=== PATIENT | female | born 1945 | race Caucasian/White ===

== ENCOUNTER → 2017-10-22 06:26 | Outpatient (CLI) | payer SELFPAY ==
--- NOTE | 2017-10-22 09:55 | STRESSREP ---
Stress Test Report Pharmacologic myocardial perfusion stress test. 72-year-old lady with a history of previous LAD stenting. Medications aspirin, carvedilol, lisinopril. Stress protocol: Resting EKG demonstrates normal sinus rhythm with a rate of 72 bpm left bundle branch block pattern is noted resting blood pressures 160/94 mmHg. 0.4 mg regadenoson was infused per usual protocol followed by rapid intravenous saline flush injection continuous EKG monitoring was performed. Patient maintained sinus rhythm throughout the recording. The maximum heart rate was 107 bpm which was 72% of maximum predicted heart rate the maximum workload was 1 metabolic equivalent. At rest left bundle branch block changes only were noted and at peak infusion left bundle branch block on it was noted. Myocardial perfusion protocol. 11.4 mCi of technetium 99m sestamibi was injected at rest. 0.4 mg of regadenoson was infused per usual protocol. Peak infusion 32.7 mCi of technetium 99m sestamibi was injected stress images were obtained stress and rest images were reconstructed and compared in the short axis vertical long horizontal long axis. Gated images were also obtained pre- Perfusion SPECT analysis: Review of the stress images demonstrate a medium-sized defect noted involving the mid anterior wall. The septum lateral wall and inferior wall appear to be well perfused. The resting images demonstrate mild to moderate improvement in this area suggesting residual ischemia present. Gated SPECT analysis. The gated ejection fraction is noted to be 57% with mild dyssynchrony noted of the anterior apical wall. Conclusion: Abnormal pharmacologic myocardial perfusion stress test with moderate mid anterior ischemia. Left bundle branch block pattern noted Mild left ventricular dyssynchrony. Preserved EF.
== END ==
PROVIDERS: Family Provider Nurse Practitioner Family; PCP Nurse Practitioner Family; Visit Provider Internal Medicine Cardiovascular Disease
DX: I25.10 Atherosclerotic heart disease of native coronary artery without angina pectoris (principal); I25.2 Old myocardial infarction; Z95.5 Presence of coronary angioplasty implant and graft; I25.5 Ischemic cardiomyopathy; I50.22 Chronic systolic (congestive) heart failure
CPT/HCPCS: 78452; 93017; 93306; A9500; A4216; J2785

== ENCOUNTER → 2017-10-30 08:44 | Outpatient (CLI) | payer OTHER, SELFPAY ==
[2017-10-30 09:24] LABS: Absolute Neutrophil Count 2.4 X10^3/uL (2.0-7.7); Basophil# 0.07 X10^3/uL; Basophil% 1.4 % (0-1); Eosinophil# 0.09 X10^3/uL; Eosinophils% 1.8 % (0-5); Hematocrit 39.1 % (37-47); Hemoglobin 12.9 g/dl (12.0-15.0); Lymphocyte % 41.1 % (19-41); Mean Corpuscular Hgb 30.4 pg (27.0-32.0); Mean Platelet Vol. 10.1 fl (6.2-12.0); Monocyte# 0.33 X10^3/uL; Monocyte% 6.8 % (0-10); Neutrophil # 2.38 X10^3/uL (2.7-7.7); Neutrophil % 48.9 % (47-70); Platelet Count 235 K/mm3 (150-450); RBC Distribution Width CV 12.7 % (11.6-14.6); RBC Distribution Width SD 42.5 fl (35.1-43.9); Red Blood Count 4.25 M/mm3 (4.2-5.4); White Blood Count 4.9 K/mm3 (4.4-11.0)
[2017-10-30 09:29] LABS: International Normalized Ratio 1.1; Prothrombin Time (Protime)PT. 13.9 SECONDS (11.7-14.9)
[2017-10-30 09:30] LABS: Partial Thromboplast Time 27.4 Seconds (24.1-36.2)
[2017-10-30 09:43] LABS: POSITIVE COUNT NO; POSITIVE DIFFERENTIAL NO; POSITIVE MORPHOLOGY NO
[2017-10-30 10:00] LABS: Anion Gap 10 (5-15); BUN 16 mg/dL (7-18); BUN/Creat Ratio 18.2 RATIO (10-20); Calcium,Total 9.1 mg/dL (8.5-10.1); Chloride 105 mmol/L (98-107); Creatinine, Serum 0.88 mg/dL (0.55-1.02); EST Glomerular Filtration Rate 67 mL/min (>60); Est Glom Filt Rate - Afr Amer 81 mL/min (>60); Glucose 103 mg/dL (74-106); Potassium 4.4 mmol/L (3.5-5.1); Sodium Level 141 mmol/L (136-145)
== END ==
PROVIDERS: Family Provider Nurse Practitioner Family; PCP Nurse Practitioner Family; Visit Provider Internal Medicine Cardiovascular Disease
DX: I11.0 Hypertensive heart disease with heart failure (principal); I50.22 Chronic systolic (congestive) heart failure; E78.5 Hyperlipidemia, unspecified; Z95.5 Presence of coronary angioplasty implant and graft; I25.5 Ischemic cardiomyopathy; I25.10 Atherosclerotic heart disease of native coronary artery without angina pectoris; I25.2 Old myocardial infarction; R94.39 Abnormal result of other cardiovascular function study
CPT/HCPCS: 36415; 71046; 80048; 85025; 85610; 85730

== ENCOUNTER 2017-11-05 08:28 | Day surgery (SDC) | payer OTHER, SELFPAY ==
[2017-11-02 08:46] VITALS: BMI 30.9
== END 2017-11-05 16:35 | disposition home or self-care (01) ==
LOC: CLSP 08:29
PROVIDERS: Family Provider Nurse Practitioner Family; PCP Nurse Practitioner Family; Visit Provider Internal Medicine Cardiovascular Disease
DX: I25.10 Atherosclerotic heart disease of native coronary artery without angina pectoris (principal); I25.2 Old myocardial infarction; Z95.5 Presence of coronary angioplasty implant and graft; Z79.899 Other long term (current) drug therapy; Z79.82 Long term (current) use of aspirin; E78.5 Hyperlipidemia, unspecified; I11.0 Hypertensive heart disease with heart failure; I50.22 Chronic systolic (congestive) heart failure
CPT/HCPCS: 93458; J7040; C1769; Q9967

== ENCOUNTER 2022-07-06 21:35 | Emergency (ER) | payer OTHER, SELFPAY ==
[2022-07-06 21:36] VITALS: BP 196/100; PULSE 77; RESP 18; TEMP 36.7; O2SAT 99; BMI 31.2
--- NOTE | 2022-07-06 22:20 | EX.ED.DYSGE1 ---
HPI History of Present Illness Chief Complaint: Cellulitis Informant: patient Onset/Context/Timing Onset: Today Context: Gradual Onset Current Severity: Mild Maximum Severity: Moderate Narrative Narrative: Patient presents secondary to pain and redness to the right lower extremity. She states she noted the symptoms today. She did not note a fever or chills at home. No wounds or injuries to her leg. She denies chest pain and shortness of breath. [facility] Medical History (Updated 07/06/22 @ 23:[address] Daxa Hinojosa MD) Atherosclerotic heart disease of [place] coronary artery without angina pectoris Chronic systolic CHF (congestive heart failure) Essential (primary) hypertension History of non-ST elevation myocardial infarction (NSTEMI) (07/01/14) Hyperlipidemia Ischemic cardiomyopathy Left bundle branch block (LBBB) Home Medications artic sea 1 tab PO DAILY 10/03/17 [History Last Taken Unknown] aspirin 81 mg tablet,delayed release (Adult Aspirin Regimen) 81 mg PO QDAY 10/03/17 [History Last Taken 11/05/17] cinnamon bark 500 mg capsule (Cinnamon) 500 mg PO BID 10/03/17 [History Last Taken Unknown] multivitamin 1 tab PO QDAY 10/03/17 [History Last Taken Unknown] nitroglycerin 0.4 mg sublingual tablet 0.4 mg sublingual Q5-15M PRN chest pain 10/03/17 [History Last Taken Unknown] calcium carbonate 1,000 mg tablet 2,000 mg PO DAILY 05/09/19 [History Last Taken Unknown] red yeast rice 600 mg capsule 1,200 mg PO QHS 05/09/19 [History Last Taken Unknown] carvedilol 6.25 mg tablet 6.25 mg PO BID #180 tabs 05/17/21 [Rx Last Taken Unknown] citalopram 10 mg tablet 10 mg PO DAILY 05/17/21 [History Last Taken Unknown] lisinopril 5 mg tablet 5 mg PO DAILY #90 tabs 07/28/21 [Rx Last Taken Unknown] cephalexin 500 mg capsule 500 mg PO Q6 #40 CAPSULES 07/06/22 [Rx Last Taken Unknown] sulfamethoxazole 800 mg-trimethoprim 160 mg tablet (Bactrim DS) 1 tab PO BID #20 tabs 07/06/22 [Rx Last Taken Unknown] Allergy/AdvReac Type Severity Reaction Status Date / Time No Known Allergies Allergy Verified 07/06/22 21:38 Family History Father CAD (coronary artery disease) Sudden cardiac Sister Hypertension Surgical History History of coronary artery stent placement (07/01/14) History of left heart catheterization (11/05/17) History of right and left heart catheterization (07/01/14) Social History Smoking Status: Never smoker ROS ROS ED Constitutional Constitutional ED: Denies chills or fever(s) Eyes Eyes: Denies change in vision or discharge from eye(s) ENT ENT ED: Denies discharge from eye(s), rhinorrhea or sore throat Cardiovascular Cardiovascular: Denies chest pain or palpitations Respiratory/Chest Respiratory/Chest: Denies cough or dyspnea Gastrointestinal Gastrointestinal: Denies abdominal pain, nausea or vomiting Genitourinary Genitourinary ED: Denies dysuria Musculoskeletal Musculoskeletal: Reports extremity pain; Denies back pain Integumentary Reports other Details: Right leg erythema ; Denies Abrasions or rash Neurologic Neurologic: Denies headache(s) or weakness Psychiatric Psychiatric: Denies anxiety or depression Allergic/Immunologic Allergic/Immunologic ED: Denies lip swelling or urticaria EXAM Physical Exam Const Vital Signs: 07/06/22 21:36 Temperature 98.0 F Temperature Source Temporal Pulse Rate 77 Respiratory Rate 18 Blood Pressure 196/100 H Blood Pressure Mean 132 Pulse Ox 99 Oxygen Delivery Method Room Air Positive well nourished and well developed General Appearance ED: well developed HEENT Reports moist mucous membranes Eyes PERRL and EOMs intact bilaterally Neck no lymphadenopathy Chest Wall inspection of chest normal and palpation of chest normal Resp normal respiratory effort and clear to auscultation bilaterally Cardio regular rate and regular rhythm GI normal to inspection, nondistended, normoactive bowel sounds Extremity Extremity Narrative: Erythema to the distal aspect of the right lower leg over the anterior leg. No open wounds or lesions. No tenderness or erythema over the foot. Neuro oriented x3 and no sensory deficits noted Motor Exam: strength 5/5 throughout Psych mental status grossly normal Skin Skin Narrative: Right leg erythema as noted above. MDM MDM MDM Narrative Medical decision making narrative: Although patient's blood pressure is elevated here she does bring along her blood pressure trends for the last couple of days. She is been running in the 120s to 130s systolic. Given the patient's cellulitis lab work is obtained including blood cultures to evaluate for infection. Right lower extremity ultrasound is of obtained to evaluate for DVT. Lab Data Attestation: I reviewed the patient's lab results. Labs: Laboratory Results - last 24 hr 07/06/22 07/06/22 22:29 22:29 WBC 6.1 RBC 4.11 L Hgb 12.7 Hct 39.1 MCV 95.1 MCH 30.9 MCHC 32.5 RDW Std Deviation 46.2 H RDW Coeff of Lizet 13.2 Plt Count 220 MPV 9.8 Immature Gran % (Auto) 0.200 Neut % (Auto) 48.3 Lymph % (Auto) 38.1 [place] % (Auto) 10.6 H Eos % (Auto) 1.8 Baso % (Auto) 1.0 Absolute Neuts (auto) 2.9 Absolute Lymphs (auto) 2.31 Nucleated RBC % 0 Sodium 140 Potassium 3.8 Chloride 104 Carbon Dioxide 28.0 Anion Gap 8 BUN 21 H Creatinine 0.87 Estim Creat Clear Calc 46.76 Est GFR (MDRD) Af Amer 81 Est GFR (MDRD) Non-Af 67 BUN/Creatinine Ratio 24.1 H Glucose 115 H Calcium 9.3 Treatment and Re-Evaluation :: CBC was normal white count and normal differential. Chemistry studies unremarkable. Venous ultrasound of the right lower extremity reveals no evidence of DVT. She does have a Bakers cyst noted behind the right knee measuring approximate 4 cm in diameter. Patient states that when she had meniscus surgery in the past they did drain this but apparently is reaccumulating. The erythema on her right lower leg is outlined with a surgical marker. She will be started on Bactrim and Keflex to treat her cellulitis. Return instructions provided. Discharge Plan Triage Chief Complaint: Cellulitis ED Provider: Daxa Hinojosa Dx/Rx/DC Orders Clinical Impression: Cellulitis Instructions: ED Cellulitis Prescriptions: New sulfamethoxazole-trimethoprim [Bactrim DS] 800-160 mg tablet 1 tab PO BID Qty: 20 0RF cephalexin 500 mg capsule 500 mg PO Q6 Qty: 40 0RF No Action aspirin [Adult Aspirin Regimen] 81 mg tablet,delayed release (DR/EC) 81 mg PO QDAY cinnamon bark [Cinnamon] 500 mg capsule 500 mg PO BID multivitamin tablet 1 tab PO QDAY nitroglycerin 0.4 mg tablet, sublingual 0.4 mg SUBLINGUAL Q5-15M PRN (Reason: chest pain) artic sea 1 tab PO DAILY calcium carbonate 1,000 mg tablet 1,000 mg tablet 2,000 mg PO DAILY red yeast rice 600 mg capsule 1,200 mg PO QHS Label Comments: 600 mg PO at bedtime Rx Instructions: 600 mg PO at bedtime citalopram 10 mg tablet 10 mg PO DAILY carvedilol 6.25 mg tablet 6.25 mg PO BID Qty: 180 3RF lisinopril 5 mg tablet 5 mg PO DAILY Qty: 90 3RF Primary Care Provider: Soraida Loera Referrals: Soraida Loera DO [Primary Care Provider] - 1-2 Weeks Disposition Disposition: Home, Self Care
--- NOTE | 2022-07-06 22:22 | US_ITS ---
EXAM: US right lower extremity venous Doppler. HISTORY: RT LOWER LEG REDNESS AND SWELLING TECHNIQUE: US Venous Duplex LE Unilat / Limited COMPARISON: None. LIMITATIONS: None. FLOW: Normal. THROMBUS: None. AUGMENTATION: Normal. 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 SUPERFICIAL VEINS: Normal. OTHER: None. CONCLUSION: No evidence of deep venous thrombosis of the right lower extremity. Electronically Signed: Oswald Gonzalez MD at 23:14 EDT , US/Venous Duplex Imag/Limited/Uni IMPRESSION: undefined
[2022-07-06 22:37] LABS: Absolute Lymphocyte Count 2.31 X10^3/uL (0.83-4.51); Absolute Neutrophil Count 2.9 X10^3/uL (2.0-7.7); Basophil# 0.06 X10^3/uL; Eosinophil# 0.11 X10^3/uL; Eosinophils% 1.8 % (0-5); Hematocrit 39.1 % (37-47); Hemoglobin 12.7 g/dL (12.0-15.0); Lymphocyte # 2.31 X10^3/ul (0.83-4.51); Lymphocyte % 38.1 % (19-41); Mean Corp Hgb Conc 32.5 g/dL (32-36); Mean Corpuscular Hgb 30.9 pg (27.0-32.0); Mean Corpuscular Volume 95.1 fL (81-99); Mean Platelet Vol. 9.8 fl (6.2-12.0); Monocyte# 0.64 X10^3/uL; Monocyte% 10.6 % (0-10); NRBC Flagged by Analyzer 0 % (0-5); Neutrophil # 2.93 X10^3/uL (2.7-7.7); Neutrophil % 48.3 % (47-70); Platelet Count 220 K/mm3 (150-450); RBC Distribution Width CV 13.2 % (11.6-14.6); RBC Distribution Width SD 46.2 fl (35.1-43.9); Red Blood Count 4.11 M/mm3 (4.2-5.4); White Blood Count 6.1 K/mm3 (4.4-11.0)
[2022-07-06 22:55] LABS: Anion Gap 8 (5-15); BUN 21 mg/dL (7-18); BUN/Creat Ratio 24.1 RATIO (10-20); Calcium,Total 9.3 mg/dL (8.5-10.1); Chloride 104 mmol/L (98-107); Creatinine, Serum 0.87 mg/dL (0.55-1.02); EST Glomerular Filtration Rate 67 mL/min (>60); Est Glom Filt Rate - Afr Amer 81 mL/min (>60); Estimated Creatinine Clearance 46.76 ml/min; Glucose 115 mg/dL (74-106); Potassium 3.8 mmol/L (3.5-5.1); Sodium Level 140 mmol/L (136-145)
[2022-07-06 23:03] VITALS: BP 146/77; PULSE 81; RESP 14; O2SAT 97
[2022-07-06] MEDS: Smz/Tmp Ds Tablet 1 TABLET PO (23:07)
[2022-07-06] MEDS: Cephalexin 250 MG Capsule 500 MG PO (23:07)
== END 2022-07-06 23:16 | disposition home or self-care (01) ==
PROVIDERS: Emergency Provider Emergency Medicine; PCP Internal Medicine; Visit Provider Emergency Medicine
DX: L03.90 Cellulitis, unspecified (principal); I11.0 Hypertensive heart disease with heart failure; I50.22 Chronic systolic (congestive) heart failure; I25.10 Atherosclerotic heart disease of native coronary artery without angina pectoris; E78.5 Hyperlipidemia, unspecified; Z79.82 Long term (current) use of aspirin; Z95.5 Presence of coronary angioplasty implant and graft
CPT/HCPCS: 80048; 85025; 87040; 93971; 99284; A4216

== ENCOUNTER 2022-07-10 22:34 | Emergency (ER) | payer OTHER, SELFPAY ==
[2022-07-10 22:35] VITALS: BP 207/92; PULSE 70; RESP 18; TEMP 36.8; O2SAT 97
--- NOTE | 2022-07-10 23:03 | EKG12_ITS ---
Test Reason : DYSRHYTHMIA Blood Pressure : / mmHG Vent. Rate : 063 BPM Atrial Rate : 063 BPM P-R Int : 174 ms QRS Dur : 142 ms QT Int : 476 ms P-R-T Axes : 046 -41 079 degrees QTc Int : 487 ms Normal sinus rhythm Left axis deviation Left bundle branch block Abnormal ECG Confirmed by GALILEO FERNANDO, JORY ([id number]), field map editor NATASHA GONCALVES ([id number]) on 07/11/2022 9:52:21 AM Referred By: JOSLYN Confirmed By:JORY GURROLA MD
[2022-07-10 23:14] VITALS: BP 180/72; PULSE 66; RESP 15; O2SAT 97
[2022-07-10] MEDS: proCHLORPERazine 10 MG/2 ML Vial 5 MG IV (23:22)
[2022-07-10 23:29] LABS: Absolute Lymphocyte Count 1.86 X10^3/uL (0.83-4.51); Absolute Neutrophil Count 5.1 X10^3/uL (2.0-7.7); Basophil# 0.04 X10^3/uL; Basophil% 0.5 % (0-1); Eosinophil# 0.06 X10^3/uL; Eosinophils% 0.8 % (0-5); Hematocrit 40.4 % (37-47); Hemoglobin 14.1 g/dL (12.0-15.0); Lymphocyte # 1.86 X10^3/ul (0.83-4.51); Lymphocyte % 24.8 % (19-41); Mean Corp Hgb Conc 34.9 g/dL (32-36); Mean Corpuscular Hgb 31.3 pg (27.0-32.0); Mean Corpuscular Volume 89.6 fL (81-99); Mean Platelet Vol. 9.7 fl (6.2-12.0); Monocyte# 0.35 X10^3/uL; Monocyte% 4.7 % (0-10); NRBC Flagged by Analyzer 0 % (0-5); Neutrophil # 5.12 X10^3/uL (2.7-7.7); Neutrophil % 68.3 % (47-70); Platelet Count 250 K/mm3 (150-450); RBC Distribution Width CV 12.3 % (11.6-14.6); RBC Distribution Width SD 40.4 fl (35.1-43.9); Red Blood Count 4.51 M/mm3 (4.2-5.4); White Blood Count 7.5 K/mm3 (4.4-11.0)
[2022-07-10 23:36] LABS: Anion Gap 12 (5-15); BUN 19 mg/dL (7-18); BUN/Creat Ratio 20.7 RATIO (10-20); Calcium,Total 9.2 mg/dL (8.5-10.1); Chloride 92 mmol/L (98-107); Creatinine, Serum 0.92 mg/dL (0.55-1.02); EST Glomerular Filtration Rate 63 mL/min (>60); Est Glom Filt Rate - Afr Amer 76 mL/min (>60); Glucose 135 mg/dL (74-106); Potassium 4.1 mmol/L (3.5-5.1); Sodium Level 126 mmol/L (136-145); Troponin-I HS 10 pg/mL (3.0-54.0)
[2022-07-10 23:45] VITALS: BP 165/69; PULSE 80; RESP 18; O2SAT 94
[2022-07-11] VITALS: PULSE 67; RESP 12; O2SAT 92
--- NOTE | 2022-07-11 00:22 | EDS_ITS ---
HPI History of Present Illness Chief Complaint: Hypertension Narrative Narrative: Patient is a 77-year-old female with past medical history of hypertension and CAD as well as hyperlipidemia. She was seen in the ER on July 06 secondary to right lower leg cellulitis and placed on Bactrim and Keflex. She states that over the last few days her stomach is felt upset. She states that she has not been eating well because of this. She reports that today she had 2 bouts of nausea with vomiting. She denies any blood or discoloration to the emesis. She states that she checked her blood pressure and it was elevated approximately 180-190 systolically at home. She states that typically on just lisinopril her blood pressure will run approximately 120 systolically. She denies any headache change in vision or abdominal pain but with the bouts of nausea and vomiting as well as the elevated blood pressure she presents for evaluation. [facility] Medical History (Updated 07/11/22 @ 01:[address] Loyd Gregg, DO) Atherosclerotic heart disease of [place] coronary artery without angina pectoris Chronic systolic CHF (congestive heart failure) Essential (primary) hypertension History of non-ST elevation myocardial infarction (NSTEMI) (07/01/14) Hyperlipidemia Ischemic cardiomyopathy Left bundle branch block (LBBB) Home Medications artic sea 1 tab PO DAILY 10/03/17 [History Last Taken Unknown] aspirin 81 mg tablet,delayed release (Adult Aspirin Regimen) 81 mg PO QDAY 10/03/17 [History Last Taken 11/05/17] cinnamon bark 500 mg capsule (Cinnamon) 500 mg PO BID 10/03/17 [History Last Taken Unknown] multivitamin 1 tab PO QDAY 10/03/17 [History Last Taken Unknown] nitroglycerin 0.4 mg sublingual tablet 0.4 mg sublingual Q5-15M PRN chest pain 10/03/17 [History Last Taken Unknown] calcium carbonate 1,000 mg tablet 2,000 mg PO DAILY 05/09/19 [History Last Taken Unknown] red yeast rice 600 mg capsule 1,200 mg PO QHS 05/09/19 [History Last Taken Unknown] carvedilol 6.25 mg tablet 6.25 mg PO BID #180 tabs 05/17/21 [Rx Last Taken Unknown] citalopram 10 mg tablet 10 mg PO DAILY 05/17/21 [History Last Taken Unknown] lisinopril 5 mg tablet 5 mg PO DAILY #90 tabs 07/28/21 [Rx Last Taken Unknown] cephalexin 500 mg capsule 500 mg PO Q6 #40 CAPSULES 07/06/22 [Rx Last Taken Unknown] sulfamethoxazole 800 mg-trimethoprim 160 mg tablet (Bactrim DS) 1 tab PO BID #20 tabs 07/06/22 [Rx Last Taken Unknown] ondansetron 4 mg disintegrating tablet 4 mg PO TID PRN nausea and vomiting 7 days #21 tabs 07/11/22 [Rx Last Taken Unknown] Allergy/AdvReac Type Severity Reaction Status Date / Time No Known Allergies Allergy Verified 07/10/22 22:37 Family History Father CAD (coronary artery disease) Sudden cardiac Sister Hypertension Surgical History History of coronary artery stent placement (07/01/14) History of left heart catheterization (11/05/17) History of right and left heart catheterization (07/01/14) Social History Smoking Status: Never smoker ROS ROS ED Constitutional Constitutional ED: Denies chills or fever(s) Eyes Eyes: Denies change in vision ENT ENT ED: Denies sore throat Cardiovascular Cardiovascular: Denies chest pain Respiratory/Chest Respiratory/Chest: Denies cough or dyspnea Gastrointestinal Gastrointestinal: Reports diarrhea, nausea and vomiting; Denies abdominal pain Genitourinary Genitourinary ED: Denies dysuria Musculoskeletal Musculoskeletal: Denies myalgias Integumentary Denies rash Neurologic Neurologic: Denies headache(s), paresthesias or weakness Hematologic/Lymphatic Hematologic/Lymphatic: Denies easy bleeding or easy bruising EXAM Physical Exam Const Vital Signs: 07/10/22 22:35 07/10/22 23:14 07/10/22 23:14 Temperature 98.3 F Temperature Source Temporal Pulse Rate 70 66 Respiratory Rate 18 15 Respiratory Effort Normal Respiratory Pattern Normal Blood Pressure 207/92 H 180/72 H Blood Pressure Mean 130 108 Pulse Ox 97 97 Oxygen Delivery Method Room Air Room Air 07/10/22 23:45 07/11/22 00:00 07/11/22 00:27 Temperature Temperature Source Pulse Rate 80 67 68 Respiratory Rate 18 12 17 Respiratory Effort Respiratory Pattern Blood Pressure 165/69 H 141/63 H Blood Pressure Mean 97 Pulse Ox 94 92 93 Oxygen Delivery Method Positive well nourished and well developed General Appearance ED: well developed HEENT Reports moist mucous membranes Eyes PERRL and EOMs intact bilaterally General Eye ED: Negative for scleral icterus Neck supple Neck Narrative: No nuchal rigidity or meningeal signs Resp normal respiratory effort and clear to auscultation bilaterally Cardio regular rate and regular rhythm Rate: other Other Details: Radial pulses are plus 2 out of 4 bilaterally are equal and symmetric GI non-tender and non-distended GI Narrative: Abdomen is soft nontender and nondistended with hyperactive bowel sounds. No voluntary guarding or rigidity. No pulsatile mass Auscultation: hyperactive bowel sounds Palpation: soft Extremity normal to inspection Extremity Narrative: No asymmetric edema no pitting edema negative Homans' sign bilaterally. The cellulitis previous treated on July 06 has resolved. Neuro oriented x3, CN's II-XII intact bilaterally and no sensory deficits noted Neuro Narrative: Cranial nerves II through XII are grossly intact there are no focal neurologic deficits. No pronator drift no dysmetria no truncal ataxia. NIH stroke scale score of 0 Sensorium / Orientation: alert Psych mental status grossly normal Skin no rashes or lesions noted MDM MDM MDM Narrative Medical decision making narrative: Patient presented to the ER hypertensive with a systolic value above 200. Despite this she had no headache or change in vision or abdominal pain. Therefore my concern for a spontaneous subarachnoid or hemorrhagic stroke is low. Also she did not complain of abdominal pain or chest pain I have low concern for acute coronary syndrome or a abdominal aortic aneurysm/dissection. Based on the fact patient has normal blood pressure at home and is not elevated I feel this is secondary to feeling unwell as well as whitecoat syndrome. In order to ensure that there are no signs of endorgan damage I did elect to perform a basic blood work. Labs showed no signs of acute kidney injury or elevation to her cardiac enzymes. EKG is normal sinus rhythm. And has neuro exam is normal and she has no headache I do not feel the need for a CT scan. The patient's sodium is low at 126 which correlate with her not eating or drinking well for the last few days and therefore she was given normal saline to help replenish this. As I felt that the blood pressure was related to feeling unwell and nerves I gave her IV Compazine and this reduced her blood pressure to 141/63. Therefore at this time with work-up showing no signs of endorgan damage and blood pressure improving there is no need for further observation in the ER he is otherwise safe for discharge. History & Record Review Discussion w/independent historian: Patient, Family and Significant other Lab Data Attestation: I reviewed the patient's lab results. Labs: Laboratory Results - last 24 hr 07/10/22 07/10/22 23:12 23:12 WBC 7.5 RBC 4.51 Hgb 14.1 Hct 40.4 MCV 89.6 D MCH 31.3 MCHC 34.9 D RDW Std Deviation 40.4 RDW Coeff of Lizet 12.3 Plt Count 250 MPV 9.7 Immature Gran % (Auto) 0.900 Neut % (Auto) 68.3 Lymph % (Auto) 24.8 [place] % (Auto) 4.7 Eos % (Auto) 0.8 Baso % (Auto) 0.5 Absolute Neuts (auto) 5.1 Absolute Lymphs (auto) 1.86 Nucleated RBC % 0 Sodium 126 L Potassium 4.1 Chloride 92 L Carbon Dioxide 22.0 Anion Gap 12 BUN 19 H Creatinine 0.92 Est GFR (MDRD) Af Amer 76 Est GFR (MDRD) Non-Af 63 BUN/Creatinine Ratio 20.7 H Glucose 135 H Calcium 9.2 Troponin I High Sens 10 Discharge Plan Triage Chief Complaint: Hypertension ED Provider: Loyd Gregg Dx/Rx/DC Orders Clinical Impression: Accelerated hypertension, Hyponatremia, Left bundle branch block (LBBB) Instructions: ED Hypertension, Established, ED Hyponatremia Prescriptions: New ondansetron 4 mg tablet,disintegrating 4 mg PO TID PRN (Reason: nausea and vomiting) 7 Days Qty: 21 0RF No Action aspirin [Adult Aspirin Regimen] 81 mg tablet,delayed release (DR/EC) 81 mg PO QDAY cinnamon bark [Cinnamon] 500 mg capsule 500 mg PO BID multivitamin tablet 1 tab PO QDAY nitroglycerin 0.4 mg tablet, sublingual 0.4 mg SUBLINGUAL Q5-15M PRN (Reason: chest pain) artic sea 1 tab PO DAILY calcium carbonate 1,000 mg tablet 1,000 mg tablet 2,000 mg PO DAILY red yeast rice 600 mg capsule 1,200 mg PO QHS Label Comments: 600 mg PO at bedtime Rx Instructions: 600 mg PO at bedtime citalopram 10 mg tablet 10 mg PO DAILY carvedilol 6.25 mg tablet 6.25 mg PO BID Qty: 180 3RF lisinopril 5 mg tablet 5 mg PO DAILY Qty: 90 3RF sulfamethoxazole-trimethoprim [Bactrim DS] 800-160 mg tablet 1 tab PO BID Qty: 20 0RF cephalexin 500 mg capsule 500 mg PO Q6 Qty: 40 0RF Primary Care Provider: Soraida Loera Referrals: Soraida Loera DO [Primary Care Provider] - Activity Restrictions/Additional Instructions: Please continue the antibiotics as directed from your last visit but begin taking Zofran 3 times a day to control any nausea sensation associated with the medication. If you have any further concerns or worsening of symptoms please return for repeat evaluation Disposition Disposition: Home, Self Care Discharge Date/Time: 07/11/22 00:35
[2022-07-11 00:27] VITALS: BP 141/63; PULSE 68; RESP 17; O2SAT 93
[2022-07-11 00:29] VITALS: BMI 31.6
[2022-07-11] MEDS: Ondansetron ODT 4 MG Tablet PO (00:32)
== END 2022-07-11 00:35 | disposition home or self-care (01) ==
PROVIDERS: Emergency Provider Emergency Medicine; PCP Internal Medicine; Visit Provider Emergency Medicine
DX: I11.0 Hypertensive heart disease with heart failure (principal); I50.22 Chronic systolic (congestive) heart failure; E87.1 Hypo-osmolality and hyponatremia; I25.10 Atherosclerotic heart disease of native coronary artery without angina pectoris; E78.5 Hyperlipidemia, unspecified; Z79.82 Long term (current) use of aspirin; Z79.899 Other long term (current) drug therapy; Z95.5 Presence of coronary angioplasty implant and graft; I44.7 Left bundle-branch block, unspecified
CPT/HCPCS: 80048; 84484; 85025; 93005; 96361; 96374; 99283; J7040; A4216

== ENCOUNTER 2024-10-24 21:15 | Emergency (ER) | payer OTHER, SELFPAY ==
[2024-10-24 21:16] VITALS: BP 218/101; PULSE 64; RESP 18; TEMP 36.2; O2SAT 97; BMI 29.1
[2024-10-24 22:02] LABS: Hematocrit 38.8 % (37-47); Hemoglobin 14.0 g/dL (12.0-15.0); Immature Granulocytes Count 0.010 X10^3/uL (0.0-0.0); Mean Corp Hgb Conc 36.1 g/dL (32-36); Mean Corpuscular Volume 90.9 fL (81-99); Mean Platelet Vol. 9.9 fl (6.2-12.0); NRBC Flagged by Analyzer 0 % (0-5); Platelet Count 248 K/mm3 (150-450); RBC Distribution Width CV 12.5 % (11.6-14.6); RBC Distribution Width SD 41.3 fl (35.1-43.9); Red Blood Count 4.27 M/mm3 (4.2-5.4); White Blood Count 6.3 K/mm3 (4.4-11.0)
[2024-10-24 22:03] VITALS: O2SAT 97
[2024-10-24 22:04] VITALS: BP 198/76; PULSE 61; RESP 18; O2SAT 98
--- NOTE | 2024-10-24 22:18 | RAD_ITS ---
PROCEDURE: CHEST 1 VIEW (PORTABLE) 10/24/2024 REASON FOR EXAM: CHEST PAIN TECHNIQUE: Frontal view of the chest. COMPARISON: 10/30/2017 FINDINGS: Lungs/Pleura: Clear. No pneumothorax or sizable pleural effusion. Heart/Mediastinum: Within normal limits. Bones/Soft tissues: Mild degenerative changes of the thoracic spine. RAD/Chest 1 View (Portable) IMPRESSION: No acute cardiopulmonary disease. Reading Location: [id number]
[2024-10-24 22:29] LABS: Anion Gap 13 (5-15); BUN 11 mg/dL (4-19); BUN/Creat Ratio 14.5 RATIO (10-20); Calcium,Total 10.0 mg/dL (7.6-11.0); Carbon Dioxide 24.4 mmol/L (21.0-32.0); Chloride 100 mmol/L (98-108); Estimated Creatinine Clearance 59.41 ml/min (50-250); Glucose 111 mg/dL (70-99); Potassium 4.1 mmol/L (3.3-5.1); Troponin T High Sensitivity 16 ng/L (<=14)
--- NOTE | 2024-10-24 22:37 | EX.ED.DYSGE1 ---
HPI History of Present Illness Chief Complaint: Hypertension Informant: patient and family Onset/Context/Timing Onset: Weeks Context: Gradual Onset Timing: Intermittent Current Severity: Mild Maximum Severity: Mild Narrative Narrative: 79-year-old female history of hypertension for which he takes carvedilol and lisinopril. Recently her primary care physician and internet researcher office have been adjusting medications to try to get her blood pressure better under control. The last 3 weeks been running higher. She also has a history of prior CT with cardiac stent and is on aspirin only no other anticoagulation. States she has had intermittent diarrhea last several days but none today. Denies any headache. No chest pain. Prior similar symptoms: Yes Recent Illness/Hospitalization: No PFSH [facility] Medical History Anxiety Degenerative disc disease Left bundle branch block (LBBB) Essential (primary) hypertension Hyperlipidemia Chronic systolic CHF (congestive heart failure) Ischemic cardiomyopathy Atherosclerotic heart disease of [place] coronary artery without angina pectoris History of non-ST elevation myocardial infarction (NSTEMI) (07/01/14) Home Medications ?Medication ?Instructions ?Recorded ?Last Taken ?Type artic sea 1 tab PO DAILY 10/03/17 Unknown History aspirin 81 mg tablet,delayed 81 mg PO QDAY 10/03/17 11/05/17 History release (Adult Aspirin Regimen) cinnamon bark 500 mg capsule 500 mg PO BID 10/03/17 Unknown History (Cinnamon) multivitamin 1 tab PO QDAY 10/03/17 Unknown History calcium carbonate 1,000 mg tablet 2,000 mg PO DAILY 05/09/19 Unknown History red yeast rice 600 mg capsule 1,200 mg PO QHS 05/09/19 Unknown History aloe PO 10/05/23 Unknown History garlic thyme PO 10/05/23 Unknown History magnesium maleate PO 10/05/23 Unknown History phytomega PO 10/05/23 Unknown History carvedilol 6.25 mg tablet 6.25 mg PO BID #60 tabs 10/02/24 Unknown Rx lisinopril 10 mg tablet 10 mg PO BID 10/02/24 Unknown History escitalopram oxalate 10 mg tablet 10 mg PO DAILY 10/24/24 Unknown History (Lexapro) Allergy/AdvReac Type Severity Reaction Status Date / Time No Known Allergies Allergy Verified 10/24/24 21:16 Family History Father CAD (coronary artery disease) Sudden cardiac Sister Hypertension Surgical History History of coronary artery stent placement (07/01/14) History of left heart catheterization (11/05/17) History of right and left heart catheterization (07/01/14) Social History Smoking Status: Never smoker ROS ROS ED ROS Narrative Diarrhea. Constitutional Constitutional ED: Denies chills or fever(s) Eyes Eyes: Denies blurry vision ENT ENT ED: Denies ear pain Cardiovascular Cardiovascular: Denies chest pain Respiratory/Chest Respiratory/Chest: Denies cough or dyspnea Gastrointestinal Gastrointestinal: Reports diarrhea; Denies abdominal pain, constipation, melena, nausea or vomiting Genitourinary Genitourinary ED: Denies dysuria or hematuria Musculoskeletal Musculoskeletal: Denies arthralgias or back pain Integumentary Denies abscess or Abrasions Neurologic Neurologic: Denies headache(s) Psychiatric Psychiatric: Denies anxiety or depression Endocrine Endocrinology: Denies cold intolerance Hematologic/Lymphatic Hematologic/Lymphatic: Reports none Allergic/Immunologic Allergic/Immunologic ED: Denies mouth swelling, tongue swelling or urticaria EXAM Physical Exam Narrative Exam Narrative: 79-year-old female sitting upright in bed vital signs stable she pressures elevated 218/101. Currently 1 minute Riomet's 191/81. She is in no distress. Family at bedside. H EENT exam pupils round react light extra motions are intact. No facial droop. Normal speech. No trauma. Neck nontender no JVD. Lungs clear to auscultation bilaterally. Heart regular rate and rhythm rate about 60 no murmur. Chest wall ribs nontender. Abdomen soft nontender. Moving all 4 extremities. Normal engineering programmer strength. Normal dorsi plantarflexion. Calves nontender no edema no cords. Neurologically she is awake alert. Answering questions following commands. NIH 0. Benign exam. Const Vital Signs: 10/24/24 21:16 10/24/24 22:03 10/24/24 22:04 Temperature 97.2 F L Temperature Source Temporal Pulse Rate 64 61 Respiratory Rate 18 18 Respiratory Effort Respiratory Pattern Blood Pressure 218/101 H 198/76 H Blood Pressure Mean 140 116 Pulse Ox 97 97 98 Oxygen Delivery Method Room Air Room Air Room Air 10/24/24 22:04 10/24/24 23:09 10/24/24 23:58 Temperature Temperature Source Pulse Rate 73 59 L Respiratory Rate 16 16 Respiratory Effort Normal Respiratory Pattern Normal Blood Pressure 176/74 H 199/71 H Blood Pressure Mean 108 113 Pulse Ox 98 97 Oxygen Delivery Method Room Air Room Air Positive well nourished and well developed; Negative for cachectic, contractures or unkempt General Appearance ED: well developed and NAD; Negative for unkempt, cachectic, contractures, cyanotic, diaphoretic or pallor Nutritional Appearance: Negative for cachectic HEENT Reports moist mucous membranes Negative for trauma or tenderness Eyes PERRL and EOMs intact bilaterally General Eye ED: Negative for pale conjunctiva or scleral icterus Neck no lymphadenopathy, supple and no JVD Chest Wall inspection of chest normal and palpation of chest normal Resp normal respiratory effort and clear to auscultation bilaterally Cardio regular rate, regular rhythm, S1 normal heart sound, S2 normal heart sound and no murmurs GI normal to inspection, nondistended, normoactive bowel sounds, non-tender, non-distended and no masses Auscultation: normoactive bowel sounds Palpation: soft; Negative for tender, guarding or rebound tenderness present Back/Spine no CVA tenderness General Back: Negative for CVA tenderness Cervical Spine: Negative for cervical spine tenderness Thoracic Spine / Upper Back: Negative for thoracic spinal tenderness or paraspinal muscle tenderness Lumbar Spine / Lower Back: Negative for lumbar spinal tenderness Extremity normal to inspection General Extremety ED: Negative for edema or tenderness General Extremity: Negative for edema Neuro oriented x3, CN's II-XII intact bilaterally and no sensory deficits noted Sensorium / Orientation: alert; Negative for orientation impaired or lethargic Motor Exam: strength 5/5 throughout Psych mental status grossly normal Appearance: Negative for unkempt Mood & Affect: Negative for depressed, anxious or tearful Skin no rashes or lesions noted, no wounds and skin turgor normal General Skin Exam: Negative for jaundice or pallor Rashes: No rashes noted Trauma: Negative for abrasion Wounds: Negative for wounds noted MDM MDM MDM Narrative Medical decision making narrative: 79-year-old female history of hypertension basically been poorly controlled last several weeks also has had some intermittent diarrhea. She has a very benign exam. She be given a dose of lisinopril 20 mg p.o. Screening labs were obtained by nurses by triage protocol. Repeat exam patient is doing well at 12:07 AM patient doing well. Blood pressure 186/76. She feels fine. We are can let her go home. She can adjust her blood pressure medication to lisinopril 20 mg twice a day. Leave the carvedilol at 6.25 twice daily. Follow-up with her primary care physician and her internet researcher office next week to have them reevaluate her blood pressure medications and readings. They are comfortable with the plan. History & Record Review Discussion w/independent historian: Patient and Family Additional record(s) reviewed:: Prior inpatient record, Prior outpatient record, Prior ED visit, Prior labs and No prior records Lab Data Attestation: I reviewed the patient's lab results. Lab results narrative: CBC shows a white count of 6. H&H 14 and 38. Platelets 248. Electrolytes shows sodium 137. Gap 13. Normal BUN and creatinine 11 and 0.7. Glucose 111. Troponin 16. Labs: Laboratory Results - last 24 hr 10/24/24 21:37 WBC 6.3 RBC 4.27 Hgb 14.0 Hct 38.8 MCV 90.9 MCH 32.8 H MCHC 36.1 H RDW Std Deviation 41.3 RDW Coeff of Lizet 12.5 Plt Count 248 MPV 9.9 Immature Gran % (Auto) 0.200 Neut % (Auto) 52.8 Lymph % (Auto) 35.9 [place] % (Auto) 8.4 Eos % (Auto) 1.6 Baso % (Auto) 1.1 H Absolute Neuts (auto) 3.4 Absolute Lymphs (auto) 2.27 Nucleated RBC % 0 Sodium 137 Potassium 4.1 Chloride 100 Carbon Dioxide 24.4 Anion Gap 13 BUN 11 Creatinine 0.74 Estim Creat Clear Calc 59.41 Est GFR (MDRD) Non-Af 83 BUN/Creatinine Ratio 14.5 Glucose 111 H Calcium 10.0 Troponin T High Sens 16 H Radiography Chest X-Ray - ED: 1 View, Read by ED Physician, Read by Radiologist, Normal, Heart, Lungs, Mediastinum, Bony Structures, No Acute Disease and Chronic Changes Diagnostic Testing: Clinical Impression(s) from Imaging Studies Chest X-Ray 10/24/24 22:18 IMPRESSION: No acute cardiopulmonary disease. Reading Location: [id number] Chest x-ray, portable, single view interpreted by myself and radiologist shows normal cardiac silhouette. Normal mediastinum. Normal lung gomez. Chronic changes no acute process. Discharge Plan Triage Chief Complaint: Hypertension ED Provider: Adan Adrian Dx/Rx/DC Orders Clinical Impression: Chronic hypertension, Essential (primary) hypertension, History of CAD (coronary artery disease) Instructions: ED High Blood Pressure Hypertension Prescriptions: No Action aspirin [Adult Aspirin Regimen] 81 mg tablet,delayed release (DR/EC) 81 mg PO QDAY cinnamon bark [Cinnamon] 500 mg capsule 500 mg PO BID multivitamin tablet 1 tab PO QDAY artic sea 1 tab PO DAILY calcium carbonate 1,000 mg tablet 2,000 mg PO DAILY red yeast rice 600 mg capsule 1,200 mg PO QHS Patient Comments: 600 mg PO at bedtime Rx Instructions: 600 mg PO at bedtime magnesium maleate PO phytomega PO aloe PO garlic thyme PO lisinopril 10 mg tablet 10 mg PO BID carvedilol 6.25 mg tablet 6.25 mg PO BID Qty: 60 11RF Rx Instructions: must administer with a meal/food escitalopram oxalate [Lexapro] 10 mg tablet 10 mg PO DAILY Primary Care Provider: Soraida Loera Referrals: Soraida Loera DO [Primary Care Provider] - As soon as possible Activity Restrictions/Additional Instructions: Follow-up with both your primary care physician and your cardiology team for further evaluation to adjust your blood pressure medications to see if they get better controlled. Increase your lisinopril to 20 mg twice a day. Take it in the morning after breakfast and in the evening after dinner. Check your blood pressure twice a day. Do not take it if you are anxious or stressed. Because that will read high. Leave your carvedilol dose at 6.25 mg twice a day. Any problems give us a call. Otherwise follow-up with your physicians. Print Language: [place] Disposition Disposition: Home, Self Care
--- OUTSIDE RECORDS SUMMARY | 2024-10-24 22:56 | XMS RPT_ITS | CCD ---
Author Organization [facility] Care Team Providers Care Service Desk Associate Name Role Phone DAV LEE Unavailable Unavailable JING ORTIZ Unavailable Unavailable LILIAN COULTER Unavailable Unavailable ANGEL JING Unavailable Unavailable Soraida Esteves Unavailable Divya Rodriguez Unavailable Unavailable Unavailable Unavailable Gravius, Maeve Unavailable Unavailable Ciesa, Nancy Unavailable Crissy King Unavailable Unavailable Slarb, Blanca Unavailable Unavailable Mumtaz, Ivonne Unavailable Unavailable Franky Mahmood Unavailable Unavailable Franky Ramos Unavailable Unavailable Gravius, Maeve Unavailable Unavailable Jewels Macdonald Unavailable Unavailable Soraida Esteves DO Unavailable [phone] Franky Ramos LPN Unavailable Unavailable Gravius COUPON CLERK, Maeve Unavailable Unavailable Ciesa JORGE, Nancy Unavailable Unavailable Unavailable Soraida Esteves DO Unavailable [phone] Sujata Reddy Unavailable DUYEN NEVILLE DC Attending Unavailable DUYEN NEVILLE DC Primary Care Unavailable DUYEN NEVILLE DC Admitting Unavailable SORAIDA ESTEVES DO Consulting Unavailable PROVIDER, UNKNOWN Consulting Unavailable Zulema MERCADO, Kayela Unavailable Unavailable Caryn Rashid MA Unavailable Unavailable Soraida Esteves DO Attending Unavailable Soraida Esteves DO Referring Unavailable Soraida Esteves DO Consulting Unavailable [place] SHOT GRINDER OPERATOR, Heath Unavailable Unavailable Joseph TAWANA CHARLY Unavailable Unavailable Slarb SHOT GRINDER OPERATOR, Blanca Unavailable Unavailable Dr. Soraida Esteves DO Primary Care Provider [phone] Dr. Soraida Esteves DO Referring Provider Adilene Saenz Attending Provider [phone] Adilene Saenz Attending Unavail able Soraida Esteves Referring Unavailable Soraida Esteves Primary Care Unavailable Medications Current Medications Medication Drug Class(es) Dates Sig (Normalized) Sig (Original) Aloe Extract (1 source) Start: 10-05-2023 aloe Active PO October 05, 2023 12:00am artic sea (3 sources) Start: 10-03-2017 artic sea Acti ve 1 {tbl} PO DAILY 0 October 03, 2017 12:00am Start: 10-03-2017 take 1 tablet by mouth once da leonie artic sea Active 1 TABLET PO DAILY October 03, 2017 12:00am aspirin 81 mg delayed release oral tablet (20 sources) Platelet Aggregation Inhibitor, Nonsteroidal Anti-inflammatory Drug Start: 10-03-2017 take 1 tablet by mouth once daily Aspirin (Adult Aspirin Regimen) 81 mg tablet,delayed release (DR/EC) Active 81 mg PO daily October 03, 2017 12:00am calcium carbonate 1000 mg oral tablet (6 sources) Start: 05-09-2019 take 2 tablets by mouth once daily Calcium Carbonate 1,000 mg tablet Active 2000 mg PO DAILY 0 May 09, 2019 3:56pm Start: 10-10-2017 End: 05-09-2019 take 1 tablet by mouth once daily Calcium Carbonate 1,000 mg tablet Discontinued 1000 mg PO DAILY 0 October 10, 2017 12:00am May 09, 2019 3:57pm carvedilol 6.25 mg oral tablet (20 sources) alpha-Adrenergic Miguelina, beta-Adrenergic Miguelina Start: 10-02-2024 take 1 tablet by mouth twice daily at mealtime Carvedilol 6.25 mg tablet Active 6.25 mg PO TWICE A DAY 60 11 October 02, 2024 4:13pm must administer with a meal/food Start: 10-02-2024 End: 10-02-2024 take 1 tablet by mouth twice daily at mealtime Carvedilol 3.125 mg tablet Discontinued 3.125 mg PO TWICE A DAY October 02, 2024 12:00am October 02, 2024 4:14pm must administer with a meal/food Start: 10-05-2023 End: 10-02-2024 take 3.125 mg by mouth twice daily Carvedilol 6.25 mg tablet Discontinued 3.125 mg PO TWICE A DAY October 05, 2023 2:59pm October 02, 2024 3:40pm Start: 11-27-2022 take 1 tablet by paul twice daily carvediloL 3.125 mg oral tablet 1 Tablet bid for 0 days Quantity: 180 {Tablet} Refills: 3 Ordered: 27-Nov-2022 Danielito DO, Soraida Ludwigon DO Soraida Start : 27-Nov-2022 Active Start: 04-19-2022 take 1 tablet by paul twice daily carvediloL 3.125 mg oral tablet 1 Tablet bid for 60 days Quantity: 120 {Tablet} Refills: 3 Ordered: 19-Apr-2022 Danielito DO, Soraida Danielito DO Soraida Start : 19-Apr-2022 Active Start: 02-06-2022 take 1 tablet by [facility] twice daily carvediloL 3.125 mg oral tablet 1 Tablet bid for 60 days Quantity: 120 {Tablet} Refills: 0 Ordered: 06-Feb-2022 Danielito DO, Soraida Danielito DO Soraida Start : 06-Feb-2022 Active Comments: Needs appt before more Start: 12-08-2020 take 1 tablet by [facility] twice daily Carvedilol 3.125 MG Oral Tablet 1 Tablet bid for 60 days Quantity: 120 {Tablet} Refills: 0 Ordered: 08-Dec-2021 Danielito DO, Soraida Ludwigon DO Soraida Start : 08-Dec-2021 Active Comments: Needs appt before more Start: 05-20-2020 take 1 tablet by [facility] twice daily Carvedilol 3.125 MG Oral Tablet 1 Tablet bid for 0 days Quantity: 60 {Tablet} Refills: 1 Ordered: 20-May-2020 Danielito DO Soraida Danielito DO, Soraida Start : 20-May-2020 Active Start: 05-14-2020 End: 10-05-2023 take 1 tablet by mouth twice daily Carvedilol 6.25 mg tablet Discontinued 6.25 mg PO TWICE A DAY 180 May 17, 2021 10:36am October 05, 2023 3:02pm Start: 05-14-2020 End: 05-14-2020 take 1 tablet by mouth twice daily Carvedilol (Coreg) 3.125 mg tablet Discontinued 3.125 mg PO TWICE A DAY 180 3 May 14, 2020 10:37am May 14, 2020 11:04am Start: 01-08-2020 take 1 tablet by paul th twice daily Carvedilol 3.125 MG Oral Tablet 1 Tablet bid for 0 days Quantity: 60 {Tablet} Refills: 4 Ordered: 08-Jan-2020 Soraida Esteves DO, DO, Kathleen Start : 08-Jan-2020 Active Start: 10-03-2017 End: 05-14-2020 take 1 tablet by mouth twice daily Carvedilol (Coreg) 3.125 mg tablet Discontinued 3.125 mg PO TWICE A DAY October 03, 2017 12:00am May 14, 2020 10:37am Comment on above: i am patients new do ctor can cancel other rx Needs appt before mo re cinnamon bark 500 mg oral capsule (3 sources) Start: 8 take 1 capsule by mouth twice daily Cinnamon Bark (Cinnamon) 500 mg capsule Active 500 mg PO TWICE A DAY 0 October 03, 2017 12:00am garlic thyme (1 source) Start: 4 garlic thyme Active PO October 05, 2023 12:00am lisinopril 10 mg oral tablet (20 sources) Angiotensin Converting Enzyme Inhibitor Start: 5 take 1 tablet by mouth twice daily Lisinopril 10 mg tablet Active 10 mg PO TWICE A DAY October 02, 2024 12:00am Start: 10-05-2023 End: 10-02-2024 take 2 tablets by mouth once daily Lisinopril 5 mg tablet Discontinued 10 mg PO DAILY October 05, 2023 2:59pm October 02, 2024 3:42pm Start: 11-27-2022 take 1 tablet by palu th twice daily in the morning, then take 0.5 tablet by mouth in the evening lisinopriL 10 mg oral tablet 1 Tablet in the am and 1/2 in the pm for 0 days Quantity: 135 {Tablet} Refills: 3 Ordered: 27-Nov-2022 Soraida Esteves DO, DO, Kathleen Start : 27-Nov-2022 Active Comments: 11-27-22 patient became too tired on bid Start: 08-22-2022 End: 10-05-2023 take 1 tablet by mouth twice daily Lisinopril 5 mg tablet Discontinued 5 mg PO TWICE A DAY August 22, 2022 2:28pm October 05, 2023 3:02pm Start: 05-18-2022 take 1 tablet by paul th twice daily lisinopriL 10 mg oral tablet 1 Tablet bid for 0 days Quantity: 60 {Tablet} Refills: 4 Ordered: 18-May-2022 Soraida Esteves DO, DO, Kathleen Start : 18-May-2022 Active Comments: new freq Start: 01-18-2021 End: 08-22-2022 take 1 tablet by mouth once daily Lisinopril 5 mg tablet Discontinued 5 mg PO DAILY 90 3 July 28, 2021 2:28pm August 22, 2022 2:28pm Start: 08-08-2019 take 1 tablet by paul th once daily Lisinopril 5 MG Oral Tablet 1 Tablet qd for 0 days Quantity: 30 {Tablet} Refills: 4 Ordered: 08-Aug-2019 Maeve Elmore CMA Start : 08-Aug-2019 Active Start: 05-09-2019 End: 05-09-2019 take 1 tablet by mouth once daily Lisinopril 5 mg tablet Discontinued 5 mg PO DAILY May 09, 2019 12:00am May 09, 2019 4:16pm Start: 11-11-2018 take 1 tablet by paul th once daily Lisinopril 5 MG Oral Tablet 1 Tablet qd for 0 days Quantity: 30 {Tablet} Refills: 4 Ordered: 11-Nov-2018 Soraida Esteves DO, DO, Kathleen Start : 11-Nov-2018 Active Start: 05-06-2018 take 1 tablet by paul th once daily in the morning Lisinopril 5 MG Oral Tablet 1 Tablet qd for 0 days Quantity: 30 {Tablet} Refills: 4 Ordered: 06-May-2018 Soraida Esteves DO, DO, Kathleen Start : 06-May-2018 Active Comments: i am pt new doctor can cancel old rx Start: 10-10-2017 End: 07-28-2021 take 1 tablet by mouth once daily Lisinopril 10 mg tablet Discontinued 10 mg PO DAILY 90 3 May 17, 2021 10:36am July 28, 2021 2:29pm Start: 10-03-2017 End: 10-10-2017 take 1 tablet by mouth once daily Lisinopril 5 mg tablet Discontinued 5 mg PO daily October 03, 2017 12:00am October 10, 2017 2:28pm Comment on above: i am pt new doctor lawanda an cancel old rx new freq 10-2-23 patient noel me too tired on bid magnesium maleate (1 source) Start: 10-05-19 24 magnesium maleate Active PO October 05, 2023 12:00am Multivitamin preparation (2 sources) Start: 10-04-19 18 take 1 tablet by mouth once daily Multivitamin Active 1 TABLET PO daily October 03, 2017 12:00am Multivitamin tablet (1 source) Start: 10-04-19 18 Multivitamin tablet Active 1 {tbl} PO daily October 03, 2017 12:00am nitroglycerin 0.4 mg sublingual tablet (3 sources) Nitrate Vasodilator Start: 10-04-19 18 Nitroglycerin 0.4 mg tablet, sublingual Active 0.4 mg SL every 5 to 15 minutes as needed for chest pain October 03, 2017 12:00am Start: 10-03-2017 Nitroglycerin Active 0.4 MG SL every 5 to 15 minutes October 03, 2017 12:00am phytomega (1 source) Start: 10-05-2023 phytomega Acti ve PO October 05, 2023 12:00am red yeast rice 600 mg oral capsule (6 sources) Start: 05-09-2019 take 600 mg by mouth at bedtime Red Yeast Rice Active 1200 MG PO AT BEDTIME May 09, 2019 3:57pm 600 mg PO at bedtime Start: 10-10-2017 End: 05-09-2019 take 1 capsule by mouth at bedtime Red Yeast Rice 600 mg capsule Active 1200 mg PO AT BEDTIME May 09, 2019 3:57pm 600 mg PO at bedtime Completed/Discontinued Medications Medication Drug Class(es) Dates Sig (Normalized) Sig (Original) acyclovir 800 mg oral tablet (20 sources) Herpesvirus Nucleoside Analog DNA Polymerase Inhibitor, Herpes Simplex Virus Nucleoside Analog DNA Polymerase Inhibitor, Herpes Zoster Virus Nucleoside Analog DNA Polymerase Inhibitor Start: 08-02-2018 End: 08-09-2018 take 1 tablet by mouth five times daily Acyclovir 800 MG Oral Tablet 1 (one) Tablet 5 times daily for 7 days Quantity: 35 {Tablet} Refills: 0 Ordered: 02-Aug-2018 Sujata Reddy Start : 02-Aug-2018 End : 09-Aug-2018 Inactive azithromycin 250 mg oral tablet (20 sources) Macrolide Antimicrobial Start: 10-03-2022 End: 11-27-2022 Zithromax Z-Ulysses 250 mg oral tablet 1 Packet as directed on dose pack;For 250 mg dose pack: take 500 mg today (day 1), then 250 mg for 4 days (days 2-5) for 0 days Quantity: 1 {Packet} Refills: 0 Ordered: 27-Nov-2022 CHARLY Ruiz LPN Start : 03-Oct-2022 End : 27-Nov-2022 Inactive Start: 02-04-2021 End: 05-18-2022 Zithromax Z-Ulysses 250 mg oral tablet 1 (one) Tablet TAD for 0 days Quantity: 1 {Packet} Refills: 0 Ordered: 18-May-2022 Faizan Poole CMA Start : 04-Feb-2021 End : 18-May-2022 Inactive Comments: 1 package Start: 03-05-2019 End: 08-08-2019 Zithromax Z-Ulysses 250 MG Oral Tablet 1 (one) Tablet TAD for 0 days Quantity: 1 {Package} Refills: 0 Ordered: 08-Aug-2019 Maeve Elmore CMA Start : 05-Mar-2019 End : 08-Aug-2019 Inactive Comment on above: 1 package benzonatate 100 mg oral capsule (15 sources) Non-narcotic Antitussive Start: 02-05-20 21 End: 05-19-19 23 take 1 capsule by mouth three times daily as needed for cough Tessalon Perles 100 mg oral capsule 1 (one) Capsule tid prn cough for 0 days Quantity: 30 {Capsule} Refills: 0 Ordered: 18-May-2022 Faizan Poole CMA Start : 04-Feb-2021 End : 18-May-2022 Discontinued calcium carbonate 1500 mg / cholecalciferol 800 unt chewable tablet (3 sources) Vitamin D Start: 10-04-19 18 End: 10-11-19 18 take 1 tablet by mouth twice daily Calcium Carbonate-Vitamin D3 (Caltrate 600 Plus D) 600 mg (1,500 mg)-800 unit tablet,chewable Discontinued 1 {tbl} PO TWICE A DAY October 03, 2017 12:00am October 10, 2017 2:29pm cephalexin 500 mg oral capsule (3 sources) Cephalosporin Antibacterial Start: 07-07-19 End: 08-23-19 take 1 capsule by mouth every six hours Cephalexin 500 mg capsule Discontinued 500 mg PO EVERY 6 HOURS 40 0 July 06, 2022 12:00am August 22, 2022 2:25pm citalopram 10 mg oral tablet (19 sources) Serotonin Reuptake Inhibitor Start: 01-19-20 End: 10-05-19 take 1 tablet by mouth once daily at bedtime CeleXA 10 mg oral tablet 1 (one) Tablet qhs for 0 days Quantity: 90 {Tablet} Refills: 3 Ordered: 27-Nov-2022 Soraida Esteves DO, DO, Kathleen Start : 27-Nov-2022 Active Start: 05-20-2020 take 1 tablet by paul once daily at bedtime CeleXA 10 MG Oral Tablet 1 (one) Tablet qhs for 0 days Quantity: 30 {Tablet} Refills: 7 Ordered: 20-May-2020 Soraida Esteves DO, DO, Kathleen Start : 20-May-2020 Active clopidogrel 75 mg oral tablet (3 sources) P2Y12 Platelet Inhibitor Start: 10-23-2017 End: 04-18-2018 take 1 tablet by mouth once daily Clopidogrel 75 mg tablet Discontinued 75 mg PO DAILY 30 0 October 23, 2017 12:00am April 18, 2018 2:21pm 12 hr guaiFENesin 600 mg extended release oral tablet (15 sources) Start: 02-04-2021 End: 05-18-2022 take 1 tablet by mouth twice daily Mucinex 600 mg oral Tablet,Extended Release 12 hr 1 (one) Tablet bid for 0 days Quantity: 30 {Tablet} Refills: 0 Ordered: 18-May-2022 Faizan Poole CMA Start : 04-Feb-2021 End : 18-May-2022 Inactive ketoconazole 20 mg/ml topical cream (20 sources) Azole Antifungal Start: 08-02-2018 End: 08-16-2018 Ketoconazole 2 % External Cream 1 (one) Application apply daily for 14 days Quantity: 1 {Tube} Refills: 0 Ordered: 02-Aug-2018 Sujata Reddy Start : 02-Aug-2018 End : 16-Aug-2018 Inactive ondansetron 4 mg disintegrating oral tablet (2 sources) Serotonin-3 Receptor Antagonist Start: 07-11-2022 End: 08-22-2022 take 1 tablet by mouth three times daily as needed for nausea and vomiting Ondansetron 4 mg tablet,disintegra ting Discontinued 4 mg PO THREE TIMES A DAY as needed for nausea and vomiting 21 7 0 July 11, 2022 12:23am August 22, 2022 2:27pm sulfamethoxazole 800 mg / trimethoprim 160 mg oral tablet (3 sources) Dihydrofolate Reductase Inhibitor Antibacterial, Sulfonamide Antimicrobial Start: 07-06-2022 End: 08-22-2022 Sulfamethoxazole- Trimethoprim (Bactrim Ds) 800-160 mg tablet Discontinued 1 {tbl} PO TWICE A DAY 20 0 July 06, 2022 12:00am August 22, 2022 2:27pm Problems Active Problems Problem Classification Problem Date Documented Date Episodic/Chronic Anxiety disorders (20 sources) Anxiety; Translations: [Anxiety] 05-06-2018 Chronic Comment on above: will treat anx to se e if helps bp like pt thinks it wllon adrenal tonic from different dr and will try calm day -- if not effective enough will call in for lexapro Conduction disorders (3 sources) Left bundle branch block; Translations: [Left bundle-branch block, unspecified] 04-22-2019 Chronic Congestive heart failure; nonhypertensive (3 sources) Chronic systolic heart failure; Translations: [Chronic systolic (congestive) heart failure] 10-03-2017 Chronic Coronary atherosclerosis and other heart disease (20 sources) Coronary arteriosclerosis in [place] artery; Translations: [Coronary arteriosclerosis] Onset: 5 05-06-2018 Chronic Comment on above: s/p LAD stent 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- Coronary atherosclerosis and other heart disease (1 source) Presence of coronary angioplasty implant and graft; Translations: [Presence of coronary angioplasty implant and graft] Onset: 5 Episodic Disorders of lipid metabolism (20 sources) Hypercholesterolemia; Translations: [Hypercholesteremia (Renamed from Hypercholesterolemia)] Onset: 5 05-06-2018 Chronic Comment on above: didnt want statin so did REd rice yeast didnt bring # down enough to add Roasted dandelion tea root and # are beautiful didnt want statin so did REd rice yeast didnt bring # down enough to add Roasted dandelion tea root and # are beautiful-- will increase her tea refused statin so di d REd rice yeast didnt bring # down enough to add Roasted dandelion tea root and # are ok but not at goal-- will increase her teashe will discuss it with dr lee - need for benefits from statins refused statin so di d REd rice yeast didnt bring # down enough to add Roasted dandelion tea root and # are ok but not at goal-- will increase her teashe will discuss it with dr lee - need for benefits from statinsshe wants more time to do more walking and watch diet Essential hypertension (9 sources) Essential (primary) hypertension; Translations: [Essential hypertension] Onset: 8 04-22-2019 Chronic Fluid and electrolyte disorders (2 sources) Hyponatremia; Translations: [Hypo-osmolality and hyponatremia] 07-11-2022 Episodic Hypertension with complications and secondary hypertension (20 sources) Hypertensive heart disease; Translations: [Hypertensive heart disease] 05-06-2018 Chronic Immunizations and screening for infectious disease (20 sources) Need for prophylactic vaccination and inoculation against influenza; Translations: [Needs influenza immunization] 02-04-2021 Episodic Joint disorders and dislocations; trauma-related (1 source) Complex tear of medial meniscus, current injury, right knee, initial encounter; Translations: [Complex tear of medial meniscus, current injury, right knee, initial encounter] Onset: 2 Episodic Nutritional deficiencies (20 sources) Vitamin D deficiency; Translations: [Vitamin D deficiency] 04-19-2022 Chronic Osteoarthritis (2 sources) Unilateral primary osteoarthritis, right knee; Translations: [Unilateral primary osteoarthritis, right knee] Onset: 2 Chronic Other circulatory disease (3 sources) Respiratory symptom; Translations: [Upper respiratory symptom] Resolved: 3 11-27-2022 Episodic Comment on above: OTC/supportive care. NO antibiotics are indicated for likely viral URI/cold, asked her to call on Sunday if worsening. ER if chest pain, or SOB that does not recover with rest.3 day history runny nose, congestion. No SOB or chest pain. NOT toxic. Other circulatory disease (18 sources) Upper respiratory tract finding; Translations: [Upper respiratory symptom] Resolved: 3 11-27-2022 Episodic Comment on above: OTC/supportive care. NO antibiotics are indicated for likely viral URI/cold, asked her to call on Sunday if worsening. ER if chest pain, or SOB that does not recover with rest.3 day history runny nose, congestion. No SOB or chest pain. NOT toxic. Other connective tissue disease (1 source) Synovial cyst of popliteal space [[place]], right knee; Translations: [Synovial cyst of popliteal space [[place]], right knee] Onset: 2 Episodic Other ear and sense organ disorders (20 sources) Excessive cerumen in ear canal ; Translations: [Ceruminosis, bilateral] 09-12-2019 Episodic Other gastrointestinal disorders (20 sources) Intestinal malabsorption; Translations: [Intestinal malabsorption] 09-12-2019 Chronic Other inflammatory condition of skin (20 sources) Itching ; Translations: [Itching] Resolved: 9 08-02-2018 Episodic Other lower respiratory disease (20 sources) Cough; Translations: [Cough] Resolved: 3 08-08-2019 Episodic Comment on above: will use home natura l tea and honey Other lower respiratory disease (20 sources) H/O: pneumonia; Translations: [History of pneumonia] 02-04-2021 Episodic Other nutritional; endocrine; and metabolic disorders (20 sources) Body mass index 30+ - obesity; Translations: [BMI 30.0-30.9,adult] 05-06-2018 Chronic Other nutritional; endocrine; and metabolic disorders (20 sources) Body mass index 25-29 - overweight; Translations: [BMI 28.0-28.9,adult] Resolved: 0 11-21-2018 Chronic Other nutritional; endocrine; and metabolic disorders (7 sources) Body mass index 25-29 - overweight; Translations: [BMI 27.0-27.9,adult] Resolved: 0 02-04-2021 Episodic Other nutritional; endocrine; and metabolic disorders (20 sources) Overweight in adulthood with body mass index of 25 or more but less than 30; Translations: [BMI 27.0-27.9,adult] Resolved: 3 02-04-2021 Episodic Other skin disorders (20 sources) Vesicular eruption; Translations: [Rash, vesicular] Resolved: 9 08-02-2018 Episodic Comment on above: ? Rash shingles vers us yeast Other upper respiratory infections (20 sources) Upper respiratory infection; Translations: [URI (upper respiratory infection)] 09-12-2019 Episodic Comment on above: think viral to bacte rial and recurrent Residual codes; unclassified (8 sources) Needs influenza immunization; Translations: [Need for prophylactic vaccination and inoculation against influenza (Renamed from Need for immunization against influenza)] 11-21-2018 Episodic Residual codes; unclassified (20 sources) Non-smoker; Translations: [Non-smoker] 02-04-2021 Episodic Skin and subcutaneous tissue infections (3 sources) Cellulitis; Translations: [Cellulitis, unspecified] 07-06-2022 Episodic Unclassified (2 sources) Pure hypercholesterolemia, unspecified; Translations: [Pure hypercholesterolemia, unspecified] Onset: 8 Unclassified (20 sources) BMI 30.0-30.9,adult Unclassified (20 sources) CAD in [place] artery Unclassified (20 sources) Non-smoker; Translations: [Non-smoker] 05-06-2018 Unclassified (20 sources) Unclassified (20 sources) Hypercholesteremia (Renamed from Hypercholesterolemia) Unclassified (20 sources) BMI 29.0-29.9,adult Unclassified (20 sources) BMI 28.0-28.9,adult Unclassified (3 sources) BMI 27.0-27.9,adult Past or Other Problems Problem Classification Problem Date Documented Da te Episodic/Chronic Residual codes; unclassified (7 sources) Increased body mass index; Translations: [BMI 29.0-29.9,adult] 07-12-2018 Episodic Unclassified (20 sources) Abortions/Miscarriages; Translations: [Abortions/Miscarriages ] 05-06-2018 Comment on above: 1. Unclassified (20 sources) Pregnancies (); Translations: [Pregnancies ()] 05-06-2018 Comment on above: 9. Unclassified (11 sources) Rash, vesicular Unclassified (6 sources) Intestinal malabsorption Unclassified (6 sources) Ceruminosis, bilateral Results Test Name Value Interpretation Reference Range Facility Cardiology Visit Reporton Cardiology Visit Report [facility] [address] [place], [place] [address] OFFICE VISIT Date of Service: 10/02/24 MR#: [id number] Acct: [id number] Name: ADELINE GRAHAM Rep #: [id number] : 1945 Provider: VANITA Griggs Age/Sex: 79/F Location: [facility] [place] Status: Signed HPI HPI History of Present Illness Details: Adeline Graham is a 79-year-old female who presents here today for a cardiovascular follow-up. She has a history of coronary artery disease with stenting to her proximal LAD in 2018 when she presented with a myocardial infarction. She also has a history of ischemic cardiomyopathy that has resolved, left bundle branch block, hypertension and hyperlipidemia. Pt notes that over the last few weeks her Bp has been up around the 170/100 range. a few months ago it was better. She does feel weak with the higher Bp readings. She does have some swelling in her legs. PCP increased lisinopril to 10 mg BID yesterday. Labs are still not done from PCP. Intake Vital Signs 10/05/23 14:53 10/02/24 15:34 10/02/24 15:51 Height 5 ft 5 in 5 ft 5 in Weight: 179 lb 8 oz 175 lb BMI 29.8 29.1 BP 180/96 H 182/98 H 188/97 H Blood Pressure Location Lt brachial Lt brachial Rt brachial Position Sitting Sitting Sitting Respiration 16 16 Pulse 80 73 72 Pulse Source Monitor NIBP NIBP Comment Pt has a record of at home BPs avg 120-130s/70-80s Intake Visit Reasons: 1 Y FU Cell Feed Department Supervisor Required: No Is patient in pain?: No Allergies No Known Allergies Allergy (Verified 10/02/24 15:39) Medications ???Medication ???Instructions ???Recorded ???Confirmed ???Type artic sea 1 tab PO DAILY 10/03/17 10/02/24 H istory aspirin 81 mg tablet,delayed 81 mg PO QDAY 10/03/17 10/02/24 Hi story release (Adult Aspirin Regimen) cinnamon bark 500 mg capsule 500 mg PO BID 10/03/17 10/02/24 Hi story (Cinnamon) multivitamin 1 tab PO QDAY 10/03/17 10/02/24 Hi story nitroglycerin 0.4 mg sublingual 0.4 mg sublingual Q5-15M PRN chest 10/03/17 10/02/24 History tablet pain calcium carbonate 1,000 mg tablet 2,000 mg PO DAILY 05/09/19 History red yeast rice 600 mg capsule 1,200 mg PO QHS 05/09/19 10/02/24 History aloe PO 10/05/23 10/02/24 History garlic thyme PO 10/05/23 10/02/24 History magnesium maleate PO 10/05/23 10/02/24 History phytomega PO 10/05/23 10/02/24 History carvedilol 6.25 mg tablet 6.25 mg PO BID #60 tabs 10/02/24 0 10/02/24 Rx lisinopril 10 mg tablet 10 mg PO BID 10/02/24 10/02/24 His tory Ejection fraction %: 55 Have you fallen in the past year?: No PFSH Medical History Left bundle branch block (LBBB) Essential (primary) hypertension Hyperlipidemia Chronic systolic CHF (congestive heart failure) Ischemic cardiomyopathy Atherosclerotic heart disease of [place] coronary artery without angina pectoris History of non-ST elevation myocardial infarction (NSTEMI) (07/01/14) Surgical History History of coronary artery stent placement (07/01/14) History of left heart catheterization (11/05/17) History of right and left heart catheterization (07/01/14) Family History Father CAD (coronary artery disease) Sudden cardiac Sister Hypertension Social History Smoking Status: Never smoker ROS Const Const: Positive for weakness (Rousseau better when BP went down); Negative for fatigue Eyes Eyes: Negative for change in vision ENT ENT: Positive for dizziness; Negative for balance problems Cardio Chest Pain: No Palpitations: No Edema: Bilateral (Occasionally with heat and humidity) Resp Respiratory: Negative for SOB with activity, SOB at rest or SOB orthopnea SOB lying down GI GI: Negative nausea or heartburn Musc Musc: Negative for balance problems Neuro Neuro: Positive for dizziness, lightheadedness and weakness (Rousseau better when BP went down); Negative for near syncope or syncope Endo Endo: Negative for fatigue Cardiology Exam Const Appearance: cooperative, healthy appearing, comfortable, no acute distress and well developed Orientation: alert, awake and oriented x3 Head Head: normal to inspection Ears: hearing grossly normal bilaterally Nose: external nose normal Face and Sinus: face symmetric Mouth: oral mucosae normal, lip normal and moist mucous membranes Eyes General: appearance normal, both eyes and all related structures Eyelids: eyelids normal Conjunctivae: conjunctivae normal Pupils: PERRL EOM: EOM intact bilaterally Neck Neck: normal visual inspection and trachea midline; Negative no JVD Carotids: Negative bruit Chest Chest i (more content not included)... Normal [facility] Absolute lymphocyte countOrd ered By: Loyd Gregg on 07-10-2022 Lymphocytes Auto (Unsp spec) [#/Vol] 1.86 10*3/uL 0.83-4.51 [facility] Basophil percentageOrdered B y: Loyd Gregg on 07-10-2022 Basophils/100 WBC (Bld) 0.5 % 0-1 [facility] Chloride [Moles/Vol] 92 mmol/L 98-107 [facility] Eosinophils/100 WBC (Bld) 0.8 % 0-5 [facility] Glucose [Mass/Vol] 135 mg/dL 74-106 [facility] Comment on above: Fasting Glucose resu lt greater than or equal to 126 mg/dL suggests DIABETES MELLITUS per A.D.A. criteria. Neutrophils (Bld) [#/Vol] 5.1 10*3/uL 2.0-7.7 [facility] Neutrophils/100 WBC (Bld) 68.3 % 47-70 [facility] Potassium [Moles/Vol] 4.1 mmol/L 3.5-5.1 [facility] Sodium [Moles/Vol] 126 mmol/L 136-145 [facility] WBC (Bld) [#/Vol] 7.5 10*3/uL 4.4-11.0 [facility] Blood erythrocytes count (nu mber/volume)Ordered By: Loyd Gregg on 07-10-2022 RBC (Bld) [#/Vol] 4.51 10*6/uL 4.2-5.4 [facility] Blood hemoglobin measurement (mass/volume)Ordered By: Loyd Gregg on 07-10-2022 Hemoglobin (Bld) [Mass/Vol] 14.1 g/dL 12.0-15.0 [facility] Blood lymphocytes/100 leukoc ytesOrdered By: Loyd Gregg on 07-10-2022 Lymphocytes/100 WBC (Bld) 24.8 % 19-41 [facility] Blood monocytes/100 leukocyt esOrdered By: Loyd Gregg on 07-10-2022 Monocytes/100 WBC (Bld) 4.7 % 0-10 [facility] Blood platelet mean volumeOr dered By: Loyd Gregg on 07-10-2022 Platelet mean volume (Bld) [Entitic vol] 9.7 fL 6.2-12.0 [facility] Determination of erythrocyte mean corpuscular volume (MCV)Ordered By: Loyd Gregg on 07-10-2022 MCV (RBC) [Entitic vol] 89.6 fL 81-99 [facility] Comment on above: Delta: 95.1 on 07/06 Hematocrit Auto (Bld) [Volum e fraction]Ordered By: Loyd Gregg on 07-10-2022 Hematocrit (Bld) [Volume fraction] 40.4 % 37-47 [facility] Laboratory - Chemistry and C hemistry - challengeOrdered By: Loyd Gregg on 07-10-2022 CO2 [Moles/Vol] 22.0 mmol/L 21.0-32.0 [facility] Urea nitrogen/Creatinine [Mass ratio] 20.7 mg/mg 10-20 [facility] Laboratory - Hematology and Cell countsOrdered By: Loyd Gregg on 07-10-2022 Erythrocyte distribution width (RBC) [Entitic vol] 40.4 fL 35.1-43.9 [facility] Erythrocyte distribution width (RBC) [Ratio] 12.3 % 11.6-14.6 [facility] Immature granulocytes/100 WBC (Bld) 0.900 % 0.0-0.9 [facility] Comment on above: IG% - Immature Granu locytes (promyelocytes, myelocytes and metamyelocytes) > 1% indicates that a LEFT SHIFT is Present. MCH (RBC) [Entitic mass] 31.3 pg 27.0-32.0 [facility] Nucleated RBC/100 WBC (Bld) [Ratio] 0 % 0-5 [facility] MCHC Auto (RBC) [Mass/Vol]Or dered By: Loyd Gregg on 07-10-2022 MCHC (RBC) [Mass/Vol] 34.9 g/dL 32-36 [facility] Comment on above: Delta: 32.5 on 07/06-2228 No Panel InformationOrdered By: Loyd Gregg on 07-10-2022 Estimated GFR (MDRD) Amer 76 mL/min >60 [facility] Comment on above: GFR Calc Estimated GFR (MDRD) Non-Af Amer 63 mL/min >60 [facility] Comment on above: Non- GFR Calc Troponin I High Sensitivity 10 pg/mL 3.0-54.0 [facility] Comment on above: Please Note: New Ela t Units and Gender Specific Reference Ranges. For more information see Policy Stat Procedure [place] High Sensitivity Troponin (TNIH) and attachments. Platelets bldOrdered By: Pa Gregg on 07-10-2022 Platelets (Bld) [#/Vol] 250 10*3/uL 150-450 [facility] Serum or plasma calcium eliud urement (mass/volume)Ordered By: Loyd Gregg on 07-10-2022 Calcium [Mass/Vol] 9.2 mg/dL 8.5-10.1 [facility] Serum or plasma creatinine m easurement (mass/volume)Ordered By: Loyd Gregg on 07-10-2022 Creatinine [Mass/Vol] 0.92 mg/dL 0.55-1.02 [facility] Comment on above: The validity of the calculated GFR & GFRAA in patients over 70 years has not been determined. Clinical correlation is essential. Serum or plasma urea nitroge n measurement (mass/volume)Ordered By: Loyd Gregg on 07-10-2022 Urea nitrogen [Mass/Vol] 19 mg/dL 7-18 [facility] Thin prep Papanicolaou smear with manual screeningOrdered By: Loyd Gregg on 07-10-2022 Thin prep Papanicolaou smear with manual screening 12 5-15 [facility] Absolute lymphocyte countOrd ered By: Dr. Hinojosa on 07-06-2022 Lymphocytes Auto (Unsp spec) [#/Vol] 2.31 10*3/uL 0.83-4.51 [facility] Basophil percentageOrdered B y: Dr. Hinojosa on 07-06-2022 Basophils/100 WBC (Bld) 1.0 % 0-1 [facility] Chloride [Moles/Vol] 104 mmol/L 98-107 [facility] Eosinophils/100 WBC (Bld) 1.8 % 0-5 [facility] Glucose [Mass/Vol] 115 mg/dL 74-106 [facility] Comment on above: Fasting Glucose resu lt from 100 to 125 mg/dL suggests IMPAIRED HOMEOSTASIS per A.D.A. criteria. Neutrophils (Bld) [#/Vol] 2.9 10*3/uL 2.0-7.7 [facility] Neutrophils/100 WBC (Bld) 48.3 % 47-70 [facility] Potassium [Moles/Vol] 3.8 mmol/L 3.5-5.1 [facility] Sodium [Moles/Vol] 140 mmol/L 136-145 [facility] WBC (Bld) [#/Vol] 6.1 10*3/uL 4.4-11.0 [facility] Blood erythrocytes count (nu mber/volume)Ordered By: Dr. Hinojosa on 07-06-2022 RBC (Bld) [#/Vol] 4.11 10*6/uL 4.2-5.4 [facility] Blood hemoglobin measurement (mass/volume)Ordered By: Dr. Hinojosa on 07-06-2022 Hemoglobin (Bld) [Mass/Vol] 12.7 g/dL 12.0-15.0 [facility] Blood lymphocytes/100 leukoc ytesOrdered By: Dr. Hinojosa on 07-06-2022 Lymphocytes/100 WBC (Bld) 38.1 % 19-41 [facility] Blood monocytes/100 leukocyt esOrdered By: Dr. Hinojosa on 07-06-2022 Monocytes/100 WBC (Bld) 10.6 % 0-10 [facility] Blood platelet mean volumeOr dered By: Dr. Hinojosa on 07-06-2022 Platelet mean volume (Bld) [Entitic vol] 9.8 fL 6.2-12.0 [facility] Determination of erythrocyte mean corpuscular volume (MCV)Ordered By: Dr. Hinojosa on 07-06-2022 MCV (RBC) [Entitic vol] 95.1 fL 81-99 [facility] Hematocrit Auto (Bld) [Volum e fraction]Ordered By: Dr. Hinojosa on 07-06-2022 Hematocrit (Bld) [Volume fraction] 39.1 % 37-47 [facility] Laboratory - Chemistry and C hemistry - challengeOrdered By: Dr. Hinojosa on 07-06-2022 CO2 [Moles/Vol] 28.0 mmol/L 21.0-32.0 [facility] Urea nitrogen/Creatinine [Mass ratio] 24.1 mg/mg 10-20 [facility] Laboratory - Hematology and Cell countsOrdered By: Dr. Hinojosa on 07-06-2022 Erythrocyte distribution width (RBC) [Entitic vol] 46.2 fL 35.1-43.9 [facility] Erythrocyte distribution width (RBC) [Ratio] 13.2 % 11.6-14.6 [facility] Immature granulocytes/100 WBC (Bld) 0.200 % 0.0-0.9 [facility] Comment on above: IG% - Immature Granu locytes (promyelocytes, myelocytes and metamyelocytes) > 1% indicates that a LEFT SHIFT is Present. MCH (RBC) [Entitic mass] 30.9 pg 27.0-32.0 [facility] Nucleated RBC/100 WBC (Bld) [Ratio] 0 % 0-5 [facility] MCHC Auto (RBC) [Mass/Vol]Or dered By: Dr. Hinojosa on 07-06-2022 MCHC (RBC) [Mass/Vol] 32.5 g/dL 32-36 [facility] No Panel InformationOrdered By: Dr. Hinojosa on 07-06-2022 Estimated Creatinine Clearance Calc 46.76 ml/min [facility] Estimated GFR (MDRD) Amer 81 mL/min >60 [facility] Comment on above: GFR Calc Estimated GFR (MDRD) Non-Af Amer 67 mL/min >60 [facility] Comment on above: Non- GFR Calc Platelets bldOrdered By: Dr. Hinojosa on 07-06-2022 Platelets (Bld) [#/Vol] 220 10*3/uL 150-450 [facility] Serum or plasma calcium eliud urement (mass/volume)Ordered By: Dr. Hinojosa on 07-06-2022 Calcium [Mass/Vol] 9.3 mg/dL 8.5-10.1 [facility] Serum or plasma creatinine m easurement (mass/volume)Ordered By: Dr. Hinojosa on 07-06-2022 Creatinine [Mass/Vol] 0.87 mg/dL 0.55-1.02 [facility] Comment on above: The validity of the calculated GFR & GFRAA in patients over 70 years has not been determined. Clinical correlation is essential. Serum or plasma urea nitroge n measurement (mass/volume)Ordered By: Dr. Hinojosa on 07-06-2022 Urea nitrogen [Mass/Vol] 21 mg/dL 7-18 [facility] Thin prep Papanicolaou smear with manual screeningOrdered By: Dr. Hinojosa on 07-06-2022 Thin prep Papanicolaou smear with manual screening 8 5-15 [facility] CALCIFIDIOL (38030) VIT D 25 Ordered By: Printing Equipment Mechanic on 05-11-2022 25-hydroxyvitamin D [Mass/Vol] 42.8 ng/mL Normal 30.0-100.0 [facility]; [facility] Work Phone: Comment on above: Vitamin D deficiency has been defined by the [place] [employer] and an Endocrine Society practice guideline as alevel of serum 25-OH vitamin D less than 20 ng/mL (1,2).The Endocrine Society went on to further define vitamin Dinsufficiency as a level between 21 and 29 ng/mL (2).1. IOM ([place] [employer]). 2010. Dietary reference intakes for calcium and D. [place]: The National Academies Press.2. Destini MF, Lisbeth NC, Boris DOMINGUEZ, et al. Evaluation, treatment, and prevention of vitamin D deficiency: an Endocrine Society clinical practice guideline. JCEM. 2010; 96(7):1911-30. PATIENT WAS FASTINGP ERFORMED BY: JOSSELINE [facility] Uwhadd[address]Dublin [place] [id number] CBC W/AUTO DIFF WBC (34919)O rdered By: Printing Equipment Mechanic on 05-11-2022 Basophils (Bld) [#/Vol] 0.1 10*3/uL Normal 0.0-0.2 [facility]; [facility] Work Phone: Comment on above: PATIENT WAS FASTINGP ERFORMED BY: JOSSELINE [facility] Zjbfcm6[address]Dublin [place] [id number] Basophils/100 WBC (Bld) 2 % Normal [facility]; [facility] Work Phone: Comment on above: PATIENT WAS FASTINGP ERFORMED BY: JOSSELINE [facility] Idvabx14[address]Dublin [place] [id number] Eosinophils (Bld) [#/Vol] 0.1 10*3/uL Normal 0.0-0.4 [facility]; [facility] Work Phone: Comment on above: PATIENT WAS FASTINGP ERFORMED BY: JOSSELINE [facility] Cwtuyp67[address]Dublin [place] [id number] Eosinophils/100 WBC (Bld) 2 % Normal [facility]; [facility] Work Phone: Comment on above: PATIENT WAS FASTINGP ERFORMED BY: JOSSELINE [facility] Izizmz7[address]Dublin [place] [id number] Erythrocyte distribution width (RBC) [Ratio] 12.0 % Normal 11.7-15.4 [facility]; [facility] Work Phone: Comment on above: PATIENT WAS FASTINGP ERFORMED BY: CB [facility] Iaskxm67[address]Dublin [place] [id number] Hematocrit (Bld) [Volume fraction] 39.7 % Normal 34.0-46.6 [facility]; [facility] Work Phone: Comment on above: PATIENT WAS FASTINGP ERFORMED BY: CB [facility] Jermow97[address]Dublin [place] [id number] Hemoglobin (Bld) [Mass/Vol] 13.1 g/dL Normal 11.1-15.9 [facility]; [facility] Work Phone: Comment on above: PATIENT WAS FASTINGP ERFORMED BY: JOSSELINE [facility] Ydbhnn0531 [facility] [id number] Immature granulocytes (Bld) [#/Vol] 0.0 10*3/uL Normal 0.0-0.1 [facility]; [facility] Work Phone: Comment on above: PATIENT WAS FASTINGP ERFORMED BY: [facility] [facility] [id number] Immature granulocytes/100 WBC (Bld) 0 % Normal [facility]; [facility] Work Phone: Comment on above: PATIENT WAS FASTINGP ERFORMED BY: [facility] Jxlapx7636 [facility] [id number] Lymphocytes (Bld) [#/Vol] 2.2 10*3/uL Normal 0.7-3.1 [facility]; [facility] Work Phone: Comment on above: PATIENT WAS FASTINGP ERFORMED BY: JOSSELINE [facility]6[address] [facility] [id number] Lymphocytes/100 WBC (Bld) 42 % Normal [facility]; [facility] Work Phone: Comment on above: PATIENT WAS FASTINGP ERFORMED BY: [place] 4862370 [facility] [id number] MCH (RBC) [Entitic mass] 30.3 pg Normal 26.6-33.0 [facility]; [facility] Work Phone: Comment on above: PATIENT WAS FASTINGP ERFORMED BY: [facility] [facility] [id number] MCHC (RBC) [Mass/Vol] 33.0 g/dL Normal 31.5-35.7 [facility]; [facility] Work Phone: Comment on above: PATIENT WAS FASTINGP ERFORMED BY: JOSSELINE [facility] Hoemzu[address]Dublin [place] [id number] MCV (RBC) [Entitic vol] 92 fL Normal 79-97 [facility]; [facility] Work Phone: Comment on above: PATIENT WAS FASTINGP ERFORMED BY: JOSSELINE [facility] Pgpcke80[address]blin [place] [id number] Monocytes (Bld) [#/Vol] 0.5 10*3/uL Normal 0.1-0.9 [facility]; [facility] Work Phone: Comment on above: PATIENT WAS FASTINGP ERFORMED BY: JOSSELINE [facility] Yxohgx9[address]blin [place] [id number] Monocytes/100 WBC (Bld) 10 % Normal [facility]; [facility] Work Phone: Comment on above: PATIENT WAS FASTINGP ERFORMED BY: JOSSELINE [facility] VieraUjgffn[address] [facility] [place] [id number] Neutrophils (Bld) [#/Vol] 2.3 10*3/uL Normal 1.4-7.0 [facility]; [facility] Work Phone: Comment on above: PATIENT WAS FASTINGP ERFORMED BY: JOSSELINE [facility] Dvygmw[address]blin [place] [id number] Neutrophils/100 WBC (Bld) 44 % Normal [facility]; [facility] Work Phone: Comment on above: PATIENT WAS FASTINGP ERFORMED BY: JOSSELINE [facility] Jwhplw[address] [facility] [place] [id number] Platelets (Bld) [#/Vol] 278 10*3/uL Normal 150-450 [facility]; [facility] Work Phone: Comment on above: PATIENT WAS FASTINGP ERFORMED BY: JOSSELINE [facility] Xltuov5[address]blin [place] [id number] RBC (Bld) [#/Vol] 4.33 10*6/uL Normal 3.77-5.28 [facility]; [facility] Work Phone: Comment on above: PATIENT WAS FASTINGP ERFORMED BY: JOSSELINE [facility] Fyvmef0335 [address]Dublin [place] [id number] WBC (Bld) [#/Vol] 5.2 10*3/uL Normal 3.4-10.8 [facility]; [facility] Work Phone: Comment on above: PATIENT WAS FASTINGP ERFORMED BY: JOSSELINE [facility] Esccla93[address]Dublin [place] [id number] LIPID PANEL ([id number])Ordered B y: Printing Equipment Mechanic on 05-11-2022 Cholesterol [Mass/Vol] 184 mg/dL Normal 100-199 [facility]; [facility] Work Phone: Comment on above: PATIENT WAS FASTINGP ERFORMED BY: JOSSELINE Lacey Vieralin6[address]Dublin [place] [id number] Cholesterol in HDL [Mass/Vol] 46 mg/dL Normal [facility]; [facility] Work Phone: Comment on above: PATIENT WAS FASTINGP ERFORMED BY: JOSSELINE [facility] VieraGrpyro32[address]Dublin [place] [id number] Triglyceride [Mass/Vol] 89 mg/dL Normal 0-149 [facility]; [facility] Work Phone: Comment on above: PATIENT WAS FASTINGP ERFORMED BY: JOSSELINE [facility] VieraKlazsf8[address]Dublin [place] [id number] LIPID PANEL ([id number]) 16 mg/dL Normal 5-40 [facility]; [facility] Work Phone: Comment on above: PATIENT WAS FASTINGP ERFORMED BY: JOSSELINE [facility] Geaooc75[address]Dublin [place] [id number] LIPID PANEL ([id number]) 122 mg/dL Abnormal 0-99 [facility]; [facility] Work Phone: Comment on above: PATIENT WAS FASTINGP ERFORMED BY: JOSSELINE [facility] Qtkdpv2017 [address]Dublin [place] [id number] LIPID PANEL ([id number]) 2.7 {ratio} Normal 0.0-3.2 Comp rehensive [facility]; [facility] Work Phone: Comment on above: LDL/HDL Ratio Men Wo men 1/2 Avg.Risk 1.0 1.5 Avg.Risk 3.6 3.2 2X Avg.Risk 6.2 5.0 3X Avg.Risk 8.0 6.1 PATIENT WAS FASTINGP ERFORMED BY: CB [facility] Lgercr1993 [address]Dublin [place] [id number] METABOLIC PANEL, COMPREHENSI VE ([id number])Ordered By: Printing Equipment Mechanic on 05-11-2022 Albumin [Mass/Vol] 4.3 g/dL Normal 3.7-4.7 [facility]; [facility] Work Phone: Comment on above: PATIENT WAS FASTINGP ERFORMED BY: CB [facility] Dcuqav7234 [address] RoadDublin [place] [id number] Albumin/Globulin [Mass ratio] 1.7 {ratio} Normal 1.2-2.2 [facility]; [facility] Work Phone: Comment on above: PATIENT WAS FASTINGP ERFORMED BY: CB [facility] Cwtase1053 [address]Dublin [place] [id number] ALP [Catalytic activity/Vol] 63 U/L Normal 44-121 [facility]; [facility] Work Phone: Comment on above: PATIENT WAS FASTINGP ERFORMED BY: CB [facility] Hwtmem5809 [address]Dublin [place] [id number] ALT [Catalytic activity/Vol] 26 U/L Normal 0-32 [facility]; [facility] Work Phone: Comment on above: PATIENT WAS FASTINGP ERFORMED BY: CB [facility] Wurotq3435 [address] RoadDublin [place] [id number] AST [Catalytic activity/Vol] 25 U/L Normal 0-40 [facility]; [facility] Work Phone: Comment on above: PATIENT WAS FASTINGP ERFORMED BY: CB [facility] Dcewob6023 [address] RoadDublin [place] [id number] Bilirubin [Mass/Vol] 0.6 mg/dL Normal 0.0-1.2 Comp rehensive [facility]; [facility] Work Phone: Comment on above: PATIENT WAS FASTINGP ERFORMED BY: JOSSELINE [facility] Frlipk3052 [address] RoadDublin [place] [id number] Calcium [Mass/Vol] 9.6 mg/dL Normal 8.7-10.3 [facility]; [facility] Work Phone: Comment on above: PATIENT WAS FASTINGP ERFORMED BY: JOSSELINE [facility] Nibojg4327 [address]Dublin [place] [id number] Chloride [Moles/Vol] 101 mmol/L Normal 96-106 Comp rehensive [facility]; [facility] Work Phone: Comment on above: PATIENT WAS FASTINGP ERFORMED BY: JOSSELINE [facility] Pqquin2669 [address] RoadDublin [place] [id number] CO2 [Moles/Vol] 26 mmol/L Normal 20-29 [facility]; [facility] Work Phone: Comment on above: PATIENT WAS FASTINGP ERFORMED BY: JOSSELINE [facility] Dvpyph7059 [address]Dublin [place] [id number] Creatinine [Mass/Vol] 0.87 mg/dL Normal 0.57-1.00 [facility]; [facility] Work Phone: Comment on above: PATIENT WAS FASTINGP ERFORMED BY: JOSSELINE [facility] Seuohl2805 B[address] RoadCatawba Valley Medical Centerin [place] [id number] GFR/1.73 sq M.predicted among non-blacks MDRD (S/P/Bld) [Vol rate/Area] 69 mL/min/{1.73_m2} Normal Comprehensiv e [facility]; [facility] Work Phone: Comment on above: PATIENT WAS FASTINGP ERFORMED BY: JOSSELINE [facility] Vemmhs8265 [address]Dublin [place] [id number] Globulin (S) [Mass/Vol] 2.6 g/dL Normal 1.5-4.5 [facility]; [facility] Work Phone: Comment on above: PATIENT WAS FASTINGP ERFORMED BY: JOSSELINE [facility] Ddugwp[address] [facility]in [place] [id number] Glucose [Mass/Vol] 99 mg/dL Normal 70-99 [facility]; [facility] Work Phone: Comment on above: PATIENT WAS FASTINGP ERFORMED BY: JOSSELINE Labarjun VieraDccang9262 [address] RoadDuin [place] [id number] Potassium [Moles/Vol] 5.0 mmol/L Normal 3.5-5.2 [facility]; [facility] Work Phone: Comment on above: PATIENT WAS FASTINGP ERFORMED BY: JOSSELINE [facility] VieraEcqivt[address] [facility]in [place] [id number] Protein [Mass/Vol] 6.9 g/dL Normal 6.0-8.5 [facility]; [facility] Work Phone: Comment on above: PATIENT WAS FASTINGP ERFORMED BY: JOSSELINE Labar[facility] VieraXkqkdu[address] [facility]in [place] [id number] Sodium [Moles/Vol] 139 mmol/L Normal 134-144 [facility]; [facility] Work Phone: Comment on above: PATIENT WAS FASTINGP ERFORMED BY: JOSSELINE Labar[facility] VieraUcdyxp[address] [facility] [place] [id number] Urea nitrogen [Mass/Vol] 12 mg/dL Normal 8-27 [facility]; [facility] Work Phone: Comment on above: PATIENT WAS FASTINGP ERFORMED BY: JOSSELINE [facility] Nllrqi[address] [facility]in [place] [id number] Urea nitrogen/Creatinine [Mass ratio] 14 mg/mg Normal 12-28 [facility]; [facility] Work Phone: Comment on above: PATIENT WAS FASTINGP ERFORMED BY: JOSSELINE [facility] Gelckm[address] [facility]in [place] [id number] MICROALBUMINOrdered By: Syst em Pharmaceutical Service Representative on 05-11-2022 Albumin DL <= 20 mg/L (U) [Mass/Vol] mg/dL Normal Comprehensiv e [facility]; [facility] Work Phone: Comment on above: PATIENT WAS FASTINGP ERFORMED BY: JOSSELINE [facility] Gbwdnv9362 Bhardwaj RoadDublin [place] [id number] Albumin/Creatinine (U) [Mass ratio] <5 Normal 0-29 [facility]; [facility] Work Phone: Comment on above: Normal: 0 - 29 Moder ately increased: 30 - 300 Severely increased: >300 PATIENT WAS FASTINGP ERFORMED BY: JOSSELINE [facility] Gdrxwu4518 Bhardwaj RoadDublin [place] [id number] Creatinine (U) [Mass/Vol] 55.0 mg/dL Normal [facility]; [facility] Work Phone: Comment on above: PATIENT WAS FASTINGP ERFORMED BY: JOSSELINE [facility] Ryldor9628 [address]waj RoadDublin [place] [id number] TSH ([id number])Ordered By: Huayi m Pharmaceutical Service Representative on 05-11-2022 TSH Qn 2.150 {uIU/mL} Normal 0.450-4.50 0 [facility]; [facility] Work Phone: Comment on above: PATIENT WAS FASTINGP ERFORMED BY: JOSSELINE [facility] Gcysri26[address] Bhard[address] RoadDublin [place] [id number] URINALYSIS, W/ MICRO ([id number]) Ordered By: Printing Equipment Mechanic on 05-11-2022 Appearance (U) Clear Normal Comprehens brea [facility]; [facility] Work Phone: Comment on above: PATIENT WAS FASTINGP ERFORMED BY: JOSSELINE [facility] Mjlaii6252 [address] RoadDublin [place] [id number] Bilirubin Ql (U) Negative Normal Comprehe nsive [facility] Medicine; [facility] Work Phone: Comment on above: PATIENT WAS FASTINGP ERFORMED BY: JOSSELINE [facility] Vtudzh4840 [address] RoadDublin [place] [id number] Color (U) Yellow Normal [facility]; [facility] Work Phone: Comment on above: PATIENT WAS FASTINGP ERFORMED BY: JOSSELINE [facility] Jwdekl7248 [address] RoadDublin [place] [id number] Glucose Ql (U) Negative Normal Comprehens brea [facility]; [facility] Work Phone: Comment on above: PATIENT WAS FASTINGP ERFORMED BY: JOSSELINE Wadsworth[address] [facility] [place] [id number] Hemoglobin Ql (U) Negative Normal Compreh ensive [facility]; [facility] Work Phone: Comment on above: PATIENT WAS FASTINGP ERFORMED BY: JOSSELINE Damon [address] Roadblin [place] [id number] Ketones Ql (U) Negative Normal Comprehens brea [facility]; [facility] Work Phone: Comment on above: PATIENT WAS FASTINGP ERFORMED BY: JOSSELINE [address]sworth[address] [facility] [id number] Leukocyte esterase Test strip Ql (U) 1+ Abnormal [facility]; [facility] Work Phone: Comment on above: PATIENT WAS FASTINGP ERFORMED BY: JOSSELINE [address]sworth[address] [facility] [id number] Microscopic observation LM Nom (Urine sed) See below: Normal [facility]; [facility] Work Phone: Comment on above: Microscopic was helio cated and was performed. PATIENT WAS FASTINGP ERFORMED BY: JOSSELINE Vieralin[address] [facility] CenterD[facility] [place] [id number] Nitrite Ql (U) Negative Normal Comprehens brea [facility] Medicine; [facility] Work Phone: Comment on above: PATIENT WAS FASTINGP ERFORMED BY: JOSSELINE Vieralin[address] [facility] [place] [id number] pH (U) 7.0 [pH] Normal 5.0-7.5 [facility]; [facility] Work Phone: Comment on above: PATIENT WAS FASTINGP ERFORMED BY: JOSSELINE Vieralin[address] [facility] CenterD[facility] [place] [id number] Protein Ql (U) Negative Normal Comprehens brea [facility]; [facility] Work Phone: Comment on above: PATIENT WAS FASTINGP ERFORMED BY: JOSSELINE Vieralin6370 [facility] [id number] Specific gravity (U) [Rel density] 1.010 1 Normal 1.005-1.03 0 [facility]; [facility] Work Phone: Comment on above: PATIENT WAS FASTINGP ERFORMED BY: Next 2 Greatness6370 [facility] [id number] Urobilinogen (U) [Mass/Vol] 0.2 mg/dL Normal 0.2-1.0 [facility]; [facility] Work Phone: Comment on above: PATIENT WAS FASTINGP ERFORMED BY: [employer] Xwfstz2013 [facility] [id number] MR KNEE WO RTon 11-28-2021 MR KNEE WO RT [place] [address] Patient: ADELINE GRAHAM Phone#: : 1945 Age: 76 Gender: F Pt. Type: Out Account: [id number] Location: Ordering: [facility] [place] Exam Date: 11/28/2021/14:06 Family Phys: SORAIDA ESTEVES Charge Code: 260093 Physician: Preston Order #: [id number] Dose#: PROCEDURE: MRI KNEE RT WITHOUT CONTRAST COMPARISON: None. INDICATIONS: Degenerative joint disease. TECHNIQUE: A complete multi-planar MRI was performed. FINDINGS: MEDIAL COMPARTMENT MEDIAL MENISCUS: There is extrusion the medial meniscus. There is fraying of the superior margin of the meniscus posteriorly. Complex posterior horn tear is present. HYALINE CARTILAGE: There is irregular thinning of the articular cartilage. BONES: There is mild marrow edema at the medial tibial plateau. MCL AND MEDIAL CAPSULE: There is abnormal signal and thickening of the posterior medial capsule consistent with chronic injury. Popliteal cyst is present. LATERAL COMPARTMENT LATERAL MENISCUS: Normal. No visible tear or significant degeneration. HYALINE CARTILAGE: There is irregular thinning of the articular cartilage. BONES: Normal. No marrow pathology, fracture, or significant arthropathy. LCL/POSTEROLAT. COMPLEX: Normal lateral collateral ligament, fascicles, lateral capsule and ligaments. ACL: Normal appearing ligament. PCL: Normal appearing ligament. MENISCOFEMORAL: The medial superior meniscofemoral ligament is wavy consistent with tear. PATELLOFEMORAL: There is narrowing of the lateral patellofemoral joint space. There is mild lateral subluxation of the patella. EFFUSION: None. No synovitis or loose bodies. OTHER: Negative. CONCLUSION: Continued Report - Page 2 of 2 Patient: ADELINE GRAHAM Phone#: : 1945 Age: 76 Gender: F Pt. Type: Out Account: [id number] Location: Ordering: [facility] [place] Exam Date: 11/28/2021/14:06 Family Phys: SORAIDA Dav DANIELITO Charge Code: 384892 Physician: Preston Order #: [id number] Dose#: 1. Fraying and complex tear of the posterior horn of the medial meniscus. There is extrusion of the medial meniscus. 2. A popliteal cyst is present. Dictated by: Jaylene Penaloza MD on 11/29/2021 at 13:21 Approved by: Jaylene Penaloza MD on 11/29/2021 at 13:32 Normal [facility] CBC W/AUTO DIFF WBC ([id number])O rdered By: Printing Equipment Mechanic on 05-11-2020 Basophils (Bld) [#/Vol] 0.1 {x10E3/uL} Normal 0.0-0.2 [facility]; [facility] Work Phone: Comment on above: Test(s) 569401-QCK-B ; 460120-AAW-Z; 368064-Kuwdhkaddmphl; 213521-Wjiqqtbjatr, Total; 692248-ZTV-E (Total); 940172-Rqfzf LDL-P; 675059-GHR Size; 050131-EE-ZD Scorewas developed and its performance characteristics determinedby [employer]. It has not been cleared or approved by the Foodand Drug Administration.PATIENT WAS FASTINGPERFORMED BY: BN [employer] [address] [id number] BY: CB SumerianHoboken University Medical CenterZyxdyp0774 [facility] [id number] Basophils (Bld) [#/Vol] 0.1 10*3/uL Normal 0.0-0.2 [facility]; [facility] Work Phone: Comment on above: Test(s) 142428-TZH-C ; 917360-QPP-C; 214940-Zgiaxfhhmqowf; 408140-Slwbfszdsja, Total; 197123-DYN-P (Total); 189847-Bfyqy LDL-P; 404957-MLM Size; 634893-TP-MA Scorewas developed and its performance characteristics determinedby [employer]. It has not been cleared or approved by the Foodand Drug Administration.PATIENT WAS FASTINGPERFORMED BY: [employer] [address] [id number] BY: [employer]70 [facility] [id number] Basophils/100 WBC (Bld) 1 % Normal [facility]; [facility] Work Phone: Comment on above: Test(s) 323219-LIP-P ; 080528-RRK-A; 294706-Iikxxgxucyemh; 740847-Meoahcetveh, Total; 635522-RGH-Z (Total); 296388-Jwznx LDL-P; 630402-BMC Size; 069320-CG-JK Scorewas developed and its performance characteristics determinedby [employer]. It has not been cleared or approved by the Foodand Drug Administration.PATIENT WAS FASTINGPERFORMED BY: [employer] [address] [id number] BY: [employer] Qjhnaj9145 [facility] [id number] Eosinophils (Bld) [#/Vol] 0.1 {x10E3/uL} Normal 0.0-0.4 [facility]; [facility] Work Phone: Comment on above: Test(s) 063806-RXX-X ; 533634-ODP-S; 042656-Fnhqrwyzfyped; 001640-Ksdlehawcyn, Total; 163940-RII-T (Total); 268443-Hrofx LDL-P; 867498-WFX Size; 290739-PE-BX Scorewas developed and its performance characteristics determinedby [employer]. It has not been cleared or approved by the Foodand Drug Administration.PATIENT WAS FASTINGPERFORMED BY: [employer] [address] [id number] BY: [employer]70 [facility] [id number] Eosinophils (Bld) [#/Vol] 0.1 10*3/uL Normal 0.0-0.4 [facility]; [facility] Work Phone: Comment on above: Test(s) 007578-VVT-M ; 996829-ROX-V; 338086-Pqlexsoxplluy; 310075-Zepvhvgnxeo, Total; 943421-CWV-A (Total); 545193-Yiaep LDL-P; 549093-IAC Size; 345582-GJ-GX Scorewas developed and its performance characteristics determinedby [employer]. It has not been cleared or approved by the Foodand Drug Administration.PATIENT WAS FASTINGPERFORMED BY: [employer] [address] [id number] BY: [employer]70 [facility]Nov[facility] [id number] Eosinophils/100 WBC (Bld) 2 % Normal [facility]; [facility] Work Phone: Comment on above: Test(s) 301767-GJI-Y ; 839705-UHC-P; 792128-Ypezjfehumcga; 050548-Ejdvmifncld, Total; 138255-VBO-M (Total); 639763-Jguir LDL-P; 506868-OTX Size; 779565-LG-KY Scorewas developed and its performance characteristics determinedby [employer]. It has not been cleared or approved by the Foodand Drug Administration.PATIENT WAS FASTINGPERFORMED BY: [employer] [address] [id number] BY: [employer]6370 [facility] [id number] Erythrocyte distribution width (RBC) [Ratio] 12.0 % Normal 11.7-15.4 [facility]; [facility] Work Phone: Comment on above: Test(s) 814409-VHQ-A ; 132559-VXQ-Q; 738724-Jvwbiguqfjfex; 799262-Hyoovojgpzi, Total; 680373-HSD-I (Total); 395324-Hnqih LDL-P; 060508-LBI Size; 191155-FP-GE Scorewas developed and its performance characteristics determinedby [employer]. It has not been cleared or approved by the Foodand Drug Administration.PATIENT WAS FASTINGPERFORMED BY: [employer] [address] [id number] BY: [employer] Cphgpv1489 [facility] [id number] Hematocrit (Bld) [Volume fraction] 40.1 % Normal 34.0-46.6 [facility]; [facility] Work Phone: Comment on above: Test(s) 620874-BXW-K ; 851864-VAQ-E; 779703-Jzdkcyryrzxnp; 479005-Fssdogybrqa, Total; 701491-AVF-J (Total); 317607-Xxbbi LDL-P; 391299-QIC Size; 146959-WC-BV Scorewas developed and its performance characteristics determinedby [employer]. It has not been cleared or approved by the FoodYingying Licai Drug Administration.PATIENT WAS FASTINGPERFORMED BY: [employer] [address] [id number] BY: [employer]6370 [facility] [id number] Hemoglobin (Bld) [Mass/Vol] 13.4 g/dL Normal 11.1-15.9 [facility]; [facility] Work Phone: Comment on above: Test(s) 827943-CVI-M ; 233007-TNQ-I; 325532-Yppdvgstjsxms; 426645-Bmzmeasehns, Total; 589196-BTN-P (Total); 644560-Zaxzh LDL-P; 307048-QCW Size; 120181-DL-TS Scorewas developed and its performance characteristics determinedby [employer]. It has not been cleared or approved by the Foodand Drug Administration.PATIENT WAS FASTINGPERFORMED BY: [employer] [address] [id number] BY: Sumerian Djrbyc[address] Jelas MarketingMaria Parham Health [id number] Immature granulocytes (Bld) [#/Vol] 0.0 {x10E3/uL} Normal 0.0-0.1 [facility]; [facility] Work Phone: Comment on above: Test(s) 100487-NBR-P ; 798688-HWP-E; 192743-Yocctcgvfqdxq; 871839-Iasisotsakt, Total; 311555-NUN-J (Total); 656936-Vbnbt LDL-P; 555976-BRG Size; 637668-KR-UQ Scorewas developed and its performance characteristics determinedby [employer]. It has not been cleared or approved by the Foodand Drug Administration.PATIENT WAS FASTINGPERFORMED BY: [employer] [id number] BY: [employer]70 [facility] [id number] Immature granulocytes (Bld) [#/Vol] 0.0 10*3/uL Normal 0.0-0.1 [facility]; [facility] Work Phone: Comment on above: Test(s) 155574-MIB-U ; 421239-VFX-O; 624109-Vafcxgjumtrfh; 918158-Kaopqkcwcid, Total; 690141-AEF-Z (Total); 114563-Vxrdw LDL-P; 406746-LFJ Size; 615805-SI-XF Scorewas developed and its performance characteristics determinedby [employer]. It has not been cleared or approved by the Foodand Drug Administration.PATIENT WAS FASTINGPERFORMED BY: [employer] [address] [id number] BY: HCDClin6370 [facility] [id number] Immature granulocytes/100 WBC (Bld) 0 % Normal [facility]; [facility] Work Phone: Comment on above: Test(s) 899860-SWV-N ; 306676-CCW-G; 014367-Segizxoemrzxf; 710793-Xzlxdmufqqy, Total; 873268-BTF-W (Total); 493461-Txfyu LDL-P; 229823-EXY Size; 615472-FA-HS Scorewas developed and its performance characteristics determinedby [employer]. It has not been cleared or approved by the Foodand Drug Administration.PATIENT WAS FASTINGPERFORMED BY: Sumerian[address] [id number] BY: SumerianHoboken University Medical CenterZeuuyf2649 [facility] [id number] Lymphocytes (Bld) [#/Vol] 1.8 {x10E3/uL} Normal 0.7-3.1 [facility]; [facility] Work Phone: Comment on above: Test(s) 503170-NPP-L ; 306078-TOI-R; 651964-Qxpkkgzohzggr; 729499-Voiympklzpk, Total; 525923-XVQ-W (Total); 568779-Wxzrh LDL-P; 354290-EJG Size; 703728-GO-XS Scorewas developed and its performance characteristics determinedby [employer]. It has not been cleared or approved by the Foodand Drug Administration.PATIENT WAS FASTINGPERFORMED BY: Sumerian[address] [id number] BY: SumerianHoboken University Medical CenterSrdmrn0053 [facility] [id number] Lymphocytes (Bld) [#/Vol] 1.8 10*3/uL Normal 0.7-3.1 [facility]; [facility] Work Phone: Comment on above: Test(s) 136909-CBX-S ; 560803-MSI-N; 667873-Uladzmhanxwce; 631955-Puqocjbpmuu, Total; 439078-RVQ-H (Total); 672538-Mnlvy LDL-P; 009814-LCB Size; 649901-ZD-BT Scorewas developed and its performance characteristics determinedby [employer]. It has not been cleared or approved by the Foodand Drug Administration.PATIENT WAS FASTINGPERFORMED BY: [employer] [address] [id number] BY: HCDClin6370 [facility] [id number] Lymphocytes/100 WBC (Bld) 33 % Normal [facility]; [facility] Work Phone: Comment on above: Test(s) 848908-XGP-S ; 789747-OFE-J; 689571-Hnbmpmzbepcfd; 786274-Mxyboxstpfz, Total; 596278-TTM-K (Total); 593164-Mzcns LDL-P; 813982-XXS Size; 593112-LP-EU Scorewas developed and its performance characteristics determinedby [employer]. It has not been cleared or approved by the Foodand Drug Administration.PATIENT WAS FASTINGPERFORMED BY: [employer] [address] [id number] BY: [employer]6370 [facility] [id number] MCH (RBC) [Entitic mass] 31.6 pg Normal 26.6-33.0 [facility]; [facility] Work Phone: Comment on above: Test(s) 190818-CKI-S ; 850525-PIM-Y; 329876-Reoapwwaaepls; 708859-Hxhhqigbxpu, Total; 235957-YMD-A (Total); 713603-Aujjr LDL-P; 464595-GBQ Size; 266140-FN-XM Scorewas developed and its performance characteristics determinedby [employer]. It has not been cleared or approved by the Foodand Drug Administration.PATIENT WAS FASTINGPERFORMED BY: [employer] [address] [id number] BY: [employer] Uaoihr3076 [facility] [id number] MCHC (RBC) [Mass/Vol] 33.4 g/dL Normal 31.5-35.7 [facility]; [facility] Work Phone: Comment on above: Test(s) 924340-SFO-L ; 654774-RSH-T; 648920-Cwbozuluejmcn; 994318-Tihhopixkao, Total; 521991-KDM-M (Total); 030678-Vqkhu LDL-P; 150964-NOR Size; 554057-OS-LV Scorewas developed and its performance characteristics determinedby [employer]. It has not been cleared or approved by the Foodand Drug Administration.PATIENT WAS FASTINGPERFORMED BY: [employer] [id number] BY: [employer]70 [facility] [id number] MCV (RBC) [Entitic vol] 95 fL Normal 79-97 [facility]; [facility] Work Phone: Comment on above: Test(s) 875936-CKC-V ; 464905-ZPR-E; 820037-Pimumdwyduijk; 711206-Umadqhhfewc, Total; 683351-JPA-T (Total); 970894-Dolxi LDL-P; 673089-ZYM Size; 301471-RA-YC Scorewas developed and its performance characteristics determinedby [employer]. It has not been cleared or approved by the Foodand Drug Administration.PATIENT WAS FASTINGPERFORMED BY: [employer] [id number] BY: [employer]6370 BhardwajSt. Luke's HospitalCOLOURloversNovant Health [facility] [id number] Monocytes (Bld) [#/Vol] 0.4 {x10E3/uL} Normal 0.1-0.9 [facility]; [facility] Work Phone: Comment on above: Test(s) 715576-KRO-B ; 522451-QQS-C; 158542-Eunnllwhrdjxa; 400877-Xpvdolscpcq, Total; 405294-ALR-O (Total); 701817-Qjhuf LDL-P; 920909-LVV Size; 704483-JG-LW Scorewas developed and its performance characteristics determinedby [employer]. It has not been cleared or approved by the Foodand Drug Administration.PATIENT WAS FASTINGPERFORMED BY: [employer]o [employer] [address] [id number] BY: [employer]ble Byxjbs5027 [facility] [id number] Monocytes (Bld) [#/Vol] 0.4 10*3/uL Normal 0.1-0.9 [facility]; [facility] Work Phone: Comment on above: Test(s) 987750-IUX-X ; 778371-QWI-O; 717853-Xaydiegpldlep; 602235-Niltkcxdmtb, Total; 060922-NRV-Q (Total); 401979-Qtlmx LDL-P; 610100-WSL Size; 372473-MW-VO Scorewas developed and its performance characteristics determinedby [employer]. It has not been cleared or approved by the Foodand Drug Administration.PATIENT WAS FASTINGPERFORMED BY: [employer] [address] [id number] BY: [employer]6370 BhardwajSt. Luke's HospitalCOLOURloversNovant Health [facility] [id number] Monocytes/100 WBC (Bld) 8 % Normal [facility]; [facility] Work Phone: Comment on above: Test(s) 161267-ZNE-M ; 439138-HXS-S; 299551-Karxfqhirnijv; 660926-Zehwevhxztt, Total; 627625-AOW-Z (Total); 399023-Vwuls LDL-P; 295446-MGP Size; 753755-QL-HT Scorewas developed and its performance characteristics determinedby [employer]. It has not been cleared or approved by the Foodand Drug Administration.PATIENT WAS FASTINGPERFORMED BY: [employer] [address] [id number] BY: Guided [employer]ventions Wvbnrz0136 [facility] [id number] Neutrophils (Bld) [#/Vol] 3.1 {x10E3/uL} Normal 1.4-7.0 [facility]; [facility] Work Phone: Comment on above: Test(s) 435755-SHJ-A ; 807817-WNN-K; 142427-Xzbvgyjsygqdk; 431141-Whbilzrvses, Total; 564511-VWR-H (Total); 932323-Joold LDL-P; 594165-GQY Size; 726755-EN-TG Scorewas developed and its performance characteristics determinedby [employer]. It has not been cleared or approved by the Foodand Drug Administration.PATIENT WAS FASTINGPERFORMED BY: [employer] [address] [id number] BY: [employer]6370 [facility] [id number] Neutrophils (Bld) [#/Vol] 3.1 10*3/uL Normal 1.4-7.0 [facility]; [facility] Work Phone: Comment on above: Test(s) 883235-CXG-J ; 503382-NPK-M; 410492-Rsnqnhihrygpp; 837940-Lawywctxctp, Total; 079509-RVH-Q (Total); 038817-Fqzdq LDL-P; 279988-LDJ Size; 856176-XF-RQ Scorewas developed and its performance characteristics determinedby [employer]. It has not been cleared or approved by the Foodand Drug Administration.PATIENT WAS FASTINGPERFORMED BY: [employer]o [employer] [address] [id number] BY: [employer]6370 Symphony CommerceMaria Parham Health [id number] Neutrophils/100 WBC (Bld) 56 % Normal [facility]; [facility] Work Phone: Comment on above: Test(s) 652977-LCZ-B ; 473480-HDU-B; 515478-Evdapeeaougdi; 143140-Rzpxusvnonc, Total; 883448-ISD-M (Total); 466028-Tvlcw LDL-P; 837328-RPH Size; 428022-ZN-QC Scorewas developed and its performance characteristics determinedby [employer]. It has not been cleared or approved by the Foodand Drug Administration.PATIENT WAS FASTINGPERFORMED BY: [employer] [address] [id number] BY: [employer]6[address] Jelas MarketingMaria Parham Health [id number] Platelets (Bld) [#/Vol] 248 {x10E3/uL} Normal 150-450 [facility]; [facility] Work Phone: Comment on above: Test(s) 125623-KCA-R ; 799188-WVZ-X; 673025-Rjqytkoaofmiu; 876532-Cxkxnirmriq, Total; 396098-SYR-J (Total); 530214-Ngath LDL-P; 786899-LQK Size; 761358-RV-CX Scorewas developed and its performance characteristics determinedby [employer]. It has not been cleared or approved by the Foodand Drug Administration.PATIENT WAS FASTINGPERFORMED BY: [employer] [id number] BY: [employer]70 [facility] [id number] Platelets (Bld) [#/Vol] 248 10*3/uL Normal 150-450 [facility]; [facility] Work Phone: Comment on above: Test(s) 782648-VYI-R ; 488926-XPG-P; 777347-Tbxudmfahbuqg; 426567-Rveyretosfx, Total; 881957-BQX-T (Total); 920396-Lcjcw LDL-P; 966880-RTB Size; 407275-SY-OI Scorewas developed and its performance characteristics determinedby [employer]. It has not been cleared or approved by the Foodand Drug Administration.PATIENT WAS FASTINGPERFORMED BY: [employer] [id number] BY: [employer]6370 [facility] [id number] RBC (Bld) [#/Vol] 4.24 {x10E6/uL} Normal 3.77-5.28 [facility] Internal Medicine; [facility] Work Phone: Comment on above: Test(s) 323923-MYJ-N ; 099661-MIV-Y; 106000-Yomzdlvpxvhhn; 428998-Elsxiwtpuqo, Total; 177816-MLG-M (Total); 960220-Lpftu LDL-P; 595244-AFG Size; 445796-IZ-EZ Scorewas developed and its performance characteristics determinedby [employer]. It has not been cleared or approved by the Foodand Drug Administration.PATIENT WAS FASTINGPERFORMED BY: Dynamo [employer] [address] [id number] BY: [employer]6[address] [facility] [id number] RBC (Bld) [#/Vol] 4.24 10*6/uL Normal 3.77-5.28 [facility] ehensive Internal Medicine; [facility] Work Phone: Comment on above: Test(s) 488663-TGK-P ; 668010-PDF-U; 591207-Ybskpjvkbqprd; 911904-Zjgbvxmkjty, Total; 038074-AFT-O (Total); 814287-Ibonh LDL-P; 853892-ZZT Size; 058704-KC-JH Scorewas developed and its performance characteristics determinedby [employer]. It has not been cleared or approved by the Foodand Drug Administration.PATIENT WAS FASTINGPERFORMED BY: [employer]o [employer] [address] [id number] BY: [employer]6[address] [facility] [id number] WBC (Bld) [#/Vol] 5.5 {x10E3/uL} Normal 3.4-10.8 [facility]; [facility] Work Phone: Comment on above: Test(s) 101908-FGD-T ; 511684-KAW-V; 350405-Zmrxdtsvoccwx; 179344-Tlnbzbkdlwl, Total; 711699-WKR-Z (Total); 924265-Xdwkg LDL-P; 836474-SRB Size; 017866-DA-OO Scorewas developed and its performance characteristics determinedby [employer]. It has not been cleared or approved by the Foodand Drug Administration.PATIENT WAS FASTINGPERFORMED BY: [employer] [address] [id number] BY: [employer]6[address] [facility] [id number] WBC (Bld) [#/Vol] 5.5 10*3/uL Normal 3.4-10.8 [facility] Internal Medicine; [facility] Work Phone: Comment on above: Test(s) 753181-IJV-P ; 447622-ONC-T; 220116-Josdwktqiohnd; 091599-Gwsuboffawv, Total; 104022-ZDS-Y (Total); 711937-Ildam LDL-P; 905460-YTH Size; 384202-LX-KW Scorewas developed and its performance characteristics determinedby [employer]. It has not been cleared or approved by the Foodand Drug Administration.PATIENT WAS FASTINGPERFORMED BY: [employer] [id number] BY: [employer]70 [facility]Cl[facility]Nov[facility] [id number] METABOLIC PANEL, COMPREHENSI VE (89548)Ordered By: Printing Equipment Mechanic on 05-11-2020 Albumin [Mass/Vol] 4.6 g/dL Normal 3.7-4.7 [facility] Internal Medicine; [facility] Work Phone: Comment on above: Test(s) 941580-ZHM-B ; 501694-QSL-G; 788461-Jxiczcqgukcui; 346767-Gpnfajudnht, Total; 695286-GXD-P (Total); 426839-Xovfm LDL-P; 091596-ALL Size; 567089-EQ-LB Scorewas developed and its performance characteristics determinedby [employer]. It has not been cleared or approved by the Foodand Drug Administration.PATIENT WAS FASTINGPERFORMED BY: [employer] [address] [id number] BY: [employer]70 Symphony CommerceMaria Parham Health [id number] Albumin/Globulin [Mass ratio] 1.8 {ratio} Normal 1.2-2.2 [facility]; [facility] Work Phone: Comment on above: Test(s) 391037-CHB-R ; 528927-SPH-S; 673489-Cirtpfpegumbl; 537600-Ejmorhfwmtb, Total; 862299-QWA-M (Total); 758091-Lyssz LDL-P; 761026-KOA Size; 686269-HJ-EL Scorewas developed and its performance characteristics determinedby [employer]. It has not been cleared or approved by the Foodand Drug Administration.PATIENT WAS FASTINGPERFORMED BY: Sumerian[address] [id number] BY: Sumerian Lavbol0415 Bhardwaj Jelas MarketingMaria Parham Health [id number] ALP [Catalytic activity/Vol] 61 [iU]/L Normal 39-117 [facility]; [facility] Work Phone: Comment on above: Test(s) 673811-CUS-F ; 939968-VWO-B; 498525-Bqrmrlcdrnnih; 255585-Guvffrpqtav, Total; 128863-HKS-Y (Total); 217170-Vhatf LDL-P; 325989-TYU Size; 875438-YR-SF Scorewas developed and its performance characteristics determinedby [employer]. It has not been cleared or approved by the Foodand Drug Administration.PATIENT WAS FASTINGPERFORMED BY: [employer] [address] [id number] BY: [employer]70 Bhardwaj Jelas MarketingMaria Parham Health [id number] ALP [Catalytic activity/Vol] 61 U/L Normal 39-117 [facility]; [facility] Work Phone: Comment on above: Test(s) 750282-FZC-Q ; 245712-WEG-A; 705804-Sucsvrwbktahf; 030871-Mmhszvuaruu, Total; 374637-JTA-M (Total); 017056-Kqpli LDL-P; 903273-PMC Size; 017619-ZR-TJ Scorewas developed and its performance characteristics determinedby [employer]. It has not been cleared or approved by the Foodand Drug Administration.PATIENT WAS FASTINGPERFORMED BY: Sumerian[address] [id number] BY: Sumerian Lqwuck4105 Bhardwaj Jelas MarketingMaria Parham Health [id number] ALT [Catalytic activity/Vol] 17 [iU]/L Normal 0-32 [facility]; [facility] Work Phone: Comment on above: Test(s) 083142-VMC-S ; 908606-FWP-B; 003931-Juatodrwsqaoq; 029573-Fvxkajssikl, Total; 562912-SJZ-I (Total); 911692-Wyufw LDL-P; 644209-ULX Size; 289199-KT-ZC Scorewas developed and its performance characteristics determinedby [employer]. It has not been cleared or approved by the Foodand Drug Administration.PATIENT WAS FASTINGPERFORMED BY: [employer] [address] [id number] BY: DabbleArtesia General HospitalGghxyh[address] [place] [address] [id number] ALT [Catalytic activity/Vol] 17 U/L Normal 0-32 [facility]; [facility] Work Phone: Comment on above: Test(s) 404738-XJW-Q ; 718076-ICJ-A; 699883-Axiwmypeotjla; 251434-Jxndyouxmzo, Total; 461621-AUH-B (Total); 243760-Xxtfx LDL-P; 766103-JFA Size; 387460-SH-YG Scorewas developed and its performance characteristics determinedby [employer]. It has not been cleared or approved by the Foodand Drug Administration.PATIENT WAS FASTINGPERFORMED BY: [employer] [address] [id number] BY: DabbleHoboken University Medical CenterBmnkrd3311 [facility] [id number] AST [Catalytic activity/Vol] 22 [iU]/L Normal 0-40 [facility]; [facility] Work Phone: Comment on above: Test(s) 021219-UTF-E ; 114460-VIW-O; 045820-Abbasmqiowtzb; 269882-Hkrpmqfqoss, Total; 184205-ZEX-I (Total); 863411-Knlvf LDL-P; 919910-RUK Size; 841461-CK-IE Scorewas developed and its performance characteristics determinedby [employer]. It has not been cleared or approved by the Foodand Drug Administration.PATIENT WAS FASTINGPERFORMED BY: Sumerian[address] [id number] BY: SumerianHoboken University Medical CenterIrvrhd8768 [facility] [id number] AST [Catalytic activity/Vol] 22 U/L Normal 0-40 [facility]; [facility] Work Phone: Comment on above: Test(s) 760311-CHY-Y ; 881593-IEQ-E; 027469-Zvftbnnufklmt; 954325-Vdyospwvfll, Total; 948407-XSB-V (Total); 826547-Wtghd LDL-P; 973703-UUH Size; 992727-JX-EN Scorewas developed and its performance characteristics determinedby [employer]. It has not been cleared or approved by the Foodand Drug Administration.PATIENT WAS FASTINGPERFORMED BY: [employer] [address] [id number] BY: SumerianHoboken University Medical CenterNugtps9997 [facility] [id number] Bilirubin [Mass/Vol] 0.6 mg/dL Normal 0.0-1.2 [facility] Internal Medicine; [facility] Work Phone: Comment on above: Test(s) 400713-DEC-J ; 783797-ARJ-N; 654863-Iyvnjavcrqaoy; 397413-Rbmyjwdlall, Total; 111413-VJD-R (Total); 865865-Ezynj LDL-P; 100092-JIV Size; 882888-JM-GF Scorewas developed and its performance characteristics determinedby [employer]. It has not been cleared or approved by the Foodand Drug Administration.PATIENT WAS FASTINGPERFORMED BY: Sumerian[address] [id number] BY: SumerianHoboken University Medical CenterZjlncy4584 [facility] [id number] Calcium [Mass/Vol] 9.6 mg/dL Normal 8.7-10.3 [facility] Internal Medicine; [facility] Internal Medicine Work Phone: Comment on above: Test(s) 488287-MEF-F ; 191215-KCV-K; 298301-Vzggtsxepmfbi; 076597-Ojuxojzdmge, Total; 217088-BZD-S (Total); 745990-Uiqab LDL-P; 591396-CVW Size; 055862-KZ-WT Scorewas developed and its performance characteristics determinedby [employer]. It has not been cleared or approved by the Foodand Drug Administration.PATIENT WAS FASTINGPERFORMED BY: [employer] [id number] BY: [employer]70 [facility] [id number] Chloride [Moles/Vol] 105 mmol/L Normal 96-106 [facility] Internal Medicine; [facility] Work Phone: Comment on above: Test(s) 045730-NCQ-Y ; 187672-HJN-Z; 344748-Vcyvagnrwtzny; 087427-Rgbqqjnzwjr, Total; 406357-XLQ-C (Total); 861544-Fhyay LDL-P; 248055-VPF Size; 118828-KH-PY Scorewas developed and its performance characteristics determinedby [employer]. It has not been cleared or approved by the Foodand Drug Administration.PATIENT WAS FASTINGPERFORMED BY: [employer] [id number] BY: [employer]6[address] [facility] [id number] CO2 [Moles/Vol] 22 mmol/L Normal 20-29 [facility] Internal Medicine; [facility] Medicine Work Phone: Comment on above: Test(s) 325665-YVO-K ; 957164-QYV-V; 264358-Kvgpresokfgjw; 813622-Vohiruxsfbd, Total; 624130-CQG-E (Total); 145045-Bpgcz LDL-P; 198266-FEB Size; 884003-PR-RO Scorewas developed and its performance characteristics determinedby [employer]. It has not been cleared or approved by the Foodand Drug Administration.PATIENT WAS FASTINGPERFORMED BY: [employer] [id number] BY: [employer]6[address] [facility] [id number] Creatinine [Mass/Vol] 0.86 mg/dL Normal 0.57-1.00 [facility]; [facility] Work Phone: Comment on above: Test(s) 571156-OFQ-M ; 785577-KVQ-G; 254801-Klvrxrgqbqpdx; 346696-Gokbkqvfmja, Total; 945048-DLF-G (Total); 164776-Nycsp LDL-P; 718013-TYY Size; 710055-ZZ-RO Scorewas developed and its performance characteristics determinedby [employer]. It has not been cleared or approved by the Foodand Drug Administration.PATIENT WAS FASTINGPERFORMED BY: [employer] [address] [id number] BY: [employer]70 [facility] [id number] GFR/1.73 sq M predicted among blacks CKD-EPI (S/P/Bld) [Vol rate/Area] 76 mL/min/1.73 Normal [facility]; [facility] Work Phone: Comment on above: Test(s) 316796-SSG-S ; 329827-WKU-U; 775425-Zsggblntmrgbf; 299251-Yaiiphvrwhx, Total; 111493-PXF-C (Total); 987846-Jknyg LDL-P; 981744-JZZ Size; 351114-DO-JC Scorewas developed and its performance characteristics determinedby [employer]. It has not been cleared or approved by the Foodand Drug Administration.PATIENT WAS FASTINGPERFORMED BY: [employer] [address] [id number] BY: HCDClin6[address] [facility] [id number] GFR/1.73 sq M predicted among non-blacks CKD-EPI (S/P/Bld) [Vol rate/Area] 66 mL/min/1.73 Normal [facility]; [facility] Work Phone: Comment on above: Test(s) 608944-GZX-T ; 777329-ADV-O; 567526-Yijyjscthumes; 117239-Turtiutdxja, Total; 053622-LDN-I (Total); 074685-Ibcut LDL-P; 874286-BQR Size; 644128-NO-QN Scorewas developed and its performance characteristics determinedby [employer]. It has not been cleared or approved by the Foodand Drug Administration.PATIENT WAS FASTINGPERFORMED BY: [employer] [address] [id number] BY: DabbleMonica Ville 10310[address] [facility] [id number] Globulin (S) [Mass/Vol] 2.5 g/dL Normal 1.5-4.5 [facility] Internal Medicine; [facility] Internal Medicine Work Phone: Comment on above: Test(s) 757534-YMF-X ; 254662-LWO-P; 265136-Dazlcigurexiq; 429016-Ahdrzdpqune, Total; 918533-OAS-K (Total); 014905-Zvmev LDL-P; 371021-WXG Size; 421434-BO-KV Scorewas developed and its performance characteristics determinedby [employer]. It has not been cleared or approved by the Foodand Drug Administration.PATIENT WAS FASTINGPERFORMED BY: [employer] [address] [id number] BY: HCDClin6370 [facility] [id number] Glucose [Mass/Vol] 95 mg/dL Normal 65-99 [facility] Internal Medicine; [facility] Internal Medicine Work Phone: Comment on above: Test(s) 390747-QVA-K ; 549314-BJD-J; 970303-Affxxqpolsmda; 033126-Tczzvlvnbku, Total; 774396-TRC-O (Total); 106790-Qxxsm LDL-P; 567749-YTF Size; 604224-GL-TI Scorewas developed and its performance characteristics determinedby [employer]. It has not been cleared or approved by the Foodand Drug Administration.PATIENT WAS FASTINGPERFORMED BY: [employer] [address] [id number] BY: SumerianHoboken University Medical CenterFvumdw4100 [facility] [id number] Potassium [Moles/Vol] 4.4 mmol/L Normal 3.5-5.2 [facility]; [facility] Work Phone: Comment on above: Test(s) 446556-XPL-A ; 301732-RNZ-V; 020523-Idytpcrzrizkj; 848453-Tctamkmibhh, Total; 905660-MCO-P (Total); 660809-Zarmc LDL-P; 703686-YFR Size; 154680-QJ-GU Scorewas developed and its performance characteristics determinedby [employer]. It has not been cleared or approved by the Foodand Drug Administration.PATIENT WAS FASTINGPERFORMED BY: [employer] [address] [id number] BY: [employer]6[address] [facility] [id number] Protein [Mass/Vol] 7.1 g/dL Normal 6.0-8.5 [facility] Internal Medicine; [facility] Work Phone: Comment on above: Test(s) 816059-AKY-H ; 402650-VFN-G; 817401-Eulhulxtzoofk; 403566-Lcbwfugnmyr, Total; 222607-LCD-X (Total); 331790-Ydwih LDL-P; 661857-RLN Size; 150278-CM-OB Scorewas developed and its performance characteristics determinedby [employer]. It has not been cleared or approved by the Foodand Drug Administration.PATIENT WAS FASTINGPERFORMED BY: [employer] [address] [id number] BY: DabbleHoboken University Medical CenterMwvyot7711 [facility] [id number] Sodium [Moles/Vol] 142 mmol/L Normal 134-144 [facility] Internal Medicine; [facility] Work Phone: Comment on above: Test(s) 285518-SOJ-Q ; 332849-JHM-N; 217995-Qfrlpkyrvfpgk; 040628-Novgcaklduv, Total; 972143-BNN-O (Total); 894679-Rzytj LDL-P; 376125-GUO Size; 436762-TZ-UN Scorewas developed and its performance characteristics determinedby [employer]. It has not been cleared or approved by the Foodand Drug Administration.PATIENT WAS FASTINGPERFORMED BY: [employer] [address] [id number] BY: [facility] SystemsNov[facility] [id number] Urea nitrogen [Mass/Vol] 17 mg/dL Normal 8-27 [facility]; [facility] Work Phone: Comment on above: Test(s) 961699-QDV-D ; 837572-ZUW-E; 770878-Ljessvzrtdfqb; 171088-Axkztlepmyu, Total; 802698-LLR-B (Total); 001588-Qrgnd LDL-P; 829031-SOD Size; 060412-CJ-EM Scorewas developed and its performance characteristics determinedby [employer]. It has not been cleared or approved by the Foodand Drug Administration.PATIENT WAS FASTINGPERFORMED BY: [employer] [address] [id number] BY: [employer]70 AlphaCloneNovant Health [facility] [id number] Urea nitrogen/Creatinine [Mass ratio] 20 mg/mg Normal 12-28 [facility]; [facility] Work Phone: Comment on above: Test(s) 047107-DER-U ; 538127-YZO-B; 999301-Tggdzorqvxbup; 265324-Ktqhzvcfigh, Total; 569234-MJL-H (Total); 995672-Ayvhp LDL-P; 056859-QNQ Size; 290258-WW-PZ Scorewas developed and its performance characteristics determinedby [employer]. It has not been cleared or approved by the Foodand Drug Administration.PATIENT WAS FASTINGPERFORMED BY: [employer] [address] [id number] BY: [employer]70 Symphony CommerceMaria [facility] Health [id number] NMR Profile (04005)Ordered B y: Printing Equipment Mechanic on 05-11-2020 Cholesterol [Mass/Vol] 188 mg/dL Normal 100-199 [facility]; [facility] Work Phone: Comment on above: Test(s) 067667-PKB-N ; 904065-QDR-E; 036367-Qotuicdtgttqy; 413150-Fwfuhrzykia, Total; 473987-CHZ-K (Total); 613828-Rbcmx LDL-P; 344471-MGR Size; 705382-SR-JY Scorewas developed and its performance characteristics determinedby [employer]. It has not been cleared or approved by the Foodand Drug Administration.PATIENT WAS FASTINGPERFORMED BY: [employer] [facility] [id number] BY: [employer]70 Symphony CommerceMaria [facility] Health [id number] Lipoprotein.alpha [Moles/Vol] 30.2 umol/L Abnormal [facility]; [facility] Work Phone: Comment on above: Test(s) 714742-MXC-B ; 679494-ZDO-T; 700304-Kiblvnvgorsui; 119889-Cvjezplgqta, Total; 090920-CGT-K (Total); 187987-Ujnnu LDL-P; 321673-UKK Size; 989852-YF-YY Scorewas developed and its performance characteristics determinedby [employer]. It has not been cleared or approved by the Foodand Drug Administration.PATIENT WAS FASTINGPERFORMED BY: [employer]1447 [facility] [id number] BY: [employer]70 [employer] [facility] [id number] Lipoprotein.beta.sub particle [Entitic length] 20.9 nm Normal [facility]; [facility] Work Phone: Comment on above: INTERPRETATIVE INFORMATION PARTICLE CONCENTRATION AND SIZE <--Lower CVD Risk Higher CVD Risk--> LDL AND HDL PARTICLES Percentile in Reference Population HDL-P (total) High 75th 50th 25th Low >34.9 34.9 30.5 26.7 <26.7 . Small LDL-P Low 25th 50th 75th High <117 117 527 839 >839 . LDL Size <-Large (Pattern A)-> <-Small (Pattern B)-> 23.0 20.6 20.5 19.0 Small LDL-P and LDL Size are associated with CVD risk, but not afterLDL-P is taken into account. Test(s) 080471-BJR-V ; 187857-LSI-Y; 000821-Aqeldkwjbezmb; 026512-Kqwwjpdpfvl, Total; 921447-EQN-J (Total); 903376-Qnkyk LDL-P; 287914-MNV Size; 041526-QF-PN Scorewas developed and its performance characteristics determinedby [employer]. It has not been cleared or approved by the Foodand Drug Administration.PATIENT WAS FASTINGPERFORMED BY: [employer] [address] [id number] BY: CB [employer] [address] [id number] Lipoprotein.beta.sub particle [Moles/Vol] 1872 nmol/L Abnormal Comprehensi ve Internal Medicine; [facility] Work Phone: Comment on above: Low < 1000 Moderate 1000 - 1299 Borderline-High 1300 - 1599 High 1600 - 2000 Very High > 2000 Test(s) 668505-UEG-L ; 964546-RCD-T; 804815-Knkpvzzhbxcdi; 656488-Xjsanevrgxq, Total; 231347-ZKK-C (Total); 159609-Wbjnv LDL-P; 065935-NQS Size; 782697-AO-RQ Scorewas developed and its performance characteristics determinedby [employer]. It has not been cleared or approved by the Foodand Drug Administration.PATIENT WAS FASTINGPERFORMED BY: [employer] [address] [id number] BY: DabbleArtesia General HospitalAwasoe8135 [facility] [id number] Lipoprotein.beta.sub particle.small [Moles/Vol] 880 nmol/L Abnormal [facility]; [facility] Work Phone: Comment on above: Test(s) 100084-CKT-L ; 605580-UKY-Y; 474107-Xmksnbjjtkdbz; 320873-Bvffxtqcsjb, Total; 094722-BVB-C (Total); 822084-Rdccr LDL-P; 985458-RLP Size; 506240-HK-SE Scorewas developed and its performance characteristics determinedby [employer]. It has not been cleared or approved by the Foodand Drug Administration.PATIENT WAS FASTINGPERFORMED BY: [employer] [id number] BY: [employer]6370 [facility] [id number] Triglyceride [Mass/Vol] 96 mg/dL Normal 0-149 [facility]; [facility] Work Phone: Comment on above: Test(s) 182196-HTG-I ; 801210-NCU-Y; 308498-Phdipvgysqvqv; 130781-Rxuvdrljofa, Total; 962553-JMQ-S (Total); 635835-Tkqzv LDL-P; 839805-RSN Size; 454248-SD-IS Scorewas developed and its performance characteristics determinedby [employer]. It has not been cleared or approved by the Foodand Drug Administration.PATIENT WAS FASTINGPERFORMED BY: [employer] [address] [id number] BY: DabbleHoboken University Medical CenterOmmfab3575 [facility] [id number] NMR Profile (20883) 49 mg/dL Normal Compr ehensive Internal Medicine; [facility] Work Phone: Comment on above: Test(s) 390211-SLL-O ; 134000-QCM-K; 880339-Ryglmnhwsrogv; 700830-Nibpmrftsbk, Total; 174157-BRG-O (Total); 083660-Kdjjo LDL-P; 499935-FHK Size; 109328-ZX-KN Scorewas developed and its performance characteristics determinedby [employer]. It has not been cleared or approved by the Foodand Drug Administration.PATIENT WAS FASTINGPERFORMED BY: Sumerian[address] [id number] BY: SumerianHoboken University Medical CenterUainii0019 [facility] [id number] NMR Profile (19796) 122 mg/dL Abnormal 0-99 [facility] Internal Medicine; [facility] Work Phone: Comment on above: . Optimal < 100 Abov e optimal 100 - 129 Borderline 130 - 159 High 160 - 189 Very high > 189 . Test(s) 496507-WRF-K ; 525704-BIV-M; 730610-Llkgtvwqgcuyx; 661945-Gnwwxbeaght, Total; 600963-BNZ-L (Total); 278508-Qhqml LDL-P; 929103-XBQ Size; 041227-BJ-IS Scorewas developed and its performance characteristics determinedby [employer]. It has not been cleared or approved by the Foodand Drug Administration.PATIENT WAS FASTINGPERFORMED BY: Sumerian[address] [id number] BY: SumerianHoboken University Medical CenterPrbetw8110 [facility] [id number] TSH (71997)Ordered By: Doron Gaines on 05-11-2020 TSH Qn 1.990 {uIU/mL} Normal 0.450-4.50 0 [facility]; [facility] Work Phone: Comment on above: Test(s) 495271-KZR-T ; 624610-EXP-U; 680752-Jprryhunykkik; 407494-Pjltwzdsxny, Total; 594086-QVH-R (Total); 571429-Tgqmh LDL-P; 333960-LKW Size; 073187-ZX-TH Scorewas developed and its performance characteristics determinedby [employer]. It has not been cleared or approved by the Foodand Drug Administration.PATIENT WAS FASTINGPERFORMED BY: [employer] Ufqtqxrbkc4514 [facility] [id number] BY: Sumerian Fisyek6836 [place] [facility] [id number] NMR Profile (74190)Ordered B y: Printing Equipment Mechanic on 01-08-2020 Cholesterol [Mass/Vol] 184 mg/dL Normal 100-199 [facility] Work Phone: Comment on above: Test(s) 476067-DCQ-E ; 369756-TUJ-V; 315511-Uitdyiqmxlrkx; 226819-Mwgpsffuohn, Total; 217808-OED-Q (Total); 223896-Fbtos LDL-P; 375368-XMZ Size; 147658-TZ-VS Scorewas developed and its performance characteristics determinedby [employer]. It has not been cleared or approved by the Foodand Drug Administration.PATIENT WAS FASTINGPERFORMED BY: [employer] [address] [id number]; 01-14 KF Lipoprotein.alpha [Moles/Vol] 32.3 umol/L Normal [facility] Work Phone: Comment on above: Test(s) 378207-YJH-A ; 207867-ELU-W; 130570-Bumbgegtlsbir; 253743-Gmxahjdcjat, Total; 078131-IWW-H (Total); 669552-Nqpdu LDL-P; 506632-ACV Size; 054619-FX-HE Scorewas developed and its performance characteristics determinedby [employer]. It has not been cleared or approved by the Foodand Drug Administration.PATIENT WAS FASTINGPERFORMED BY: [employer] Walpmblnzx4045 [facility] [id number]; 01-14 KF Lipoprotein.beta.sub particle [Entitic length] 20.6 nm Normal [facility] Work Phone: Comment on above: INTERPRETATIVE INFORMATION PARTICLE CONCENTRATION AND SIZE <--Lower CVD Risk Higher CVD Risk--> LDL AND HDL PARTICLES Percentile in Reference Population HDL-P (total) High 75th 50th 25th Low >34.9 34.9 30.5 26.7 <26.7 . Small LDL-P Low 25th 50th 75th High <117 117 527 839 >839 . LDL Size <-Large (Pattern A)-> <-Small (Pattern B)-> 23.0 20.6 20.5 19.0 Small LDL-P and LDL Size are associated with CVD risk, but not afterLDL-P is taken into account. Test(s) 145484-YDJ-U ; 149039-YNB-E; 925263-Jiaehwlmdaiol; 511227-Cmkscawdefb, Total; 974304-OLT-F (Total); 611942-Zllnd LDL-P; 990749-QAN Size; 939830-WC-WI Scorewas developed and its performance characteristics determinedby [employer]. It has not been cleared or approved by the Foodand Drug Administration.PATIENT WAS FASTINGPERFORMED BY: [employer] [address] [id number]; fu 11-19 KF Lipoprotein.beta.sub particle [Moles/Vol] 1564 nmol/L Abnormal [facility] Work Phone: Comment on above: Low < 1000 Moderate 1000 - 1299 Borderline-High 1300 - 1599 High 1600 - 2000 Very High > 2000 Test(s) 386584-AVJ-B ; 584783-YTX-E; 563135-Gjutbdvvgnwyb; 696770-Ujkyiwkpuzk, Total; 562029-ZLB-K (Total); 766369-Skpxx LDL-P; 750805-AGJ Size; 409952-KL-QM Scorewas developed and its performance characteristics determinedby [employer]. It has not been cleared or approved by the Foodand Drug Administration.PATIENT WAS FASTINGPERFORMED BY: BN [employer] [id number]; 01-14 Lipoprotein.beta.sub particle.small [Moles/Vol] 683 nmol/L Abnormal [facility] Work Phone: Comment on above: Test(s) 433840-VTR-F ; 465017-NQL-Y; 797906-Wvewtogcvlkqr; 726331-Vuwwtfjdsxq, Total; 895354-KYJ-N (Total); 383437-Lcbtp LDL-P; 401229-XQW Size; 592173-JX-LR Scorewas developed and its performance characteristics determinedby [employer]. It has not been cleared or approved by the Foodand Drug Administration.PATIENT WAS FASTINGPERFORMED BY: Sumerian[address] [id number]; 01-14 Triglyceride [Mass/Vol] 90 mg/dL Normal 0-149 [facility] Internal Medicine Work Phone: Comment on above: Test(s) 403324-UFJ-A ; 246179-DIB-E; 374842-Mfwaywehacdeh; 731972-Cvlqcaseuar, Total; 210084-JKQ-N (Total); 765603-Mahah LDL-P; 267431-NPI Size; 250808-UI-FT Scorewas developed and its performance characteristics determinedby [employer]. It has not been cleared or approved by the Foodand Drug Administration.PATIENT WAS FASTINGPERFORMED BY: Sumerian[address] [id number]; 01-14 NMR Profile (94531) 51 mg/dL Normal [facility] Internal Medicine Work Phone: Comment on above: Test(s) 371605-UHP-G ; 191248-GTI-M; 002997-Ckkckqcwbkfiu; 290405-Xoxsjzwfuni, Total; 908799-VEM-K (Total); 525576-Ynmrf LDL-P; 057432-IKU Size; 196422-IG-SY Scorewas developed and its performance characteristics determinedby [employer]. It has not been cleared or approved by the Foodand Drug Administration.PATIENT WAS FASTINGPERFORMED BY: Tempolib[address] [id number]; fu 01-14 KF NMR Profile (47125) 117 mg/dL Abnormal 0-99 [facility] Internal Medicine Work Phone: Comment on above: . Optimal < 100 Abov e optimal 100 - 129 Borderline 130 - 159 High 160 - 189 Very high > 189 . Test(s) 688521-XAU-T ; 821158-MGJ-Z; 807768-Zsxwvbzslwojj; 345095-Xkmokqlszcl, Total; 265614-UJA-C (Total); 301970-Ckksf LDL-P; 475982-XIQ Size; 851766-HP-QM Scorewas developed and its performance characteristics determinedby [employer]. It has not been cleared or approved by the Foodand Drug Administration.PATIENT WAS FASTINGPERFORMED BY: [employer] [address] [id number]; 01-14 KF CBC W/AUTO DIFF WBC (92244)O rdered By: Printing Equipment Mechanic on 08-08-2019 Basophils (Bld) [#/Vol] 0.1 {x10E3/uL} Normal 0.0-0.2 [facility] Work Phone: Comment on above: Test(s) 154850-SSC-F ; 362566-VFL-R; 561241-ZUV-V; 871660-Qqksadwjszlyc; 316696-Xyttksuctzo, Total; 701595-GHN-M (Total);346352-Fmjnl LDL-P; 040413-HJR Size; 885635-SP-YB Scorewas developed and its performance characteristics determinedby [employer]. It has not been cleared or approved by the Foodand Drug Administration.PATIENT WAS FASTINGPERFORMED BY: [employer] [address] [id number] BY: SumerianHoboken University Medical CenterQsszti2535 [facility] [id number] Basophils (Bld) [#/Vol] 0.1 10*3/uL Normal 0.0-0.2 [facility]; [facility] Work Phone: Comment on above: Test(s) 576013-GXB-J ; 678504-QFK-S; 265039-JGZ-P; 168462-Tccstzawmcavt; 153647-Wtdbwwwgozs, Total; 037962-EXB-G (Total);067535-Cecuu LDL-P; 186575-ABD Size; 354929-HQ-OX Scorewas developed and its performance characteristics determinedby [employer]. It has not been cleared or approved by the Foodand Drug Administration.PATIENT WAS FASTINGPERFORMED BY: [employer] [address] [id number] BY: [employer]70 [facility] [id number] Basophils/100 WBC (Bld) 2 % Normal [facility] Work Phone: Comment on above: Test(s) 402347-HMN-G ; 923065-MFX-P; 038780-YGA-P; 700956-Aronbhrecsqyj; 755273-Mqaubbnpfak, Total; 051517-YQP-J (Total);266321-Xfdjs LDL-P; 617922-DBV Size; 515393-MX-HQ Scorewas developed and its performance characteristics determinedby [employer]. It has not been cleared or approved by the Foodand Drug Administration.PATIENT WAS FASTINGPERFORMED BY: [employer] [address] [id number] BY: [employer] Xqrfrn2659 [facility] [id number] Eosinophils (Bld) [#/Vol] 0.8 {x10E3/uL} Abnormal 0.0-0.4 [facility] Work Phone: Comment on above: Test(s) 496988-STR-Z ; 518062-XIQ-F; 964353-JBK-G; 822575-Gftarkfemjeub; 775439-Inlloonslsi, Total; 926376-CCZ-M (Total);400236-Lrgbn LDL-P; 128681-ILV Size; 043472-BA-JQ Scorewas developed and its performance characteristics determinedby [employer]. It has not been cleared or approved by the Foodand Drug Administration.PATIENT WAS FASTINGPERFORMED BY: [employer] [address] [id number] BY: [employer] Gyaakj7040 [facility] [id number] Eosinophils (Bld) [#/Vol] 0.8 10*3/uL Abnormal 0.0-0.4 [facility]; [facility] Work Phone: Comment on above: Test(s) 816084-WLJ-J ; 458958-IMQ-Z; 887542-NDY-Y; 906289-Xgvpshghkqqml; 096562-Pqtsxfglrhx, Total; 951160-WMV-D (Total);650617-Dwrhy LDL-P; 175363-JWE Size; 904307-HB-NR Scorewas developed and its performance characteristics determinedby [employer]. It has not been cleared or approved by the Foodand Drug Administration.PATIENT WAS FASTINGPERFORMED BY: [employer] [address] [id number] BY: [employer]6370 Bhardwaj [employer] [facility]Nov[facility] [id number] Eosinophils/100 WBC (Bld) 13 % Normal [facility] Work Phone: Comment on above: Test(s) 294097-GIV-P ; 915364-QIJ-X; 778500-GSX-V; 588483-Ftcgjrcsuhvyd; 408531-Airqsrmjnnf, Total; 945010-CLR-W (Total);794549-Foxwg LDL-P; 739416-FXI Size; 375357-XF-WM Scorewas developed and its performance characteristics determinedby [employer]. It has not been cleared or approved by the Foodand Drug Administration.PATIENT WAS FASTINGPERFORMED BY: [employer] [address] [id number] BY: HCDClin6370 [facility] [id number] Erythrocyte distribution width (RBC) [Ratio] 12.4 % Normal 11.7-15.4 [facility] Work Phone: Comment on above: Test(s) 790447-PPQ-W ; 155682-HVA-E; 352905-DVV-L; 841740-Rsvicvjgjwxfd; 431747-Xxmthpwhygq, Total; 844361-KND-K (Total);299644-Lomlu LDL-P; 968922-ORG Size; 947142-DF-UI Scorewas developed and its performance characteristics determinedby [employer]. It has not been cleared or approved by the Foodand Drug Administration.PATIENT WAS FASTINGPERFORMED BY: [employer] [address] [id number] BY: [employer] W[address] [place] [address] [id number] Hematocrit (Bld) [Volume fraction] 39.9 % Normal 34.0-46.6 [facility] Work Phone: Comment on above: Test(s) 094498-XMV-G ; 348599-CLM-L; 081060-WUZ-F; 380844-Gvxgaarmebzlm; 340018-Syxmlbnshvf, Total; 555147-JAY-L (Total);449181-Iywzf LDL-P; 276006-DJY Size; 992243-EW-BU Scorewas developed and its performance characteristics determinedby [employer]. It has not been cleared or approved by the Foodand Drug Administration.PATIENT WAS FASTINGPERFORMED BY: [employer] [address] [id number] BY: [employer] Hcsyox8869 [facility] [id number] Hemoglobin (Bld) [Mass/Vol] 13.3 g/dL Normal 11.1-15.9 [facility] Work Phone: Comment on above: Test(s) 262716-XSZ-I ; 050594-QNX-X; 497625-XED-C; 745270-Uddubuokkdeyo; 818641-Pykzbrzhmip, Total; 175491-HHN-N (Total);226398-Grycr LDL-P; 997874-JZE Size; 380249-JT-AV Scorewas developed and its performance characteristics determinedby [employer]. It has not been cleared or approved by the Foodand Drug Administration.PATIENT WAS FASTINGPERFORMED BY: [employer] [address] [id number] BY: [employer]6370 [facility]CloneNovant Health [facility] [id number] Immature granulocytes (Bld) [#/Vol] 0.0 {x10E3/uL} Normal 0.0-0.1 [facility] Work Phone: Comment on above: Test(s) 592157-DMA-U ; 401922-XQY-M; 291501-MKN-R; 907849-Dqlkknxfdthqi; 676774-Cxksyiccbqx, Total; 966884-KPS-E (Total);790760-Wxtwr LDL-P; 632530-HSR Size; 906542-RC-CK Scorewas developed and its performance characteristics determinedby [employer]. It has not been cleared or approved by the Foodand Drug Administration.PATIENT WAS FASTINGPERFORMED BY: [employer] [address] [id number] BY: [employer]70 AlphaCloneNovant [facility] [id number] Immature granulocytes (Bld) [#/Vol] 0.0 10*3/uL Normal 0.0-0.1 [facility]; [facility] Work Phone: Comment on above: Test(s) 229704-LSF-G ; 240346-DZA-R; 620705-VLB-W; 631558-Hbpxzefefxxvq; 229477-Hxzjgnnqrun, Total; 337170-OGM-R (Total);711104-Mzteh LDL-P; 849092-PNX Size; 304945-BQ-KF Scorewas developed and its performance characteristics determinedby [employer]. It has not been cleared or approved by the Foodand Drug Administration.PATIENT WAS FASTINGPERFORMED BY: [employer] [address] [id number] BY: [employer]70 [facility] CommerceMaria [facility] [id number] Immature granulocytes/100 WBC (Bld) 0 % Normal [facility] Work Phone: Comment on above: Test(s) 029021-VCE-A ; 871675-JJH-X; 172260-JAS-I; 256373-Bzgmjskywtewe; 565215-Uvscgisrhsj, Total; 976640-BWK-O (Total);601251-Bblmt LDL-P; 373081-SIK Size; 199591-IC-EN Scorewas developed and its performance characteristics determinedby [employer]. It has not been cleared or approved by the Foodand Drug Administration.PATIENT WAS FASTINGPERFORMED BY: Sumerian[address] [id number] BY: SumerianMonica V[place] 1031070 [facility] [id number] Lymphocytes (Bld) [#/Vol] 1.9 {x10E3/uL} Normal 0.7-3.1 [facility] Work Phone: Comment on above: Test(s) 149642-PWH-S ; 916057-BII-M; 140313-ZCM-O; 985008-Ptqrmiuabsgbt; 677300-Gajbwiqdppu, Total; 284900-RVX-S (Total);359079-Wcrdj LDL-P; 646631-XOB Size; 151141-XK-TQ Scorewas developed and its performance characteristics determinedby [employer]. It has not been cleared or approved by the Foodand Drug Administration.PATIENT WAS FASTINGPERFORMED BY: [employer] [address] [id number] BY: SumerianHoboken University Medical CenterTandix8102 [facility] [id number] Lymphocytes (Bld) [#/Vol] 1.9 10*3/uL Normal 0.7-3.1 [facility]; [facility] Work Phone: Comment on above: Test(s) 256367-AWU-P ; 745619-NWJ-W; 198007-UCH-G; 391165-Yqgpmgxzpymkm; 861849-Mpxchehayok, Total; 950521-QTC-M (Total);042957-Scvhl LDL-P; 963589-EOM Size; 816831-OY-QA Scorewas developed and its performance characteristics determinedby [employer]. It has not been cleared or approved by the Foodand Drug Administration.PATIENT WAS FASTINGPERFORMED BY: [employer] [address] [id number] BY: [employer] Jfqbcl4872 BhardwajCarondelet Health [id number] Lymphocytes/100 WBC (Bld) 33 % Normal [facility] Work Phone: Comment on above: Test(s) 282178-YED-E ; 410512-MAP-K; 686609-DND-S; 676228-Jdutlviepqlmx; 875098-Kkbzpocmkan, Total; 830727-STU-S (Total);229693-Gixsk LDL-P; 665180-BQI Size; 710292-NA-TS Scorewas developed and its performance characteristics determinedby [employer]. It has not been cleared or approved by the Foodand Drug Administration.PATIENT WAS FASTINGPERFORMED BY: [employer] [address] [id number] BY: [employer]70 Symphony CommerceMaria [facility] [id number] MCH (RBC) [Entitic mass] 30.9 pg Normal 26.6-33.0 [facility] Work Phone: Comment on above: Test(s) 117830-NVR-A ; 469806-XGH-G; 912458-ZFN-Z; 885446-Yfbjgfahpsxbz; 867438-Hhjgxjgwzav, Total; 592929-EJM-U (Total);281257-Waite LDL-P; 573223-RKY Size; 012309-GJ-JV Scorewas developed and its performance characteristics determinedby [employer]. It has not been cleared or approved by the Foodand Drug Administration.PATIENT WAS FASTINGPERFORMED BY: [employer] [address] [id number] BY: HCDClin6370 [facility] [id number] MCHC (RBC) [Mass/Vol] 33.3 g/dL Normal 31.5-35.7 [facility] Work Phone: Comment on above: Test(s) 960320-MZJ-Q ; 631126-NJN-G; 171128-XZB-C; 616151-Cwytynvpjsuda; 519051-Mksidtiwjhg, Total; 105194-JPH-D (Total);368683-Azjwr LDL-P; 793074-GUB Size; 488080-HD-OW Scorewas developed and its performance characteristics determinedby [employer]. It has not been cleared or approved by the Foodand Drug Administration.PATIENT WAS FASTINGPERFORMED BY: [employer] [id number] BY: [employer]70 [facility] [id number] MCV (RBC) [Entitic vol] 93 fL Normal 79-97 [facility] Work Phone: Comment on above: Test(s) 777953-WYU-E ; 922860-DTT-K; 460260-DJL-I; 661059-Bpmebtbmagggv; 376290-Idgvlzcmdon, Total; 580546-KUS-C (Total);282677-Oqqnl LDL-P; 223363-TPF Size; 371262-XR-TX Scorewas developed and its performance characteristics determinedby [employer]. It has not been cleared or approved by the Foodand Drug Administration.PATIENT WAS FASTINGPERFORMED BY: [employer] [id number] BY: [employer]6370 [facility] [id number] Monocytes (Bld) [#/Vol] 0.5 {x10E3/uL} Normal 0.1-0.9 [facility] Work Phone: Comment on above: Test(s) 524215-TBI-H ; 411303-EKO-E; 973254-EXL-H; 178065-Eeyucbgxygnae; 831071-Jgsykgqheem, Total; 111832-KCH-X (Total);372400-Gsnbv LDL-P; 048602-LRP Size; 857244-QB-UU Scorewas developed and its performance characteristics determinedby [employer]. It has not been cleared or approved by the Foodand Drug Administration.PATIENT WAS FASTINGPERFORMED BY: [employer] [id number] BY: [employer]6370 [facility] [id number] Monocytes (Bld) [#/Vol] 0.5 10*3/uL Normal 0.1-0.9 [facility]; [facility] Work Phone: Comment on above: Test(s) 805520-NYY-G ; 067426-LLS-G; 115869-RYJ-U; 444713-Rjaocmhwgqjze; 365611-Kzexxsdngrn, Total; 501911-NIX-O (Total);136304-Sxbak LDL-P; 223279-HRQ Size; 196484-WY-YL Scorewas developed and its performance characteristics determinedby [employer]. It has not been cleared or approved by the Foodand Drug Administration.PATIENT WAS FASTINGPERFORMED BY: [employer] [address] [id number] BY: [employer]6370 BhardwajCarondelet Health [id number] Monocytes/100 WBC (Bld) 9 % Normal [facility] Work Phone: Comment on above: Test(s) 296551-VMA-R ; 448645-MVG-L; 443012-EEB-S; 004176-Makhgmtgqmyhy; 511395-Uicczmlzapq, Total; 550013-LYV-G (Total);399149-Aebfk LDL-P; 898796-YPJ Size; 729803-AZ-NP Scorewas developed and its performance characteristics determinedby [employer]. It has not been cleared or approved by the Foodand Drug Administration.PATIENT WAS FASTINGPERFORMED BY: [employer] [address] [id number] BY: HCDClin6370 [facility] [id number] Neutrophils (Bld) [#/Vol] 2.5 {x10E3/uL} Normal 1.4-7.0 [facility] Work Phone: Comment on above: Test(s) 489882-JSV-M ; 234254-PBJ-X; 057940-NKQ-H; 663391-Tdnhhtvzlonqx; 655446-Amfpbtcjubc, Total; 841290-RPD-Q (Total);786851-Icsfm LDL-P; 721032-OZW Size; 286321-YA-OE Scorewas developed and its performance characteristics determinedby [employer]. It has not been cleared or approved by the Foodand Drug Administration.PATIENT WAS FASTINGPERFORMED BY: [employer] [address] [id number] BY: [employer] Rfedpu5440 [facility] [id number] Neutrophils (Bld) [#/Vol] 2.5 10*3/uL Normal 1.4-7.0 [facility]; [facility] Work Phone: Comment on above: Test(s) 208829-MQL-U ; 423470-VGD-U; 767722-MEX-O; 974716-Taycxkeoiubuq; 148663-Zhfxkqynnpz, Total; 504014-HIQ-F (Total);911825-Vgaph LDL-P; 786628-SWK Size; 701485-UD-ZR Scorewas developed and its performance characteristics determinedby [employer]. It has not been cleared or approved by the Foodand Drug Administration.PATIENT WAS FASTINGPERFORMED BY: [employer] [address] [id number] BY: [employer] Fvjcta9123 [facility] [id number] Neutrophils/100 WBC (Bld) 43 % Normal [facility] Work Phone: Comment on above: Test(s) 239577-BGM-J ; 333886-YSG-V; 584752-ADB-X; 324817-Egweqflhjwygy; 161707-Awxqtwxejlc, Total; 623112-BWB-N (Total);161475-Yjnpu LDL-P; 058754-KZP Size; 283071-DQ-PL Scorewas developed and its performance characteristics determinedby [employer]. It has not been cleared or approved by the Foodand Drug Administration.PATIENT WAS FASTINGPERFORMED BY: [employer] [address] [id number] BY: [employer]6370 [facility] CommerceMaria [facility] [id number] Platelets (Bld) [#/Vol] 238 {x10E3/uL} Normal 150-450 [facility] Work Phone: Comment on above: Test(s) 689962-AEG-A ; 935637-VCM-U; 468143-SPU-S; 883724-Wvpltmpuqkped; 317310-Astkqtimjrn, Total; 253089-JNS-U (Total);415218-Bzkxb LDL-P; 723095-KLZ Size; 917368-AU-ZI Scorewas developed and its performance characteristics determinedby [employer]. It has not been cleared or approved by the Foodand Drug Administration.PATIENT WAS FASTINGPERFORMED BY: [employer] [id number] BY: [employer]6370 [facility] CommerceMaria [facility] [id number] Platelets (Bld) [#/Vol] 238 10*3/uL Normal 150-450 [facility]; [facility] Work Phone: Comment on above: Test(s) 330757-YDC-E ; 839306-CPF-T; 271552-ZYU-Z; 236762-Xuaiuajczeiky; 245354-Yucjceyqpqt, Total; 663247-LJL-K (Total);083042-Ofrxp LDL-P; 107584-BKR Size; 191683-QQ-AV Scorewas developed and its performance characteristics determinedby [employer]. It has not been cleared or approved by the Foodand Drug Administration.PATIENT WAS FASTINGPERFORMED BY: [employer] [address] [id number] BY: [employer] Sbgldg5469 [facility] [id number] RBC (Bld) [#/Vol] 4.31 {x10E6/uL} Normal 3.77-5.28 [facility] Work Phone: Comment on above: Test(s) 614388-QNI-P ; 201474-NPV-G; 838177-YBY-Y; 446151-Ejkoabsjelvas; 821814-Eotayzuvksz, Total; 676306-GNL-N (Total);684400-Auacd LDL-P; 781465-ENE Size; 005876-SB-KZ Scorewas developed and its performance characteristics determinedby [employer]. It has not been cleared or approved by the Foodand Drug Administration.PATIENT WAS FASTINGPERFORMED BY: [employer] [id number] BY: [employer] Rrbqje5381 [facility] [id number] RBC (Bld) [#/Vol] 4.31 10*6/uL Normal 3.77-5.28 [facility] ehensive Internal Medicine; [facility] Work Phone: Comment on above: Test(s) 735437-IUB-A ; 982470-QKJ-O; 093153-VLR-V; 840580-Pqutunzpfzpru; 586365-Uvsrgccccqq, Total; 743904-TYG-P (Total);871714-Kwgok LDL-P; 843136-NYZ Size; 288872-BS-JT Scorewas developed and its performance characteristics determinedby [employer]. It has not been cleared or approved by the Foodand Drug Administration.PATIENT WAS FASTINGPERFORMED BY: [employer] [address] [id number] BY: [employer] Rqvevw4597 [facility] [id number] WBC (Bld) [#/Vol] 5.7 {x10E3/uL} Normal 3.4-10.8 [facility] Work Phone: Comment on above: Test(s) 742172-GKH-Y ; 460382-GHL-O; 557508-NAV-C; 300962-Lbilvmihgafyy; 692719-Pwhqrmiatzc, Total; 004403-GLB-G (Total);755280-Sjkxe LDL-P; 577487-QYR Size; 213878-SL-QT Scorewas developed and its performance characteristics determinedby [employer]. It has not been cleared or approved by the Foodand Drug Administration.PATIENT WAS FASTINGPERFORMED BY: BN [facility] [address] [id number] BY: Dabble Mtoaxa9116 [facility] [id number] WBC (Bld) [#/Vol] 5.7 10*3/uL Normal 3.4-10.8 [facility]; [facility] Work Phone: Comment on above: Test(s) 507659-XYX-Q ; 708837-GFO-Y; 695800-EVE-W; 349623-Idvpxqmaodvgt; 139349-Uwohscbzino, Total; 424820-QHH-E (Total);999945-Vsklw LDL-P; 127081-KZI Size; 542146-OG-PH Scorewas developed and its performance characteristics determinedby [employer]. It has not been cleared or approved by the Foodand Drug Administration.PATIENT WAS FASTINGPERFORMED BY: [employer] [address] [id number] BY: [employer]6370 [facility] [id number] METABOLIC PANEL, COMPREHENSI VE (63315)Ordered By: Printing Equipment Mechanic on 08-08-2019 Albumin [Mass/Vol] 4.6 g/dL Normal 3.7-4.7 [facility] Internal [facility] Work Phone: Comment on above: Test(s) 776550-KYI-O ; 902085-PQS-H; 041545-QSL-K; 639865-Fhkmepuqdllbr; 639399-Agxucurvaan, Total; 524665-DUE-M (Total);371283-Lsbja LDL-P; 263240-AWB Size; 794839-EJ-VO Scorewas developed and its performance characteristics determinedby [employer]. It has not been cleared or approved by the Foodand Drug Administration.PATIENT WAS FASTINGPERFORMED BY: Dynamo [employer] [address] [id number] BY: [employer] - [employer]6370 [facility] [id number] Albumin/Globulin [Mass ratio] 2.1 {ratio} Normal 1.2-2.2 [facility] Work Phone: Comment on above: Test(s) 231027-OPS-Z ; 449499-DIX-B; 888890-WZT-T; 642513-Ynrpeamjxprjk; 273603-Zvjyhjyzcaw, Total; 361139-AQA-U (Total);628078-Vyeqf LDL-P; 905629-MSI Size; 063388-NA-DS Scorewas developed and its performance characteristics determinedby [employer]. It has not been cleared or approved by the Foodand Drug Administration.PATIENT WAS FASTINGPERFORMED BY: Dynam[employer] [address] [id number] BY: [employer]70 [facility] [id number] ALP [Catalytic activity/Vol] 60 [iU]/L Normal 39117 [facility] Internal Medicine Work Phone: Comment on above: Test(s) 300740-XFC-A ; 920003-JIH-I; 439478-SAD-P; 479216-Dmpbbuyzweejj; 319451-Hwydqxuhfwu, Total; 360446-NMV-D (Total);686157-Xwddr LDL-P; 639449-AHF Size; 083407-ZO-VU Scorewas developed and its performance characteristics determinedby [employer]. It has not been cleared or approved by the Foodand Drug Administration.PATIENT WAS FASTINGPERFORMED BY: [employer] [address] [id number] BY: Guided [employer] Chjgmq8105 [facility] [id number] ALP [Catalytic activity/Vol] 60 U/L Normal 39-117 [facility]; [facility] Work Phone: Comment on above: Test(s) 033193-DUE-U ; 663879-SYH-S; 383617-OIJ-N; 531998-Zyrddlncmcema; 578006-Iunwdbsbmfx, Total; 723783-VCR-E (Total);494866-Nzxfx LDL-P; 095473-SCC Size; 222436-CN-XH Scorewas developed and its performance characteristics determinedby [employer]. It has not been cleared or approved by the Foodand Drug Administration.PATIENT WAS FASTINGPERFORMED BY: Sumerian[address] [id number] BY: SumerianHoboken University Medical CenterYddxrn2401 [facility] [id number] ALT [Catalytic activity/Vol] 22 [iU]/L Normal 0-32 [facility] Work Phone: Comment on above: Test(s) 362566-WHV-B ; 817371-TCZ-E; 126558-HJS-T; 696855-Haxvxuicyqbjj; 598094-Mnncitkbzfb, Total; 602528-MFA-S (Total);214973-Hywsv LDL-P; 178281-KPM Size; 715402-OV-XB Scorewas developed and its performance characteristics determinedby [employer]. It has not been cleared or approved by the Foodand Drug Administration.PATIENT WAS FASTINGPERFORMED BY: [employer] [address] [id number] BY: SumerianHoboken University Medical CenterBbnoql8278 [facility] [id number] ALT [Catalytic activity/Vol] 22 U/L Normal 0-32 [facility]; [facility] Work Phone: Comment on above: Test(s) 507762-CTU-I ; 092807-VCY-Y; 840571-MFS-J; 473780-Diuxdgwduuath; 850210-Nqgxwvaigjb, Total; 018890-XVB-P (Total);356648-Smfbq LDL-P; 281380-IJI Size; 470565-KE-EK Scorewas developed and its performance characteristics determinedby [employer]. It has not been cleared or approved by the Foodand Drug Administration.PATIENT WAS FASTINGPERFORMED BY: Sumerian[address] [id number] BY: SumerianHoboken University Medical CenterVfwqml1120 [facility] [id number] AST [Catalytic activity/Vol] 25 [iU]/L Normal 0-40 [facility] Work Phone: Comment on above: Test(s) 402386-VMD-W ; 120783-PGJ-C; 035504-DZB-A; 810624-Sbwgfqbesrdzc; 135384-Rdyrbzzbtni, Total; 136443-JMG-G (Total);639038-Nmlhr LDL-P; 722758-HKN Size; 498033-GG-ZA Scorewas developed and its performance characteristics determinedby [employer]. It has not been cleared or approved by the Foodand Drug Administration.PATIENT WAS FASTINGPERFORMED BY: [employer] [address] [id number] BY: [employer]70 [facility] [id number] AST [Catalytic activity/Vol] 25 U/L Normal 0-40 [facility]; [facility] Work Phone: Comment on above: Test(s) 506389-ZIQ-G ; 204869-GPR-G; 133646-FAQ-X; 042170-Sjwttebqfmkmp; 068930-Rtmkjpqnpbr, Total; 257725-YIS-K (Total);185943-Xrwlu LDL-P; 927648-AEO Size; 263014-DG-EB Scorewas developed and its performance characteristics determinedby [employer]. It has not been cleared or approved by the Foodand Drug Administration.PATIENT WAS FASTINGPERFORMED BY: [employer] [address] [id number] BY: Gu[employer] Rwnuwa1592 [facility] [id number] Bilirubin [Mass/Vol] 0.5 mg/dL Normal 0.0-1.2 [facility] Internal Medicine Work Phone: Comment on above: Test(s) 881632-AHE-C ; 741016-UHQ-V; 121190-YAX-C; 726663-Nmzrmhmnlbvxn; 559214-Diwkgrjsrem, Total; 077090-PYD-W (Total);959997-Sythg LDL-P; 701914-SKG Size; 185947-NN-LY Scorewas developed and its performance characteristics determinedby [employer]. It has not been cleared or approved by the Foodand Drug Administration.PATIENT WAS FASTINGPERFORMED BY: MultiLing Corporationton1447 [facility] [id number] BY: Sumerian Cgqoxm9966 [facility] [id number] Calcium [Mass/Vol] 9.6 mg/dL Normal 8.7-10.3 [facility] Internal Medicine Work Phone: Comment on above: Test(s) 278056-VXJ-P ; 832192-WHJ-T; 302006-ECZ-E; 982785-Ndoxepcomwpxm; 713835-Ddimngcynvl, Total; 129077-QYF-T (Total);320380-Zykng LDL-P; 110690-OSD Size; 509126-SL-DZ Scorewas developed and its performance characteristics determinedby [employer]. It has not been cleared or approved by the Foodand Drug Administration.PATIENT WAS FASTINGPERFORMED BY: MultiLing Corporationton1447 [facility] [id number] BY: [employer]6370 Bhardwaj Jelas MarketingMaria Parham Health [id number] Chloride [Moles/Vol] 103 mmol/L Normal 96-106 Comp [facility] Internal Medicine Work Phone: Comment on above: Test(s) 024541-ZYB-I ; 481233-TJL-X; 595923-PXQ-A; 829295-Ccbgiixgxkksu; 997098-Ahpqniihnud, Total; 984169-RWG-E (Total);627140-Cwirb LDL-P; 761446-HMD Size; 386819-GM-ZW Scorewas developed and its performance characteristics determinedby [employer]. It has not been cleared or approved by the Foodand Drug Administration.PATIENT WAS FASTINGPERFORMED BY: [employer] Atrsrztxnj2396 [facility] [id number] BY: Dabble Mjhnga9168 [facility] [id number] CO2 [Moles/Vol] 26 mmol/L Normal 20-29 [facility] Internal Medicine Work Phone: Comment on above: Test(s) 508925-DCP-P ; 904434-WKW-N; 116040-UQD-F; 721054-Aisuciznnomcv; 553291-Ymvwlsxqwor, Total; 742905-NPD-Y (Total);325369-Jyipu LDL-P; 052533-CMA Size; 630470-ED-HC Scorewas developed and its performance characteristics determinedby [employer]. It has not been cleared or approved by the Foodand Drug Administration.PATIENT WAS FASTINGPERFORMED BY: [employer] Corporation[address] [id number] BY: [employer]70 [facility] [id number] Creatinine [Mass/Vol] 0.80 mg/dL Normal 0.57-1.00 [facility] Work Phone: Comment on above: Test(s) 317652-BLN-F ; 361373-YPK-D; 433280-LVH-H; 791109-Imvudwqlytaxi; 103396-Aqowycattyr, Total; 167295-TYM-U (Total);122609-Hcrhk LDL-P; 401625-AXF Size; 860762-US-SK Scorewas developed and its performance characteristics determinedby [employer]. It has not been cleared or approved by the Foodand Drug Administration.PATIENT WAS FASTINGPERFORMED BY: Dynamo [employer] [address] [id number] BY: Guided Interventions Jkraui4075 [facility] [id number] GFR/1.73 sq M predicted among blacks CKD-EPI (S/P/Bld) [Vol rate/Area] 84 mL/min/1.73 Normal [facility] Work Phone: Comment on above: Test(s) 433100-FXA-W ; 064171-IOG-X; 083009-QQM-T; 443977-Ranxjdkmusxhl; 041576-Iwlxccpuhpt, Total; 114055-CXG-L (Total);592566-Wezkn LDL-P; 211398-YVD Size; 757320-EW-HM Scorewas developed and its performance characteristics determinedby [employer]. It has not been cleared or approved by the Foodand Drug Administration.PATIENT WAS FASTINGPERFORMED BY: Dynam[employer] [address] [id number] BY: [employer]6370 [facility] [id number] GFR/1.73 sq M predicted among non-blacks CKD-EPI (S/P/Bld) [Vol rate/Area] 73 mL/min/1.73 Normal [facility] Internal Medicine Work Phone: Comment on above: Test(s) 826917-CUP-A ; 975974-WSF-D; 552246-CGH-B; 453587-Zhqtwgqtblaev; 200099-Hhkyxsyawjq, Total; 142771-PXU-I (Total);985932-Mjzts LDL-P; 749558-IWZ Size; 186635-PZ-KD Scorewas developed and its performance characteristics determinedby [employer]. It has not been cleared or approved by the Foodand Drug Administration.PATIENT WAS FASTINGPERFORMED BY: [employer]Ling Corporation[address] [id number] BY: [employer]6370 [facility] [id number] Globulin (S) [Mass/Vol] 2.2 g/dL Normal 1.5-4.5 [facility] Internal Medicine Work Phone: Comment on above: Test(s) 042238-SXE-G ; 645891-CED-U; 457462-IUX-N; 711913-Sqloevjnmhceh; 203786-Jxymqxttxhn, Total; 021362-YAE-E (Total);084685-Rhbwj LDL-P; 176528-NAD Size; 886406-ZQ-RO Scorewas developed and its performance characteristics determinedby [employer]. It has not been cleared or approved by the Foodand Drug Administration.PATIENT WAS FASTINGPERFORMED BY: Dynam[employer] [address] [id number] BY: [employer]6370 [facility] [id number] Glucose [Mass/Vol] 95 mg/dL Normal 65-99 [facility] Internal Medicine Work Phone: Comment on above: Test(s) 567783-HTW-M ; 459228-JFF-H; 856309-LXM-S; 170693-Dymxeiylscqkb; 067902-Tmxyalhzygb, Total; 956103-SHC-O (Total);232414-Hhjoj LDL-P; 672702-ZDG Size; 547300-AF-IO Scorewas developed and its performance characteristics determinedby [employer]. It has not been cleared or approved by the Foodand Drug Administration.PATIENT WAS FASTINGPERFORMED BY: [employer] [address] [id number] BY: Guided Interventions Ldpvhb4291 [facility] [id number] Potassium [Moles/Vol] 4.6 mmol/L Normal 3.5-5.2 [facility] Internal Medicine Work Phone: Comment on above: Test(s) 314241-QQO-C ; 662069-AYP-S; 042861-GXP-G; 421773-Nruyblxxupsxd; 975989-Rvuzrfoivmh, Total; 433677-SRG-K (Total);222070-Qckrl LDL-P; 116694-GRG Size; 691789-EZ-OY Scorewas developed and its performance characteristics determinedby [employer]. It has not been cleared or approved by the Foodand Drug Administration.PATIENT WAS FASTINGPERFORMED BY: [employer] [address] [id number] BY: SumerianArtesia General HospitalJbesnn9756 [facility] [id number] Protein [Mass/Vol] 6.8 g/dL Normal 6.0-8.5 [facility] Internal Medicine Work Phone: Comment on above: Test(s) 025479-RBP-F ; 890100-WHO-V; 521458-YTX-U; 299408-Kjegmaclwhqup; 128684-Lnlmmigekxt, Total; 988307-RKQ-Y (Total);011128-Yrrht LDL-P; 613831-SEF Size; 996096-WS-MB Scorewas developed and its performance characteristics determinedby [employer]. It has not been cleared or approved by the Foodand Drug Administration.PATIENT WAS FASTINGPERFORMED BY: Dynam[employer] Uaxmnciofw2642 [facility] [id number] BY: Dabble Udfmoz4096 Symphony CommerceMaria Parham Health [id number] Sodium [Moles/Vol] 141 mmol/L Normal 134-144 [facility] Internal Medicine Work Phone: Comment on above: Test(s) 027018-UOD-C ; 124157-JQU-X; 575491-HCW-N; 607260-Zkjeiminnnsou; 949665-Xypsryujrgy, Total; 384624-MRQ-F (Total);734129-Zyaxz LDL-P; 328364-STS Size; 564289-JL-KF Scorewas developed and its performance characteristics determinedby [employer]. It has not been cleared or approved by the Foodand Drug Administration.PATIENT WAS FASTINGPERFORMED BY: [employer] [address] [id number] BY: [employer]6370 Bhardwaj Jelas MarketingMaria Parham Health [id number] Urea nitrogen [Mass/Vol] 19 mg/dL Normal 8- [facility] Work Phone: Comment on above: Test(s) 415698-XWS-G ; 159945-JGS-A; 876175-ALR-I; 532672-Hvgrmebslqlhw; 571676-Orxpcolcrwr, Total; 018659-XJJ-F (Total);771618-Wskak LDL-P; 932991-UZV Size; 083519-TT-XX Scorewas developed and its performance characteristics determinedby [employer]. It has not been cleared or approved by the Foodand Drug Administration.PATIENT WAS FASTINGPERFORMED BY: [employer] [address] [id number] BY: HCDClin6370 [facility] [id number] Urea nitrogen/Creatinine [Mass ratio] 24 mg/mg Normal 12- [facility] Work Phone: Comment on above: Test(s) 751526-CKK-F ; 645866-XKK-F; 369678-AVB-M; 672726-Ffmwazvjlfeaq; 408953-Vtspoqgwtjd, Total; 979275-CBX-J (Total);336904-Pchah LDL-P; 927829-SWG Size; 758738-WG-CA Scorewas developed and its performance characteristics determinedby [employer]. It has not been cleared or approved by the Foodand Drug Administration.PATIENT WAS FASTINGPERFORMED BY: [employer] [address] [id number] BY: [employer]70 [facility] [id number] NMR Profile (55155)Ordered B y: Printing Equipment Mechanic on 08-08-2019 Cholesterol [Mass/Vol] 199 mg/dL Normal 100-199 [facility] Work Phone: Comment on above: Test(s) 213926-NWM-L ; 787454-DTO-C; 269703-WGY-T; 146062-Zqsbgthnipmmq; 392003-Ftgkblwfjce, Total; 497207-NCX-N (Total);590911-Ssfoc LDL-P; 435256-QEA Size; 536564-ZT-HL Scorewas developed and its performance characteristics determinedby [employer]. It has not been cleared or approved by the Foodand Drug Administration.PATIENT WAS FASTINGPERFORMED BY: Dynam[employer] [address] [id number] BY: [employer]6370 [facility] [id number] Lipoprotein.alpha [Moles/Vol] 33.2 umol/L Normal [facility] Work Phone: Comment on above: Test(s) 109128-RQI-B ; 776639-WMQ-C; 454722-SIS-S; 411349-Mydbznyqlhzzz; 749375-Gzrfrdicpui, Total; 467261-ZNQ-P (Total);117132-Oepqx LDL-P; 192799-IRR Size; 753043-OZ-RT Scorewas developed and its performance characteristics determinedby [employer]. It has not been cleared or approved by the Foodand Drug Administration.PATIENT WAS FASTINGPERFORMED BY: [employer] [address] [id number] BY: MacuCLEARTim Ville 0451370 [facility] [id number] Lipoprotein.beta.sub particle [Entitic length] 21.0 nm Normal [facility] Work Phone: Comment on above: INTERPRETATIVE INFORMATION PARTICLE CONCENTRATION AND SIZE <--Lower CVD Risk Higher CVD Risk--> LDL AND HDL PARTICLES Percentile in Reference Population HDL-P (total) High 75th 50th 25th Low >34.9 34.9 30.5 26.7 <26.7 . Small LDL-P Low 25th 50th 75th High <117 117 527 839 >839 . LDL Size <-Large (Pattern A)-> <-Small (Pattern B)-> 23.0 20.6 20.5 19.0 Small LDL-P and LDL Size are associated with CVD risk, but not afterLDL-P is taken into account. Test(s) 369232-LNO-U ; 636618-WZM-W; 086902-KIK-I; 815486-Qrhalivrnukcv; 924541-Toqytmogrxb, Total; 174366-OUC-M (Total);201094-Gweuz LDL-P; 064600-RQS Size; 838017-FD-HN Scorewas developed and its performance characteristics determinedby MacuCLEARSsm [facility]. It has not been cleared or approved by the Foodand Drug Administration.PATIENT WAS FASTINGPERFORMED BY: [address] [id number] BY: [facility]6370 [facility] [id number] Lipoprotein.beta.sub particle [Moles/Vol] 1738 nmol/L Abnormal [facility] Work Phone: Comment on above: Low < 1000 Moderate 1000 - 1299 Borderline-High 1300 - 1599 High 1600 - 2000 Very High > 2000 Test(s) 671535-XUA-A ; 274103-STZ-N; 159053-SVQ-H; 898439-Zzqyeowfgzxlo; 991140-Ohadmhtnudq, Total; 678061-XKJ-Y (Total);692376-Zewwq LDL-P; 376092-AMI Size; 350232-YF-UT Scorewas developed and its performance characteristics determinedby [employer]. It has not been cleared or approved by the Foodand Drug Administration.PATIENT WAS FASTINGPERFORMED BY: [employer] [facility] [id number] BY: [employer]70 [facility]CloneNov[facility] [id number] Lipoprotein.beta.sub particle.small [Moles/Vol] 681 nmol/L Abnormal [facility] Internal Medicine Work Phone: Comment on above: Test(s) 539144-PDF-H ; 698591-FPN-B; 824101-ERR-R; 376741-Dewdbmbjciqvt; 662585-Jonqlgdjlgl, Total; 023696-ABN-T (Total);678257-Fopdq LDL-P; 191198-WUN Size; 887077-TH-IR Scorewas developed and its performance characteristics determinedby [employer]. It has not been cleared or approved by the Foodand Drug Administration.PATIENT WAS FASTINGPERFORMED BY: [employer]1447 [facility] [id number] BY: [employer]6370 [facility]CloneNov[facility] [id number] Triglyceride [Mass/Vol] 98 mg/dL Normal 0-149 [facility] Internal Medicine Work Phone: Comment on above: Test(s) 635703-DZE-K ; 254083-MNW-H; 354331-JUU-N; 704717-Aikvgkfagjlgc; 927981-Pnnufqxtyef, Total; 401270-VAL-D (Total);115700-Qcywl LDL-P; 644739-OSM Size; 523616-PF-OR Scorewas developed and its performance characteristics determinedby [employer]. It has not been cleared or approved by the Foodand Drug Administration.PATIENT WAS FASTINGPERFORMED BY: [employer] [address] [id number] BY: Dabble Dkgvez2576 [facility] [id number] NMR Profile (52104) 123 mg/dL Abnormal 0-99 [facility] Internal [facility] Work Phone: Comment on above: . Optimal < 100 Abov e optimal 100 - 129 Borderline 130 - 159 High 160 - 189 Very high > 189 .LDL-C is inaccurate if patient is non-fasting. Test(s) 229861-AIF-S ; 866126-TXC-H; 123236-JID-H; 875220-Hhbuedqllaywd; 683464-Puzwunrajup, Total; 888129-DUG-B (Total);649427-Iuorf LDL-P; 028841-RUE Size; 169786-YP-DF Scorewas developed and its performance characteristics determinedby [employer]. It has not been cleared or approved by the Foodand Drug Administration.PATIENT WAS FASTINGPERFORMED BY: [employer] [address] [id number] BY: [employer]6370 [facility] [id number] NMR Profile (99612) 56 mg/dL Normal [facility] Internal [facility] Work Phone: Comment on above: Test(s) 578762-LUJ-I ; 993753-SIF-F; 639501-KTU-D; 207732-Zeboypywzyank; 179129-Jxfldrvohun, Total; 836727-TTG-V (Total);416437-Acfjy LDL-P; 828784-UOX Size; 837208-DA-YA Scorewas developed and its performance characteristics determinedby [employer]. It has not been cleared or approved by the Foodand Drug Administration.PATIENT WAS FASTINGPERFORMED BY: [employer] [address] [id number] BY: [employer]70 [facility] [id number] TSH (03159)Ordered By: Doron m Pharmaceutical Service Representative on 08-08-2019 TSH Qn 2.030 {uIU/mL} Normal 0.450-4.50 0 [facility] Work Phone: Comment on above: Test(s) 145101-QAB-B ; 294898-WGH-M; 235469-ZKE-S; 296831-Swacdwimohetr; 941294-Izuzmkseknf, Total; 383704-PJB-G (Total);540474-Ofxrs LDL-P; 751910-ZQW Size; 334160-HB-YW Scorewas developed and its performance characteristics determinedby [employer]. It has not been cleared or approved by the Foodand Drug Administration.PATIENT WAS FASTINGPERFORMED BY: MultiLing Corporationton1447 [facility] [id number] BY: Sumerian Xyslpj9861 [facility] [id number] NMR Profile (66376)Ordered B y: Printing Equipment Mechanic on 02-06-2019 Cholesterol [Mass/Vol] 186 mg/dL Normal 100-199 [facility] Work Phone: Comment on above: Test(s) 129305-HBK-X ; 674262-AZF-H; 034472-MBL-H; 403939-Xtpzvemashdjw; 059954-Ovdzjyfbfxc, Total; 459318-MLQ-W (Total);259393-Gljfd LDL-P; 514883-QWZ Size; 671493-JP-BT Scorewas developed and its performance characteristics determinedby [employer]. It has not been cleared or approved by the Foodand Drug Administration.PATIENT WAS FASTINGPERFORMED BY: MultiLing Corporationton1447 [facility] [id number] Lipoprotein.alpha [Moles/Vol] 30.7 umol/L Normal [facility] Work Phone: Comment on above: Test(s) 303000-ORP-F ; 724743-NYJ-Q; 977404-LJP-N; 808040-Ehdqiszwqhraa; 698821-Lybyyznugis, Total; 709939-ZZR-S (Total);707556-Tdmgv LDL-P; 554433-JTN Size; 595914-NR-FR Scorewas developed and its performance characteristics determinedby [employer]. It has not been cleared or approved by the Foodand Drug Administration.PATIENT WAS FASTINGPERFORMED BY: [employer] [address] [id number] Lipoprotein.beta.sub particle [Entitic length] 20.8 nm Normal [facility] Work Phone: Comment on above: INTERPRETATIVE INFORMATION PARTICLE CONCENTRATION AND SIZE <--Lower CVD Risk Higher CVD Risk--> LDL AND HDL PARTICLES Percentile in Reference Population HDL-P (total) High 75th 50th 25th Low >34.9 34.9 30.5 26.7 <26.7 . Small LDL-P Low 25th 50th 75th High <117 117 527 839 >839 . LDL Size <-Large (Pattern A)-> <-Small (Pattern B)-> 23.0 20.6 20.5 19.0 Small LDL-P and LDL Size are associated with CVD risk, but not afterLDL-P is taken into account. Test(s) 699038-SII-A ; 126652-KIR-X; 520403-OIR-U; 625430-Cysvglmoepmnu; 674943-Twmjpjjsgvf, Total; 453791-STX-P (Total);012601-Quyeb LDL-P; 706546-HHN Size; 473931-WJ-EX Scorewas developed and its performance characteristics determinedby [employer]. It has not been cleared or approved by the Foodand Drug Administration.PATIENT WAS FASTINGPERFORMED BY: [employer] [address] [id number] Lipoprotein.beta.sub particle [Moles/Vol] 1734 nmol/L Abnormal [facility] Work Phone: Comment on above: Low < 1000 Moderate 1000 - 1299 Borderline-High 1300 - 1599 High 1600 - 2000 Very High > 2000 Test(s) 809209-WKT-U ; 219939-ANL-Y; 946388-LTR-S; 247511-Vvkzvcozozhpb; 226004-Epfnmiffims, Total; 644747-WLN-O (Total);582405-Mbgey LDL-P; 344515-HEU Size; 573845-WM-RD Scorewas developed and its performance characteristics determinedby [employer]. It has not been cleared or approved by the Foodand Drug Administration.PATIENT WAS FASTINGPERFORMED BY: [employer] [address] [id number] Lipoprotein.beta.sub particle.small [Moles/Vol] 927 nmol/L Abnormal [facility] Internal [facility] Work Phone: Comment on above: Test(s) 400705-LRL-D ; 863679-ELP-F; 905654-AAR-G; 941342-Bhqxpsebbdfcr; 574888-Smvaupkkurb, Total; 176770-GLE-R (Total);349617-Prxgb LDL-P; 346471-EFB Size; 411008-UA-YF Scorewas developed and its performance characteristics determinedby [employer]. It has not been cleared or approved by the Foodand Drug Administration.PATIENT WAS FASTINGPERFORMED BY: [employer] [address] [id number] Triglyceride [Mass/Vol] 93 mg/dL Normal 0-149 [facility] Internal [facility] Work Phone: Comment on above: Test(s) 900005-SGE-S ; 683540-KPL-K; 868604-LVR-Y; 489343-Rjafjjwrflcyd; 774677-Esnleowfqgi, Total; 105375-VHX-S (Total);258927-Ikzed LDL-P; 251969-QXR Size; 427395-NS-QI Scorewas developed and its performance characteristics determinedby [employer]. It has not been cleared or approved by the Foodand Drug Administration.PATIENT WAS FASTINGPERFORMED BY: [employer] [facility] [id number] NMR Profile (24103) 116 mg/dL Abnormal 0-99 [facility] Internal [facility] Work Phone: Comment on above: . Optimal < 100 Abov e optimal 100 - 129 Borderline 130 - 159 High 160 - 189 Very high > 189 .LDL-C is inaccurate if patient is non-fasting. Test(s) 068572-XON-P ; 326752-OWE-P; 638534-RYH-L; 152491-Ibivjezaujmlv; 658725-Heximllaxjj, Total; 316556-VPM-V (Total);874077-Wxxsa LDL-P; 662776-BXL Size; 291313-TA-VB Scorewas developed and its performance characteristics determinedby [employer]. It has not been cleared or approved by the Foodand Drug Administration.PATIENT WAS FASTINGPERFORMED BY: [employer] [facility] [id number] NMR Profile (75263) 51 mg/dL Normal [facility] Internal [facility] Work Phone: Comment on above: Test(s) 199460-BLY-K ; 301961-FOD-I; 056111-FZH-H; 421960-Wjkbspcydtqam; 748399-Egbmdpudxqq, Total; 860496-KSZ-I (Total);767404-Amxxe LDL-P; 907112-SQZ Size; 358110-ZA-VT Scorewas developed and its performance characteristics determinedby [employer]. It has not been cleared or approved by the Foodand Drug Administration.PATIENT WAS FASTINGPERFORMED BY: [employer] [facility] [id number] NMR Profile (10927)Ordered B y: Printing Equipment Mechanic on 11-05-2018 Cholesterol [Mass/Vol] 187 mg/dL Normal 100-199 [facility] Internal Medicine Work Phone: Comment on above: PATIENT WAS FASTINGP ERFORMED BY: [employer] Corporationton1447 [facility] [id number]; appt 11/13 Lipoprotein.alpha [Moles/Vol] 32.7 umol/L Normal [facility] Work Phone: Comment on above: PATIENT WAS FASTINGP ERFORMED BY: [employer]1447 [facility] [id number]; appt 11/13 Lipoprotein.beta.sub particle [Entitic length] 20.9 nm Normal [facility] Internal Medicine Work Phone: Comment on above: INTERPRETATIVE INFORMATION PARTICLE CONCENTRATION AND SIZE <--Lower CVD Risk Higher CVD Risk--> LDL AND HDL PARTICLES Percentile in Reference Population HDL-P (total) High 75th 50th 25th Low >34.9 34.9 30.5 26.7 <26.7 . Small LDL-P Low 25th 50th 75th High <117 117 527 839 >839 . LDL Size <-Large (Pattern A)-> <-Small (Pattern B)-> 23.0 20.6 20.5 19.0 Small LDL-P and LDL Size are associated with CVD risk, but not afterLDL-P is taken into account. .These assays were developed and their performance characteristicsdetermined by WHObyYOU. These assays have not been cleared by Maria C Food and Drug Administration. The clinical utility of theselaboratory values have not been fully established. PATIENT WAS FASTINGP ERFORMED BY: [employer]1447 [facility] [id number]; appt 11/13 Lipoprotein.beta.sub particle [Moles/Vol] 1828 nmol/L Abnormal [facility]pre[facility] Internal Medicine Work Phone: Comment on above: Low < 1000 Moderate 1000 - 1299 Borderline-High 1300 - 1599 High 1600 - 2000 Very High > 2000 PATIENT WAS FASTINGP ERFORMED BY: BN [facility] [id number]; appt 11/13 Lipoprotein.beta.sub particle.small [Moles/Vol] 1023 nmol/L Abnormal [facility] Work Phone: Comment on above: PATIENT WAS FASTINGP ERFORMED BY: MacuCLEAR[address] [id number]; appt 11/13 Triglyceride [Mass/Vol] 109 mg/dL Normal 0-149 [facility] Work Phone: Comment on above: PATIENT WAS FASTINGP ERFORMED BY: MacuCLEAR[address] [id number]; appt 11/13 NMR Profile (33076) 113 mg/dL Abnormal 0-99 [facility] Internal Medicine Work Phone: Comment on above: . Optimal < 100 Abov e optimal 100 - 129 Borderline 130 - 159 High 160 - 189 Very high > 189 .LDL-C is inaccurate if patient is non-fasting. PATIENT WAS FASTINGP ERFORMED BY: MacuCLEAR[address] [id number]; appt 11/13 NMR Profile (89550) 52 mg/dL Normal [facility] Internal Medicine Work Phone: Comment on above: PATIENT WAS FASTINGP ERFORMED BY: MacuCLEAR[address] [id number]; appt 11/13 CBC, PLATELETS & MANUAL DIFF (14718)Ordered By: Printing Equipment Mechanic on 07-12-2018 Basophils #/vol (Bld) 0.1 {x10E3/uL} Normal 0.0-0.2 [facility] Work Phone: Comment on above: PATIENT WAS FASTINGP ERFORMED BY: MacuCLEAR[address] [id number] BY: [facility] [id number] Basophils (Bld) [#/Vol] 0.1 10*3/uL Normal 0.0-0.2 [facility]; [facility] Work Phone: Comment on above: PATIENT WAS FASTINGP ERFORMED BY: Lab[address] [id number] BY: [facility] Kqgniv7552 [address] [facility] [place] [id number] Basophils/100 WBC (Bld) 1 % Normal [facility] Work Phone: Comment on above: PATIENT WAS FASTINGP ERFORMED BY: LabCo[address] [id number] BY: [facility]Co Vjlixa4366 Bhardwaj RoadCatawba Valley Medical Centerin [place] [id number] Eosinophils #/vol (Bld) 0.1 {x10E3/uL} Normal 0.0-0.4 [facility] Work Phone: Comment on above: PATIENT WAS FASTINGP ERFORMED BY: Sumerian[address] [id number] BY: [facility] Lrbkvl5461 [facility] [id number] Eosinophils (Bld) [#/Vol] 0.1 10*3/uL Normal 0.0-0.4 [facility]; [facility] Work Phone: Comment on above: PATIENT WAS FASTINGP ERFORMED BY: Sumerian[address] [id number] BY: [facility] Gqcnzb8620 [address] [facility] [id number] Eosinophils/100 WBC (Bld) 2 % Normal [facility] Work Phone: Comment on above: PATIENT WAS FASTINGP ERFORMED BY: [address] [id number] BY: [facility] Ncxzxc7840 [facility] [id number] Erythrocyte distribution width Ratio (RBC) 13.2 % Normal 12.3-15.4 [facility] Work Phone: Comment on above: PATIENT WAS FASTINGP ERFORMED BY: Lab[address] [id number] BY: [facility] [id number] Hematocrit Volume Fraction (Bld) 40.0 % Normal 34.0-46.6 [facility] Work Phone: Comment on above: PATIENT WAS FASTINGP ERFORMED BY: [address] [id number] BY: [place] 5666070 [facility] [id number] Hemoglobin mass conc (Bld) 13.2 g/dL Normal 11.1-15.9 [facility] Work Phone: Comment on above: PATIENT WAS FASTINGP ERFORMED BY: [address] [id number] BY: [place] 5666070 [facility] [id number] Immature granulocytes #/vol (Bld) 0.0 {x10E3/uL} Normal 0.0-0.1 [facility] Work Phone: Comment on above: PATIENT WAS FASTINGP ERFORMED BY: [address] [id number] BY: [facility] [id number] Immature granulocytes (Bld) [#/Vol] 0.0 10*3/uL Normal 0.0-0.1 [facility]; [facility] Work Phone: Comment on above: PATIENT WAS FASTINGP ERFORMED BY: [address] [id number] BY: [place] 5666070 [facility] [id number] Immature granulocytes/100 WBC (Bld) 0 % Normal [facility] Work Phone: Comment on above: PATIENT WAS FASTINGP ERFORMED BY: [address] [id number] BY: JOSSELINE [facility] Publjs9006 Bhardwaj RoadDublin [place] [id number] Lymphocytes #/vol (Bld) 2.1 {x10E3/uL} Normal 0.7-3.1 [facility] Work Phone: Comment on above: PATIENT WAS FASTINGP ERFORMED BY: [address] [id number] BY: LabTim Ville 0451370 Bhardwaj RoadCatawba Valley Medical Centerin [place] [id number] Lymphocytes (Bld) [#/Vol] 2.1 10*3/uL Normal 0.7-3.1 [facility]; [facility] Work Phone: Comment on above: PATIENT WAS FASTINGP ERFORMED BY: [address] [id number] BY: JOSSELINE [facility]6370 [address] [facility] [id number] Lymphocytes/100 WBC (Bld) 39 % Normal [facility] Work Phone: Comment on above: PATIENT WAS FASTINGP ERFORMED BY: [address] [id number] BY: LabCar[facility] Center6370 [address] [facility] [id number] MCH Entitic mass (RBC) 30.6 pg Normal 26.6-33.0 [facility] Work Phone: Comment on above: PATIENT WAS FASTINGP ERFORMED BY: [address] [id number] BY: [facility]6370 [address] [facility] [id number] MCHC mass conc (RBC) 33.0 g/dL Normal 31.5-35.7 [facility] Internal Medicine Work Phone: Comment on above: PATIENT WAS FASTINGP ERFORMED BY: [address] [id number] BY: LabTim [place] 0451370 [address] [facility] [id number] MCV Entitic volume (RBC) 93 fL Normal 79-97 [facility] Work Phone: Comment on above: PATIENT WAS FASTINGP ERFORMED BY: [address] [id number] BY: JOSSELINE [facility] Ikkxnr8486 Bhardwaj Roadblin [place] [id number] Monocytes #/vol (Bld) 0.6 {x10E3/uL} Normal 0.1-0.9 [facility] Work Phone: Comment on above: PATIENT WAS FASTINGP ERFORMED BY: [address] [id number] BY: JOSSELINE [facility]6370 [facility] [id number] Monocytes (Bld) [#/Vol] 0.6 10*3/uL Normal 0.1-0.9 [facility]; [facility] Work Phone: Comment on above: PATIENT WAS FASTINGP ERFORMED BY: [address] [id number] BY: JOSSELINE [facility]6370 [facility] [id number] Monocytes/100 WBC (Bld) 11 % Normal [facility] Work Phone: Comment on above: PATIENT WAS FASTINGP ERFORMED BY: [address] [id number] BY: [place] 5666070 [facility] [id number] Neutrophils #/vol (Bld) 2.6 {x10E3/uL} Normal 1.4-7.0 [facility] Work Phone: Comment on above: PATIENT WAS FASTINGP ERFORMED BY: [address] [id number] BY: [facility] Cwrxhj2891 B[address] [facility]in [place] [id number] Neutrophils (Bld) [#/Vol] 2.6 10*3/uL Normal 1.4-7.0 [facility]; [facility] Work Phone: Comment on above: PATIENT WAS FASTINGP ERFORMED BY: Sumerian Hajzwpcrwj[address] [id number] BY: JOSSELINE [facility] Tbwukt4381 Bhardwaj RoadDublin [place] [id number] Neutrophils/100 WBC (Bld) 47 % Normal [facility] Work Phone: Comment on above: PATIENT WAS FASTINGP ERFORMED BY: [employer] [id number] BY: JOSSELINE LabMiramar Labsrp Reusui9814 Bhardwaj RoadDublin [place] [id number] Platelets #/vol (Bld) 261 {x10E3/uL} Normal 150-379 [facility] Work Phone: Comment on above: Effective July 15, 2018 the reference interval for Platelets will be changing to: 0 - 7 d 140 - 396 x10E3/uL 8 - 30 d 139 - 531 x10E3/uL 31 d - 999 yrs 150 - 450 x10E3/uL PATIENT WAS FASTINGP ERFORMED BY: [employer] [address] [id number] BY: Sumerianrp Sxxvly6509 [address] RoadDublin [place] [id number] Platelets (Bld) [#/Vol] 261 10*3/uL Normal 150-379 [facility]; [facility] Work Phone: Comment on above: Effective July 15, 2018 the reference interval for Platelets will be changing to: 0 - 7 d 140 - 396 x10E3/uL 8 - 30 d 139 - 531 x10E3/uL 31 d - 999 yrs 150 - 450 x10E3/uL PATIENT WAS FASTINGP ERFORMED BY: Sumerian[address] [id number] BY: [facility] Wljvek4972 Bhardwaj RoadDublin [place] [id number] RBC #/vol (Bld) 4.31 {x10E6/uL} Normal 3.77-5.28 Comp [facility] Internal Medicine Work Phone: Comment on above: PATIENT WAS FASTINGP ERFORMED BY: Lab[address] [id number] BY: JOSSELINE [facility] Lshdaq3826 Bhardw[address] RoadDublin [place] [id number] RBC (Bld) [#/Vol] 4.31 10*6/uL Normal 3.77-5.28 Compr ensive Internal Medicine; [facility] Work Phone: Comment on above: PATIENT WAS FASTINGP ERFORMED BY: Lab[address] [id number] BY: JOSSELINE [facility] Yoheoq2676 Bhardwaj RoadDublin [place] [id number] WBC #/vol (Bld) 5.4 {x10E3/uL} Normal 3.4-10.8 Compr ensive Internal Medicine Work Phone: Comment on above: PATIENT WAS FASTINGP ERFORMED BY: Lab[address] [id number] BY: JOSSELINE LabCoHoboken University Medical CenterFgbpay0101 Bhardw[address] [facility]in [place] [id number] WBC (Bld) [#/Vol] 5.4 10*3/uL Normal 3.4-10.8 [facility]prssm [facility] Internal [facility]; [facility] Work Phone: Comment on above: PATIENT WAS FASTINGP ERFORMED BY: Lab[address] [id number] BY: [facility] Ehramb1168 [address] [facility]in [place] [id number] METABOLIC PANEL, COMPREHENSI VE ([id number])Ordered By: Printing Equipment Mechanic on 07-12-2018 Albumin mass conc 4.6 g/dL Normal 3.5-4.8 Compreh [facility] Internal Medicine Work Phone: Comment on above: PATIENT WAS FASTINGP ERFORMED BY: Lab[address] [id number] BY: [facility] Czyagd3319 Bhardw[address] RoadDublin [place] [id number] Albumin/Globulin mass ratio 1.8 {ratio} Normal 1.2-2.2 [facility] Work Phone: Comment on above: PATIENT WAS FASTINGP ERFORMED BY: [address] [id number] BY: [facility] Pkaicy4210 [address] RoadDublin [place] [id number] ALP [Catalytic activity/Vol] 59 U/L Normal 39-117 [facility]; [facility] Work Phone: Comment on above: PATIENT WAS FASTINGP ERFORMED BY: [address] [id number] BY: JOSSELINE [facility] Tafzyd0455 Bhardw[address] RoadDublin [place] [id number] ALP enzyme act/vol 59 [iU]/L Normal 39-117 [facility] Internal Medicine Work Phone: Comment on above: PATIENT WAS FASTINGP ERFORMED BY: [address] [id number] BY: [facility] Qqgcox5677 [address]hard[address] RoadDublin [place] [id number] ALT [Catalytic activity/Vol] 20 U/L Normal 0-32 [facility]; [facility] Internal Medicine Work Phone: Comment on above: PATIENT WAS FASTINGP ERFORMED BY: [address] [id number] BY: [facility] Jexeti8636 Bhardw[address] RoadDublin [place] [id number] ALT enzyme act/vol 20 [iU]/L Normal 0-32 [facility] Internal Medicine Work Phone: Comment on above: PATIENT WAS FASTINGP ERFORMED BY: [address] [id number] BY: [facility] Jkcuds3711 [address] RoadDublin [place] [id number] AST [Catalytic activity/Vol] 23 U/L Normal 0-40 [facility]; [facility] Work Phone: Comment on above: PATIENT WAS FASTINGP ERFORMED BY: Lab[address] [id number] BY: JOSSELINE [facility] Zdcivb7541 Bhard[address] RoadDublin [place] [id number] AST enzyme act/vol 23 [iU]/L Normal 0-40 Compre hensive Internal Medicine Work Phone: Comment on above: PATIENT WAS FASTINGP ERFORMED BY: Lab[address] [id number] BY: JOSSELINE [facility] Qlijxu3975 Bhard[address] RoadDublin [place] [id number] Bilirubin mass conc 0.6 mg/dL Normal 0.0-1.2 Compr ehensive Internal Medicine Work Phone: Comment on above: PATIENT WAS FASTINGP ERFORMED BY: Lab[address] [id number] BY: JOSSELINE [facility] Wcyubd8144 Bhard[address] RoadDublin [place] [id number] Calcium mass conc 9.9 mg/dL Normal 8.7-10.3 Compreh ensive Internal Medicine Work Phone: Comment on above: PATIENT WAS FASTINGP ERFORMED BY: [address] [id number] BY: JOSSELINE LabCoHoboken University Medical CenterLkdcuo1712 Bhardw[address] RoadDublin [place] [id number] Chloride molar conc 105 mmol/L Normal 96-106 Compr ehensive Internal Medicine Work Phone: Comment on above: PATIENT WAS FASTINGP ERFORMED BY: Lab[address] [id number] BY: JOSSELINE [facility] Zppfux4250 [address] RoadDublin [place] [id number] CO2 molar conc 22 mmol/L Normal 20-29 Comprehens brea Internal Medicine Work Phone: Comment on above: PATIENT WAS FASTINGP ERFORMED BY: LabCo[address] [id number] BY: [facility] Tujxpj3799 [address] [facility] [id number] Creatinine mass conc 0.79 mg/dL Normal 0.57-1.00 Comp rehensive Internal Medicine Work Phone: Comment on above: PATIENT WAS FASTINGP ERFORMED BY: LabCo[address] [id number] BY: LabCoMonica V[place] 1031070 [facility] [id number] GFR/1.73 sq M predicted among blacks CKD-EPI vol rate/area (S/P/Bld) 86 mL/min/1.73 Normal Comprehensiv e Internal Medicine Work Phone: Comment on above: PATIENT WAS FASTINGP ERFORMED BY: Sumerian[address] [id number] BY: MacuCLEARCaro Center6370 [facility] [id number] GFR/1.73 sq M predicted among non-blacks CKD-EPI vol rate/area (S/P/Bld) 74 mL/min/1.73 Normal [facility] Work Phone: Comment on above: PATIENT WAS FASTINGP ERFORMED BY: Sumerian[address] [id number] BY: LabCoHoboken University Medical CenterGopsyj4647 [facility] [id number] Globulin mass conc (S) 2.5 g/dL Normal 1.5-4.5 [facility] Work Phone: Comment on above: PATIENT WAS FASTINGP ERFORMED BY: Sumerian[address] [id number] BY: LabCoHoboken University Medical CenterFnaspp7079 [facility] [id number] Glucose mass conc 99 mg/dL Normal 65-99 Compreh ensive Internal Medicine Work Phone: Comment on above: PATIENT WAS FASTINGP ERFORMED BY: LabCo[address] [id number] BY: JOSSELINE [facility] Iirxin4185 B[address] RoadDublin [place] [id number] Potassium molar conc 4.8 mmol/L Normal 3.5-5.2 Comp rehensive Internal Medicine Work Phone: Comment on above: PATIENT WAS FASTINGP ERFORMED BY: LabCo[address] [id number] BY: [facility] Uzspow4151 B[address] RoadDublin [place] [id number] Protein mass conc 7.1 g/dL Normal 6.0-8.5 Compreh ensive Internal Medicine Work Phone: Comment on above: PATIENT WAS FASTINGP ERFORMED BY: Lab[address] [id number] BY: JOSSELINE [facility] Unlqgj9238 Bhardw[address] RoadDublin [place] [id number] Sodium molar conc 144 mmol/L Normal 134-144 Compreh ensive Internal Medicine Work Phone: Comment on above: PATIENT WAS FASTINGP ERFORMED BY: Lab[address] [id number] BY: [facility] Tnnpgj2678 B[address] RoadDublin [place] [id number] Urea nitrogen mass conc 15 mg/dL Normal 8-27 [facility] Work Phone: Comment on above: PATIENT WAS FASTINGP ERFORMED BY: Lab[address] [id number] BY: [facility] Tqbtjv8903 [address]hard[address] RoadDublin [place] [id number] Urea nitrogen/Creatinine mass ratio 19 mg/mg Normal 12-28 [facility] Work Phone: Comment on above: PATIENT WAS FASTINGP ERFORMED BY: Lab[address] [id number] BY: JOSSELINE [facility] Hyscpr7669 Bhard[address] RoadDublin [place] [id number] MICROALBUMINOrdered By: Syst em Pharmaceutical Service Representative on 07-12-2018 Albumin DL <= 20 mg/L mass conc (U) 5.6 ug/mL Normal [facility] Work Phone: Comment on above: PATIENT WAS FASTINGP ERFORMED BY: Sumerian[address] [id number] BY: JOSSELINE [facility] Htvbsx3367 Bhardwaj RoadCatawba Valley Medical Centerin [place] [id number] Albumin/Creatinine mass ratio (U) 6.7 {mg/g_creat} Normal 0.0-30.0 [facility] Work Phone: Comment on above: Normal: 0.0 - 30.0 A lbuminuria: 31.0 - 300.0 Clinical albuminuria: >300.0 PATIENT WAS FASTINGP ERFORMED BY: Sumerian[address] [id number] BY: JOSSELINE [facility] Kmazfb6210 [address] [facility] [id number] Creatinine mass conc (U) 83.8 mg/dL Normal [facility] Work Phone: Comment on above: PATIENT WAS FASTINGP ERFORMED BY: Sumerian[address] [id number] BY: JOSSELINE [facility] Armweu1411 [facility] [id number] NMR Profile ([id number])Ordered B y: Printing Equipment Mechanic on 07-12-2018 Cholesterol mass conc 188 mg/dL Normal 100-199 [facility] Work Phone: Comment on above: PATIENT WAS FASTINGP ERFORMED BY: Sumerian[address] [id number] BY: JOSSELINE [facility] Trmpdi6773 [address] [facility] [id number] Lipoprotein.alpha molar conc 33.4 umol/L Normal [facility] Work Phone: Comment on above: PATIENT WAS FASTINGP ERFORMED BY: Sumerian[address] [id number] BY: JOSSELINE [employer]6370 [facility] [id number] Lipoprotein.beta.sub particle Entitic length 20.9 nm Normal [facility] Work Phone: Comment on above: INTERPRETATIVE INFORMATION PARTICLE CONCENTRATION AND SIZE <--Lower CVD Risk Higher CVD Risk--> LDL AND HDL PARTICLES Percentile in Reference Population HDL-P (total) High 75th 50th 25th Low >34.9 34.9 30.5 26.7 <26.7 . Small LDL-P Low 25th 50th 75th High <117 117 527 839 >839 . LDL Size <-Large (Pattern A)-> <-Small (Pattern B)-> 23.0 20.6 20.5 19.0 Small LDL-P and LDL Size are associated with CVD risk, but not afterLDL-P is taken into account. .These assays were developed and their performance characteristicsdetermined by WHObyYOU. These assays have not been cleared by Maria C Food and Drug Administration. The clinical utility of theselaboratory values have not been fully established. PATIENT WAS FASTINGP ERFORMED BY: [employer] [facility] [id number] BY: [employer]6370 [facility] [id number] Lipoprotein.beta.sub particle molar conc 1520 nmol/L Abnormal Comprehensiv e Internal Medicine Work Phone: Comment on above: Low < 1000 Moderate 1000 - 1299 Borderline-High 1300 - 1599 High 1600 - 2000 Very High > 2000 PATIENT WAS FASTINGP ERFORMED BY: [employer] [facility] [id number] BY: [facility] [id number] Lipoprotein.beta.sub particle.small molar conc 571 nmol/L Abnormal [facility] Work Phone: Comment on above: PATIENT WAS FASTINGP ERFORMED BY: Sumerian[address] [id number] BY: [place] 5666070 [facility] [id number] Triglyceride mass conc 95 mg/dL Normal 0-149 [facility] Work Phone: Comment on above: PATIENT WAS FASTINGP ERFORMED BY: MacuCLEAR[address] [id number] BY: [place] 5666070 [facility] [id number] NMR Profile (09122) 115 mg/dL Abnormal 0-99 [facility] Work Phone: Comment on above: . Optimal < 100 Abov e optimal 100 - 129 Borderline 130 - 159 High 160 - 189 Very high > 189 .LDL-C is inaccurate if patient is non-fasting. PATIENT WAS FASTINGP ERFORMED BY: Sumerian[address] [id number] BY: [facility]6[address] [facility] [id number] NMR Profile (61108) 54 mg/dL Normal [facility] Work Phone: Comment on above: PATIENT WAS FASTINGP ERFORMED BY: MacuCLEAR[address] [id number] BY: [facility]6[address] [facility] [id number] TSH (THYROID STIMULATING HOR NICKOLAS) (49102)Ordered By: Printing Equipment Mechanic on 07-12-2018 Thyrotropin Qn 2.190 {uIU/mL} Normal 0.450-4.50 0 [facility] Work Phone: Comment on above: PATIENT WAS FASTINGP ERFORMED BY: MacuCLEAR[address] [id number] BY: [facility] Lshgce8093 Bhardwaj RoadDublin [place] [id number] URINALYSIS, W/ MICRO ([id number]) Ordered By: Printing Equipment Mechanic on 07-12-2018 Appearance Nom (U) Clear Normal Compre hensive Internal Medicine Work Phone: Comment on above: PATIENT WAS FASTINGP ERFORMED BY: [address] [id number] BY: [facility] Svpuca1347 Bhardwaj RoadDublin [place] [id number] Bilirubin Ql (U) Negative Normal Comprehe nsive Internal Medicine Work Phone: Comment on above: PATIENT WAS FASTINGP ERFORMED BY: [address] [id number] BY: [facility] Kidqcg3915 Bhardwaj RoadDublin [place] [id number] Bilirubin Ql (U) Negative Normal Comprehe nsive Internal Medicine; [facility] Work Phone: Comment on above: PATIENT WAS FASTINGP ERFORMED BY: [address] [id number] BY: [facility] Yssgfl7735 Bhardwaj RoadDublin [place] [id number] Color Nom (U) Yellow Normal Comprehensi ve Internal Medicine Work Phone: Comment on above: PATIENT WAS FASTINGP ERFORMED BY: [address] [id number] BY: [facility] Xngwsi7928 Bhardwaj RoadDublin [place] [id number] Glucose Ql (U) Negative Normal Comprehens rbea Internal Medicine Work Phone: Comment on above: PATIENT WAS FASTINGP ERFORMED BY: [address] [id number] BY: [facility] Xepiks9447 B[address] RoadDublin [place] [id number] Glucose Ql (U) Negative Normal Comprehens brea Internal Medicine; [facility] Work Phone: Comment on above: PATIENT WAS FASTINGP ERFORMED BY: [facility] [address] [id number] BY: JOSSELINE [facility] Kxppoq9686 Bhardwaj RoadDublin [place] [id number] Hemoglobin Ql (U) Negative Normal Compreh ensive Internal Medicine Work Phone: Comment on above: PATIENT WAS FASTINGP ERFORMED BY: [facility] [address] [id number] BY: JOSSELINE [facility] Otwvnr3306 Bhardwaj RoadDublin [place] [id number] Hemoglobin Ql (U) Negative Normal Compreh ensive Internal Medicine; [facility] Work Phone: Comment on above: PATIENT WAS FASTINGP ERFORMED BY: [facility] [address] [id number] BY: JOSSELINE [facility] Qanpbq7789 Bhardwaj RoadDublin [place] [id number] Ketones Ql (U) Negative Normal Comprehens brea Internal Medicine Work Phone: Comment on above: PATIENT WAS FASTINGP ERFORMED BY: [facility] [id number] BY: JOSSELINE [facility] Bwkhge8036 Bhardwaj RoadDublin [place] [id number] Ketones Ql (U) Negative Normal Comprehens brea Internal Medicine; [facility] Work Phone: Comment on above: PATIENT WAS FASTINGP ERFORMED BY: [facility] [address] [id number] BY: JOSSELINE [facility] Rcunad2539 Bhardwaj RoadDublin [place] [id number] Leukocyte esterase Test strip Ql (U) Negative Normal [facility] Work Phone: Comment on above: PATIENT WAS FASTINGP ERFORMED BY: [facility] [id number] BY: JOSSELINE [facility] Fucyey6781 Bhardwaj RoadDublin [place] [id number] Leukocyte esterase Test strip Ql (U) Negative Normal [facility]; [facility] Work Phone: Comment on above: PATIENT WAS FASTINGP ERFORMED BY: [address] [id number] BY: [facility] [facility] [id number] Microscopic observation LM Nom (Urine sed) MICRON Normal [facility] Work Phone: Comment on above: Microscopic follows if indicated. PATIENT WAS FASTINGP ERFORMED BY: [address] [id number] BY: [place] [id number] [facility] [id number] Microscopic observation LM Nom (Urine sed) See below: Normal [facility] Work Phone: Comment on above: Microscopic was helio cated and was performed. PATIENT WAS FASTINGP ERFORMED BY: [address] [id number] BY: [facility]6[address] RoadCatawba Valley Medical Centerin [place] [id number] Nitrite Ql (U) Negative Normal Comprehens brea Internal Medicine Work Phone: Comment on above: PATIENT WAS FASTINGP ERFORMED BY: [address] [id number] BY: [facility]6[address] RoadCatawba Valley Medical Centerin [place] [id number] Nitrite Ql (U) Negative Normal Comprehens brea Internal Medicine; [facility] Work Phone: Comment on above: PATIENT WAS FASTINGP ERFORMED BY: [address] [id number] BY: [facility] [facility]bl[facility] [place] [id number] pH (U) 6.0 [pH] Normal 5.0-7.5 [facility] Work Phone: Comment on above: PATIENT WAS FASTINGP ERFORMED BY: [facility] [address] [id number] BY: JOSSELINE [facility] Pnmjiz3261 B[address] RoadDublin [place] [id number] Protein Ql (U) Negative Normal Comprehens brea Internal Medicine Work Phone: Comment on above: PATIENT WAS FASTINGP ERFORMED BY: [facility] [address] [id number] BY: JOSSELINE [facility] Kiumyj0377 Bhardw[address] RoadDublin [place] [id number] Protein Ql (U) Negative Normal Comprehens brea Internal Medicine; [facility] Work Phone: Comment on above: PATIENT WAS FASTINGP ERFORMED BY: [facility] [id number] BY: JOSSELINE [facility] Cqrnmu7062 Bhardwaj RoadDuin [place] [id number] Specific gravity Relative Density (U) 1.018 1 Normal 1.005-1.03 0 [facility] Work Phone: Comment on above: PATIENT WAS FASTINGP ERFORMED BY: [address] [id number] BY: JOSSELINE [facility] Spzbdf9401 Bhardwaj RoadDuin [place] [id number] Urobilinogen (U) [Mass/Vol] 0.2 mg/dL Normal 0.2-1.0 [facility]; [facility] Work Phone: Comment on above: PATIENT WAS FASTINGP ERFORMED BY: [address] [id number] BY: JOSSELINE [facility] Tkbxmd7424 Bhardwaj RoadCatawba Valley Medical Centerin [place] [id number] Urobilinogen Test strip mass conc (U) 0.2 mg/dL Normal 0.2-1.0 Comprehensiv e Internal Medicine Work Phone: Comment on above: PATIENT WAS FASTINGP ERFORMED BY: [address] [id number] BY: JOSSELINE [facility] Qqtiip3208 [facility] [id number] .Auto Diffon 10-15-2017 Ammonia mass conc (P) 0.40 10 3/mcL Normal 0.15-1.00 [facility] ([place]) Comment on above: Performed By: #### C BC, ADIFF, ANEU ####[place] [address]#### CMP, GFR ####[address] [address] Basophils Auto #/vol (Bld) 0.10 10 3/mcL Normal 0.00-0.19 [facility] ([place]) Comment on above: Performed By: #### C BC, ADIFF, ANEU ####[place] [address]#### CMP, GFR ####[address] [address] Basophils/100 WBC Auto (Bld) 1.1 % Normal 0.0-2.5 [facility] ([place]) Comment on above: Performed By: #### C BC, ADIFF, ANEU ####[place] [address]#### CMP, GFR ####[address] [address] Eosinophils Auto #/vol (Bld) 0.10 10 3/mcL Normal 0.00-0.40 [facility] ([place] Comment on above: Performed By: #### C BC, ADIFF, ANEU ####[place] [address]#### CMP, GFR ####[address] [address] Eosinophils/100 WBC Auto (Bld) 2.1 % Normal 0.0-7.0 [facility] ([place]) Comment on above: Performed By: #### C BC, ADIFF, ANEU ####[place] [address]#### CMP, GFR ####[facility] [place] [address] Lymphocytes Auto #/vol (Bld) 2.10 10 3/mcL Normal 0.77-3.85 [facility] ([place]) Comment on above: Performed By: #### C BC, ADIFF, ANEU ####[place] Dptrq[address] [address]#### CMP, GFR ####[address] [address] Lymphocytes/100 WBC Auto (Bld) 39.8 % Normal 10.0-50.0 [facility] ([place]) Comment on above: Performed By: #### C BC, ADIFF, ANEU ####[address] [address]#### CMP, GFR ####[address] [address] Monocytes/100 WBC Auto (Bld) 7.8 % Normal 1.7-13.0 [facility] ([place]) Comment on above: Performed By: #### C BC, ADIFF, ANEU ####[place] [address]#### CMP, GFR ####[address] [address] Neutrophils/100 WBC Auto (Bld) 49.2 % Normal 37.0-80.0 [facility] ([place]) Comment on above: Performed By: #### C BC, ADIFF, ANEU ####[place] Vmogquvu880[place] [address]#### CMP, GFR ####[address] [address] .GFRon 10-15-2017 GFR Non- 62 ml/min/1.73sqm Normal [facility] ([place]) Comment on above: Result Comment: GFR Population mean for , Non- Americans Ages 20-29 = 116 mL/min/1.73 sq.m. Ages 30-39 = 107 mL/min/1.73 sq.m. Ages 40-49 = 99 mL/min/1.73 sq.m. Ages 50-59 = 93 mL/min/1.73 sq.m. Ages 60-69 = 85 mL/min/1.73 sq.m. Ages 70+ = 75 mL/min/1.73 sq.m.Chronic Kidney Disease: Less than 60 mL/min/1.73 square metersEnd Stage Renal Disease: Less than 15 mL/min/1.73 square meters Performed By: #### C TAVO PAPPAS, ANEU ####[place] [place] [id number]#### CMP, GFR ####[address] [address] GFR 75 ml/min/1.73sqm Normal [facility] ([place] Comment on above: Result Comment: GFR Population mean for , Non- Americans Ages 20-29 = 116 mL/min/1.73 sq.m. Ages 30-39 = 107 mL/min/1.73 sq.m. Ages 40-49 = 99 mL/min/1.73 sq.m. Ages 50-59 = 93 mL/min/1.73 sq.m. Ages 60-69 = 85 mL/min/1.73 sq.m. Ages 70+ = 75 mL/min/1.73 sq.m.Chronic Kidney Disease: Less than 60 mL/min/1.73 square metersEnd Stage Renal Disease: Less than 15 mL/min/1.73 square meters Performed By: #### TAVO LANGSTON, ANEU ####[place] Edsntsdb841 [place] [address]#### CMP, GFR ####[place] [address] .NEUABSon 10-15-2017 Neutrophil, Absolute 2.60 10 3/mcL Low 2.85-6.16 [facility] ([place]) Comment on above: Performed By: #### TAVO LANGSTON, ANEU ####[place] [place] [id number]#### CMP, GFR ####[address] [address] CBCon 10-15-2017 Erythrocyte distribution width Auto Ratio (RBC) 13.0 % Normal 11.5-14.5 [facility] ([place] Comment on above: Performed By: #### C BC ADIFF, ANEU ####[place] [address]#### CMP, GFR ####[place] [address] Hematocrit Auto Volume Fraction (Bld) 40.3 % Normal 37.0-47.0 [facility] ([place] Comment on above: Performed By: #### C BC, ADIFF, ANEU ####[place] Hyjyngyr357[place] [address]#### CMP, GFR ####[place] [address] Hemoglobin mass conc (Bld) 13.6 G/dL Normal 12.0-16.0 [facility] ([place] Comment on above: Performed By: #### C BCTAVO, ANEU ####[place] [address]#### CMP, GFR ####[place] [address] MCH Auto Entitic mass (RBC) 31.0 pg Normal 27.0-31.2 [facility] ([place] Comment on above: Performed By: #### C BC ADIFF, ANEU ####[place] [address]#### CMP, GFR ####[place] [address] MCHC Auto mass conc (RBC) 33.8 G/dL Normal 33.0-37.0 [facility] ([place] Comment on above: Performed By: #### C BC, ADIFF, ANEU ####[place] [address]#### CMP, GFR ####[place] [address] MCV Auto Entitic volume (RBC) 91.7 fL Normal 80.0-94.0 [facility] ([place] Comment on above: Performed By: #### C BC, ADIFF, ANEU ####[place]nez Qvsktgfd162 [place] [id number]#### CMP, GFR ####[address] [address] Platelet mean volume Auto Entitic volume (Bld) 10.1 fL Normal 7.4-10.4 [facility] ([place] Comment on above: Performed By: #### C BC, ADIFF, ANEU ####[place] [address]#### CMP, GFR ####[address] [address] Platelets Auto #/vol (Bld) 259 10 3/mcL Normal 130-400 [facility] ([place] Comment on above: Performed By: #### C BC, ADIFF, ANEU ####[place] [address]#### CMP, GFR ####[place] [address] RBC Auto #/vol (Bld) 4.39 10 6/mcL Normal 4.20-5.40 [facility] ([place] Comment on above: Performed By: #### C FARHANA PAPPASIFF, ANEU ####[place] Vnttejqy036[place] [address]#### CMP, GFR ####[address] [address] WBC Auto #/vol (Bld) 5.40 10 3/mcL Normal 4.60-10.80 [facility] ([place]) Comment on above: Performed By: #### C BC, ADIFF, ANEU ####[place] [address]#### CMP, GFR ####[place] [address] CMPon 10-15-2017 Albumin mass conc 4.2 G/dL Normal 3.4-4.8 [facility] ([place] Comment on above: Performed By: #### C BC, ADIFF, ANEU ####Inezhalie OleaUkvbojli877[place] [id number]#### CMP, GFR ####[address] [address] Albumin/Globulin mass ratio 1.3 {ratio} Normal 1.1-2.5 [facility] ([place] Comment on above: Performed By: #### C BC, ADIFF, ANEU ####[place] [address]#### CMP, GFR ####[address] [address] ALP enzyme act/vol 55 U/L Normal 40-135 [facility] ([place]) Comment on above: Performed By: #### C BC, ADIFF, ANEU ####[place] [address]#### CMP, GFR ####[address] [address] ALT enzyme act/vol 26 U/L Normal 10-35 [facility] ([place]) Comment on above: Performed By: #### C BC, ADIFF, ANEU ####[place] [address]#### CMP, GFR ####[address] [address] AST enzyme act/vol 19 U/L Normal 10-40 [facility] ([place] Comment on above: Performed By: #### C BC, ADIFF, ANEU ####[place] [address]#### CMP, GFR ####[address] [address] Bili Total 0.6 mg/dL Normal 0.2-1.0 [facility] ([place] Comment on above: Performed By: #### C BC, ADIFF, ANEU ####[place] [address]#### CMP, GFR ####[address] [address] Calcium mass conc 9.9 mg/dL Normal 8.4-10.2 [facility] ([place]) Comment on above: Performed By: #### C BC, ADIFF, ANEU ####Inez Gcgpxukm607 [place] [id number]#### CMP, GFR ####[place] [address] Chloride molar conc 105 mmol/L Normal 98-107 [facility] ([place]) Comment on above: Performed By: #### C BC, ADIFF, ANEU ####Inez [address] [place] [address]#### CMP, GFR ####[place] [address] CO2 molar conc 30 mmol/L Normal 23-31 On license of [facility] ([place]) Comment on above: Performed By: #### C BC, ADIFF, ANEU ####[place]nez Z[address] [place] [address]#### CMP, GFR ####[place] [address] Creatinine mass conc 0.90 mg/dL Normal 0.55-1.02 [facility] ([place]) Comment on above: Performed By: #### C BC, ADIFF, ANEU ####[place] [address]#### CMP, GFR ####[place] [address] Electrolyte Balance 7.0 mEq/L Normal [facility] ([place]) Comment on above: Performed By: #### C BC, ADIFF, ANEU ####[place] [address] [place] [address]#### CMP, GFR ####[place] [address] Globulin Calculated mass conc (S) 3.3 G/dL Normal [facility] ([place] Comment on above: Performed By: #### C BC, ADIFF, ANEU ####[place] Uyjokngn744 [place] [address]#### CMP, GFR ####[place] [address] Glucose mass conc 97 mg/dL Normal 83-110 [facility] ([place] Comment on above: Performed By: #### C BC, ADIFF, ANEU ####[place] [address] [place], [place] [address]#### CMP, GFR ####[address] [address] Potassium molar conc 4.9 mmol/L Normal 3.5-5.1 [facility] ([place]) Comment on above: Performed By: #### C BC, ADIFF, ANEU ####[place] Qghoiqae[address] [place], [place] [address]#### CMP, GFR ####[address] [address] Protein mass conc 7.5 G/dL Normal 6.4-8.2 [facility] ([place] Comment on above: Performed By: #### C BC, ADIFF, ANEU ####[facility] [place] [address]#### CMP, GFR ####[address] [address] Sodium molar conc 142 mmol/L Normal 136-145 [facility] ([place] Comment on above: Performed By: #### C BC, ADIFF, ANEU ####[facility] [place] [address]#### CMP, GFR ####[address] [address] Urea nitrogen mass conc 12 mg/dL Normal 7-18 [facility] ([place] Comment on above: Performed By: #### C BC, ADIFF, ANEU ####[place] Tapgwdim[address] [place], [place] [address]#### CMP, GFR ####[place] [id number] [address] [place] [address] Urea nitrogen/Creatinine mass ratio 13 ratio Normal 7-27 [facility] ([place] Comment on above: Performed By: #### C BC, ADIFF, ANEU ####[place] Nwliccoe[address] [place], [place] [address]#### CMP, GFR ####[address] [address] HFPon 10-15-2017 Albumin mass conc 4.2 G/dL Normal 3.4-4.8 [facility] ([place] Comment on above: Performed By: #### H FP, LIPID ####[place] [address] Albumin/Globulin mass ratio 1.3 {ratio} Normal 1.1-2.5 [facility] ([place] Comment on above: Performed By: #### H FP, LIPID ####[place] [address] ALP enzyme act/vol 51 U/L Normal 40-135 [facility] ([place] Comment on above: Performed By: #### H FP, LIPID ####[place] [address] ALT enzyme act/vol 26 U/L Normal 10-35 [facility] ([place] Comment on above: Performed By: #### H FP, LIPID ####[place] [address] AST enzyme act/vol 19 U/L Normal 10-40 [facility] ([place] Comment on above: Performed By: #### H FP, LIPID ####[place] [address] Bili Direct 0.1 mg/dL Normal 0.0-0.2 [facility] ([place]) Comment on above: Performed By: #### H FP, LIPID ####[place] [address] Bili Indirect 0.5 mg/dL Normal [facility] ([place]) Comment on above: Performed By: #### H FP, LIPID ####[place] [address] Bili Total 0.6 mg/dL Normal 0.2-1.0 [facility] ([place] Comment on above: Performed By: #### H FP, LIPID ####[place] [address] Globulin Calculated mass conc (S) 3.3 G/dL Normal [facility] ([place]) Comment on above: Performed By: #### H FP, LIPID ####[address] [address] Protein mass conc 7.5 G/dL Normal 6.4-8.2 [facility] ([place] Comment on above: Performed By: #### H FP, LIPID ####[address] [address] LIPIDon 10-15-2017 Cholesterol in HDL mass conc 48 mg/dL Normal 40-60 [facility] ([place] Comment on above: Performed By: #### H FP, LIPID ####[place] [id number] [address] [place] [address] Cholesterol in LDL mass conc 126 mg/dL Normal 0-130 [facility] ([place] Comment on above: Performed By: #### H FP, LIPID ####[address] [address] Cholesterol mass conc 195 mg/dL Normal 0-200 [facility] ([place] Comment on above: Result Comment: Chol esterol Reference Interval:Less than 200 [id number] Borderline high [id number] and above High risk Performed By: #### H FP, LIPID ####[address] [address] Triglyceride mass conc 107 mg/dL Normal 0-150 [facility] ([place] Comment on above: Result Comment: Trig lyceride Reference Interval:Less than 150 [id number] Borderline high [id number] High [id number] or higher Very high risk Performed By: #### H FP, LIPID ####[address] [address] Vital Signs Date Time Vital Sign Value Performing Clinician Facility 10-02-2024 15:51-0400 Diastolic blood pressure 97 mm[Hg] Dr. Soraida Esteves DO Work Phone: [facility] 10-02-2024 15:51-0400 Heart rate 72 /min Dr. Soraida Esteves DO Work Phone: [facility] 10-02-2024 15:51-0400 Systolic blood pressure 188 mm[Hg] Dr. Soraida Esteves DO Work Phone: [facility] 10-02-2024 15:34-0400 Body height 165.[address] Soraida Esteves DO Work Phone: [facility] 10-02-2024 15:34-0400 Body mass index (BMI) [Ratio] 29.1 kg/m2 Dr. Soraida Esteves DO Work Phone: [facility] 10-02-2024 15:34-0400 Body weight 79.[address] Soraida Esteves DO Work Phone: [facility] 10-02-2024 15:34-0400 Respiratory rate 16 /min Dr. Soraida Esteves DO Work Phone: [facility] 11-27-2022 11:21-0400 Body height 160.02 cm Soraida Esteves DO Work Phone: [facility]; [facility] Work Phone: Comment on above: home bp readings 120's 11-27-2022 11:21-0400 Body mass index (BMI) [Ratio] 32.24 kg/m2 Soraida Esteves DO Work Phone: [facility]; [facility] Work Phone: Comment on above: home bp readings 120's 11-27-2022 11:21-0400 Body surface area Derived from formula 1.86 m2 Sroaida Esteves DO Work Phone: [facility]; [facility] Work Phone: Comment on above: home bp readings 120's 11-27-2022 11:21-0400 Body temperature 97.6 [degF] Soraida Esteves DO Work Phone: [facility]; [facility] Work Phone: Comment on above: Method: Temporal home bp readings 120 's 11-27-2022 11:21-0400 Body weight 82.56 kg Soraida Esteves DO Work Phone: [facility]; [facility] Work Phone: Comment on above: home bp readings 120's 11-27-2022 11:21-0400 Diastolic blood pressure 82 mm[Hg] Soraida Esteves DO Work Phone: [facility]; [facility] Work Phone: Comment on above: Patient Position: Sitting; Cuff Location : Left Arm; Cuff Size: Large home bp readings 120 's 11-27-2022 11:21-0400 Heart rate 80 /min Soraida Esteves DO Work Phone: [facility]; [facility] Work Phone: Comment on above: Pattern: Regular home bp readings 120 's 11-27-2022 11:21-0400 Respiratory rate 18 /min Soraida Esteves DO Work Phone: [facility]; [facility] Work Phone: Comment on above: Pattern: Unlabored home bp readings 120 's 11-27-2022 11:21-0400 SaO2% (BldA) [Mass fraction] 96 % Soraida Esteves DO Work Phone: [facility]; [facility] Work Phone: Comment on above: Room air home bp readings 120 's 11-27-2022 11:21-0400 Systolic blood pressure 164 mm[Hg] Soraida Esteves DO Work Phone: [facility]; [facility] Work Phone: Comment on above: Patient Position: Sitting; Cuff Location : Left Arm; Cuff Size: Large home bp readings 120 's 09-29-2022 09:21-0400 Body height 160.02 cm Gisele Sparks CNP Work Phone: [facility]; [facility] Work Phone: 09-29-2022 09:21-0400 Body mass index (BMI) [Ratio] 31.93 kg/m2 Gisele Sparks CNP Work Phone: [facility]; [facility] Work Phone: 09-29-2022 09:21-0400 Body surface area Derived from formula 1.85 m2 Gisele Sparks CNP Work Phone: [facility]; [facility] Work Phone: 09-29-2022 09:21-0400 Body temperature 98 [degF] Gisele Sparks CNP Work Phone: [facility]; [facility] Work Phone: Comment on above: Method: Temporal 09-29-2022 09:21-0400 Body weight 81.76 kg Gisele Sparks CNP Work Phone: [facility]; [facility] Work Phone: 09-29-2022 09:21-0400 Diastolic blood pressure 78 mm[Hg] Gisele Sparks CNP Work Phone: [facility]; [facility] Work Phone: Comment on above: Patient Position: Sitting; Cuff Location : Left Arm; Cuff Size: Standard 09-29-2022 09:21-0400 Heart rate 82 /min Gisele Sparks CNP Work Phone: [facility]; [facility] Work Phone: Comment on above: Pattern: Regular 09-29-2022 09:21-0400 Respiratory rate 20 /min Gisele Sparks CNP Work Phone: [facility]; [facility] Work Phone: Comment on above: Pattern: Unlabored 09-29-2022 09:21-0400 Systolic blood pressure 141 mm[Hg] Gisele Sparks CNP Work Phone: [facility]; [facility] Work Phone: Comment on above: Patient Position: Sitting; Cuff Location : Left Arm; Cuff Size: Standard 07-11-2022 00:29-0400 Body mass index (BMI) [Ratio] 31.6 kg/m2 [facility] 07-11-2022 00:29-0400 Body weight 86.1 kg [place] [facility] 07-11-2022 00:27-0400 Diastolic blood pressure 63 mm[Hg] [facility] 07-11-2022 00:27-0400 Heart rate 68 /min [facility] 07-11-2022 00:27-0400 Respiratory rate 17 /min [facility] 07-11-2022 00:27-0400 SaO2% (BldA) [Mass fraction] 93 % [facility] 07-11-2022 00:27-0400 Systolic blood pressure 141 mm[Hg] [facility] 07-10-2022 22:35-0400 Body height 165.1 cm [facility] 07-10-2022 22:35-0400 Body temperature 98.3 [degF] [facility] 07-06-2022 23:03-0400 Diastolic blood pressure 77 mm[Hg] [facility] 07-06-2022 23:03-0400 Heart rate 81 /min [facility] 07-06-2022 23:03-0400 Respiratory rate 14 /min [facility] 07-06-2022 23:03-0400 SaO2% (BldA) [Mass fraction] 97 % [facility] 07-06-2022 23:03-0400 Systolic blood pressure 146 mm[Hg] [facility] 07-06-2022 21:36-0400 Body height 162.56 cm [facility] 07-06-2022 21:36-0400 Body mass index (BMI) [Ratio] 31.2 kg/m2 [facility] 07-06-2022 21:36-0400 Body temperature 98 [degF] [facility] 07-06-2022 21:36-0400 Body weight 82.5 kg [facility] 05-18-2022 13:31-0400 Body height 160.02 cm Soraida Ludwigon DO Work Phone: [facility]; [facility] Work Phone: Comment on above: gained lots of wt with knee prob and cou ldnt exericse 05-18-2022 13:31-0400 Body mass index (BMI) [Ratio] 31.93 kg/m2 Soraida Danielito DO Work Phone: [facility]; [facility] Work Phone: Comment on above: gained lots of wt with knee prob and cou ldnt exericse 05-18-2022 13:31-0400 Body surface area Derived from formula 1.85 m2 Soraida Ludwigon DO Work Phone: [facility]; [facility] Work Phone: Comment on above: gained lots of wt with knee prob and cou ldnt exericse 05-18-2022 13:31-0400 Body temperature 97 [degF] Soraida Danielito DO Work Phone: [facility]; [facility] Work Phone: Comment on above: Method: Oral gained lots of wt wi th knee prob and couldnt exericse 05-18-2022 13:31-0400 Body weight 81.76 kg Soraida Danielito DO Work Phone: [facility]; [facility] Work Phone: Comment on above: gained lots of wt with knee prob and cou ldnt exericse 05-18-2022 13:31-0400 Diastolic blood pressure 82 mm[Hg] Soraida Ludwigon DO Work Phone: [facility]; [facility] Work Phone: Comment on above: Patient Position: Sitting; Cuff Location : Left Arm; Cuff Size: Standard gained lots of wt wi th knee prob and couldnt exericse 05-18-2022 13:31-0400 Heart rate 78 /min Soraida Danielito DO Work Phone: [facility]; [facility] Work Phone: Comment on above: Pattern: Regular gained lots of wt wi th knee prob and couldnt exericse 05-18-2022 13:31-0400 Respiratory rate 16 /min Soraida Danielito DO Work Phone: [facility]; [facility] Work Phone: Comment on above: Pattern: Unlabored gained lots of wt wi th knee prob and couldnt exericse 05-18-2022 13:31-0400 SaO2% (BldA) [Mass fraction] 95 % Soraida Danielito DO Work Phone: [facility]; [facility] Work Phone: Comment on above: Room air gained lots of wt wi th knee prob and couldnt exericse 05-18-2022 13:31-0400 Systolic blood pressure 140 mm[Hg] Soraida Danielito DO Work Phone: [facility]; [facility] Work Phone: Comment on above: Patient Position: Sitting; Cuff Location : Left Arm; Cuff Size: Standard gained lots of wt wi th knee prob and couldnt exericse 04-19-2022 13:45-0500 Body height 160.02 cm Soraida Danielito DO Work Phone: [facility]; [facility] Work Phone: 04-19-2022 13:45-0500 Body mass index (BMI) [Ratio] 27.81 kg/m2 Soraida Danielito DO Work Phone: [facility]; [facility] Work Phone: 04-19-2022 13:45-0500 Body surface area Derived from formula 1.74 m2 Soraida Danielito DO Work Phone: [facility]; [facility] Work Phone: 04-19-2022 13:45-0500 Body weight 71.22 kg Soraida Danielito DO Work Phone: [facility]; [facility] Work Phone: 04-19-2022 13:45-0500 Diastolic blood pressure 88 mm[Hg] Soraida Danielito DO Work Phone: [facility]; [facility] Work Phone: Comment on above: Patient Position: Sitting; Cuff Location : Left Arm; Cuff Size: Standard 04-19-2022 13:45-0500 Heart rate 80 /min Soraida Danielito DO Work Phone: [facility]; [facility] Work Phone: Comment on above: Pattern: Regular 04-19-2022 13:45-0500 Systolic blood pressure 153 mm[Hg] Soraida Esteves DO Work Phone: [facility]; [facility] Work Phone: Comment on above: Patient Position: Sitting; Cuff Location : Left Arm; Cuff Size: Standard 02-04-2021 07:55-0500 Body height 160.02 cm Franky Ramos [facility] Work Phone: 02-04-2021 07:55-0500 Body mass index (BMI) [Ratio] 27.81 kg/m2 Franky Ramos LPN [facility]; [facility] Work Phone: 02-04-2021 07:55-0500 Body surface area Derived from formula 1.74 m2 Franky Ramos LPN [facility]; [facility] Work Phone: 02-04-2021 07:55-0500 Body weight 71.22 kg Franky Ramos [facility]; [facility] Work Phone: 05-20-2020 07:00-0400 BMI (Body Mass Index) 27.81 kg/m2 Blanca Galeana [facility]; [facility] Work Phone: Comment on above: patient reported. 05-20-2020 07:00-0400 Body weight 71.22 kg Blanca Kervin [employer] GRINDER OPERATOR [facility]; [facility] Work Phone: Comment on above: patient reported. 05-20-2020 07:00-0400 BSA (Body Surface Area) 1.74 m2 Blanca Slarb [employer] GRINDER OPERATOR [facility]; [facility] Work Phone: Comment on above: patient reported. 05-20-2020 07:00-0400 Height 160.02 cm Blanca Galeana [facility]; [facility] Work Phone: Comment on above: patient reported. 01-15-2020 07:04-0500 BMI (Body Mass Index) 29.05 kg/m2 Maeve Gravius [facility] Work Phone: Comment on above: no vs taken as this is phone encounter d ue to covid 01-15-2020 07:04-0500 Body weight 74.39 kg Maeve Gravius [facility] Work Phone: Comment on above: no vs taken as this is phone encounter d ue to covid 01-15-2020 07:04-0500 BSA (Body Surface Area) 1.78 m2 Maeve Gravius [facility] Work Phone: Comment on above: no vs taken as this is phone encounter d ue to covid 01-15-2020 07:04-0500 Height 160.02 cm Maeve Gravius [facility] Work Phone: Comment on above: no vs taken as this is phone encounter d ue to covid 09-12-2019 07:23-0400 BMI (Body Mass Index) 29.05 kg/m2 Ivonne Mumtaz [facility] Work Phone: 09-12-2019 07:23-0400 Body Temperature 96.5 [degF] Ivonne Mumtaz [facility] Work Phone: Comment on above: Method: Temporal 09-12-2019 07:23-0400 Body weight 74.39 kg Ivonne Mumtaz [facility] Work Phone: 09-12-2019 07:23-0400 BSA (Body Surface Area) 1.78 m2 Ivonne Mumtaz SHOT GRINDER OPERATOR [facility] Medicine Work Phone: 09-12-2019 07:23-0400 Height 160.02 cm Ivonne Mumtaz SHOT GRINDER OPERATOR [facility] Work Phone: 08-08-2019 07:27-0400 BMI (Body Mass Index) 29.23 kg/m2 Maeve Gravius [facility] Work Phone: 08-08-2019 07:27-0400 Body Temperature 97.3 [degF] Maeve Gravius [facility] Com[facility] e [facility] Work Phone: Comment on above: Method: Temporal 08-08-2019 07:27-0400 Body weight 74.86 kg Maeve Gravius [facility] Work Phone: 08-08-2019 07:27-0400 BP Diastolic 82 mm[Hg] Maeve Elmore [facility] Work Phone: Comment on above: Patient Position: Sitting; Cuff Location : Left Arm; Cuff Size: Standard 08-08-2019 07:27-0400 BP Systolic 160 mm[Hg] Maeve Elmore [facility] Work Phone: Comment on above: Patient Position: Sitting; Cuff Location : Left Arm; Cuff Size: Standard 08-08-2019 07:27-0400 BSA (Body Surface Area) 1.78 m2 Maeve Elmore [facility] Work Phone: 08-08-2019 07:27-0400 Height 160.02 cm Maeve Elmore [facility] Work Phone: 08-08-2019 07:27-0400 Pulse (Heart Rate) 78 /min Maeve Elmore [facility] Comprehens [facility]a Internal Medicine Work Phone: Comment on above: Pattern: Regular 08-08-2019 07:27-0400 Pulse Oximetry 97 % Soraida Esteves [facility] Internal Medicine Work Phone: Comment on above: Room air 08-08-2019 07:27-0400 Respiratory Rate 16 /min Maeve Elmore [employer]ERK [facility] Work Phone: Comment on above: Pattern: Unlabored 08-08-2019 07:27-0400 SaO2% (BldA) [Mass fraction] 97 % Maeve Elmore [facility]; [facility] Work Phone: Comment on above: Room air 03-05-2019 08:22-0500 BMI (Body Mass Index) 28.7 kg/m2 Franky Ramos [facility] Internal Medicine Work Phone: 03-05-2019 08:22-0500 Body Temperature 97 [degF] Franky Ramos [facility] Work Phone: Comment on above: Method: Temporal 03-05-2019 08:22-0500 Body weight 73.5 kg Franky Richard SHOT GRINDER OPERATOR [facility] Work Phone: 03-05-2019 08:22-0500 BP Diastolic 82 mm[Hg] Franky Ramos LPN [facility] Work Phone: Comment on above: Patient Position: Sitting; Cuff Location : Left Arm; Cuff Size: Standard 03-05-2019 08:22-0500 BP Systolic 172 mm[Hg] Franky Ramos LPN [facility] Work Phone: Comment on above: Patient Position: Sitting; Cuff Location : Left Arm; Cuff Size: Standard 03-05-2019 08:22-0500 BSA (Body Surface Area) 1.77 m2 Franky Ramos LPN [facility] Work Phone: 03-05-2019 08:22-0500 Height 160.02 cm Franky Ramos LPN [facility] Work Phone: 03-05-2019 08:22-0500 Pulse (Heart Rate) 80 /min Franky Ramos LPN [facility] Work Phone: Comment on above: Pattern: Regular 03-05-2019 08:22-0500 Pulse Oximetry 95 % Soraida Esteves [facility] Work Phone: Comment on above: Room air 03-05-2019 08:22-0500 Respiratory Rate 16 /min Franky Ramos LPN [facility] Work Phone: Comment on above: Pattern: Unlabored 03-05-2019 08:22-0500 SaO2% (BldA) [Mass fraction] 95 % Franky Ramos LPN [facility]; [facility] Work Phone: Comment on above: Room air 02-21-2019 07:07-0500 BMI (Body Mass Index) 28.96 kg/m2 Ivonne Pandya LPN [facility] Work Phone: 02-21-2019 07:07-0500 Body Temperature 97.1 [degF] Ivonne Pandya LPN [facility] Work Phone: Comment on above: Method: Temporal 02-21-2019 07:07-0500 Body weight 74.16 kg Ivonne Pandya SHOT GRINDER OPERATOR [facility] Medicine Work Phone: 02-21-2019 07:07-0500 BP Diastolic 90 mm[Hg] Ivonne Pandya LPN [facility] Work Phone: Comment on above: Patient Position: Sitting; Cuff Location : Left Arm; Cuff Size: Standard 02-21-2019 07:07-0500 BP Systolic 136 mm[Hg] Ivonne Pandya LPN [facility] Work Phone: Comment on above: Patient Position: Sitting; Cuff Location : Left Arm; Cuff Size: Standard 02-21-2019 07:07-0500 BSA (Body Surface Area) 1.78 m2 Ivonne Pandya SHOT GRINDER OPERATOR [facility] Work Phone: 02-21-2019 07:07-0500 Height 160.02 cm Ivonne Pandya SHOT GRINDER OPERATOR [facility] Medicine Work Phone: 02-21-2019 07:07-0500 Pulse (Heart Rate) 76 /min Ivonne Pandya LPN [facility] Internal Medicine Work Phone: Comment on above: Pattern: Regular 02-21-2019 07:07-0500 Pulse Oximetry 97 % Soraida Esteves [facility] Work Phone: Comment on above: Room air 02-21-2019 07:07-0500 Respiratory Rate 16 /min Ivonne Pandya LPN [facility] Work Phone: Comment on above: Pattern: Unlabored 02-21-2019 07:07-0500 SaO2% (BldA) [Mass fraction] 97 % Ivonne Pandya SHOT GRINDER OPERATOR [facility]; [facility] Work Phone: Comment on above: Room air 11-21-2018 08:47-0400 BMI (Body Mass Index) 29.78 kg/m2 Crissy Loysburg [facility] Work Phone: 11-21-2018 08:47-0400 Body Temperature 98.5 [degF] Crissy Loysburg [facility] Work Phone: Comment on above: Method: Temporal 11-21-2018 08:47-0400 Body weight 76.26 kg Crissy King [facility] Work Phone: 11-21-2018 08:47-0400 BP Diastolic 86 mm[Hg] CrissyHelleroy [facility] Work Phone: Comment on above: Patient Position: Sitting; Cuff Location : Left Arm; Cuff Size: Standard 11-21-2018 08:47-0400 BP Systolic 136 mm[Hg] Crissy [employer] [facility] Work Phone: Comment on above: Patient Position: Sitting; Cuff Location : Left Arm; Cuff Size: Standard 11-21-2018 08:47-0400 BSA (Body Surface Area) 1.8 m2 CrissyHelleroy [facility] Work Phone: 11-21-2018 08:47-0400 Height 160.02 cm CrissyHelleroy [facility] Work Phone: 11-21-2018 08:47-0400 Pulse (Heart Rate) 71 /min CrissyHelleroy [facility] Work Phone: Comment on above: Pattern: Regular 11-21-2018 08:47-0400 Pulse Oximetry 98 % Soraida Esteves [facility] Work Phone: Comment on above: Room air 11-21-2018 08:47-0400 Respiratory Rate 16 /min Crissy [employer] [facility] Work Phone: Comment on above: Pattern: Unlabored 11-21-2018 08:47-0400 SaO2% (BldA) [Mass fraction] 98 % Crissy [employer] [facility] Work Phone: Comment on above: Room air 08-02-2018 13:21-0400 BMI (Body Mass Index) 30.03 kg/m2 Crissy [employer] [facility] Work Phone: 08-02-2018 13:21-0400 Body Temperature 98.4 [degF] Crissy [employer] [facility] Work Phone: Comment on above: Method: Temporal 08-02-2018 13:21-0400 Body weight 76.89 kg CrissyHelleroy [facility] Work Phone: 08-02-2018 13:21-0400 BP Diastolic 78 mm[Hg] Crissy [employer] [facility] Work Phone: Comment on above: Patient Position: Sitting; Cuff Location : Left Arm; Cuff Size: Standard 08-02-2018 13:0400 BP Systolic 144 mm[Hg] Crissy King [facility] Work Phone: Comment on above: Patient Position: Sitting; Cuff Location : Left Arm; Cuff Size: Standard 08-02-2018 13:0400 BSA (Body Surface Area) 1.8 m2 Crissy [employer] [facility] Work Phone: 08-02-2018 13:040 Height 160.02 cm Crissy [employer] [facility] Work Phone: 08-02-2018 13:-0400 Pulse (Heart Rate) 74 /min Crissy [employer] [facility] Work Phone: Comment on above: Pattern: Regular 08-02-2018 13:21-0400 Pulse Oximetry 96 % Soraida Esteves [facility] Work Phone: Comment on above: Room air 08-02-2018 13:21-0400 Respiratory Rate 18 /min Crissy [employer] [facility] Work Phone: Comment on above: Pattern: Unlabored 08-02-2018 13:21-0400 SaO2% (BldA) [Mass fraction] 96 % Crissy [employer] [facility]; [facility] Work Phone: Comment on above: Room air 08-02-2018 13:21-0400 Weight 76.89 kg Soraida Ludwigon [facility] Work Phone: 07-12-2018 07:11-0400 BMI (Body Mass Index) 29.94 kg/m2 Divya Rodriguez RN [facility] Work Phone: 07-12-2018 07:11-0400 Body Temperature 97.2 [degF] Divya Rodriguez RN [facility] Work Phone: Comment on above: Method: Temporal 07-12-2018 07:11-0400 Body weight 76.66 kg Divya Rodriguez RN [facility] Work Phone: 07-12-2018 07:11-0400 BP Diastolic 90 mm[Hg] Divya Rodriguez RN [facility] Work Phone: 07-12-2018 07:11-0400 BP Systolic 168 mm[Hg] Divya Rodriguez RN [facility] Work Phone: 07-12-2018 07:11-0400 BSA (Body Surface Area) 1.8 m2 Divya Rodriguez RN [facility] Work Phone: 07-12-2018 07:11-0400 Height 160.02 cm Divya Rodriguez RN [facility] Work Phone: 07-12-2018 07:11-0400 Pulse (Heart Rate) 82 /min Divya Rodriguez RN [facility] Work Phone: Comment on above: Pattern: Regular 07-12-2018 07:11-0400 Pulse Oximetry 96 % Soraida Esteves [facility] Work Phone: Comment on above: Room air 07-12-2018 07:11-0400 Respiratory Rate 18 /min Divya Rodriguez RN [facility] Work Phone: Comment on above: Pattern: Unlabored 07-12-2018 07:11-0400 SaO2% (BldA) [Mass fraction] 96 % Divya Rodriguez RN [facility]; [facility] Work Phone: Comment on above: Room air 07-12-2018 07:11-0400 Weight 76.66 kg Soraida Esteves [facility] Work Phone: 05-06-2018 14:08-0400 BMI (Body Mass Index) 30.11 kg/m2 Divya Rodriguez RN [facility] Work Phone: 05-06-2018 14:08-0400 Body Temperature 96.7 [degF] Divya Rodriguez RN [facility] Work Phone: Comment on above: Method: Temporal 05-06-2018 14:08-0400 Body weight 77.11 kg Divya Rodriguez RN [facility] Work Phone: 05-06-2018 14:08-0400 BP Diastolic 90 mm[Hg] Divya Rodriguez RN [facility] Work Phone: Comment on above: Patient Position: Sitting; Cuff Location : Left Arm; Cuff Size: Large 05-06-2018 14:08-0400 BP Systolic 150 mm[Hg] Divya Rodriguez RN [facility] Work Phone: Comment on above: Patient Position: Sitting; Cuff Location : Left Arm; Cuff Size: Large 05-06-2018 14:08-0400 BSA (Body Surface Area) 1.8 m2 Divya Rodriguez RN [facility] Work Phone: 05-06-2018 14:08-0400 Height 160.02 cm Divya Rodriguez RN [facility] Work Phone: 05-06-2018 14:08-0400 Pulse (Heart Rate) 74 /min Divya Rodriguez RN [facility] Work Phone: Comment on above: Pattern: Regular 05-06-2018 14:08-0400 Pulse Oximetry 95 % Soraida Esteves [facility] Work Phone: Comment on above: Room air 05-06-2018 14:08-0400 Respiratory Rate 18 /min Divya Rodriguez RN [facility] Work Phone: Comment on above: Pattern: Unlabored 05-06-2018 14:08-0400 SaO2% (BldA) [Mass fraction] 95 % Divya Rodriguez RN [facility]; [facility] Work Phone: Comment on above: Room air 05-06-2018 14:08-0400 Weight 77.11 kg Soraida Esteves [facility] Work Phone: 01-03-2018 10:54-0500 BMI (Body Mass Index) 30.49 kg/m2 Divya Rodriguez RN [facility] Work Phone: Comment on above: recheck 190/108 01-03-2018 10:54-0500 Body weight 78.08 kg Divya Rodriguez RN [facility] Work Phone: Comment on above: recheck 190/108 01-03-2018 10:54-0500 BP Diastolic 80 mm[Hg] Divya Rodriguez RN [facility] Work Phone: Comment on above: Patient Position: Sitting; Cuff Location : Left Arm; Cuff Size: Large recheck 190/108 01-03-2018 10:54-0500 BP Systolic 160 mm[Hg] Divya Rodriguez RN [facility] Work Phone: Comment on above: Patient Position: Sitting; Cuff Location : Left Arm; Cuff Size: Large recheck 190/108 01-03-2018 10:54-0500 BSA (Body Surface Area) 1.81 m2 Divya Rodriguez RN [facility] Work Phone: Comment on above: recheck 190/108 01-03-2018 10:54-0500 Height 160.02 cm Divya Rodriguez RN [facility] Work Phone: Comment on above: recheck 190/108 01-03-2018 10:54-0500 Pulse (Heart Rate) 75 /min Divya Rodriguez RN [facility] Work Phone: Comment on above: Pattern: Regular recheck 190/108 01-03-2018 10:54-0500 Pulse Oximetry 95 % Soraida Esteves [facility] Work Phone: Comment on above: Room air recheck 190/108 01-03-2018 10:54-0500 Respiratory Rate 18 /min Divya Rodriguez RN [facility] Work Phone: Comment on above: Pattern: Unlabored recheck 190/108 01-03-2018 10:54-0500 SaO2% (BldA) [Mass fraction] 95 % Divya Rodriguez RN [facility]; [facility] Work Phone: Comment on above: Room air recheck 190/108 01-03-2018 10:54-0500 Weight 78.08 kg Soraida Esteves [facility] Work Phone: Comment on above: recheck 190/108 Encounters Encounter Date Encounter Type Care Provider Facility Start: 10-02-2024 End: 10-02-2024 Patient encounter procedure Adilene WALDRON [facility] Work Phone: Start: 10-02-2024 End: 10-02-[address] Soraida Esteves DO Work Phone: -[facility] Start: 11-27-2022 End: 11-27-2022 Office outpatient visit 25 minutes Soraida Danielito DO Work Phone: [facility] Start: 10-03-2022 End: 10-03-2022 Patient encounter procedure Soraida Esteves DO Work Phone: [facility] Start: 09-29-2022 End: 10-03-2022 Office outpatient visit 15 minutes Soraida Danielito DO Work Phone: [facility] Start: 07-10-2022 End: 07-11-2022 Emergency department patient visit [facility] Start: 07-06-2022 End: 07-06-2022 Emergency department patient visit [facility] Start: 05-18-2022 ambulatory Soraida Esteves DO [facility] Start: 05-18-2022 Review Soraida De La Vega n DO Work Phone: [facility] Start: 05-18-2022 End: 05-18-2022 Office outpatient visit 15 minutes Soraida Danielito DO Work Phone: [facility] Start: 04-19-2022 End: 04-19-2022 Office outpatient visit 15 minutes Soraida Danielito DO Work Phone: [facility] Start: 11-28-2021 End: 11-28-2021 ambulatory DUYEN Shaffer [facility] Start: 02-04-2021 End: 02-04-2021 Office outpatient visit 10 minutes Soraida Danielito DO Work Phone: [facility] Start: 05-20-2020 End: 05-20-2020 Office outpatient visit 25 minutes Soraida Danielito [facility] Start: 01-15-2020 End: 01-15-2020 Office outpatient visit 15 minutes Soraida Danielito [facility] Start: 12-25-2019 Review Soraida Esteves [facility] Start: 09-12-2019 End: 09-12-2019 Office outpatient visit 15 minutes Soraida Danielito [facility] Start: 08-08-2019 End: 08-08-2019 Office outpatient visit 25 minutes Soraida Ludwigon [facility] Start: 03-05-2019 End: 03-05-2019 Office outpatient visit 15 minutes Soraida Danielito [facility] Start: 02-28-2019 End: 02-28-2019 Phone Encounter Soraida Esteves [facility] Start: 02-21-2019 End: 02-21-2019 Office outpatient visit 25 minutes Soraida Danielito [facility] Start: 11-21-2018 End: 11-21-2018 Office outpatient visit 25 minutes Soraida Danielito [facility] Start: 08-02-2018 End: 08-02-2018 Office outpatient visit 15 minutes Soraida Danielito [facility] Start: 07-15-2018 End: 07-15-2018 Phone Encounter Soraida Ludwigon [facility] Start: 07-12-2018 End: 07-12-2018 Office outpatient visit 25 minutes Soraida Ludwigon [facility] Start: 06-03-2018 End: 06-03-2018 Phone Encounter Soraida Esteves [facility] Start: 05-06-2018 End: 05-06-2018 Office outpatient visit 25 minutes Soraida Ludwigon [facility] Start: 01-03-2018 End: 01-03-2018 Office outpatient new 45 minutes Soraidatory Ludwigon [facility] Start: 10-15-2017 End: 10-20-2017 Patient encounter LILIAN COULTER Facility:[facility] Procedures Date Procedure Procedure Detail Performing Clinician Start: 08-22-2022 End: 08-22-2022 Cardiology Visit Report Procedure Note: See Note; NOTES: [facility] [address] [place] [address] OFFICE VISIT Date of Service: 08/22/22 MR#: [id number] Acct: [id number] Name: ADELINE GRAHAM Rep #: [id number] : 1945 Provider: Dr. Dav Lee MD Age/Sex: 77/F Location: [facility] [place] Status: Signed [facility] HPI History of Present Illness Details: Adeline Graham is a 77-year-old female who presents here today for a cardiovascular follow-up. She has a history of coronary artery disease with stenting to her proximal LAD in 2019 when she presented with a myocardial infarction. She also has a history of ischemic cardiomyopathy that has resolved, left bundle branch block, hypertension and hyperlipidemia.Her Bp was noted to be elevated at last OV, she is here for a f/u on this. She felt that she had whitecoat HTN. Her Bp cuff does correlated. Of actually been quite well controlled. From the cardiac stand point she has been doing quite well denying any chest pain or shortness of breath or paroxysmal nocturnal dyspnea. She has not had any neck arm or jaw discomfort suggest angina no dizziness no lightheadedness no near syncope or syncope. She has not had any peripheral edema or claudication. Intake Vital Signs 07/28/21 13:31 07/10/22 22:35 08/22/22 11:54 Height 5 ft 3 in 5 ft 5 in 5 ft 5 in Weight: 178 lb BMI 29.6 BP 180/87 H Blood Pressure Location Lt brachial Position Sitting Respiration 16 Pulse 76 Pulse Source Monitor Intake Visit Reasons: 1 Y FU Cell Feed Department Supervisor Required: No Accompanied by: Daughter Is patient in pain?: No Allergies No Known Allergies Allergy (Verified 08/22/22 14:25) Medications artic sea 1 tab PO DAILY 10/03/17 [History Confirmed 08/22/22] aspirin 81 mg tablet,delayed release (Adult Aspirin Regimen) 81 mg PO QDAY 10/03/17 [History Confirmed 08/22/22] cinnamon bark 500 mg capsule (Cinnamon) 500 mg PO BID 10/03/17 [History Confirmed 08/22/22] multivitamin 1 tab PO QDAY 10/03/17 [History Confirmed 08/22/22] nitroglycerin 0.4 mg sublingual tablet 0.4 mg sublingual Q5-15M PRN chest pain 10/03/17 [History Confirmed 08/22/22] calcium carbonate 1,000 mg tablet 2,000 mg PO DAILY 05/09/19 [History Confirmed 08/22/22] red yeast rice 600 mg capsule 1,200 mg PO QHS 05/09/19 [History Confirmed 08/22/22] carvedilol 6.25 mg tablet 6.25 mg PO BID #180 tabs 05/17/21 [Rx Confirmed 08/22/22] citalopram 10 mg tablet 10 mg PO DAILY 05/17/21 [History Confirmed 08/22/22] lisinopril 5 mg tablet 5 mg PO BID 08/22/22 [History] [facility] Medical History Atherosclerotic heart disease of [place] coronary artery without angina pectoris Chronic systolic CHF (congestive heart failure) Essential (primary) hypertension History of non-ST elevation myocardial infarction (NSTEMI) (07/01/14) Hyperlipidemia Ischemic cardiomyopathy Left bundle branch block (LBBB) Surgical History History of coronary artery stent placement (07/01/14) History of left heart catheterization (11/05/17) History of right and left heart catheterization (07/01/14) Family History Father CAD (coronary artery disease) Sudden cardiac Sister Hypertension Social History Smoking Status: Never smoker ROS Const Const: Negative for fatigue, weakness, headache(s), frequent falls, difficulty sleeping or excessive sweating Eyes Eyes: Negative for loss of peripheral vision, transient loss of vision, blurry vision, double vision or tunnel vision ENT ENT: Negative for headache(s), dizziness, Nosebleed/epistaxis or balance problems Cardio Chest Pain: No Palpitations: No Edema: Bilateral Muscle aches with walking: None Resp Respiratory: Negative for SOB with activity, SOB at rest, SOB orthopnea SOB lying down, Cough or paroxysmal nocturnal dyspnea GI GI: Negative nausea, vomiting or heartburn : Negative for hematuria Musc Musc: Negative for muscle aches/ myalgia, muscle weakness, joint pain or balance problems Skin Skin: Negative non-healing lesions, rash or unusual bruising Neuro Neuro: Negative for dizziness, lightheadedness, near syncope, syncope, orthostatic symptoms, frequent falls, headache(s), weakness, confusion, memory loss, blurry vision, double vision, vertigo or lack of coordination Thang Hematologic/Lymphatic: Negative for easy bleeding or easy bruising Endo Endo: Negative for fatigue, excessive sweating, flushing or increased thirst/drinking Psych Psych: Negative for anxiety or depression Allergy Allergy/Immunology: Negative for hives and Negative for rash Cardiology Exam Const Appearance: cooperative, healthy appearing, comfortable, no acute distress and well developed Orientation: alert, awake and oriented x3 Head Head: normal to inspection Ears: hearing grossly normal bilaterally Nose: external nose normal Face and Sinus: face symmetric Mouth: oral mucosae normal, lip normal and moist mucous membranes Eyes General: appearance normal, both eyes and all related structures Eyelids: eyelids normal Conjunctivae: conjunctivae normal Pupils: PERRL EOM: EOM intact bilaterally Neck Neck: normal visual inspection and trachea midline; Negative no JVD Carotids: Negative bruit Chest Chest inspection: normal inspection of the chest Auscultation: Bilateral: Clear to Auscultation Cardio Palpation: normal PMI Rate: regular rate Rhythm: regular rhythm Heart sounds: S1 normal and S2 normal; Negative rub, gallop or murmur GI GI: soft, no hepatosplenomegaly and bowel sounds present Neuro General: patient alert, patient awake, patient oriented x3 and CN's II-XI intact bilaterally Extremities Pulses: Normal: Right Posterior Tibial Pulse, Left Posterior Tibial Pulse, Right Radial Pulse and Left Radial Pulse Lower Extremity Edema: None: Bilateral Psych Psychological: normal affect Supplemental Info Supplemental Information Cardiac catheterization 11/05/2017: Mild coronary artery disease with previously placed stent in the left anterior descending artery noted to be patent and moderate diagonal proximal disease. RECOMMENDATIONS Medical therapy CORONARY ANGIOGRAPHY DOMINANCE: Right Dominant LEFT HEART ASSESSMENT Left Ventricular Ejection Fraction: by LV Gram 45 % Anterior Hypokinesis - Mild Depressed Left Ventricular systolic function LEFT MAIN: Angiographically normal LEFT ANTERIOR DECENDING ARTERY: PROX LAD: Angiographically normal MID LAD: Previously placed stent is patent DIAGONAL 1: Proximal - 60 % Stenosis CIRCUMFLEX ARTERY: Angiographically normal RIGHT CORONARY ARTERY: Angiographically normal Echocardiogram 10/22/2017: Normal LV size. Left ventricular systolic function is normal. The estimated ejection fraction is 55 %. Septal motion consistent with IVCD. Stress test 10/22/2017 Conclusion: Abnormal pharmacologic myocardial perfusion stress test with moderate mid anterior ischemia. Left bundle branch block pattern noted Mild left ventricular dyssynchrony.??? Preserved EF. Labs: No Data to Display Diagnostics: Electrocardiogram Echocardiogram Stress Test Stress Test Nuclear Medicine Cardiac Catheterization Chest X-Ray Pulmonary: No Data to Display Past Visits: No Data to Display Assessment and Plan Assessment and Plan (1) History of coronary artery stent placement: Status: Resolved Comment: PCI-RIAZ-LAD w/ 3.5 X 15 mm Xience 07/01/2014 Plan: She is status post previous angioplasty and stenting. She remains free of any symptomatology my recommendation is for her to continue the current medical therapy without making any changes. (2) Ischemic cardiomyopathy: Status: Chronic Plan: She does have evidence of the ischemic cardiomyopathy. Overall she is doing well her ejection fraction has normalized and I would not make any changes. (3) Essential (primary) hypertension: Status: Chronic Plan: Her blood pressures at home have been in the normotensive range. I would not make any changes at this time. She should continue to keep records at home. (4) Hyperlipidemia: Status: Chronic Qualifiers: Hyperlipidemia type: pure hypercholesterolemia Qualified Code(s): E78.00 - Pure hypercholesterolemia, unspecified; E78.0 - Pure hypercholesterolemia Plan: She continues to follow up with you in your office. Regarding blood work Plan Details Follow Up: 1 Year (mmm) Coding Level of Care Code Off vis,est,level 2 Diagnoses History of coronary artery stent placement Z95.5 Ischemic cardiomyopathy I25.5 Essential (primary) hypertension I10 Hyperlipidemia E78.00; E78.0 Hyperlipidemia type: pure hypercholesterolemia Coding Level of Care Code Off vis,est,level 2 Diagnoses History of coronary artery stent placement Z95.5 Ischemic cardiomyopathy I25.5 Essential (primary) hypertension I10 Hyperlipidemia E78.00; E78.0 Hyperlipidemia type: pure hypercholesterolemia 08/22/22 1454 <Electronically signed by Dav Lee MD> Date Dav Lee MD Cosigner Signature: Date (if applicable) CC: Dr. Soraida Esteves, DO Soraida Esteves DO Work Phone: Start: 07-11-2022 End: 07-11-2022 Emergency Department Summary Procedure Note: See Note; NOTES: [facility] Medical Records Department [address] [place] [address] Emergency Department Summary 07/11/22 MR#: [id number] Acct: [id number] Name: ADELINE GRAHAM Rep #: [id number] : 1945 77 From: Loyd Gregg DO PCP: Dr. Soraida Esteves DO Status:DEP ER Location: ED HPI History of Present Illness Chief Complaint: Hypertension Narrative Narrative: Patient is a 77-year-old female with past medical history of hypertension and CAD as well as hyperlipidemia. She was seen in the ER on July 06 secondary to right lower leg cellulitis and placed on Bactrim and Keflex. She states that over the last few days her stomach is felt upset. She states that she has not been eating well because of this. She reports that today she had 2 bouts of nausea with vomiting. She denies any blood or discoloration to the emesis. She states that she checked her blood pressure and it was elevated approximately 180-190 systolically at home. She states that typically on just lisinopril her blood pressure will run approximately 120 systolically. She denies any headache change in vision or abdominal pain but with the bouts of nausea and vomiting as well as the elevated blood pressure she presents for evaluation. [facility] Medical History (Updated 07/11/22 @ 01:[address] Loyd Gregg DO) Atherosclerotic heart disease of [place] coronary artery without angina pectoris Chronic systolic CHF (congestive heart failure) Essential (primary) hypertension History of non-ST elevation myocardial infarction (NSTEMI) (07/01/14) Hyperlipidemia Ischemic cardiomyopathy Left bundle branch block (LBBB) Home Medications artic sea 1 tab PO DAILY 10/03/17 [History Last Taken Unknown] aspirin 81 mg tablet,delayed release (Adult Aspirin Regimen) 81 mg PO QDAY 10/03/17 [History Last Taken 11/05/17] cinnamon bark 500 mg capsule (Cinnamon) 500 mg PO BID 10/03/17 [History Last Taken Unknown] multivitamin 1 tab PO QDAY 10/03/17 [History Last Taken Unknown] nitroglycerin 0.4 mg sublingual tablet 0.4 mg sublingual Q5-15M PRN chest pain 10/03/17 [History Last Taken Unknown] calcium carbonate 1,000 mg tablet 2,000 mg PO DAILY 03/13/20 [History Last Taken Unknown] red yeast rice 600 mg capsule 1,200 mg PO QHS 05/09/19 [History Last Taken Unknown] carvedilol 6.25 mg tablet 6.25 mg PO BID #180 tabs 05/17/21 [Rx Last Taken Unknown] citalopram 10 mg tablet 10 mg PO DAILY 05/17/21 [History Last Taken Unknown] lisinopril 5 mg tablet 5 mg PO DAILY #90 tabs 07/28/21 [Rx Last Taken Unknown] cephalexin 500 mg capsule 500 mg PO Q6 #40 CAPSULES 07/06/22 [Rx Last Taken Unknown] sulfamethoxazole 800 mg-trimethoprim 160 mg tablet (Bactrim DS) 1 tab PO BID #20 tabs 07/06/22 [Rx Last Taken Unknown] ondansetron 4 mg disintegrating tablet 4 mg PO TID PRN nausea and vomiting 7 days #21 tabs 07/11/22 [Rx Last Taken Unknown] Allergy/AdvReac Type Severity Reaction Status Date / Time No Known Allergies Allergy Verified 07/10/22 22:37 Family History Father CAD (coronary artery disease) Sudden cardiac Sister Hypertension Surgical History History of coronary artery stent placement (07/01/14) History of left heart catheterization (11/05/17) History of right and left heart catheterization (07/01/14) Social History Smoking Status: Never smoker ROS ROS ED Constitutional Constitutional ED: Denies chills or fever(s) Eyes Eyes: Denies change in vision ENT ENT ED: Denies sore throat Cardiovascular Cardiovascular: Denies chest pain Respiratory/Chest Respiratory/Chest: Denies cough or dyspnea Gastrointestinal Gastrointestinal: Reports diarrhea, nausea and vomiting; Denies abdominal pain Genitourinary Genitourinary ED: Denies dysuria Musculoskeletal Musculoskeletal: Denies myalgias Integumentary Denies rash Neurologic Neurologic: Denies headache(s), paresthesias or weakness Hematologic/Lymphatic Hematologic/Lymphatic: Denies easy bleeding or easy bruising EXAM Physical Exam Const Vital Signs: 07/10/22 22:35 07/10/22 23:14 07/10/22 23:14 Temperature 98.3 F Temperature Source Temporal Pulse Rate 70 66 Respiratory Rate 18 15 Respiratory Effort Normal Respiratory Pattern Normal Blood Pressure 207/92 H 180/72 H Blood Pressure Mean 130 108 Pulse Ox 97 97 Oxygen Delivery Method Room Air Room Air 07/10/22 23:45 07/11/22 00:00 07/11/22 00:27 Temperature Temperature Source Pulse Rate 80 67 68 Respiratory Rate 18 12 17 Respiratory Effort Respiratory Pattern Blood Pressure 165/69 H 141/63 H Blood Pressure Mean 97 Pulse Ox 94 92 93 Oxygen Delivery Method Positive well nourished and well developed General Appearance ED: well developed HEENT Reports moist mucous membranes Eyes PERRL and EOMs intact bilaterally General Eye ED: Negative for scleral icterus Neck supple Neck Narrative: No nuchal rigidity or meningeal signs Resp normal respiratory effort and clear to auscultation bilaterally Cardio regular rate and regular rhythm Rate: other Other Details: Radial pulses are plus 2 out of 4 bilaterally are equal and symmetric GI non-tender and non-distended GI Narrative: Abdomen is soft nontender and nondistended with hyperactive bowel sounds. No voluntary guarding or rigidity. No pulsatile mass Auscultation: hyperactive bowel sounds Palpation: soft Extremity normal to inspection Extremity Narrative: No asymmetric edema no pitting edema negative Homans' sign bilaterally. The cellulitis previous treated on July 06 has resolved. Neuro oriented x3, CN's II-XII intact bilaterally and no sensory deficits noted Neuro Narrative: Cranial nerves II through XII are grossly intact there are no focal neurologic deficits. No pronator drift no dysmetria no truncal ataxia. NIH stroke scale score of 0 Sensorium / Orientation: alert Psych mental status grossly normal Skin no rashes or lesions noted MDM MDM MDM Narrative Medical decision making narrative: Patient presented to the ER hypertensive with a systolic value above 200. Despite this she had no headache or change in vision or abdominal pain. Therefore my concern for a spontaneous subarachnoid or hemorrhagic stroke is low. Also she did not complain of abdominal pain or chest pain I have low concern for acute coronary syndrome or a abdominal aortic aneurysm/dissection. Based on the fact patient has normal blood pressure at home and is not elevated I feel this is secondary to feeling unwell as well as whitecoat syndrome. In order to ensure that there are no signs of endorgan damage I did elect to perform a basic blood work. Labs showed no signs of acute kidney injury or elevation to her cardiac enzymes. EKG is normal sinus rhythm. And has neuro exam is normal and she has no headache I do not feel the need for a CT scan. The patient's sodium is low at 126 which correlate with her not eating or drinking well for the last few days and therefore she was given normal saline to help replenish this. As I felt that the blood pressure was related to feeling unwell and nerves I gave her IV Compazine and this reduced her blood pressure to 141/63. Therefore at this time with work-up showing no signs of endorgan damage and blood pressure improving there is no need for further observation in the ER he is otherwise safe for discharge. History Record Review Discussion w/independent historian: Patient, Family and Significant other Lab Data Attestation: I reviewed the patient's lab results. Labs: Laboratory Results - last 24 hr 07/10/22 07/10/22 23:12 23:12 WBC 7.5 RBC 4.51 Hgb 14.1 Hct 40.4 MCV 89.6 D MCH 31.3 MCHC 34.9 D RDW Std Deviation 40.4 RDW Coeff of Lizet 12.3 Plt Count 250 MPV 9.7 Immature Gran % (Auto) 0.900 Neut % (Auto) 68.3 Lymph % (Auto) 24.8 [place] % (Auto) 4.7 Eos % (Auto) 0.8 Baso % (Auto) 0.5 Absolute Neuts (auto) 5.1 Absolute Lymphs (auto) 1.86 Nucleated RBC % 0 Sodium 126 L Potassium 4.1 Chloride 92 L Carbon Dioxide 22.0 Anion Gap 12 BUN 19 H Creatinine 0.92 Est GFR (MDRD) Af Amer 76 Est GFR (MDRD) Non-Af 63 BUN/Creatinine Ratio 20.7 H Glucose 135 H Calcium 9.2 Troponin I High Sens 10 Discharge Plan Triage Chief Complaint: Hypertension ED Provider: Loyd Gregg Dx/Rx/DC Orders Clinical Impression: Accelerated hypertension, Hyponatremia, Left bundle branch block (LBBB) Instructions: ED Hypertension, Established, ED Hyponatremia Prescriptions: New ondansetron 4 mg tablet,disintegrating 4 mg PO TID PRN (Reason: nausea and vomiting) 7 Days Qty: 21 0RF No Action aspirin [Adult Aspirin Regimen] 81 mg tablet,delayed release (DR/EC) 81 mg PO QDAY cinnamon bark [Cinnamon] 500 mg capsule 500 mg PO BID multivitamin tablet 1 tab PO QDAY nitroglycerin 0.4 mg tablet, sublingual 0.4 mg SUBLINGUAL Q5-15M PRN (Reason: chest pain) artic sea 1 tab PO DAILY calcium carbonate 1,000 mg tablet 1,000 mg tablet 2,000 mg PO DAILY red yeast rice 600 mg capsule 1,200 mg PO QHS Label Comments: 600 mg PO at bedtime Rx Instructions: 600 mg PO at bedtime citalopram 10 mg tablet 10 mg PO DAILY carvedilol 6.25 mg tablet 6.25 mg PO BID Qty: 180 3RF lisinopril 5 mg tablet 5 mg PO DAILY Qty: 90 3RF sulfamethoxazole-trimethoprim [Bactrim DS] 800-160 mg tablet 1 tab PO BID Qty: 20 0RF cephalexin 500 mg capsule 500 mg PO Q6 Qty: 40 0RF Primary Care Provider: Soraida Esteves Referrals: Soraida Esteves DO [Primary Care Provider] - Activity Restrictions/Additional Instructions: Please continue the antibiotics as directed from your last visit but begin taking Zofran 3 times a day to control any nausea sensation associated with the medication. If you have any further concerns or worsening of symptoms please return for repeat evaluation Disposition Disposition: Home, Self Care Discharge Date/Time: 07/11/22 00:35 What to do if you have Problems For any increased pain, shortness of breath, bleeding, nausea or vomiting, chest pain, or any unexpected problems, contact your Primary Care Provider. Call [facility] ([phone]) or report to the closest Emergency Room. Call 911 if necessary. 07/11/22 0119 <Electronically signed by Loyd Gregg DO> Cosigner Signature (if applicable): CC: Dr. Soraida Esteves DO Signed Soraida Esteves DO Work Phone: Start: 07-10-2022 End: 07-11-2022 12 Lead EKG Procedure Note: See Note; NOTES: [facility] Cardiovascular Services [address] [place] [address] 12 Lead EKG 07/10/22 2313 MR#: [id number] Acct: [id number] Name: ADELINE GRAHAM Rep #: [id number] : 1945 77 From: Dav Lee MD Attending Dr: Status: DEP ER Ordering Dr: Loyd Gregg DO Date: 07/10/22 Location: ED Sex: F C Admitted: Test Reason : DYSRHYTHMIA Blood Pressure : / mmHG Vent. Rate : 063 BPM Atrial Rate : 063 BPM P-R Int : 174 ms QRS Dur : 142 ms QT Int : 476 ms P-R-T Axes : 046 -41 079 degrees QTc Int : 487 ms Normal sinus rhythm Left axis deviation Left bundle branch block Abnormal ECG Confirmed by GALILEO FERNANDO, DAV ([id number]), assignment editor NATASHA GONCALVES ([id number]) on 07/11/2022 9:52:21 AM Referred By: JOSLYN Confirmed By:DAV LEE MD 07/11/22 0952 Date Dav Lee MD CC: Dr. Soraida Esteves DO; Loyd Gregg DO Signed Soraida Esteves DO Work Phone: Start: 07-06-2022 End: 07-06-2022 Venous Duplex Imag/Limited/Uni Procedure Note: See Note; NOTES: [facility] Imaging Services [address] [place] [id number] Venous Duplex Imag/Limited/Uni MR#: [id number] Acct: [id number] Name: ADELINE GRAHAM Rep #: [id number] : 1945 F 77 From: Oswald brannon MD PCP: Dr. Soraida Esteves DO Status: REG ER Study: Venous Duplex Imag/Limited/Uni Date of Exam: 0 07/06/22 Exam# [id number] Ordering Dr: Daxa Hinojosa MD EXAM: US right lower extremity venous Doppler. HISTORY: RT LOWER LEG REDNESS AND SWELLING TECHNIQUE: US Venous Duplex LE Unilat / Limited COMPARISON: None. LIMITATIONS: None. FLOW: Normal. THROMBUS: None. AUGMENTATION: Normal. 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 SUPERFICIAL VEINS: Normal. OTHER: None. CONCLUSION: No evidence of deep venous thrombosis of the right lower extremity. Electronically Signed: Oswald Gonzalez MD at 23:14 EDT , US/Venous Duplex Imag/Limited/Uni IMPRESSION: undefined CC: Dr. Daxa Hinojosa MD; Dr. Soraida Esteves DO Seismic Engineer: Signed Soraida Esteves DO Work Phone: Start: 07-06-2022 End: 07-07-2022 Emergency Department Summary Procedure Note: See Note; NOTES: [facility] Medical Records Department [address] [place] [id number] Emergency Department Summary 07/06/22 MR#: [id number] Acct: [id number] Name: ADELINE GRAHAM Rep #: [id number] : 1945 77 From: Daxa Hinojosa MD PCP: Dr. Soraida Esteves DO Status:DEP ER Location: ED HPI History of Present Illness Chief Complaint: Cellulitis Informant: patient Onset/Context/Timing Onset: Today Context: Gradual Onset Current Severity: Mild Maximum Severity: Moderate Narrative Narrative: Patient presents secondary to pain and redness to the right lower extremity. She states she noted the symptoms today. She did not note a fever or chills at home. No wounds or injuries to her leg. She denies chest pain and shortness of breath. [facility] Medical History (Updated 07/06/22 @ 23:[address] Daxa Hinojosa MD) Atherosclerotic heart disease of [place] coronary artery without angina pectoris Chronic systolic CHF (congestive heart failure) Essential (primary) hypertension History of non-ST elevation myocardial infarction (NSTEMI) (07/01/14) Hyperlipidemia Ischemic cardiomyopathy Left bundle branch block (LBBB) Home Medications artic sea 1 tab PO DAILY 10/03/17 [History Last Taken Unknown] aspirin 81 mg tablet,delayed release (Adult Aspirin Regimen) 81 mg PO QDAY 10/03/17 [History Last Taken 11/05/17] cinnamon bark 500 mg capsule (Cinnamon) 500 mg PO BID 10/03/17 [History Last Taken Unknown] multivitamin 1 tab PO QDAY 10/03/17 [History Last Taken Unknown] nitroglycerin 0.4 mg sublingual tablet 0.4 mg sublingual Q5-15M PRN chest pain 10/03/17 [History Last Taken Unknown] calcium carbonate 1,000 mg tablet 2,000 mg PO DAILY 05/09/19 [History Last Taken Unknown] red yeast rice 600 mg capsule 1,200 mg PO QHS 05/09/19 [History Last Taken Unknown] carvedilol 6.25 mg tablet 6.25 mg PO BID #180 tabs 05/17/21 [Rx Last Taken Unknown] citalopram 10 mg tablet 10 mg PO DAILY 05/17/21 [History Last Taken Unknown] lisinopril 5 mg tablet 5 mg PO DAILY #90 tabs 07/28/21 [Rx Last Taken Unknown] cephalexin 500 mg capsule 500 mg PO Q6 #40 CAPSULES 07/06/22 [Rx Last Taken Unknown] sulfamethoxazole 800 mg-trimethoprim 160 mg tablet (Bactrim DS) 1 tab PO BID #20 tabs 07/06/22 [Rx Last Taken Unknown] Allergy/AdvReac Type Severity Reaction Status Date / Time No Known Allergies Allergy Verified 07/06/22 21:38 Family History Father CAD (coronary artery disease) Sudden cardiac Sister Hypertension Surgical History History of coronary artery stent placement (07/01/14) History of left heart catheterization (11/05/17) History of right and left heart catheterization (07/01/14) Social History Smoking Status: Never smoker ROS ROS ED Constitutional Constitutional ED: Denies chills or fever(s) Eyes Eyes: Denies change in vision or discharge from eye(s) ENT ENT ED: Denies discharge from eye(s), rhinorrhea or sore throat Cardiovascular Cardiovascular: Denies chest pain or palpitations Respiratory/Chest Respiratory/Chest: Denies cough or dyspnea Gastrointestinal Gastrointestinal: Denies abdominal pain, nausea or vomiting Genitourinary Genitourinary ED: Denies dysuria Musculoskeletal Musculoskeletal: Reports extremity pain; Denies back pain Integumentary Reports other Details: Right leg erythema ; Denies Abrasions or rash Neurologic Neurologic: Denies headache(s) or weakness Psychiatric Psychiatric: Denies anxiety or depression Allergic/Immunologic Allergic/Immunologic ED: Denies lip swelling or urticaria EXAM Physical Exam Const Vital Signs: 07/06/22 21:36 Temperature 98.0 F Temperature Source Temporal Pulse Rate 77 Respiratory Rate 18 Blood Pressure 196/100 H Blood Pressure Mean 132 Pulse Ox 99 Oxygen Delivery Method Room Air Positive well nourished and well developed General Appearance ED: well developed HEENT Reports moist mucous membranes Eyes PERRL and EOMs intact bilaterally Neck no lymphadenopathy Chest Wall inspection of chest normal and palpation of chest normal Resp normal respiratory effort and clear to auscultation bilaterally Cardio regular rate and regular rhythm GI normal to inspection, nondistended, normoactive bowel sounds Extremity Extremity Narrative: Erythema to the distal aspect of the right lower leg over the anterior leg. No open wounds or lesions. No tenderness or erythema over the foot. Neuro oriented x3 and no sensory deficits noted Motor Exam: strength 5/5 throughout Psych mental status grossly normal Skin Skin Narrative: Right leg erythema as noted above. MDM MDM MDM Narrative Medical decision making narrative: Although patient's blood pressure is elevated here she does bring along her blood pressure trends for the last couple of days. She is been running in the 120s to 130s systolic. Given the patient's cellulitis lab work is obtained including blood cultures to evaluate for infection. Right lower extremity ultrasound is of obtained to evaluate for DVT. Lab Data Attestation: I reviewed the patient's lab results. Labs: Laboratory Results - last 24 hr 07/06/22 07/06/22 22:29 22:29 WBC 6.1 RBC 4.11 L Hgb 12.7 Hct 39.1 MCV 95.1 MCH 30.9 MCHC 32.5 RDW Std Deviation 46.2 H RDW Coeff of Lizet 13.2 Plt Count 220 MPV 9.8 Immature Gran % (Auto) 0.200 Neut % (Auto) 48.3 Lymph % (Auto) 38.1 [place] % (Auto) 10.6 H Eos % (Auto) 1.8 Baso % (Auto) 1.0 Absolute Neuts (auto) 2.9 Absolute Lymphs (auto) 2.31 Nucleated RBC % 0 Sodium 140 Potassium 3.8 Chloride 104 Carbon Dioxide 28.0 Anion Gap 8 BUN 21 H Creatinine 0.87 Estim Creat Clear Calc 46.76 Est GFR (MDRD) Af Amer 81 Est GFR (MDRD) Non-Af 67 BUN/Creatinine Ratio 24.1 H Glucose 115 H Calcium 9.3 Treatment and Re-Evaluation :: CBC was normal white count and normal differential. Chemistry studies unremarkable. Venous ultrasound of the right lower extremity reveals no evidence of DVT. She does have a Bakers cyst noted behind the right knee measuring approximate 4 cm in diameter. Patient states that when she had meniscus surgery in the past they did drain this but apparently is reaccumulating. The erythema on her right lower leg is outlined with a surgical marker. She will be started on Bactrim and Keflex to treat her cellulitis. Return instructions provided. Discharge Plan Triage Chief Complaint: Cellulitis ED Provider: Daxa Hinojosa Dx/Rx/DC Orders Clinical Impression: Cellulitis Instructions: ED Cellulitis Prescriptions: New sulfamethoxazole-trimethoprim [Bactrim DS] 800-160 mg tablet 1 tab PO BID Qty: 20 0RF cephalexin 500 mg capsule 500 mg PO Q6 Qty: 40 0RF No Action aspirin [Adult Aspirin Regimen] 81 mg tablet,delayed release (DR/EC) 81 mg PO QDAY cinnamon bark [Cinnamon] 500 mg capsule 500 mg PO BID multivitamin tablet 1 tab PO QDAY nitroglycerin 0.4 mg tablet, sublingual 0.4 mg SUBLINGUAL Q5-15M PRN (Reason: chest pain) artic sea 1 tab PO DAILY calcium carbonate 1,000 mg tablet 1,000 mg tablet 2,000 mg PO DAILY red yeast rice 600 mg capsule 1,200 mg PO QHS Label Comments: 600 mg PO at bedtime Rx Instructions: 600 mg PO at bedtime citalopram 10 mg tablet 10 mg PO DAILY carvedilol 6.25 mg tablet 6.25 mg PO BID Qty: 180 3RF lisinopril 5 mg tablet 5 mg PO DAILY Qty: 90 3RF Primary Care Provider: Soraida Esteves Referrals: Soraida Esteves DO [Primary Care Provider] - 1-2 Weeks Disposition Disposition: Home, Self Care What to do if you have Problems For any increased pain, shortness of breath, bleeding, nausea or vomiting, chest pain, or any unexpected problems, contact your Primary Care Provider. Call [facility] ([phone]) or report to the closest Emergency Room. Call 911 if necessary. 07/07/22 0140 <Electronically signed by Daxa Hinojosa MD> Cosigner Signature (if applicable): CC: Dr. Soraida Esteves, DO Signed Soraida Esteves DO Work Phone: Start: 07-28-2021 End: 07-28-2021 Cardiology Visit Report Procedure Note: See Note; NOTES: [facility] [address] [place] [address]. [address] [place] [address] OFFICE VISIT Date of Service: 07/28/21 MR#: [id number] Acct: [id number] Name: ADELINE GRAHAM Rep #: [id number] : 1945 Provider: VANITA Franco Age/Sex: 76/F Location: [facility] Status: Signed HPI HPI History of Present Illness Details: Adeline Graham is a 76-year-old female that presents here today for a cardiovascular follow- up. She has a history of coronary artery disease with stenting to her proximal LAD in 2019 when she presented with a myocardial infarction. She also has a history of ischemic cardiomyopathy that has resolved, left bundle branch block, hypertension and hyperlipidemia. Her Bp was noted to be elevated at last OV, she is here for a f/u on this. She felt that she had whitecoat HTN. Her Bp cuff does correlated. In reviewing her meds, she tells me that she is on 5 mg of lisinopril. She tells me that this has been like this for years. From a cardiac standpoint, patient is doing well. She does not have any chest discomfort/heaviness/tightnes s. Her exercise tolerance is stable for her age. She does not have any worsening symptoms of shortness of breath. She does not have any orthopnea. She denies PND. She does not have any symptoms of congestive heart failure. She does not have any palpitations that she is aware of. She does not have any lightheadedness or dizziness. She does not have any near-syncope or syncope. She does not have any lower extremity edema. She does not have any symptoms of claudication. Intake Vital Signs 07/28/21 13:31 Height 5 ft 3 in Weight: 177 lb BMI 31.3 BP 171/90 H Blood Pressure Location Lt brachial Position Sitting Respiration 18 Pulse 75 Pulse Source Monitor Pulse Oximetry (%) 97 Intake Visit Reasons: 3 M Cell Feed Department Supervisor Required: No Is patient in pain?: No Allergies No Known Allergies Allergy (Verified 07/28/21 13:31) Medications artic sea 1 tab PO DAILY 10/03/17 [History Confirmed 07/28/21] aspirin 81 mg tablet,delayed release 81 mg PO QDAY 10/03/17 [History Confirmed 07/28/21] cinnamon bark 500 mg capsule 500 mg PO BID cap 10/03/17 [History Confirmed 07/28/21] multivitamin 1 tab PO QDAY 10/03/17 [History Confirmed 07/28/21] nitroglycerin 0.4 mg sublingual tablet 0.4 mg SUBLINGUAL Q5-15M PRN 10/03/17 [History Confirmed 07/28/21] calcium carbonate 1,000 mg tablet 2,000 mg PO DAILY tab 05/09/19 [History Confirmed 07/28/21] red yeast rice 600 mg capsule 1,200 mg PO QHS cap 05/09/19 [History Confirmed 07/28/21] carvedilol 6.25 mg tablet 6.25 mg PO BID #180 tab 05/17/21 [Rx Confirmed 07/28/21] citalopram 10 mg tablet 10 mg PO DAILY 05/17/21 [History Confirmed 07/28/21] lisinopril 5 mg tablet 5 mg PO DAILY #90 tab 07/28/21 [Rx Confirmed 07/28/21] [facility] Medical History Atherosclerotic heart disease of [place] coronary artery without angina pectoris Chronic systolic CHF (congestive heart failure) Essential (primary) hypertension History of non-ST elevation myocardial infarction (NSTEMI) (07/01/14) Hyperlipidemia Ischemic cardiomyopathy Left bundle branch block (LBBB) Surgical History History of coronary artery stent placement (07/01/14) History of left heart catheterization (11/05/17) History of right and left heart catheterization (07/01/14) Family History Father CAD (coronary artery disease) Sudden cardiac Sister Hypertension Social History Smoking Status: Never smoker ROS Const Const: Negative for fatigue, weakness, headache(s), frequent falls, excessive sweating, weight gain or weight loss Eyes Eyes: Negative for blind spots, loss of peripheral vision, transient loss of vision, blurry vision, change in vision or double vision ENT ENT: Negative for headache(s), dizziness, tinnitus, Nosebleed/epistaxis or balance problems Cardio Chest Pain: No Palpitations: No Edema: None Muscle aches with walking: None Resp Respiratory: Negative for SOB with activity, SOB at rest, SOB orthopnea SOB lying down or Cough GI GI: Negative nausea, vomiting, heartburn, bloating, vomiting blood/hematemesis, bright, red blood in stools or black,tarry stools : Negative for hematuria Musc Musc: Negative for muscle aches/ myalgia, muscle weakness, joint pain or balance problems Skin Skin: Negative rash or wounds Neuro Neuro: Negative for dizziness, lightheadedness, near syncope, syncope, orthostatic symptoms, frequent falls, headache(s), weakness, confusion, memory loss, restless legs, blurry vision or double vision Thang Hematologic/Lymphatic: Negative for easy bleeding or easy bruising Endo Endo: Negative for fatigue, cold intolerance, heat intolerance or excessive sweating Psych Psych: Negative for anxiety or depression Allergy Allergy/Immunology: Negative for rash Cardiology Exam Const Appearance: cooperative, healthy appearing, comfortable, no acute distress and well developed Orientation: alert, awake and oriented x3 Head Head: normal to inspection Ears: hearing grossly normal bilaterally Nose: external nose normal Face and Sinus: face symmetric Mouth: oral mucosae normal, lip normal and moist mucous membranes Eyes General: appearance normal, both eyes and all related structures Eyelids: eyelids normal Conjunctivae: conjunctivae normal Pupils: PERRL EOM: EOM intact bilaterally Neck Neck: normal visual inspection and trachea midline; Negative no JVD Carotids: Negative bruit Chest Chest inspection: normal inspection of the chest Auscultation: Bilateral: Clear to Auscultation Cardio Palpation: normal PMI Rate: regular rate Rhythm: regular rhythm Heart sounds: S1 normal and S2 normal; Negative rub, gallop or murmur GI GI: soft, no hepatosplenomegaly and bowel sounds present Neuro General: patient alert, patient awake, patient oriented x3 and CN's II-XI intact bilaterally Extremities Pulses: Normal: Right Posterior Tibial Pulse, Left Posterior Tibial Pulse, Right Radial Pulse and Left Radial Pulse Lower Extremity Edema: None: Bilateral Psych Psychological: normal affect Supplemental Info Supplemental Information Cardiac catheterization 2018: Mild coronary artery disease with previously placed stent in the left anterior descending artery noted to be patent and moderate diagonal proximal disease. RECOMMENDATIONS Medical therapy DESCRIPTION OF PROCEDURE The patient arrived to the procedure lab. The risks and benefits of the procedure as well as a full description of our services here and current unavailability of surgical backup were fully explained to the patient and/or their significant other prior to the catheterization. The Timeout was completed, verifying the correct patient and procedure. The patient's procedural site was prepped and draped in the usual fashion. Local anesthetic was given subcutaneously to right groin region with Lidocaine 2%. Using a modified Seldinger technique, arterial access was obtained via the right femoral artery, a 5Fr sheath was inserted. Left Coronary Artery selective angiography was performed in multiple views using a 5 Fr. JL4 catheter. Right Coronary Artery selective angiography was then performed in multiple views using a 5 Fr. 3DRC (Attila) catheter. Left Ventriculography was performed in OVALLES projection using a 5 Fr. Pigtail catheter. LV to AO pullback pressures were then recorded.The arterial sheath was pulled and manual compression applied until hemostasis is achieved. CORONARY ANGIOGRAPHY DOMINANCE: Right Dominant LEFT HEART ASSESSMENT Left Ventricular Ejection Fraction: by LV Gram 45 % Anterior Hypokinesis - Mild Depressed Left Ventricular systolic function LEFT MAIN: Angiographically normal LEFT ANTERIOR DECENDING ARTERY: PROX LAD: Angiographically normal MID LAD: Previously placed stent is patent DIAGONAL 1: Proximal - 60 % Stenosis CIRCUMFLEX ARTERY: Angiographically normal RIGHT CORONARY ARTERY: Angiographically normal Echocardiogram 2018: Normal LV size. Left ventricular systolic function is normal. The estimated ejection fraction is 55 %. Septal motion consistent with IVCD. Labs: No Data to Display Diagnostics: Electrocardiogram Echocardiogram Stress Test NM Stress Test Cardiac Catheterization Chest X-Ray Pulmonary: No Data to Display Assessment and Plan Assessment and Plan (1) Atherosclerotic heart disease of [place] coronary artery without angina pectoris: Status: Chronic Qualifiers: [place] vs. transplanted heart: [place] heart Qualified Code(s): I25.10 - Atherosclerotic heart disease of [place] coronary artery without angina pectoris Plan - Adilene WALDRON PA: Stable, from a cardiac standpoint patient does not have any symptoms of angina. We recommend that they continue with current aggressive medical management and risk factor modification. (2) Ischemic cardiomyopathy: Status: Chronic Plan - Adilene WALDRON PA: This has resolved, pt does not have any symptoms of CHF. Will continue with current medical management. (3) Essential (primary) hypertension: Status: Chronic Plan - VANITA Hodgson: Patient does have whitecoat hypertension. Her blood pressure cuff did correlate. She can continue with current blood pressure management. She was advised to let us know if blood pressure changes. (4) Hyperlipidemia: Status: Chronic Qualifiers: Hyperlipidemia type: pure hypercholesterolemia Qualified Code(s): E78.00 - Pure hypercholesterolemia, unspecified; E78.0 - Pure hypercholesterolemia Plan - Adilene WALDRON PA: This is managed by PCP, she is not on any medications. Plan Details Other Medications: Changed: From: lisinopril 10 mg PO DAILY 90 tabs 3RF To: lisinopril 5 mg PO DAILY 90 tabs 3RF Follow Up: 1 Year (SOCIAL STUDIES DEPARTMENT CHAIR) Coding Level of Care Code Off vis,est,level 3 Diagnoses Atherosclerotic heart disease of [place] coronary artery without angina pectoris I25.10 [place] vs. transplanted heart: [place] heart Ischemic cardiomyopathy I25.5 Essential (primary) hypertension I10 Hyperlipidemia E78.00; E78.0 Hyperlipidemia type: pure hypercholesterolemia Coding Level of Care Code Off vis,est,level 3 Diagnoses Atherosclerotic heart disease of [place] coronary artery without angina pectoris I25.10 [place] vs. transplanted heart: [place] heart Ischemic cardiomyopathy I25.5 Essential (primary) hypertension I10 Hyperlipidemia E78.00; E78.0 Hyperlipidemia type: pure hypercholesterolemia 07/28/21 1532 <Electronically signed by Adilene Joel> Date Adilene Darden Signature: Date (if applicable) CC: Dr. Soraida Esteves, DO Soraida Esteves DO Work Phone: Start: 05-17-2021 End: 05-17-2021 Cardiology Visit Report Procedure Note: See Note; NOTES: [facility] [address] [place] [address] OFFICE VISIT Date of Service: 05/17/21 MR#: [id number] Acct: [id number] Name: ADELINE GRAHAM Rep #: [id number] : 1945 Provider: VANITA Franco Age/Sex: 76/F Location: [facility] Status: Signed HPI HPI History of Present Illness Details: This is a 76-year-old female that presents here today for a cardiovascular follow-up. She has a history of coronary artery disease with stenting to her proximal LAD in 2019 when she presented with a myocardial infarction. She also has a history of ischemic cardiomyopathy that has resolved, left bundle branch block, hypertension and hyperlipidemia. From a cardiac standpoint, patient is doing well. She does not have any chest discomfort/heaviness/tightnes s. Her exercise tolerance is stable for her age. She does not have any worsening symptoms of shortness of breath. She does not have any orthopnea. She denies PND. She does not have any symptoms of congestive heart failure. She does not have any palpitations that she is aware of. She does not have any lightheadedness or dizziness. She does not have any near- syncope or syncope. She does not have any lower extremity edema. She does not have any symptoms of claudication. Pt notes that her BP readings are okay at home. However she has not taken it recently. Intake Vital Signs 05/17/21 10:06 Height 5 ft 3 in Weight: 174 lb BMI 30.8 BP 192/95 H Blood Pressure Location Lt brachial Position Sitting Respiration 18 Pulse 74 Pulse Source Monitor Pulse Oximetry (%) 97 Intake Visit Reasons: 1 Y FU Cell Feed Department Supervisor Required: No Is patient in pain?: No Allergies No Known Allergies Allergy (Verified 05/17/21 10:07) Medications artic sea 1 tab PO DAILY 10/03/17 [History Confirmed 05/17/21] aspirin 81 mg tablet,delayed release 81 mg PO QDAY 10/03/17 [History Confirmed 05/17/21] cinnamon bark 500 mg capsule 500 mg PO BID cap 10/03/17 [History Confirmed 05/17/21] multivitamin 1 tab PO QDAY 10/03/17 [History Confirmed 05/17/21] nitroglycerin 0.4 mg sublingual tablet 0.4 mg SUBLINGUAL Q5-15M PRN 10/03/17 [History Confirmed 05/17/21] calcium carbonate 1,000 mg tablet 2,000 mg PO DAILY tab 05/09/19 [History Confirmed 05/17/21] red yeast rice 600 mg capsule 1,200 mg PO QHS cap 05/09/19 [History Confirmed 05/17/21] carvedilol 6.25 mg tablet 6.25 mg PO BID #180 tab 05/17/21 [Rx Confirmed 05/17/21] citalopram 10 mg tablet 10 mg PO DAILY 05/17/21 [History Confirmed 05/17/21] lisinopril 10 mg tablet 10 mg PO DAILY #90 tab 05/17/21 [Rx Confirmed 05/17/21] [facility] Medical History Atherosclerotic heart disease of [place] coronary artery without angina pectoris Chronic systolic CHF (congestive heart failure) Essential (primary) hypertension History of non-ST elevation myocardial infarction (NSTEMI) (07/01/14) Hyperlipidemia Ischemic cardiomyopathy Left bundle branch block (LBBB) Surgical History History of coronary artery stent placement (07/01/14) History of left heart catheterization (11/05/17) History of right and left heart catheterization (07/01/14) Family History Father CAD (coronary artery disease) Sudden cardiac Sister Hypertension Social History Smoking Status: Never smoker ROS Const Const: Negative for fatigue, weakness, headache(s), frequent falls, excessive sweating, weight gain or weight loss Eyes Eyes: Negative for blind spots, loss of peripheral vision, transient loss of vision, blurry vision, change in vision or double vision ENT ENT: Negative for headache(s), dizziness, tinnitus, Nosebleed/epistaxis or balance problems Cardio Chest Pain: No Palpitations: No Edema: None Muscle aches with walking: None Resp Respiratory: Negative for SOB with activity, SOB at rest, SOB orthopnea SOB lying down or Cough GI GI: Negative nausea, vomiting, heartburn, bloating, vomiting blood/hematemesis, bright, red blood in stools or black,tarry stools : Negative for hematuria Musc Musc: Negative for muscle aches/ myalgia, muscle weakness, joint pain or balance problems Skin Skin: Negative rash or wounds Neuro Neuro: Negative for dizziness, lightheadedness, near syncope, syncope, orthostatic symptoms, frequent falls, headache(s), weakness, confusion, memory loss, restless legs, blurry vision or double vision Thang Hematologic/Lymphatic: Negative for easy bleeding or easy bruising Endo Endo: Negative for fatigue, cold intolerance, heat intolerance or excessive sweating Psych Psych: Negative for anxiety or depression Allergy Allergy/Immunology: Negative for rash Cardiology Exam Const Appearance: cooperative, healthy appearing, comfortable, no acute distress and well developed Orientation: alert, awake and oriented x3 Head Head: normal to inspection Ears: hearing grossly normal bilaterally Nose: external nose normal Face and Sinus: face symmetric Mouth: oral mucosae normal, lip normal and moist mucous membranes Eyes General: appearance normal, both eyes and all related structures Eyelids: eyelids normal Conjunctivae: conjunctivae normal Pupils: PERRL EOM: EOM intact bilaterally Neck Neck: normal visual inspection and trachea midline; Negative no JVD Carotids: Negative bruit Chest Chest inspection: normal inspection of the chest Auscultation: Bilateral: Clear to Auscultation Cardio Palpation: normal PMI Rate: regular rate Rhythm: regular rhythm Heart sounds: S1 normal and S2 normal; Negative rub, gallop or murmur GI GI: soft, no hepatosplenomegaly and bowel sounds present Neuro General: patient alert, patient awake, patient oriented x3 and CN's II-XI intact bilaterally Extremities Pulses: Normal: Right Posterior Tibial Pulse, Left Posterior Tibial Pulse, Right Radial Pulse and Left Radial Pulse Lower Extremity Edema: None: Bilateral Psych Psychological: normal affect Supplemental Info Supplemental Information Cardiac catheterization 2018: Mild coronary artery disease with previously placed stent in the left anterior descending artery noted to be patent and moderate diagonal proximal disease. RECOMMENDATIONS Medical therapy DESCRIPTION OF PROCEDURE The patient arrived to the procedure lab. The risks and benefits of the procedure as well as a full description of our services here and current unavailability of surgical backup were fully explained to the patient and/or their significant other prior to the catheterization. The Timeout was completed, verifying the correct patient and procedure. The patient's procedural site was prepped and draped in the usual fashion. Local anesthetic was given subcutaneously to right groin region with Lidocaine 2%. Using a modified Seldinger technique, arterial access was obtained via the right femoral artery, a 5Fr sheath was inserted. Left Coronary Artery selective angiography was performed in multiple views using a 5 Fr. JL4 catheter. Right Coronary Artery selective angiography was then performed in multiple views using a 5 Fr. 3DRC (Attila) catheter. Left Ventriculography was performed in OVALLES projection using a 5 Fr. Pigtail catheter. LV to AO pullback pressures were then recorded.The arterial sheath was pulled and manual compression applied until hemostasis is achieved. CORONARY ANGIOGRAPHY DOMINANCE: Right Dominant LEFT HEART ASSESSMENT Left Ventricular Ejection Fraction: by LV Gram 45 % Anterior Hypokinesis - Mild Depressed Left Ventricular systolic function LEFT MAIN: Angiographically normal LEFT ANTERIOR DECENDING ARTERY: PROX LAD: Angiographically normal MID LAD: Previously placed stent is patent DIAGONAL 1: Proximal - 60 % Stenosis CIRCUMFLEX ARTERY: Angiographically normal RIGHT CORONARY ARTERY: Angiographically normal Echocardiogram 2018: Normal LV size. Left ventricular systolic function is normal. The estimated ejection fraction is 55 %. Septal motion consistent with IVCD. Labs: No Data to Display Diagnostics: Electrocardiogram Echocardiogram Stress Test NM Stress Test Cardiac Catheterization Chest X-Ray Pulmonary: No Data to Display Assessment and Plan Assessment and Plan (1) Atherosclerotic heart disease of [place] coronary artery without angina pectoris: Status: Chronic Qualifiers: [place] vs. transplanted heart: [place] heart Qualified Code(s): I25.10 - Atherosclerotic heart disease of [place] coronary artery without angina pectoris Plan - Adilene WALDRON, PA: Stable, from a cardiac standpoint patient does not have any symptoms of angina. We recommend that they continue with current aggressive medical management and risk factor modification. (2) Ischemic cardiomyopathy: Status: Chronic Plan - VANITA Hodgson: This has resolved, pt does not have any symptoms of CHF. Will continue with current medical management. (3) Essential (primary) hypertension: Status: Chronic Plan - Adilene WALDRON PA: Elevated. Will have her monitor for 2 weeks and call the office with an update. She feels that she has white coat HTN. Will also have her bring her cuffs in in 2-3 months to correlate readings. will adjust accordingly. (4) Hyperlipidemia: Status: Chronic Qualifiers: Hyperlipidemia type: pure hypercholesterolemia Qualified Code(s): E78.00 - Pure hypercholesterolemia, unspecified; E78.0 - Pure hypercholesterolemia Plan - Adilene WALDRON PA: This is managed by PCP, she is not on any medications. Plan Details Other Medications: Refilled: carvedilol 6.25 mg PO BID 180 tabs 3RF lisinopril 10 mg PO DAILY 90 tabs 3RF Follow Up: 2 Months (2-3 months) Coding Level of Care Code Off vis,est,level 3 Diagnoses Atherosclerotic heart disease of [place] coronary artery without angina pectoris I25.10 [place] vs. transplanted heart: [place] heart Ischemic cardiomyopathy I25.5 Essential (primary) hypertension I10 Hyperlipidemia E78.00; E78.0 Hyperlipidemia type: pure hypercholesterolemia Coding Level of Care Code Off vis,est,level 3 Diagnoses Atherosclerotic heart disease of [place] coronary artery without angina pectoris I25.10 [place] vs. transplanted heart: [place] heart Ischemic cardiomyopathy I25.5 Essential (primary) hypertension I10 Hyperlipidemia E78.00; E78.0 Hyperlipidemia type: pure hypercholesterolemia 05/17/21 1040 <Electronically signed by Adilene Joel> Date Adilene WALDRON Cosigner Signature: Date (if applicable) CC: Dr. Soraida Esteves, DO Soraida Esteves DO Work Phone: Start: 05-14-2020 End: 05-14-2020 Cardiology Visit Report Comments: See Note; NOTES: [facility] [address] [place] [address] OFFICE VISIT Date of Service: 05/14/20 MR#: [id number] Acct: [id number] Name: ADELINE GRAHAM Rep #: [id number] : 1945 Provider: Dr. Dav Lee MD Age/Sex: 75/F Location: [facility] [place] Status: Signed HPI HPI History of Present Illness Details: ADELINE GRAHAM, is a 75 F who presents to the office today for a follow up visit. She is a pleasant lady with a history of coronary artery disease status post previous myocardial infarction in 2014. She presented with chest pain and underwent a cardiac catheterization which demonstrated a 99% proximal left anterior descending artery stenotic lesion. She underwent angioplasty and stenting of the above vessel. The rest of the vessels had luminal irregularities only. She underwent a repeat cardiac catheterization in October 2017 and it demonstrated patency of her left anterior descending artery stent and mild disease noted in the diagonal vessel only. She denies any chest pain or shortness breath or paroxysmal nocturnal dyspnea or pedal edema she takes her blood pressure at home and she says that it has been under good control. During her last catheterization her ejection fraction had normalized. Her physical exam here today demonstrates clear lung gomez regular rate and rhythm and no pedal edema. Intake Vital Signs 05/14/20 Height 5 ft 3 in 05/14/20 Weight: 157 lb 05/14/20 BMI 27.8 05/14/20 BP 174/86 H 05/14/20 Respiration 16 05/14/20 Pulse 70 05/14/20 Pulse Oximetry (%) 96 Intake Visit Reasons: 1 Y FU (we r/s from 05/11) Allergies No Known Allergies Allergy (Verified 05/14/20 09:49) Medications artic sea 1 tab PO DAILY 10/03/17 [History Confirmed 05/14/20] aspirin 81 mg tablet,delayed release 81 mg PO QDAY 10/03/17 [History Confirmed 05/14/20] cinnamon bark 500 mg capsule 500 mg PO BID cap 10/03/17 [History Confirmed 05/14/20] multivitamin 1 tab PO QDAY 10/03/17 [History Confirmed 05/14/20] nitroglycerin 0.4 mg sublingual tablet 0.4 mg SUBLINGUAL Q5-15M PRN 10/03/17 [History Confirmed 05/14/20] calcium carbonate 1,000 mg tablet 2,000 mg PO DAILY tab 05/09/19 [History Confirmed 05/14/20] red yeast rice 600 mg capsule 1,200 mg PO QHS cap 05/09/19 [History Confirmed 05/14/20] carvedilol 6.25 mg tablet 6.25 mg PO BID #60 tablet 05/14/20 [Rx Confirmed 05/14/20] lisinopril 10 mg tablet 10 mg PO DAILY #90 tab 05/14/20 [Rx Confirmed 05/14/20] Ejection fraction %: 55 to 59 PFSH Medical History Atherosclerotic heart disease of [place] coronary artery without angina pectoris (Chronic) History of non-ST elevation myocardial infarction (NSTEMI) (Chronic 07/01/14) Left bundle branch block (LBBB) (Chronic) Ischemic cardiomyopathy (Chronic) Chronic systolic CHF (congestive heart failure) (Chronic) Essential (primary) hypertension (Chronic) Hyperlipidemia (Chronic) Surgical History History of coronary artery stent placement (Resolved 07/01/14) History of right and left heart catheterization (Chronic 07/01/14) History of left heart catheterization (Resolved 11/05/17) Family History Father CAD (coronary artery disease) Sudden cardiac Sister Hypertension Social History (Updated 05/14/20 @ 11:[address] Dav Lee MD) Smoking Status: Never smoker ROS Const Const: Positive for other (Admits that her BP spikes in certain situations); negative for fatigue, weakness, headache(s), frequent falls, difficulty sleeping or excessive sweating Eyes Eyes: Negative for loss of peripheral vision, transient loss of vision, blurry vision, double vision or tunnel vision ENT ENT: Negative for headache(s), dizziness, Nosebleed/epistaxis or balance problems Cardio Chest Pain: No Palpitations: No Edema: None Muscle aches with walking: None Resp Respiratory: Negative for SOB with activity, SOB at rest, SOB orthopnea SOB lying down, Cough or paroxysmal nocturnal dyspnea GI GI: Negative nausea, vomiting, heartburn or black,tarry stools : Negative for hematuria Musc Musc: Negative for muscle aches/ myalgia, muscle weakness, joint pain or balance problems Skin Skin: Negative non-healing lesions, rash or unusual bruising Neuro Neuro: Negative for dizziness, lightheadedness, near syncope, syncope, orthostatic symptoms, frequent falls, headache(s), weakness, blurry vision, double vision or lack of coordination Thang Hematologic/Lymphatic: Negative for easy bleeding or easy bruising Endo Endo: Negative for fatigue, excessive sweating or increased thirst/drinking Psych Psych: Negative for anxiety or depression Allergy Allergy/Immunology: Negative for hives, Negative for rash Cardiology Exam Const Appearance: cooperative, healthy appearing, no acute distress, well developed and well groomed Nutritional Appearance: average body habitus and well nourished Orientation: alert, awake and oriented x3 Head Head: normal to inspection, normocephalic and atraumatic Ears: hearing grossly normal bilaterally and external ears normal Nose: external nose normal, nares normal, nasal mucous membranes and turbinates normal, septum normal, no nasal discharge Face and Sinus: face symmetric Mouth: oral mucosae normal, tongue normal, oropharynx normal and moist mucous membranes Teeth and gingiva: dentition normal Throat: posterior oropharynx normal, tonsils normal and uvula midline Eyes General: appearance normal, both eyes and all related structures Eyelids: eyelids normal Conjunctivae: conjunctivae normal Pupils: PERRL, normal by confrontation and accommodation normal EOM: EOM intact bilaterally Neck Neck: normal visual inspection, trachea midline and no JVD JVD: +5 Carotids: normal carotid upstroke and bounding pulses Chest Chest inspection: normal inspection of the chest, symmetric chest movement and normal respiratory effort Auscultation: Bilateral: Clear to Auscultation Cardio Palpation: normal PMI Rate: regular rate Rhythm: regular rhythm Heart sounds: S1 normal, S2 normal and normal, physiologic split S2; negative rub, gallop or murmur GI GI: normal to inspection, soft, no hepatosplenomegaly and bowel sounds present Neuro General: alert, awake, oriented x3, gait normal, moves all extremities and no focal sensory deficit Skin Skin: no rashes or lesions noted Extremities Pulses: Normal: Right Femoral Pulse, Left Femoral Pulse, Right Dorsalis Pedis Pulse, Left Dorsalis Pedis Pulse, Right Posterior Tibial Pulse, Left Posterior Tibial Pulse, Right Radial Pulse, Left Radial Pulse Lower Extremity Edema: None: Bilateral Musculoskel Musculoskeletal: No joint tenderness Psych Psychological: normal affect Assessment Plan 1. History of coronary artery stent placement Z95.5 PCI-RIAZ-LAD w/ 3.5 X 15 mm Xience 07/01/2014 Plan She does have a history of coronary disease status post previous angioplasty and stenting of the left anterior descending artery. Cardiac catheterization in 2018 demonstrated patency of this vessel she has not had any chest discomfort recommendation is for her to continue the current medical therapy. 2. Ischemic cardiomyopathy I25.5 Plan She does have a previous history of ischemic cardiomyopathy which has normalized her last echocardiogram in 2018 estimated her EF of 55% with no wall motion abnormalities present. My recommendation is for her to continue the same with no changes. 3. Essential (primary) hypertension I10 Plan She does have elevated blood pressure here today. I have asked her to get her blood pressure monitoring cuff and then also increase her carvedilol to 6.25 mg twice a day. She will continue the lisinopril at the same dose. I would like to see her again in a year. Plan Detail Other Medications New: carvedilol (Coreg) 3.125 mg PO BID 180 tabs 3RF Changed: From: carvedilol (Coreg) 3.125 mg PO BID 180 tabs 3RF To: carvedilol 6.25 mg PO BID 60 tabs 3RF Refilled: lisinopril 10 mg PO DAILY 90 tabs 6RF Follow Up 1 Year (mmm) Coding Level of Care Code Off vis,est,level 2 Diagnoses History of coronary artery stent placement Z95.5 Ischemic cardiomyopathy I25.5 Essential (primary) hypertension I10 Coding Level of Care Code Off vis,est,level 2 Diagnoses History of coronary artery stent placement Z95.5 Ischemic cardiomyopathy I25.5 Essential (primary) hypertension I10 Supplemental Info Supplemental Information Diagnostics Electrocardiogram 10/10/17 Echocardiogram 10/22/17 Stress Test Nuclear Medicine 10/22/17 Stress Test 10/22/17 Cardiac Catheterization 11/05/17 Chest X-Ray 10/30/17 05/14/20 1107 <Electronically signed by Dav Lee MD> Date Dav Lee MD Cosigner Signature: Date (if applicable) CC: DO Soraida Huang Start: 05-09-2019 End: 05-09-2019 Cardiology Visit Report Comments: See Note; NOTES: [facility] [facility] [place] [address] OFFICE VISIT Date of Service: 05/09/19 MR#: [id number] Acct: [id number] Name: ADELINE GRAHAM Rep #: [id number] : 1945 Provider: Dav Lee MD Age/Sex: 74/F Location: [facility] [place] Status: Signed HPI HPI History of Present Illness Details: ADELINE GRAHAM, is a 74 F who presents to the office today for a follow up visit. She is a pleasant lady with a history of coronary artery disease status post previous myocardial infarction in 2014. She presented with chest pain and underwent a cardiac catheterization which demonstrated a 99% proximal left anterior descending artery stenotic lesion. She underwent angioplasty and stenting of the above vessel. The rest of the vessels had luminal irregularities only. She underwent a repeat cardiac catheterization in October 2017 and it demonstrated patency of her left anterior descending artery stent and mild disease noted in the diagonal vessel only. She denies any chest pain or shortness breath or paroxysmal nocturnal dyspnea or pedal edema she takes her blood pressure at home and she says that it has been under good control. During her last catheterization her ejection fraction had normalized. Her physical exam here today demonstrates clear lung gomez regular rate and rhythm and no pedal edema. Intake Vital Signs05/09/19 Height 5 ft 3 in 05/09/19 Weight: 163 lb 05/09/19 BMI 28.8 05/09/19 BP 180/70 H 05/09/19 Blood Pressure Location Lt brachial 05/09/19 Position Sitting 05/09/19 Respiration 20 H 05/09/19 Pulse 78 05/09/19 Pulse Source Auscultation Intake Visit Reasons: 1 Y FU (we r/s from 04-22) Cell Feed Department Supervisor Required: No Accompanied by: Daughter Is patient in pain?: No Allergies No Known Allergies Allergy (Verified 05/09/19 15:55) Medications artic sea 1 tab PO DAILY 10/03/17 [History Confirmed 04/18/18] aspirin 81 mg tablet,delayed release 81 mg PO QDAY 10/03/17 [History Confirmed 05/09/19] carvedilol 3.125 mg tablet 3.125 mg PO BID 10/03/17 [History Confirmed 05/09/19] cinnamon bark 500 mg capsule 500 mg PO BID cap 10/03/17 [History Confirmed 05/09/19] multivitamin 1 tab PO QDAY 10/03/17 [History Confirmed 05/09/19] nitroglycerin 0.4 mg sublingual tablet 0.4 mg SUBLINGUAL Q5-15M PRN 10/03/17 [History Confirmed 05/09/19] calcium carbonate 1,000 mg tablet 2,000 mg PO DAILY tab 05/09/19 [History] lisinopril 10 mg tablet 10 mg PO DAILY #90 tab 05/09/19 [Rx Confirmed 05/09/19] red yeast rice 600 mg capsule 1,200 mg PO QHS cap 05/09/19 [History Confirmed 05/09/19] [facility] Medical History Atherosclerotic heart disease of [place] coronary artery without angina pectoris (Chronic) History of non-ST elevation myocardial infarction (NSTEMI) (Chronic 07/01/14) Left bundle branch block (LBBB) (Chronic) Ischemic cardiomyopathy (Chronic) Chronic systolic CHF (congestive heart failure) (Chronic) Essential (primary) hypertension (Chronic) Hyperlipidemia (Chronic) Surgical History History of coronary artery stent placement (Resolved 07/01/14) History of right and left heart catheterization (Chronic 07/01/14) History of left heart catheterization (Resolved 11/05/17) Family History Father CAD (coronary artery disease) Sudden cardiac Sister Hypertension Social History (Updated 05/09/19 @ 16:[address] Dav Lee MD) Smoking Status: Never smoker ROS Const Const: Positive for other (Feels well); negative for fatigue, weakness, body ache, fever(s), headache(s), chills, frequent falls, night sweats, daytime sleepiness, difficulty sleeping, excessive sweating, weight gain, weight loss, increased appetite, poor appetite or anorexia Eyes Eyes: Negative for blind spots, loss of peripheral vision, transient loss of vision, blurry vision, change in vision, double vision, floaters, tunnel vision or other ENT ENT: Negative for headache(s), dizziness, hearing loss, tinnitus, Nosebleed/epistaxis, balance problems, post nasal drip, lip swelling, tongue swelling, bleeding gums, hoarseness, neck pain, dry mouth or other Cardio Chest Pain: No Palpitations: No Edema: None Muscle aches with walking: None Resp Respiratory: Negative for SOB with activity, SOB at rest, SOB orthopnea\SOB lying down, Cough, Coughing up blood/hemoptysis, chest congestion, pain on inspiration, snoring, stridor, wheezing, crackles, paroxysmal nocturnal dyspnea or other GI GI: Negative nausea, vomiting, heartburn, constipation, belching, bloating, cramping, vomiting blood/hematemesis, bright, red blood in stools, black,tarry stools, loose stools, Difficulty Swallowing or other : Negative for hematuria, frequent nighttime urination/ nocturia, erectile dysfunction or abnormal vaginal bleeding Musc Musc: Negative for muscle aches/ myalgia, muscle weakness, joint pain or balance problems Skin Skin: Negative redness, non-healing lesions, rash, unusual bruising, skin ulcer, wounds, jaundice or other Neuro Neuro: Negative for dizziness, lightheadedness, near syncope, syncope, orthostatic symptoms, frequent falls, headache(s), weakness, confusion, memory loss, restless legs, blurry vision, double vision, vertigo, seizures, lack of coordination or other Thang Hematologic/Lymphatic: Negative for easy bleeding, easy bruising, enlarged lymph nodes or other Endo Endo: Negative for fatigue, cold intolerance, heat intolerance, excessive sweating, flushing, increased thirst/drinking, increased hunger, hair loss, hair growth or other Psych Psych: Negative for anxiety, depression, thoughts of harming anyone, thoughts of harming yourself, visual hallucinations, panic attacks or audible hallucinations Allergy Allergy/Immunology: Negative for throat swelling, Negative for tongue swelling, Negative for hives, Negative for rash, Negative for lip swelling Cardiology Exam Const Appearance: cooperative, healthy appearing, no acute distress, well developed and well groomed Nutritional Appearance: average body habitus and well nourished Orientation: alert, awake and oriented x3 Head Head: normal to inspection, normocephalic and atraumatic Ears: hearing grossly normal bilaterally and external ears normal Nose: external nose normal, nares normal, nasal mucous membranes and turbinates normal, septum normal, no nasal discharge Face and Sinus: face symmetric Mouth: oral mucosae normal, tongue normal, oropharynx normal and moist mucous membranes Teeth and gingiva: dentition normal Throat: posterior oropharynx normal, tonsils normal and uvula midline Eyes General: appearance normal, both eyes and all related structures Eyelids: eyelids normal Conjunctivae: conjunctivae normal Pupils: PERRL, normal by confrontation and accommodation normal EOM: EOM intact bilaterally Neck Neck: normal visual inspection, trachea midline and no JVD JVD: +5 Carotids: normal carotid upstroke and bounding pulses Chest Chest inspection: normal inspection of the chest, symmetric chest movement and normal respiratory effort Auscultation: Bilateral: Clear to Auscultation Cardio Palpation: normal PMI Rate: regular rate Rhythm: regular rhythm Heart sounds: S1 normal, S2 normal and normal, physiologic split S2; negative rub, gallop or murmur GI GI: normal to inspection, soft, no hepatosplenomegaly and bowel sounds present Neuro General: alert, awake, oriented x3, gait normal, moves all extremities and no focal sensory deficit Skin Skin: no rashes or lesions noted Extremities Pulses: Normal: Right Femoral Pulse, Left Femoral Pulse, Right Dorsalis Pedis Pulse, Left Dorsalis Pedis Pulse, Right Posterior Tibial Pulse, Left Posterior Tibial Pulse, Right Radial Pulse, Left Radial Pulse Lower Extremity Edema: None: Bilateral Musculoskel Musculoskeletal: No joint tenderness Psych Psychological: normal affect Assessment AND Plan 1. Atherosclerosis of [place] coronary artery of [place] heart without angina pectoris I25.10 Plan She does have a history of atherosclerotic cardiovascular disease. Her last catheterization in October 2017 demonstrating patency of the vessels she has not had any angina she is able to partake in most activities of daily living. Indeed she did wash her guerrero at home a few weeks ago. My recommendation is for her to continue the same medications with no changes. 2. Ischemic cardiomyopathy I25.5 Plan She does have a history of ischemic cardiomyopathy which has normalized her ejection fraction is preserved at that time and I would not recommend that we make any other changes. 3. Essential (primary) hypertension I10 Plan Her blood pressure appears to be under suboptimal control. I have suggested that we increase the lisinopril to 10 mg a day. She will continue on the aspirin and the carvedilol. No other changes will be made. Overall she appears to be doing well thank you for allowing me to participate in her care. Plan Detail Other Medications New: Discontinued: Follow Up 1 Year (media planner) Coding Level of Care Code Off vis,est,level 2 Diagnoses Atherosclerosis of [place] coronary artery of [place] heart without angina pectoris I25.10 [place] vs. transplanted heart: [place] heart Ischemic cardiomyopathy I25.5 Essential (primary) hypertension I10 Coding Level of Care Code Off vis,est,level 2 Diagnoses Atherosclerosis of [place] coronary artery of [place] heart without angina pectoris I25.10 [place] vs. transplanted heart: [place] heart Ischemic cardiomyopathy I25.5 Essential (primary) hypertension I10 Supplemental Info Supplemental Information Labs LDL Cholesterol 101 mg/dL (0-130) 10/04/12 HDL Cholesterol 53 mg/dL 10/04/12 Triglycerides 91 mg/dL 10/04/12 VLDL Cholesterol 18 mg/dL (5-40) 10/04/12 Diagnostics Electrocardiogram 10/10/17 Echocardiogram 10/22/17 Stress Test Nuclear Medicine 10/22/17 Stress Test 10/22/17 Cardiac Catheterization 11/05/17 Chest X-Ray 10/30/17 05/09/19 7893 <Electronically signed by Dav Lee MD> Date Dav Darden Signature: Date (if applicable) CC: Soraida Danielito DO Soraida Esteves Start: 07-01-2014 History of placement of stent for coronary artery disease History of coronary artery stent placement Adilene WALDRON Comment on above: PCI-RIAZ-LAD w/ 3.5 X 15 mm Xience 07/01/2014 D&C Divya Messenger D&C Divya Messenger D&C Nancy Ciesa Work Phone: D&C Crissy Christine D&C Ivonne Gordilloman D&C Maeve Gravius D&C Jewels Macdonald D&C Franky Ramos LP N D&C Faizan Poole COUPON CLERK D&C Heath [place] LP N Ligation of fallopian tube Divya Messenger Ligation of fallopian tube Divya Messenger Ligation of fallopian tube Nancy Ciesa Work Phone: Ligation of fallopian tube Crissy [place] Ligation of fallopian tube Ivonne Mumtaz Ligation of fallopian tube Maeve Gravius Ligation of fallopian tube Jewels Macdonald Ligation of fallopian tube Franky Ramos SHOT GRINDER OPERATOR Ligation of fallopian tube Faizan Poole COUPON CLERK Ligation of fallopian tube Heath Sotero SHOT GRINDER OPERATOR Plan of Treatment Date Care Activity Detail Author Start: 11-27-2022 Procedure Education Eprescribe d prescriptions (G8553) [facility]; [facility] Work Phone: Start: 11-27-2022 Provider Instruction s for Treatment [facility]; [facility] Work Phone: Start: 11-27-2022 25 hydroxy includes fractions if performed CALCIFIDIOL (04361) VIT D 25 [facility]; [facility] Work Phone: Start: 11-27-2022 Assay of thyroid stimulating hormone tsh TSH (71245) [facility]; [facility] Work Phone: Start: 11-27-2022 Urnls dip stick/tabl et reagent auto microscopy URINALYSIS, W/ MICRO (10803) [facility]; [facility] Work Phone: Start: 11-27-2022 Urine albumin quantitative MICROALBUMIN: CREATININE RATIO (85127) AND (93636) [facility]; [facility] Work Phone: Start: 11-27-2022 Comprehensive metabo lic panel METABOLIC PANEL, COMPREHENSIVE (36381) [facility]; [facility] Work Phone: Start: 11-27-2022 Lipid panel LIPID PANEL (13966) Com prehens[facility]; [facility] Work Phone: Start: 11-27-2022 Blood count complete auto&auto difrntl wbc CBC W/AUTO DIFF WBC ([id number]) [facility]; [facility] Work Phone: Start: 09-29-2022 Procedure Education Eprescribe d prescriptions (G8553) [facility]; [facility] Work Phone: Start: 07-06-2022 End: 07-06-2022 Blood culture [facility] Start: 05-18-2022 Procedure Education Eprescribe d prescriptions (G8553) [facility]; [facility] Work Phone: Start: 05-18-2022 Provider Instruction s for Treatment [facility]; [facility] Work Phone: Start: 04-19-2022 Provider Instruction s for Treatment [facility]; [facility] Work Phone: Start: 02-04-2021 Procedure Education Eprescribe d prescriptions (G8553) [facility]; [facility] Work Phone: Start: 02-04-2021 Provider Instruction s for Treatment Follow up if no improvement or if symptoms worsen [facility]; [facility] Work Phone: Start: 05-20-2020 Procedure Education Eprescribe d prescriptions (G8553) [facility]; [facility] Work Phone: Start: 05-20-2020 Provider Instruction s for Treatment [facility]; [facility] Work Phone: Start: 01-15-2020 Procedure Education Eprescribe d prescriptions (G8553) [facility] Work Phone: Start: 01-15-2020 Provider Instruction s for Treatment [facility] Work Phone: Start: 01-15-2020 TSH Qn TSH (94314) [facility] Work Phone: Start: 01-15-2020 Blood count complete auto&auto difrntl wbc CBC W/AUTO DIFF WBC (17500) [facility] Work Phone: Start: 01-15-2020 Comprehensive metabo lic panel METABOLIC PANEL, COMPREHENSIVE (49914) [facility] Work Phone: Start: 01-15-2020 Lipoprotein blood qu an numbers & subclasses NMR Profile (28686) [facility] Work Phone: Start: 09-12-2019 Procedure Education Eprescribe d prescriptions (G8553) [facility] Work Phone: Start: 09-12-2019 Provider Instruction s for Treatment [facility] Work Phone: Start: 09-12-2019 Lipoprotein blood qu an numbers & subclasses NMR Profile (33477) [facility] Work Phone: Start: 08-08-2019 Procedure Education Eprescribe d prescriptions (G8553) [facility] Work Phone: Start: 08-08-2019 Provider Instruction s for Treatment [facility] Work Phone: Start: 03-05-2019 Procedure Education Eprescribe d prescriptions (G8553) [facility] Work Phone: Start: 02-28-2019 Cobalamin (Vitamin B 12) [Mass/Vol] VITAMIN B12 AND FOLATES (25652) [facility] Work Phone: Comment on above: need to fwd to dr.ki mccarthy Start: 02-28-2019 Cyanocobalamin vitam in b-12 VITAMIN B12 AND FOLATES (43947) [facility]; [facility] Work Phone: Comment on above: need to fwd to dr.ki mccarthy Start: 02-21-2019 Procedure Education Eprescribe d prescriptions (G8553) [facility] Work Phone: Start: 02-21-2019 Provider Instruction s for Treatment [facility] Work Phone: Start: 02-21-2019 Lipoprotein blood qu an numbers & subclasses NMR Profile (81542) [facility] Work Phone: Start: 02-21-2019 Assay of thyroid stimulating hormone tsh TSH (71886) [facility]; [facility] Work Phone: Start: 02-21-2019 TSH Qn TSH (24911) [facility] Work Phone: Start: 02-21-2019 Urnls dip stick/tabl et reagent auto microscopy URINALYSIS, W/ MICRO (50863) [facility] Work Phone: Start: 02-21-2019 Urine albumin quantitative MICROALBUMIN: CREATININE RATIO (13547) AND (54674) [facility] Work Phone: Start: 02-21-2019 Comprehensive metabo lic panel METABOLIC PANEL, COMPREHENSIVE (06967) [facility] Work Phone: Start: 02-21-2019 Blood count complete auto&auto difrntl wbc CBC W/AUTO DIFF WBC (97755) [facility] Work Phone: Start: 11-21-2018 Procedure Education Eprescribe d prescriptions (G8553) [facility] Work Phone: Start: 11-21-2018 Provider Instruction s for Treatment [facility] Work Phone: Start: 11-21-2018 Lipoprotein blood qu an numbers & subclasses NMR Profile (21274) [facility] Work Phone: Start: 08-02-2018 Patient Education Shingles (He rpes Zoster) *: rash [facility] Work Phone: Start: 08-02-2018 Procedure Education Eprescribe d prescriptions (G8553) [facility] Work Phone: Start: 08-02-2018 Provider Instruction s for Treatment Follow up if no improvement or if symptoms worsen [facility] Work Phone: Start: 07-15-2018 Protein mass conc NMR Profile (73331 ) [facility] Work Phone: Start: 07-12-2018 Procedure Education Eprescribe d prescriptions (G8553) [facility] Work Phone: Start: 07-12-2018 Provider Instruction s for Treatment [facility] Work Phone: Start: 06-03-2018 Protein mass conc NMR Profile (29295 ) [facility] Work Phone: Start: 06-03-2018 Urine albumin quantitative MICROALBUMIN: CREATININE RATIO (24472) AND (66313) [facility] Work Phone: Start: 06-03-2018 Urnls dip stick/tabl et reagent auto microscopy URINALYSIS, W/ MICRO (01149) [facility] Work Phone: Start: 06-03-2018 Thyrotropin Qn TSH (THYROID STIMULATING HORMONE) (44607) [facility] Work Phone: Start: 06-03-2018 CBC, PLATELETS & MAN UAL DIFF (15285) CBC, PLATELETS & MANUAL DIFF (31127) [facility] Work Phone: Start: 06-03-2018 Comprehensive metabo lic panel METABOLIC PANEL, COMPREHENSIVE (75412) [facility] Work Phone: Start: 05-06-2018 Provider Instruction s for Treatment [facility] Work Phone: Start: 01-03-2018 Provider Instruction s for Treatment [facility] Work Phone: Start: 01-03-2018 Assay of thyroid stimulating hormone tsh TSH (01156) [facility]; [facility] Work Phone: Start: 01-03-2018 Thyrotropin Qn TSH (29384) Comprehe [facility] Work Phone: Start: 01-03-2018 Urnls dip stick/tabl et reagent auto microscopy URINALYSIS, W/ MICRO (75044) [facility] Work Phone: Start: 01-03-2018 Urine albumin quantitative MICROALBUMIN: CREATININE RATIO (97401) AND (40742) [facility] Work Phone: Start: 01-03-2018 Comprehensive metabo lic panel METABOLIC PANEL, COMPREHENSIVE (02524) [facility] Work Phone: Start: 01-03-2018 Lipoprotein blood qu an numbers & subclasses LIPOPROTEIN, BLD, BY NMR (90386) [facility]; [facility] Work Phone: Start: 01-03-2018 Protein mass conc LIPOPROTEIN, BLD, BY NMR (96750) [facility] Work Phone: Start: 01-03-2018 Blood count complete auto&auto difrntl wbc CBC W/AUTO DIFF WBC (67606) [facility] Work Phone: Bacteria identified in Blood by Culture Blood Culture [facility] Patient Education [facility] Work Phone: Patient referral [facility] Work Phone: [facility] Work Phone: [facility] Work Phone[facility] Work Phone: [facility] Work Phone: [facility] Work Phone: [facility] Work Phone: Payers Date Payer Category Payer Self-pay 1945 Unknown [id number] Unknown [id number] Unknown Unknown [id number] Unknown [id number] Social History Date Type Detail Facility Caffeine Use [facility] Work Phone: Comment on above: qd Living Situation: Lives with spouse. [facility] Work Phone: Living Situation: Living Situation: Compr [facility]; [facility] Work Phone: Start: 07-06-2022 End: 07-10-2022 Tobacco smoking status MOIS Unknown if ever smoked [facility] Start: 1945 Sex Assigned At Female W [facility] Start: 09-12-2023 Tobacco smoking status NHIS Never smoked tobacco (finding) [facility] Functional Status Date Assessment Result Facility 05-11-2020 LP-IR Score LP-IR Score 32 [facility]; [facility] Work Phone: Comment on above: INSULIN RESISTANCE M ARKER <--Insulin Sensitive Insulin Resistant--> Percentile in Reference PopulationInsulin Resistance ScoreLP-IR Score Low 25th 50th 75th High <27 27 45 63 >63LP-IR Score is inaccurate if patient is non-fasting. .The LP-IR score is a laboratory developed index that has beenassociated with insulin resistance and diabetes risk and should beused as one component of a physician's clinical assessment. Test(s) 955729-WKN-V ; 077875-FFQ-H; 579643-Pbsaghfvcjevk; 475172-Iloqmbrcgxh, Total; 761393-LXF-D (Total); 429155-Aravl LDL-P; 682136-BJS Size; 490091-JA-MR Scorewas developed and its performance characteristics determinedby [employer]. It has not been cleared or approved by the Foodand Drug Administration.PATIENT WAS FASTINGPERFORMED BY: BN [facility] Ojmbngnnoa0383 [facility] [id number] BY: [facility] CenterCzvrhi1740 [facility] [id number] 01-08-2020 LP-IR Score LP-IR Score 41 [facility] Work Phone: Comment on above: INSULIN RESISTANCE M ARKER <--Insulin Sensitive Insulin Resistant--> Percentile in Reference PopulationInsulin Resistance ScoreLP-IR Score Low 25th 50th 75th High <27 27 45 63 >63LP-IR Score is inaccurate if patient is non-fasting. .The LP-IR score is a laboratory developed index that has beenassociated with insulin resistance and diabetes risk and should beused as one component of a physician's clinical assessment. Test(s) 612744-OEA-R ; 614979-VHX-T; 374784-Vbwddctpnplti; 480043-Otunnfhljvk, Total; 880951-TLQ-A (Total); 186391-[place]uba LDL-P; 228716-RWS Size; 057357-MY-TJ Scorewas developed and its performance characteristics determinedby [employer]. It has not been cleared or approved by the Foodand Drug Administration.PATIENT WAS FASTINGPERFORMED BY: [employer] [address] [id number]; 01-14 KF 08-08-2019 LP-IR Score LP-IR Score 25 [facility] Work Phone: Comment on above: INSULIN RESISTANCE M BINTA <--Insulin Sensitive Insulin Resistant--> Percentile in Reference PopulationInsulin Resistance ScoreLP-IR Score Low 25th 50th 75th High <27 27 45 63 >63LP-IR Score is inaccurate if patient is non-fasting. .The LP-IR score is a laboratory developed index that has beenassociated with insulin resistance and diabetes risk and should beused as one component of a physician's clinical assessment. Test(s) 858461-UKF-C ; 335435-GDA-C; 737543-LYA-P; 285965-Kfzcgmlzktehs; 915236-Xnmrjaiwobi, Total; 762891-BHS-D (Total);925998-Mbxjf LDL-P; 217092-ATR Size; 281624-DP-GZ Scorewas developed and its performance characteristics determinedby [employer]. It has not been cleared or approved by the Foodand Drug Administration.PATIENT WAS FASTINGPERFORMED BY: [employer] [address] [id number] BY: [facility] HospitalAlogak7261 [facility] [id number] 02-06-2019 LP-IR Score LP-IR Score 42 [facility] Work Phone: Comment on above: INSULIN RESISTANCE M ARKER <--Insulin Sensitive Insulin Resistant--> Percentile in Reference PopulationInsulin Resistance ScoreLP-IR Score Low 25th 50th 75th High <27 27 45 63 >63LP-IR Score is inaccurate if patient is non-fasting. .The LP-IR score is a laboratory developed index that has beenassociated with insulin resistance and diabetes risk and should beused as one component of a physician's clinical assessment. Test(s) 220633-XKY-Q ; 465712-FYX-O; 058257-DMS-K; 808969-Botoeldvokgpu; 134814-Gzpqrpsdmmz, Total; 131793-HWU-U (Total);069261-Wuqhc LDL-P; 565393-PBI Size; 580149-AB-WW Scorewas developed and its performance characteristics determinedby [employer]. It has not been cleared or approved by the Foodand Drug Administration.PATIENT WAS FASTINGPERFORMED BY: [employer] [address] [id number] 11-05-2018 LP-IR Score LP-IR Score 46 [facility] Work Phone: Comment on above: INSULIN RESISTANCE Dmitry JUDD <--Insulin Sensitive Insulin Resistant--> Percentile in Reference PopulationInsulin Resistance ScoreLP-IR Score Low 25th 50th 75th High <27 27 45 63 >63LP-IR Score is inaccurate if patient is non-fasting. .The LP-IR score is a laboratory developed index that has beenassociated with insulin resistance and diabetes risk and should beused as one component of a physician's clinical assessment. TheLP-IR score listed above has not been cleared by the [place] Food andDrug Administration. PATIENT WAS FASTINGP ERFORMED BY: [employer]1447 [facility] [id number]; appt 11/1307-12-2018 LP-IR Score LP-IR Score 34 [facility] Work Phone: Comment on above: INSULIN RESISTANCE M DAWNKER <--Insulin Sensitive Insulin Resistant--> Percentile in Reference PopulationInsulin Resistance ScoreLP-IR Score Low 25th 50th 75th High <27 27 45 63 >63LP-IR Score is inaccurate if patient is non-fasting. .The LP-IR score is a laboratory developed index that has beenassociated with insulin resistance and diabetes risk and should beused as one component of a physician's clinical assessment. TheLP-IR score listed above has not been cleared by the [place] Food andDrug Administration. PATIENT WAS FASTINGP ERFORMED BY: JUWAN [facility] Ghvfntwont9820 [facility] [id number] BY: JOSSELINE [facility] Jawqnl[address] [place] [id number] Mental Status Date Assessment Result Facility 07-10-2022 Cognitive function Level Of Cons ciousness Awake;Alert;Appropriate;Follow s Commands [facility] Work Phone: Clinical Notes 10-02-2024 Note Date & Type Note Facility 10-02-2024 Progress note [facility] 10-02-2024 Progress note Note Date/Time October 02, 2024 4:19pm [facility] [address] [place] [address] OFFICE VISIT Date of Service: 10/02/24 MR#: [id number] Acct: [id number] Name: ADELINE GRAHAM Rep #: [id number] : 1945 Provider: VANITA Parnell Age/Sex: 79/F Location: [facility] Status: Signed HPI HPI History of Present Illness Details: Adeline Graham is a 79-year-old female who presents here today for a cardiovascularfollow-up. She has a history of coronary artery disease with stenting to her proximal LAD in 2019 when she presented with a myocardial infarction. She also has a history of ischemic cardiomyopathy that has resolved, left bundle branch block, hypertension and hyperlipidemia. Pt notes that over the last few weeks her Bp has been up around the 170/100 range. a few months ago it was better. She does feel weak with the higher Bp readings. She does have some swelling in her legs. PCP increased lisinopril to 10 mg BID yesterday. Labs are still not done from PCP. Intake Vital Signs 10/05/23 14:53 10/02/24 15:34 10/02/24 15:51 Height 5 ft 5 in 5 ft 5 in Weight: 179 lb 8 oz 175 lb BMI 29.8 29.1 BP 180/96 H 182/98 H 188/97 H Blood Pressure Location Lt brachial Lt brachial Rt brachial Position Sitting Sitting Sitting Respiration 16 16 Pulse 80 73 72 Pulse Source Monitor NIBP NIBP Comment Pt has a record of at home BPs avg 120-130s/70-80s Intake Visit Reasons: 1 Y FU Cell Feed Department Supervisor Required: No Is patient in pain?: No Allergies No Known Allergies Allergy (Verified 10/02/24 15:39) Medications ?Medication ?Instructions ?Recorded ?Confirmed ?Type artic sea 1 tab PO DAILY 10/03/1709/19 History aspirin 81 mg tablet,delayed 81 mg PO QDAY 10/03/17 History release (Adult Aspirin Regimen) cinnamon bark 500 mg capsule 500 mg PO BID 10/03/17 History (Cinnamon) multivitamin 1 tab PO QDAY 10/03/1710/02 History nitroglycerin 0.4 mg sublingual 0.4 mg sublingual Q5-1 5M PRN chest 10/03/17 10/02/24 History tablet pain calcium carbonate 1,000 mg tablet 2,000 mg PO DAILY 10/02/24 History red yeast rice 600 mg capsule 1,200 mg PO QHS 05/09/19 10/02/24 History aloe PO 10/05/23 10/02/24 History garlic thyme PO 10/05/23 10/02/24 History magnesium maleate PO 10/05/23 10/02/24 History phytomega PO 10/05/23 10/02/24 History carvedilol 6.25 mg tablet 6.25 mg PO BID #60 tabs 09/1910/02/24 Rx lisinopril 10 mg tablet 10 mg PO BID 10/02/24 History Ejection fraction %: 55 Have you fallen in the past year?: No PFSH Medical History Left bundle branch block (LBBB) Essential (primary) hypertension Hyperlipidemia Chronic systolic CHF (congestive heart failure) Ischemic cardiomyopathy Atherosclerotic heart disease of [place] coronary artery without angina pectoris History of non-ST elevation myocardial infarction (NSTEMI) (07/01/14) Surgical History History of coronary artery stent placement (07/01/14) History of left heart catheterization (11/05/17) History of right and left heart catheterization (07/01/14) Family History Father CAD (coronary artery disease) Sudden cardiac Sister Hypertension Social History Smoking Status: Never smoker ROS Const Const: Positive for weakness (Rousseau better when BP went down); Negative for fatigue Eyes Eyes: Negative for change in vision ENT ENT: Positive for dizziness; Negative for balance problems Cardio Chest Pain: No Palpitations: No Edema: Bilateral (Occasionally with heat and humidity) Resp Respiratory: Negative for SOB with activity, SOB at rest or SOB orthopnea\SOB lying down GI GI: Negative nausea or heartburn Musc Musc: Negative for balance problems Neuro Neuro: Positive for dizziness, lightheadedness and weakness (Rousseau better when BPwent down); Negative for near syncope or syncope Endo Endo: Negative for fatigue Cardiology Exam Const Appearance: cooperative, healthy appearing, comfortable, no acute distress and well developed Orientation: alert, awake and oriented x3 Head Head: normal to inspection Ears: hearing grossly normal bilaterally Nose: external nose normal Face and Sinus: face symmetric Mouth: oral mucosae normal, lip normal and moist mucous membranes Eyes General: appearance normal, both eyes and all related structures Eyelids: eyelids normal Conjunctivae: conjunctivae normal Pupils: PERRL EOM: EOM intact bilaterally Neck Neck: normal visual inspection and trachea midline; Negative no JVD Carotids: Negative bruit Chest Chest inspection: normal inspection of the chest Auscultation: Bilateral: Clear to Auscultation Cardio Palpation: normal PMI Rate: regular rate Rhythm: regular rhythm Heart sounds: S1 normal and S2 normal; Negative rub, gallop or murmur GI GI: soft, no hepatosplenomegaly and bowel sounds present Neuro General: patient alert, patient awake, patient oriented x3 and CN's II-XI intactbilaterally Extremities Pulses: Normal: Right Posterior Tibial Pulse, Left Posterior Tibial Pulse, RightRadial Pulse and Left Radial Pulse Lower Extremity Edema: None: Bilateral Psych Psychological: normal affect Supplemental Info Supplemental Information Cardiac catheterization 11/05/2017: Mild coronary artery disease with previously placed stent in the left anterior descending artery noted to be patent and moderate diagonal proximal disease. RECOMMENDATIONS Medical therapy CORONARY ANGIOGRAPHY DOMINANCE: Right Dominant LEFT HEART ASSESSMENT Left Ventricular Ejection Fraction: by LV Gram 45 % Anterior Hypokinesis - Mild Depressed Left Ventricular systolic function LEFT MAIN: Angiographically normal LEFT ANTERIOR DECENDING ARTERY: PROX LAD: Angiographically normal MID LAD: Previously placed stent is patent DIAGONAL 1: Proximal - 60 % Stenosis CIRCUMFLEX ARTERY: Angiographically normal RIGHT CORONARY ARTERY: Angiographically normal Echocardiogram 10/22/2017: Normal LV size. Left ventricular systolic function is normal. The estimated ejection fraction is 55 %. Septal motion consistent with IVCD. Stress test 10/22/2017 Conclusion: Abnormal pharmacologic myocardial perfusion stress test with moderate mid anterior ischemia. Left bundle branch block pattern noted Mild left ventricular dyssynchrony.? Preserved EF. Labs: LDL Cholesterol 101 mg/dL (0-130) HDL Cholesterol 53 mg/dL Cholesterol 172 mg/dL (200-) Triglycerides 91 mg/dL Diagnostics: Electrocardiogram Echocardiogram Stress Test Stress Test Nuclear Medicine Cardiac Catheterization Chest X-Ray Pulmonary: No Data to Display Past Visits: Cardiology Visit 10/02/24 Assessment and Plan Assessment and Plan (1) History of coronary artery stent placement: Status: Resolved Comment: PCI-RIAZ-LAD w/ 3.5 X 15 mm Xience 07/01/2014 Plan: She is status post previous angioplasty and stenting. She remains free of any symptomatology my recommendation is for her to continue the current medical therapy without making any changes. (2) Ischemic cardiomyopathy: Status: Chronic Plan: She does have evidence of the ischemic cardiomyopathy. Overall she is doing well her ejection fraction has normalized and will not make any changes. (3) Essential (primary) hypertension: Status: Chronic Plan: BP not controlled. Will increase Coreg to 6.25 mg twice a day. Will continue with her lisinopril at 10 mg twice a day. Will monitor closely. If not improved will consider testing. (4) Hyperlipidemia: Status: Chronic Qualifiers: Hyperlipidemia type: pure hypercholesterolemia Qualified Code(s): E78.00 - Pure hypercholesterolemia, unspecified; E78.0 - Pure hypercholesterolemia Plan: She continues to follow up with you in your office. Regarding blood work Medications: New carvedilol must administer with a meal/food 6.25 mg PO BID 60 tabs 11RF Patient Instructions: continue with your lisinopril at 10 mg twice a day Increase your Coreg to 6.25 mg twice a day Calll us in a few weeks with an update on your readings. Plan Details Follow Up: 3 Months (MMM) 10/02/24 (level 4) Coding Level of Care Code Off vis,est,level 4 Diagnoses History of coronary artery stent placement Z95.5 Ischemic cardiomyopathy I25.5 Essential (primary) hypertension I10 Pure hypercholesterolemia E78.00; E78.0 Hyperlipidemia type: pure hypercholesterolemia Coding Level of Care Code Off vis,est,level 4 Diagnoses History of coronary artery stent placement Z95.5 Ischemic cardiomyopathy I25.5 Essential (primary) hypertension I10 Pure hypercholesterolemia E78.00; E78.0 Hyperlipidemia type: pure hypercholesterolemia Clinical Quality Measures Falls Risk Screening/Assistive Devices Have you fallen in the past year?: No Cardiac Ejection fraction %: 55 10/02/24 1619 <Electronically signed by Adilene Berger> Date _ Adilene WALDRON Cosigner Signature: Date (if applicable) CC: Dr. Soraida Esteves, DO ~ [facility] Work Phone: Evaluation noteNo assessment information available [facility] Work Phone: Evaluation note* Diagnosis Onset Date Resolution Status Admit Date Essential (primary) hypertension chronic October 02, 2024 3:33pm Hyperlipidemia chronic September 3:33pm Ischemic cardiomyopathy chronic A ugust 2024 3:33pm History of coronary artery stent placement July 01, 2014 resolved October 02, 2024 3:33pm [facility] Work Phone: Hospital Discharge instructions Additional Instructions Please continue the antibiotics as directed from your last visit but begin taking Zofran 3 times a day to control any nausea sensation associated with the medication. If you have any further concerns or worsening of symptoms please return for [facility] Work Phone: Instructions* Name Dates Details Patient Instructions Indication:Non-smoker Start:04-Feb-2021 Instruction Type:Provider Instructions for Treatment How to Access Health Informa tion Online using Patient Portal and [employer] Apps Indication:Non-smoker Start:04-Feb-2021 Instruction Type:Patient Education How to Access Health Informa tion Online using Patient Portal and [employer] Indication:Non-smoker Start:20-May-2020 Instruction Type:Patient Education Patient Instructions Indication:Non-smoker Start:20-May-2020 Instruction Type:Provider Instructions for Treatment How to access health informa tion online Indication:Non-smoker Start:15-Jan-2020 Instruction Type:Patient Education How to access health informa tion online - Detail Indication:Non-smoker Start:15-Jan-2020 Instruction Type:Patient Education Patient Instructions Indication:Non-smoker Start:15-Jan-2020 Instruction Type:Provider Instructions for Treatment How to access health informa tion online Indication:BMI 29.0-29.9,adult Start:12-Sep-2019 Instruction Type:Patient Education How to access health informa tion online - Detail Indication:BMI 29.0-29.9,adult Start:12-Sep-2019 Instruction Type:Patient Education Patient Instructions Indication:BMI 29.0-29.9,adult Start:12-Sep-2019 Instruction Type:Provider Instructions for Treatment How to access health informa tion online Indication:BMI 29.0-29.9,adult Start:08-Aug-2019 Instruction Type:Patient Education How to access health informa tion online - Detail Indication:BMI 29.0-29.9,adult Start:08-Aug-2019 Instruction Type:Patient Education Patient Instructions Indication:BMI 29.0-29.9,adult Start:08-Aug-2019 Instruction Type:Provider Instructions for Treatment How to access health informa tion online Indication:BMI 28.0-28.9,adult Start:05-Mar-2019 Instruction Type:Patient Education How to access health informa tion online - Detail Indication:BMI 28.0-28.9,adult Start:05-Mar-2019 Instruction Type:Patient Education Patient Instructions Indication:BMI 28.0-28.9,adult Start:05-Mar-2019 Instruction Type:Provider Instructions for Treatment How to access health informa tion online Indication:BMI 28.0-28.9,adult Start:21-Feb-2019 Instruction Type:Patient Education How to access health informa tion online - Detail Indication:BMI 28.0-28.9,adult Start:21-Feb-2019 Instruction Type:Patient Education Patient Instructions Indication:BMI 28.0-28.9,adult Start:21-Feb-2019 Instruction Type:Provider Instructions for Treatment How to access health informa tion online Indication:Non-smoker Start:21-Nov-2018 Instruction Type:Patient Education How to access health informa tion online - Detail Indication:Non-smoker Start:21-Nov-2018 Instruction Type:Patient Education Patient Instructions Indication:Non-smoker Start:21-Nov-2018 Instruction Type:Provider Instructions for Treatment How to access health informa tion online Indication:Non-smoker Start:02-Aug-2018 Instruction Type:Patient Education How to access health informa tion online - Detail Indication:Non-smoker Start:02-Aug-2018 Instruction Type:Patient Education Patient Instructions Indication:Non-smoker Start:02-Aug-2018 Instruction Type:Provider Instructions for Treatment How to access health informa tion online Indication:BMI 29.0-29.9,adult Start:12-Jul-2018 Instruction Type:Patient Education How to access health informa tion online - Detail Indication:BMI 29.0-29.9,adult Start:12-Jul-2018 Instruction Type:Patient Education Patient Instructions Indication:BMI 29.0-29.9,adult Start:12-Jul-2018 Instruction Type:Provider Instructions for Treatment How to access health informa tion online Indication:Hypercholesteremia (Renamed from Hypercholesterolemia) Start:06-May-2018 Instruction Type:Patient Education How to access health informa tion online - Detail Indication:Hypercholesteremia (Renamed from Hypercholesterolemia) Start:06-May-2018 Instruction Type:Patient Education Patient Instructions Indication:Hypercholesteremia (Renamed from Hypercholesterolemia) Start:06-May-2018 Instruction Type:Provider Instructions for Treatment How to access health informa tion online Indication:Non-smoker Start:03-Jan-2018 Instruction Type:Patient Education How to access health informa tion online - Detail Indication:Non-smoker Start:03-Jan-2018 Instruction Type:Patient Education Patient Instructions Indication:Non-smoker Start:03-Jan-2018 Instruction Type:Provider Instructions for Treatment [facility]; [facility] Work Phone: Instructions* Name Dates Details Patient Instructions Indication:Non-smoker Start:04-Feb-2021 Instruction Type:Provider Instructions for Treatment How to Access Health Informa tion Online using Patient Portal and [employer] Apps Indication:Non-smoker Start:04-Feb-2021 Instruction Type:Patient Education How to Access Health Informa tion Online using Patient Portal and [employer] Apps Indication:Non-smoker Start:20-May-2020 Instruction Type:Patient Education Patient Instructions Indication:Non-smoker Start:20-May-2020 Instruction Type:Provider Instructions for Treatment How to access health informa tion online Indication:Non-smoker Start:15-Jan-2020 Instruction Type:Patient Education How to access health informa tion online - Detail Indication:Non-smoker Start:15-Jan-2020 Instruction Type:Patient Education Patient Instructions Indication:Non-smoker Start:15-Jan-2020 Instruction Type:Provider Instructions for Treatment How to access health informa tion online Indication:BMI 29.0-29.9,adult Start:12-Sep-2019 Instruction Type:Patient Education How to access health informa tion online - Detail Indication:BMI 29.0-29.9,adult Start:12-Sep-2019 Instruction Type:Patient Education Patient Instructions Indication:BMI 29.0-29.9,adult Start:12-Sep-2019 Instruction Type:Provider Instructions for Treatment How to access health informa tion online Indication:BMI 29.0-29.9,adult Start:08-Aug-2019 Instruction Type:Patient Education How to access health informa tion online - Detail Indication:BMI 29.0-29.9,adult Start:08-Aug-2019 Instruction Type:Patient Education Patient Instructions Indication:BMI 29.0-29.9,adult Start:08-Aug-2019 Instruction Type:Provider Instructions for Treatment How to access health informa tion online Indication:BMI 28.0-28.9,adult Start:05-Mar-2019 Instruction Type:Patient Education How to access health informa tion online - Detail Indication:BMI 28.0-28.9,adult Start:05-Mar-2019 Instruction Type:Patient Education Patient Instructions Indication:BMI 28.0-28.9,adult Start:05-Mar-2019 Instruction Type:Provider Instructions for Treatment How to access health informa tion online Indication:BMI 28.0-28.9,adult Start:21-Feb-2019 Instruction Type:Patient Education How to access health informa tion online - Detail Indication:BMI 28.0-28.9,adult Start:21-Feb-2019 Instruction Type:Patient Education Patient Instructions Indication:BMI 28.0-28.9,adult Start:21-Feb-2019 Instruction Type:Provider Instructions for Treatment How to access health informa tion online Indication:Non-smoker Start:21-Nov-2018 Instruction Type:Patient Education How to access health informa tion online - Detail Indication:Non-smoker Start:21-Nov-2018 Instruction Type:Patient Education Patient Instructions Indication:Non-smoker Start:21-Nov-2018 Instruction Type:Provider Instructions for Treatment How to access health informa tion online Indication:Non-smoker Start:02-Aug-2018 Instruction Type:Patient Education How to access health informa tion online - Detail Indication:Non-smoker Start:02-Aug-2018 Instruction Type:Patient Education Patient Instructions Indication:Non-smoker Start:02-Aug-2018 Instruction Type:Provider Instructions for Treatment How to access health informa tion online Indication:BMI 29.0-29.9,adult Start:12-Jul-2018 Instruction Type:Patient Education How to access health informa tion online - Detail Indication:BMI 29.0-29.9,adult Start:12-Jul-2018 Instruction Type:Patient Education Patient Instructions Indication:BMI 29.0-29.9,adult Start:12-Jul-2018 Instruction Type:Provider Instructions for Treatment How to access health informa tion online Indication:Hypercholesteremia (Renamed from Hypercholesterolemia) Start:06-May-2018 Instruction Type:Patient Education How to access health informa tion online - Detail Indication:Hypercholesteremia (Renamed from Hypercholesterolemia) Start:06-May-2018 Instruction Type:Patient Education Patient Instructions Indication:Hypercholesteremia (Renamed from Hypercholesterolemia) Start:06-May-2018 Instruction Type:Provider Instructions for Treatment How to access health informa tion online Indication:Non-smoker Start:03-Jan-2018 Instruction Type:Patient Education How to access health informa tion online - Detail Indication:Non-smoker Start:03-Jan-2018 Instruction Type:Patient Education Patient Instructions Indication:Non-smoker Start:03-Jan-2018 Instruction Type:Provider Instructions for Treatment [facility]; [facility] Work Phone: Instructions* Name Dates Details Patient Instructions Indication:Non-smoker Start:04-Feb-2021 Instruction Type:Provider Instructions for Treatment How to Access Health Informa tion Online using Patient Portal and [employer] Apps Indication:Non-smoker Start:04-Feb-2021 Instruction Type:Patient Education How to Access Health Informa tion Online using Patient Portal and [employer] Apps Indication:Non-smoker Start:20-May-2020 Instruction Type:Patient Education Patient Instructions Indication:Non-smoker Start:20-May-2020 Instruction Type:Provider Instructions for Treatment How to access health informa tion online Indication:Non-smoker Start:15-Jan-2020 Instruction Type:Patient Education How to access health informa tion online - Detail Indication:Non-smoker Start:15-Jan-2020 Instruction Type:Patient Education Patient Instructions Indication:Non-smoker Start:15-Jan-2020 Instruction Type:Provider Instructions for Treatment How to access health informa tion online Indication:BMI 29.0-29.9,adult Start:12-Sep-2019 Instruction Type:Patient Education How to access health informa tion online - Detail Indication:BMI 29.0-29.9,adult Start:12-Sep-2019 Instruction Type:Patient Education Patient Instructions Indication:BMI 29.0-29.9,adult Start:12-Sep-2019 Instruction Type:Provider Instructions for Treatment How to access health informa tion online Indication:BMI 29.0-29.9,adult Start:08-Aug-2019 Instruction Type:Patient Education How to access health informa tion online - Detail Indication:BMI 29.0-29.9,adult Start:08-Aug-2019 Instruction Type:Patient Education Patient Instructions Indication:BMI 29.0-29.9,adult Start:08-Aug-2019 Instruction Type:Provider Instructions for Treatment How to access health informa tion online Indication:BMI 28.0-28.9,adult Start:05-Mar-2019 Instruction Type:Patient Education How to access health informa tion online - Detail Indication:BMI 28.0-28.9,adult Start:05-Mar-2019 Instruction Type:Patient Education Patient Instructions Indication:BMI 28.0-28.9,adult Start:05-Mar-2019 Instruction Type:Provider Instructions for Treatment How to access health informa tion online Indication:BMI 28.0-28.9,adult Start:21-Feb-2019 Instruction Type:Patient Education How to access health informa tion online - Detail Indication:BMI 28.0-28.9,adult Start:21-Feb-2019 Instruction Type:Patient Education Patient Instructions Indication:BMI 28.0-28.9,adult Start:21-Feb-2019 Instruction Type:Provider Instructions for Treatment How to access health informa tion online Indication:Non-smoker Start:21-Nov-2018 Instruction Type:Patient Education How to access health informa tion online - Detail Indication:Non-smoker Start:21-Nov-2018 Instruction Type:Patient Education Patient Instructions Indication:Non-smoker Start:21-Nov-2018 Instruction Type:Provider Instructions for Treatment How to access health informa tion online Indication:Non-smoker Start:02-Aug-2018 Instruction Type:Patient Education How to access health informa tion online - Detail Indication:Non-smoker Start:02-Aug-2018 Instruction Type:Patient Education Patient Instructions Indication:Non-smoker Start:02-Aug-2018 Instruction Type:Provider Instructions for Treatment How to access health informa tion online Indication:BMI 29.0-29.9,adult Start:12-Jul-2018 Instruction Type:Patient Education How to access health informa tion online - Detail Indication:BMI 29.0-29.9,adult Start:12-Jul-2018 Instruction Type:Patient Education Patient Instructions Indication:BMI 29.0-29.9,adult Start:12-Jul-2018 Instruction Type:Provider Instructions for Treatment How to access health informa tion online Indication:Hypercholesteremia (Renamed from Hypercholesterolemia) Start:06-May-2018 Instruction Type:Patient Education How to access health informa tion online - Detail Indication:Hypercholesteremia (Renamed from Hypercholesterolemia) Start:06-May-2018 Instruction Type:Patient Education Patient Instructions Indication:Hypercholesteremia (Renamed from Hypercholesterolemia) Start:06-May-2018 Instruction Type:Provider Instructions for Treatment How to access health informa tion online Indication:Non-smoker Start:03-Jan-2018 Instruction Type:Patient Education How to access health informa tion online - Detail Indication:Non-smoker Start:03-Jan-2018 Instruction Type:Patient Education Patient Instructions Indication:Non-smoker Start:03-Jan-2018 Instruction Type:Provider Instructions for Treatment [facility]; [facility] Work Phone: Instructions* Name Dates Details Patient Instructions Indication:Non-smoker Start:04-Feb-2021 Instruction Type:Provider Instructions for Treatment How to Access Health Informa tion Online using Patient Portal and [employer] Apps Indication:Non-smoker Start:04-Feb-2021 Instruction Type:Patient Education How to Access Health Informa tion Online using Patient Portal and [employer] Apps Indication:Non-smoker Start:20-May-2020 Instruction Type:Patient Education Patient Instructions Indication:Non-smoker Start:20-May-2020 Instruction Type:Provider Instructions for Treatment How to access health informa tion online Indication:Non-smoker Start:15-Jan-2020 Instruction Type:Patient Education How to access health informa tion online - Detail Indication:Non-smoker Start:15-Jan-2020 Instruction Type:Patient Education Patient Instructions Indication:Non-smoker Start:15-Jan-2020 Instruction Type:Provider Instructions for Treatment How to access health informa tion online Indication:BMI 29.0-29.9,adult Start:12-Sep-2019 Instruction Type:Patient Education How to access health informa tion online - Detail Indication:BMI 29.0-29.9,adult Start:12-Sep-2019 Instruction Type:Patient Education Patient Instructions Indication:BMI 29.0-29.9,adult Start:12-Sep-2019 Instruction Type:Provider Instructions for Treatment How to access health informa tion online Indication:BMI 29.0-29.9,adult Start:08-Aug-2019 Instruction Type:Patient Education How to access health informa tion online - Detail Indication:BMI 29.0-29.9,adult Start:08-Aug-2019 Instruction Type:Patient Education Patient Instructions Indication:BMI 29.0-29.9,adult Start:08-Aug-2019 Instruction Type:Provider Instructions for Treatment How to access health informa tion online Indication:BMI 28.0-28.9,adult Start:05-Mar-2019 Instruction Type:Patient Education How to access health informa tion online - Detail Indication:BMI 28.0-28.9,adult Start:05-Mar-2019 Instruction Type:Patient Education Patient Instructions Indication:BMI 28.0-28.9,adult Start:05-Mar-2019 Instruction Type:Provider Instructions for Treatment How to access health informa tion online Indication:BMI 28.0-28.9,adult Start:21-Feb-2019 Instruction Type:Patient Education How to access health informa tion online - Detail Indication:BMI 28.0-28.9,adult Start:21-Feb-2019 Instruction Type:Patient Education Patient Instructions Indication:BMI 28.0-28.9,adult Start:21-Feb-2019 Instruction Type:Provider Instructions for Treatment How to access health informa tion online Indication:Non-smoker Start:21-Nov-2018 Instruction Type:Patient Education How to access health informa tion online - Detail Indication:Non-smoker Start:21-Nov-2018 Instruction Type:Patient Education Patient Instructions Indication:Non-smoker Start:21-Nov-2018 Instruction Type:Provider Instructions for Treatment How to access health informa tion online Indication:Non-smoker Start:02-Aug-2018 Instruction Type:Patient Education How to access health informa tion online - Detail Indication:Non-smoker Start:02-Aug-2018 Instruction Type:Patient Education Patient Instructions Indication:Non-smoker Start:02-Aug-2018 Instruction Type:Provider Instructions for Treatment How to access health informa tion online Indication:BMI 29.0-29.9,adult Start:12-Jul-2018 Instruction Type:Patient Education How to access health informa tion online - Detail Indication:BMI 29.0-29.9,adult Start:12-Jul-2018 Instruction Type:Patient Education Patient Instructions Indication:BMI 29.0-29.9,adult Start:12-Jul-2018 Instruction Type:Provider Instructions for Treatment How to access health informa tion online Indication:Hypercholesteremia (Renamed from Hypercholesterolemia) Start:06-May-2018 Instruction Type:Patient Education How to access health informa tion online - Detail Indication:Hypercholesteremia (Renamed from Hypercholesterolemia) Start:06-May-2018 Instruction Type:Patient Education Patient Instructions Indication:Hypercholesteremia (Renamed from Hypercholesterolemia) Start:06-May-2018 Instruction Type:Provider Instructions for Treatment How to access health informa tion online Indication:Non-smoker Start:03-Jan-2018 Instruction Type:Patient Education How to access health informa tion online - Detail Indication:Non-smoker Start:03-Jan-2018 Instruction Type:Patient Education Patient Instructions Indication:Non-smoker Start:03-Jan-2018 Instruction Type:Provider Instructions for Treatment [facility]; [facility] Work Phone: Instructions* Name Dates Details Patient Instructions Indication:BMI 31.0-31.9,adult Start:18-May-2022 Instruction Type:Provider Instructions for Treatment How to Access Health Informa tion Online using Patient Portal and [employer] Apps Indication:BMI 31.0-31.9,adult Start:18-May-2022 Instruction Type:Patient Education Patient Instructions Indication:Non-smoker Start:19-Apr-2022 Instruction Type:Provider Instructions for Treatment Patient Instructions Indication:Non-smoker Start:19-Apr-2022 Instruction Type:Provider Instructions for Treatment How to Access Health Informa tion Online using Patient Portal and [employer] Indication:Non-smoker Start:19-Apr-2022 Instruction Type:Patient Education Patient Instructions Indication:Non-smoker Start:04-Feb-2021 Instruction Type:Provider Instructions for Treatment How to Access Health Informa tion Online using Patient Portal and [employer] Apps Indication:Non-smoker Start:04-Feb-2021 Instruction Type:Patient Education How to Access Health Informa tion Online using Patient Portal and [employer] Apps Indication:Non-smoker Start:20-May-2020 Instruction Type:Patient Education Patient Instructions Indication:Non-smoker Start:20-May-2020 Instruction Type:Provider Instructions for Treatment How to access health informa tion online Indication:Non-smoker Start:15-Jan-2020 Instruction Type:Patient Education How to access health informa tion online - Detail Indication:Non-smoker Start:15-Jan-2020 Instruction Type:Patient Education Patient Instructions Indication:Non-smoker Start:15-Jan-2020 Instruction Type:Provider Instructions for Treatment How to access health informa tion online Indication:BMI 29.0-29.9,adult Start:12-Sep-2019 Instruction Type:Patient Education How to access health informa tion online - Detail Indication:BMI 29.0-29.9,adult Start:12-Sep-2019 Instruction Type:Patient Education Patient Instructions Indication:BMI 29.0-29.9,adult Start:12-Sep-2019 Instruction Type:Provider Instructions for Treatment How to access health informa tion online Indication:BMI 29.0-29.9,adult Start:08-Aug-2019 Instruction Type:Patient Education How to access health informa tion online - Detail Indication:BMI 29.0-29.9,adult Start:08-Aug-2019 Instruction Type:Patient Education Patient Instructions Indication:BMI 29.0-29.9,adult Start:08-Aug-2019 Instruction Type:Provider Instructions for Treatment How to access health informa tion online Indication:BMI 28.0-28.9,adult Start:05-Mar-2019 Instruction Type:Patient Education How to access health informa tion online - Detail Indication:BMI 28.0-28.9,adult Start:05-Mar-2019 Instruction Type:Patient Education Patient Instructions Indication:BMI 28.0-28.9,adult Start:05-Mar-2019 Instruction Type:Provider Instructions for Treatment How to access health informa tion online Indication:BMI 28.0-28.9,adult Start:21-Feb-2019 Instruction Type:Patient Education How to access health informa tion online - Detail Indication:BMI 28.0-28.9,adult Start:21-Feb-2019 Instruction Type:Patient Education Patient Instructions Indication:BMI 28.0-28.9,adult Start:21-Feb-2019 Instruction Type:Provider Instructions for Treatment How to access health informa tion online Indication:Non-smoker Start:21-Nov-2018 Instruction Type:Patient Education How to access health informa tion online - Detail Indication:Non-smoker Start:21-Nov-2018 Instruction Type:Patient Education Patient Instructions Indication:Non-smoker Start:21-Nov-2018 Instruction Type:Provider Instructions for Treatment How to access health informa tion online Indication:Non-smoker Start:02-Aug-2018 Instruction Type:Patient Education How to access health informa tion online - Detail Indication:Non-smoker Start:02-Aug-2018 Instruction Type:Patient Education Patient Instructions Indication:Non-smoker Start:02-Aug-2018 Instruction Type:Provider Instructions for Treatment How to access health informa tion online Indication:BMI 29.0-29.9,adult Start:12-Jul-2018 Instruction Type:Patient Education How to access health informa tion online - Detail Indication:BMI 29.0-29.9,adult Start:12-Jul-2018 Instruction Type:Patient Education Patient Instructions Indication:BMI 29.0-29.9,adult Start:12-Jul-2018 Instruction Type:Provider Instructions for Treatment How to access health informa tion online Indication:Hypercholesteremia (Renamed from Hypercholesterolemia) Start:06-May-2018 Instruction Type:Patient Education How to access health informa tion online - Detail Indication:Hypercholesteremia (Renamed from Hypercholesterolemia) Start:06-May-2018 Instruction Type:Patient Education Patient Instructions Indication:Hypercholesteremia (Renamed from Hypercholesterolemia) Start:06-May-2018 Instruction Type:Provider Instructions for Treatment How to access health informa tion online Indication:Non-smoker Start:03-Jan-2018 Instruction Type:Patient Education How to access health informa tion online - Detail Indication:Non-smoker Start:03-Jan-2018 Instruction Type:Patient Education Patient Instructions Indication:Non-smoker Start:03-Jan-2018 Instruction Type:Provider Instructions for Treatment [facility]; [facility] Work Phone: Instructions* Name Dates Details Patient Instructions Indication:BMI 31.0-31.9,adult Start:18-May-2022 Instruction Type:Provider Instructions for Treatment How to Access Health Informa tion Online using Patient Portal and [employer] Indication:BMI 31.0-31.9,adult Start:18-May-2022 Instruction Type:Patient Education Patient Instructions Indication:Non-smoker Start:19-Apr-2022 Instruction Type:Provider Instructions for Treatment Patient Instructions Indication:Non-smoker Start:19-Apr-2022 Instruction Type:Provider Instructions for Treatment How to Access Health Informa tion Online using Patient Portal and [employer] Apps Indication:Non-smoker Start:19-Apr-2022 Instruction Type:Patient Education Patient Instructions Indication:Non-smoker Start:04-Feb-2021 Instruction Type:Provider Instructions for Treatment How to Access Health Informa tion Online using Patient Portal and [employer] Indication:Non-smoker Start:04-Feb-2021 Instruction Type:Patient Education How to Access Health Informa tion Online using Patient Portal and [employer] Indication:Non-smoker Start:20-May-2020 Instruction Type:Patient Education Patient Instructions Indication:Non-smoker Start:20-May-2020 Instruction Type:Provider Instructions for Treatment How to access health informa tion online Indication:Non-smoker Start:15-Jan-2020 Instruction Type:Patient Education How to access health informa tion online - Detail Indication:Non-smoker Start:15-Jan-2020 Instruction Type:Patient Education Patient Instructions Indication:Non-smoker Start:15-Jan-2020 Instruction Type:Provider Instructions for Treatment How to access health informa tion online Indication:BMI 29.0-29.9,adult Start:12-Sep-2019 Instruction Type:Patient Education How to access health informa tion online - Detail Indication:BMI 29.0-29.9,adult Start:12-Sep-2019 Instruction Type:Patient Education Patient Instructions Indication:BMI 29.0-29.9,adult Start:12-Sep-2019 Instruction Type:Provider Instructions for Treatment How to access health informa tion online Indication:BMI 29.0-29.9,adult Start:08-Aug-2019 Instruction Type:Patient Education How to access health informa tion online - Detail Indication:BMI 29.0-29.9,adult Start:08-Aug-2019 Instruction Type:Patient Education Patient Instructions Indication:BMI 29.0-29.9,adult Start:08-Aug-2019 Instruction Type:Provider Instructions for Treatment How to access health informa tion online Indication:BMI 28.0-28.9,adult Start:05-Mar-2019 Instruction Type:Patient Education How to access health informa tion online - Detail Indication:BMI 28.0-28.9,adult Start:05-Mar-2019 Instruction Type:Patient Education Patient Instructions Indication:BMI 28.0-28.9,adult Start:05-Mar-2019 Instruction Type:Provider Instructions for Treatment How to access health informa tion online Indication:BMI 28.0-28.9,adult Start:21-Feb-2019 Instruction Type:Patient Education How to access health informa tion online - Detail Indication:BMI 28.0-28.9,adult Start:21-Feb-2019 Instruction Type:Patient Education Patient Instructions Indication:BMI 28.0-28.9,adult Start:21-Feb-2019 Instruction Type:Provider Instructions for Treatment How to access health informa tion online Indication:Non-smoker Start:21-Nov-2018 Instruction Type:Patient Education How to access health informa tion online - Detail Indication:Non-smoker Start:21-Nov-2018 Instruction Type:Patient Education Patient Instructions Indication:Non-smoker Start:21-Nov-2018 Instruction Type:Provider Instructions for Treatment How to access health informa tion online Indication:Non-smoker Start:02-Aug-2018 Instruction Type:Patient Education How to access health informa tion online - Detail Indication:Non-smoker Start:02-Aug-2018 Instruction Type:Patient Education Patient Instructions Indication:Non-smoker Start:02-Aug-2018 Instruction Type:Provider Instructions for Treatment How to access health informa tion online Indication:BMI 29.0-29.9,adult Start:12-Jul-2018 Instruction Type:Patient Education How to access health informa tion online - Detail Indication:BMI 29.0-29.9,adult Start:12-Jul-2018 Instruction Type:Patient Education Patient Instructions Indication:BMI 29.0-29.9,adult Start:12-Jul-2018 Instruction Type:Provider Instructions for Treatment How to access health informa tion online Indication:Hypercholesteremia (Renamed from Hypercholesterolemia) Start:06-May-2018 Instruction Type:Patient Education How to access health informa tion online - Detail Indication:Hypercholesteremia (Renamed from Hypercholesterolemia) Start:06-May-2018 Instruction Type:Patient Education Patient Instructions Indication:Hypercholesteremia (Renamed from Hypercholesterolemia) Start:06-May-2018 Instruction Type:Provider Instructions for Treatment How to access health informa tion online Indication:Non-smoker Start:03-Jan-2018 Instruction Type:Patient Education How to access health informa tion online - Detail Indication:Non-smoker Start:03-Jan-2018 Instruction Type:Patient Education Patient Instructions Indication:Non-smoker Start:03-Jan-2018 Instruction Type:Provider Instructions for Treatment [facility] Work Phone: Instructions* Name Dates Details Patient Instructions Indication:BMI 31.0-31.9,adult Start:18-May-2022 Instruction Type:Provider Instructions for Treatment How to Access Health Informa tion Online using Patient Portal and [employer] Apps Indication:BMI 31.0-31.9,adult Start:18-May-2022 Instruction Type:Patient Education Patient Instructions Indication:Non-smoker Start:19-Apr-2022 Instruction Type:Provider Instructions for Treatment Patient Instructions Indication:Non-smoker Start:19-Apr-2022 Instruction Type:Provider Instructions for Treatment How to Access Health Informa tion Online using Patient Portal and [employer] Apps Indication:Non-smoker Start:19-Apr-2022 Instruction Type:Patient Education Patient Instructions Indication:Non-smoker Start:04-Feb-2021 Instruction Type:Provider Instructions for Treatment How to Access Health Informa tion Online using Patient Portal and [employer] Apps Indication:Non-smoker Start:04-Feb-2021 Instruction Type:Patient Education How to Access Health Informa tion Online using Patient Portal and [employer] Apps Indication:Non-smoker Start:20-May-2020 Instruction Type:Patient Education Patient Instructions Indication:Non-smoker Start:20-May-2020 Instruction Type:Provider Instructions for Treatment How to access health informa tion online Indication:Non-smoker Start:15-Jan-2020 Instruction Type:Patient Education How to access health informa tion online - Detail Indication:Non-smoker Start:15-Jan-2020 Instruction Type:Patient Education Patient Instructions Indication:Non-smoker Start:15-Jan-2020 Instruction Type:Provider Instructions for Treatment How to access health informa tion online Indication:BMI 29.0-29.9,adult Start:12-Sep-2019 Instruction Type:Patient Education How to access health informa tion online - Detail Indication:BMI 29.0-29.9,adult Start:12-Sep-2019 Instruction Type:Patient Education Patient Instructions Indication:BMI 29.0-29.9,adult Start:12-Sep-2019 Instruction Type:Provider Instructions for Treatment How to access health informa tion online Indication:BMI 29.0-29.9,adult Start:08-Aug-2019 Instruction Type:Patient Education How to access health informa tion online - Detail Indication:BMI 29.0-29.9,adult Start:08-Aug-2019 Instruction Type:Patient Education Patient Instructions Indication:BMI 29.0-29.9,adult Start:08-Aug-2019 Instruction Type:Provider Instructions for Treatment How to access health informa tion online Indication:BMI 28.0-28.9,adult Start:05-Mar-2019 Instruction Type:Patient Education How to access health informa tion online - Detail Indication:BMI 28.0-28.9,adult Start:05-Mar-2019 Instruction Type:Patient Education Patient Instructions Indication:BMI 28.0-28.9,adult Start:05-Mar-2019 Instruction Type:Provider Instructions for Treatment How to access health informa tion online Indication:BMI 28.0-28.9,adult Start:21-Feb-2019 Instruction Type:Patient Education How to access health informa tion online - Detail Indication:BMI 28.0-28.9,adult Start:21-Feb-2019 Instruction Type:Patient Education Patient Instructions Indication:BMI 28.0-28.9,adult Start:21-Feb-2019 Instruction Type:Provider Instructions for Treatment How to access health informa tion online Indication:Non-smoker Start:21-Nov-2018 Instruction Type:Patient Education How to access health informa tion online - Detail Indication:Non-smoker Start:21-Nov-2018 Instruction Type:Patient Education Patient Instructions Indication:Non-smoker Start:21-Nov-2018 Instruction Type:Provider Instructions for Treatment How to access health informa tion online Indication:Non-smoker Start:02-Aug-2018 Instruction Type:Patient Education How to access health informa tion online - Detail Indication:Non-smoker Start:02-Aug-2018 Instruction Type:Patient Education Patient Instructions Indication:Non-smoker Start:02-Aug-2018 Instruction Type:Provider Instructions for Treatment How to access health informa tion online Indication:BMI 29.0-29.9,adult Start:12-Jul-2018 Instruction Type:Patient Education How to access health informa tion online - Detail Indication:BMI 29.0-29.9,adult Start:12-Jul-2018 Instruction Type:Patient Education Patient Instructions Indication:BMI 29.0-29.9,adult Start:12-Jul-2018 Instruction Type:Provider Instructions for Treatment How to access health informa tion online Indication:Hypercholesteremia (Renamed from Hypercholesterolemia) Start:06-May-2018 Instruction Type:Patient Education How to access health informa tion online - Detail Indication:Hypercholesteremia (Renamed from Hypercholesterolemia) Start:06-May-2018 Instruction Type:Patient Education Patient Instructions Indication:Hypercholesteremia (Renamed from Hypercholesterolemia) Start:06-May-2018 Instruction Type:Provider Instructions for Treatment How to access health informa tion online Indication:Non-smoker Start:03-Jan-2018 Instruction Type:Patient Education How to access health informa tion online - Detail Indication:Non-smoker Start:03-Jan-2018 Instruction Type:Patient Education Patient Instructions Indication:Non-smoker Start:03-Jan-2018 Instruction Type:Provider Instructions for Treatment [facility] Work Phone: Instructions* Name Dates Details How to Access Health Informa tion Online using Patient Portal and [employer] Apps Indication:Non-smoker Start:27-Nov-2022 Instruction Type:Patient Education Patient Instructions Indication:Non-smoker Start:27-Nov-2022 Instruction Type:Provider Instructions for Treatment Patient Instructions Indication:Non-smoker Start:29-Sep-2022 Instruction Type:Provider Instructions for Treatment How to Access Health Informa tion Online using Patient Portal and [employer] Apps Indication:Non-smoker Start:29-Sep-2022 Instruction Type:Patient Education Patient Instructions Indication:BMI 31.0-31.9,adult Start:18-May-2022 Instruction Type:Provider Instructions for Treatment How to Access Health Informa tion Online using Patient Portal and [employer] Apps Indication:BMI 31.0-31.9,adult Start:18-May-2022 Instruction Type:Patient Education Patient Instructions Indication:Non-smoker Start:19-Apr-2022 Instruction Type:Provider Instructions for Treatment Patient Instructions Indication:Non-smoker Start:19-Apr-2022 Instruction Type:Provider Instructions for Treatment How to Access Health Informa tion Online using Patient Portal and [employer] Apps Indication:Non-smoker Start:19-Apr-2022 Instruction Type:Patient Education Patient Instructions Indication:Non-smoker Start:04-Feb-2021 Instruction Type:Provider Instructions for Treatment How to Access Health Informa tion Online using Patient Portal and [employer] Apps Indication:Non-smoker Start:04-Feb-2021 Instruction Type:Patient Education How to Access Health Informa tion Online using Patient Portal and [employer] Apps Indication:Non-smoker Start:20-May-2020 Instruction Type:Patient Education Patient Instructions Indication:Non-smoker Start:20-May-2020 Instruction Type:Provider Instructions for Treatment How to access health informa tion online Indication:Non-smoker Start:15-Jan-2020 Instruction Type:Patient Education How to access health informa tion online - Detail Indication:Non-smoker Start:15-Jan-2020 Instruction Type:Patient Education Patient Instructions Indication:Non-smoker Start:15-Jan-2020 Instruction Type:Provider Instructions for Treatment How to access health informa tion online Indication:BMI 29.0-29.9,adult Start:12-Sep-2019 Instruction Type:Patient Education How to access health informa tion online - Detail Indication:BMI 29.0-29.9,adult Start:12-Sep-2019 Instruction Type:Patient Education Patient Instructions Indication:BMI 29.0-29.9,adult Start:12-Sep-2019 Instruction Type:Provider Instructions for Treatment How to access health informa tion online Indication:BMI 29.0-29.9,adult Start:08-Aug-2019 Instruction Type:Patient Education How to access health informa tion online - Detail Indication:BMI 29.0-29.9,adult Start:08-Aug-2019 Instruction Type:Patient Education Patient Instructions Indication:BMI 29.0-29.9,adult Start:08-Aug-2019 Instruction Type:Provider Instructions for Treatment How to access health informa tion online Indication:BMI 28.0-28.9,adult Start:05-Mar-2019 Instruction Type:Patient Education How to access health informa tion online - Detail Indication:BMI 28.0-28.9,adult Start:05-Mar-2019 Instruction Type:Patient Education Patient Instructions Indication:BMI 28.0-28.9,adult Start:05-Mar-2019 Instruction Type:Provider Instructions for Treatment How to access health informa tion online Indication:BMI 28.0-28.9,adult Start:21-Feb-2019 Instruction Type:Patient Education How to access health informa tion online - Detail Indication:BMI 28.0-28.9,adult Start:21-Feb-2019 Instruction Type:Patient Education Patient Instructions Indication:BMI 28.0-28.9,adult Start:21-Feb-2019 Instruction Type:Provider Instructions for Treatment How to access health informa tion online Indication:Non-smoker Start:21-Nov-2018 Instruction Type:Patient Education How to access health informa tion online - Detail Indication:Non-smoker Start:21-Nov-2018 Instruction Type:Patient Education Patient Instructions Indication:Non-smoker Start:21-Nov-2018 Instruction Type:Provider Instructions for Treatment How to access health informa tion online Indication:Non-smoker Start:02-Aug-2018 Instruction Type:Patient Education How to access health informa tion online - Detail Indication:Non-smoker Start:02-Aug-2018 Instruction Type:Patient Education Patient Instructions Indication:Non-smoker Start:02-Aug-2018 Instruction Type:Provider Instructions for Treatment How to access health informa tion online Indication:BMI 29.0-29.9,adult Start:12-Jul-2018 Instruction Type:Patient Education How to access health informa tion online - Detail Indication:BMI 29.0-29.9,adult Start:12-Jul-2018 Instruction Type:Patient Education Patient Instructions Indication:BMI 29.0-29.9,adult Start:12-Jul-2018 Instruction Type:Provider Instructions for Treatment How to access health informa tion online Indication:Hypercholesteremia (Renamed from Hypercholesterolemia) Start:06-May-2018 Instruction Type:Patient Education How to access health informa tion online - Detail Indication:Hypercholesteremia (Renamed from Hypercholesterolemia) Start:06-May-2018 Instruction Type:Patient Education Patient Instructions Indication:Hypercholesteremia (Renamed from Hypercholesterolemia) Start:06-May-2018 Instruction Type:Provider Instructions for Treatment How to access health informa tion online Indication:Non-smoker Start:03-Jan-2018 Instruction Type:Patient Education How to access health informa tion online - Detail Indication:Non-smoker Start:03-Jan-2018 Instruction Type:Patient Education Patient Instructions Indication:Non-smoker Start:03-Jan-2018 Instruction Type:Provider Instructions for Treatment [facility]; [facility] Work Phone: Instructions* Name Dates Details How to Access Health Informa tion Online using Patient Portal and [employer] Apps Indication:Non-smoker Start:27-Nov-2022 Instruction Type:Patient Education Patient Instructions Indication:Non-smoker Start:27-Nov-2022 Instruction Type:Provider Instructions for Treatment Patient Instructions Indication:Non-smoker Start:29-Sep-2022 Instruction Type:Provider Instructions for Treatment How to Access Health Informa tion Online using Patient Portal and [employer] Apps Indication:Non-smoker Start:29-Sep-2022 Instruction Type:Patient Education Patient Instructions Indication:BMI 31.0-31.9,adult Start:18-May-2022 Instruction Type:Provider Instructions for Treatment How to Access Health Informa tion Online using Patient Portal and [employer] Apps Indication:BMI 31.0-31.9,adult Start:18-May-2022 Instruction Type:Patient Education Patient Instructions Indication:Non-smoker Start:19-Apr-2022 Instruction Type:Provider Instructions for Treatment Patient Instructions Indication:Non-smoker Start:19-Apr-2022 Instruction Type:Provider Instructions for Treatment How to Access Health Informa tion Online using Patient Portal and [employer] Apps Indication:Non-smoker Start:19-Apr-2022 Instruction Type:Patient Education Patient Instructions Indication:Non-smoker Start:04-Feb-2021 Instruction Type:Provider Instructions for Treatment How to Access Health Informa tion Online using Patient Portal and [employer] Apps Indication:Non-smoker Start:04-Feb-2021 Instruction Type:Patient Education How to Access Health Informa tion Online using Patient Portal and [employer] Apps Indication:Non-smoker Start:20-May-2020 Instruction Type:Patient Education Patient Instructions Indication:Non-smoker Start:20-May-2020 Instruction Type:Provider Instructions for Treatment How to access health informa tion online Indication:Non-smoker Start:15-Jan-2020 Instruction Type:Patient Education How to access health informa tion online - Detail Indication:Non-smoker Start:15-Jan-2020 Instruction Type:Patient Education Patient Instructions Indication:Non-smoker Start:15-Jan-2020 Instruction Type:Provider Instructions for Treatment How to access health informa tion online Indication:BMI 29.0-29.9,adult Start:12-Sep-2019 Instruction Type:Patient Education How to access health informa tion online - Detail Indication:BMI 29.0-29.9,adult Start:12-Sep-2019 Instruction Type:Patient Education Patient Instructions Indication:BMI 29.0-29.9,adult Start:12-Sep-2019 Instruction Type:Provider Instructions for Treatment How to access health informa tion online Indication:BMI 29.0-29.9,adult Start:08-Aug-2019 Instruction Type:Patient Education How to access health informa tion online - Detail Indication:BMI 29.0-29.9,adult Start:08-Aug-2019 Instruction Type:Patient Education Patient Instructions Indication:BMI 29.0-29.9,adult Start:08-Aug-2019 Instruction Type:Provider Instructions for Treatment How to access health informa tion online Indication:BMI 28.0-28.9,adult Start:05-Mar-2019 Instruction Type:Patient Education How to access health informa tion online - Detail Indication:BMI 28.0-28.9,adult Start:05-Mar-2019 Instruction Type:Patient Education Patient Instructions Indication:BMI 28.0-28.9,adult Start:05-Mar-2019 Instruction Type:Provider Instructions for Treatment How to access health informa tion online Indication:BMI 28.0-28.9,adult Start:21-Feb-2019 Instruction Type:Patient Education How to access health informa tion online - Detail Indication:BMI 28.0-28.9,adult Start:21-Feb-2019 Instruction Type:Patient Education Patient Instructions Indication:BMI 28.0-28.9,adult Start:21-Feb-2019 Instruction Type:Provider Instructions for Treatment How to access health informa tion online Indication:Non-smoker Start:21-Nov-2018 Instruction Type:Patient Education How to access health informa tion online - Detail Indication:Non-smoker Start:21-Nov-2018 Instruction Type:Patient Education Patient Instructions Indication:Non-smoker Start:21-Nov-2018 Instruction Type:Provider Instructions for Treatment How to access health informa tion online Indication:Non-smoker Start:02-Aug-2018 Instruction Type:Patient Education How to access health informa tion online - Detail Indication:Non-smoker Start:02-Aug-2018 Instruction Type:Patient Education Patient Instructions Indication:Non-smoker Start:02-Aug-2018 Instruction Type:Provider Instructions for Treatment How to access health informa tion online Indication:BMI 29.0-29.9,adult Start:12-Jul-2018 Instruction Type:Patient Education How to access health informa tion online - Detail Indication:BMI 29.0-29.9,adult Start:12-Jul-2018 Instruction Type:Patient Education Patient Instructions Indication:BMI 29.0-29.9,adult Start:12-Jul-2018 Instruction Type:Provider Instructions for Treatment How to access health informa tion online Indication:Hypercholesteremia (Renamed from Hypercholesterolemia) Start:06-May-2018 Instruction Type:Patient Education How to access health informa tion online - Detail Indication:Hypercholesteremia (Renamed from Hypercholesterolemia) Start:06-May-2018 Instruction Type:Patient Education Patient Instructions Indication:Hypercholesteremia (Renamed from Hypercholesterolemia) Start:06-May-2018 Instruction Type:Provider Instructions for Treatment How to access health informa tion online Indication:Non-smoker Start:03-Jan-2018 Instruction Type:Patient Education How to access health informa tion online - Detail Indication:Non-smoker Start:03-Jan-2018 Instruction Type:Patient Education Patient Instructions Indication:Non-smoker Start:03-Jan-2018 Instruction Type:Provider Instructions for Treatment [facility]; [facility] Work Phone: reason for referral (narrative)No reason for referral information [facility]: Summary Purpose Family History No Family History Records FoundUnknown Family Member Name Dates Details Depression Comments:Sister. Father. Status:Active Heart Disease Comments:Mother. Father. Bro ther. Status:Active Hypertension Comments:Sister. Status:Active Unknown Family Member Name Dates Details Depression Comments:Sister. Father. Status:Active Heart Disease Comments:Mother. Father. Bro ther. Status:Active Hypertension Comments:Sister. Status:Active Unknown Family Member Name Dates Details Depression Comments:Sister. Father. Status:Active Heart Disease Comments:Mother. Father. Bro ther. Status:Active Hypertension Comments:Sister. Status:Active Unknown Family Member Name Dates Details Depression Comments:Sister. Father. Status:Active Heart Disease Comments:Mother. Father. Bro ther. Status:Active Hypertension Comments:Sister. Status:Active Unknown Family Member Name Dates Details Depression Comments:Sister. Father. Status:Active Heart Disease Comments:Mother. Father. Bro ther. Status:Active Hypertension Comments:Sister. Status:Active Unknown Family Member Name Dates Details Depression Comments:Sister. Father. Status:Active Heart Disease Comments:Mother. Father. Bro ther. Status:Active Hypertension Comments:Sister. Status:Active Unknown Family Member Name Dates Details Depression Comments:Sister. Father. Status:Active Heart Disease Comments:Mother. Father. Bro ther. Status:Active Hypertension Comments:Sister. Status:Active Unknown Family Member Name Dates Details Depression Comments:Sister. Father. Status:Active Heart Disease Comments:Mother. Father. Bro ther. Status:Active Hypertension Comments:Sister. Status:Active Unknown Family Member Name Dates Details Depression Comments:Sister. Father. Status:Active Heart Disease Comments:Mother. Father. Bro ther. Status:Active Hypertension Comments:Sister. Status:Active Unknown Family Member Name Dates Details Depression Comments:Sister. Father. Status:Active Heart Disease Comments:Mother. Father. Bro ther. Status:Active Hypertension Comments:Sister. Status:Active Unknown Family Member Name Dates Details Depression Comments:Sister. Father. Status:Active Heart Disease Comments:Mother. Father. Bro ther. Status:Active Hypertension Comments:Sister. Status:Active Unknown Family Member Name Dates Details Depression Comments:Sister. Father. Status:Active Heart Disease Comments:Mother. Father. Bro ther. Status:Active Hypertension Comments:Sister. Status:Active Unknown Family Member Name Dates Details Depression Comments:Sister. Father. Status:Active Heart Disease Comments:Mother. Father. Bro ther. Status:Active Hypertension Comments:Sister. Status:Active Unknown Family Member Name Dates Details Depression Comments:Sister. Father. Status:Active Heart Disease Comments:Mother. Father. Bro ther. Status:Active Hypertension Comments:Sister. Status:Active Unknown Family Member Name Dates Details Depression Comments:Sister. Father. Status:Active Heart Disease Comments:Mother. Father. Bro ther. Status:Active Hypertension Comments:Sister. Status:Active Unknown Family Member Name Dates Details Depression Comments:Sister. Father. Status:Active Heart Disease Comments:Mother. Father. Bro ther. Status:Active Hypertension Comments:Sister. Status:Active Unknown Family Member Name Dates Details Depression Comments:Sister. Father. Status:Active Heart Disease Comments:Mother. Father. Bro ther. Status:Active Hypertension Comments:Sister. Status:Active Unknown Family Member Name Dates Details Depression Comments:Sister. Father. Status:Active Heart Disease Comments:Mother. Father. Bro ther. Status:Active Hypertension Comments:Sister. Status:Active Relationship Condition Age at Onset Recorded Date/T lai father Coronary artery disease Unknown Sudden cardiac Unknown sister Hypertension Unknown Unknown Family Member Name Dates Details Depression Comments:Sister. Father. Status:Active Heart Disease Comments:Mother. Father. Bro ther. Status:Active Hypertension Comments:Sister. Status:Active Unknown Family Member Name Dates Details Depression Comments:Sister. Father. Status:Active Heart Disease Comments:Mother. Father. Bro ther. Status:Active Hypertension Comments:Sister. Status:Active Unknown Family Member Name Dates Details Depression Comments:Sister. Father. Status:Active Heart Disease Comments:Mother. Father. Bro ther. Status:Active Hypertension Comments:Sister. Status:Active Advance Directives No Advanced Directives Records Found Name Dates Details Immunization Registry [place] - Effective on 01/03/2018. Expiration date unspecified Effective:03-Jan-2018 Name Dates Details Immunization Registry [place] - Effective on 01/03/2018. Expiration date unspecified Effective:03-Jan-2018 Name Dates Details Immunization Registry [place] - Effective on 01/03/2018. Expiration date unspecified Effective:03-Jan-2018 Name Dates Details Immunization Registry [place] - Effective on 01/03/2018. Expiration date unspecified Effective:03-Jan-2018 Name Dates Details Immunization Registry [place] - Effective on 01/03/2018. Expiration date unspecified Effective:03-Jan-2018 Name Dates Details Immunization Registry [place] - Effective on 01/03/2018. Expiration date unspecified Effective:03-Jan-2018 Name Dates Details Immunization Registry [place] - Effective on 01/03/2018. Expiration date unspecified Effective:03-Jan-2018 Name Dates Details Immunization Registry [place] - Effective on 01/03/2018. Expiration date unspecified Effective:03-Jan-2018 Name Dates Details Immunization Registry [place] - Effective on 01/03/2018. Expiration date unspecified Effective:03-Jan-2018 Name Dates Details Immunization Registry [place] - Effective on 01/03/2018. Expiration date unspecified Effective:03-Jan-2018 Name Dates Details Immunization Registry [place] - Effective on 01/03/2018. Expiration date unspecified Effective:03-Jan-2018 Name Dates Details Immunization Registry [place] - Effective on 01/03/2018. Expiration date unspecified Effective:03-Jan-2018 Name Dates Details Immunization Registry [place] - Effective on 01/03/2018. Expiration date unspecified Effective:03-Jan-2018 Name Dates Details Immunization Registry [place] - Effective on 01/03/2018. Expiration date unspecified Effective:03-Jan-2018 Name Dates Details Immunization Registry [place] - Effective on 01/03/2018. Expiration date unspecified Effective:03-Jan-2018 Name Dates Details Immunization Registry [place] - Effective on 01/03/2018. Expiration date unspecified Effective:03-Jan-2018 Advance Directive Response Recorded Date/ Time Advance Directives Yes October 8:48am Living Will No July 06, 2022 9 :59pm Power of [employer] No July 06, 2022 9:59pm Advance Directive Response Recorded Date/ Time Advance Directives Yes October 8:48am Living Will No July 10, 2022 1 1:14pm Power of [employer] No July 10, 2022 11:14pm Name Dates Details Immunization Registry [place] - Effective on 01/03/2018. Expiration date unspecified Effective:03-Jan-2018 Name Dates Details Immunization Registry [place] - Effective on 01/03/2018. Expiration date unspecified Effective:03-Jan-2018 Advance Directive Response Recorded Date/ Time Advance Directives Yes September 11 8:41am Instructions Name Dates Details Hypercholesteremia (Renamed from Hypercholesterolemia) : How to access health information online Indication:Hypercholesteremia (Renamed from Hypercholesterolemia) Hypercholesteremia (Renamed from Hypercholesterolemia) : How to access health information online - Detail Indication:Hypercholesteremia (Renamed from Hypercholesterolemia) Hypercholesteremia (Renamed from Hypercholesterolemia) : Patient Instructions Indication:Hypercholesteremia (Renamed from Hypercholesterolemia) Non-smoker : How to access h ealth information online Indication:Non-smoker Non-smoker : How to access h ealth information online - Detail Indication:Non-smoker Non-smoker : Patient Instruc tions Indication:Non-smoker Name Dates Details Hypercholesteremia (Renamed from Hypercholesterolemia) : How to access health information online Indication:Hypercholesteremia (Renamed from Hypercholesterolemia) Hypercholesteremia (Renamed from Hypercholesterolemia) : How to access health information online - Detail Indication:Hypercholesteremia (Renamed from Hypercholesterolemia) Hypercholesteremia (Renamed from Hypercholesterolemia) : Patient Instructions Indication:Hypercholesteremia (Renamed from Hypercholesterolemia) Non-smoker : How to access h ealth information online Indication:Non-smoker Non-smoker : How to access h ealth information online - Detail Indication:Non-smoker Non-smoker : Patient Instruc tions Indication:Non-smoker Name Dates Details How to access health informa tion online Indication:BMI 29.0-29.9,adult Start:12-Jul-2018 Instruction Type:Patient Education How to access health informa tion online - Detail Indication:BMI 29.0-29.9,adult Start:12-Jul-2018 Instruction Type:Patient Education Patient Instructions Indication:BMI 29.0-29.9,adult Start:12-Jul-2018 Instruction Type:Provider Instructions for Treatment How to access health informa tion online Indication:Hypercholesteremia (Renamed from Hypercholesterolemia) Start:06-May-2018 Instruction Type:Patient Education How to access health informa tion online - Detail Indication:Hypercholesteremia (Renamed from Hypercholesterolemia) Start:06-May-2018 Instruction Type:Patient Education Patient Instructions Indication:Hypercholesteremia (Renamed from Hypercholesterolemia) Start:06-May-2018 Instruction Type:Provider Instructions for Treatment How to access health informa tion online Indication:Non-smoker Start:03-Jan-2018 Instruction Type:Patient Education How to access health informa tion online - Detail Indication:Non-smoker Start:03-Jan-2018 Instruction Type:Patient Education Patient Instructions Indication:Non-smoker Start:03-Jan-2018 Instruction Type:Provider Instructions for Treatment Name Dates Details How to access health informa tion online Indication:BMI 29.0-29.9,adult Start:12-Jul-2018 Instruction Type:Patient Education How to access health informa tion online - Detail Indication:BMI 29.0-29.9,adult Start:12-Jul-2018 Instruction Type:Patient Education Patient Instructions Indication:BMI 29.0-29.9,adult Start:12-Jul-2018 Instruction Type:Provider Instructions for Treatment How to access health informa tion online Indication:Hypercholesteremia (Renamed from Hypercholesterolemia) Start:06-May-2018 Instruction Type:Patient Education How to access health informa tion online - Detail Indication:Hypercholesteremia (Renamed from Hypercholesterolemia) Start:06-May-2018 Instruction Type:Patient Education Patient Instructions Indication:Hypercholesteremia (Renamed from Hypercholesterolemia) Start:06-May-2018 Instruction Type:Provider Instructions for Treatment How to access health informa tion online Indication:Non-smoker Start:03-Jan-2018 Instruction Type:Patient Education How to access health informa tion online - Detail Indication:Non-smoker Start:03-Jan-2018 Instruction Type:Patient Education Patient Instructions Indication:Non-smoker Start:03-Jan-2018 Instruction Type:Provider Instructions for Treatment Name Dates Details How to access health informa tion online Indication:Non-smoker Start:02-Aug-2018 Instruction Type:Patient Education How to access health informa tion online - Detail Indication:Non-smoker Start:02-Aug-2018 Instruction Type:Patient Education Patient Instructions Indication:Non-smoker Start:02-Aug-2018 Instruction Type:Provider Instructions for Treatment How to access health informa tion online Indication:BMI 29.0-29.9,adult Start:12-Jul-2018 Instruction Type:Patient Education How to access health informa tion online - Detail Indication:BMI 29.0-29.9,adult Start:12-Jul-2018 Instruction Type:Patient Education Patient Instructions Indication:BMI 29.0-29.9,adult Start:12-Jul-2018 Instruction Type:Provider Instructions for Treatment How to access health informa tion online Indication:Hypercholesteremia (Renamed from Hypercholesterolemia) Start:06-May-2018 Instruction Type:Patient Education How to access health informa tion online - Detail Indication:Hypercholesteremia (Renamed from Hypercholesterolemia) Start:06-May-2018 Instruction Type:Patient Education Patient Instructions Indication:Hypercholesteremia (Renamed from Hypercholesterolemia) Start:06-May-2018 Instruction Type:Provider Instructions for Treatment How to access health informa tion online Indication:Non-smoker Start:03-Jan-2018 Instruction Type:Patient Education How to access health informa tion online - Detail Indication:Non-smoker Start:03-Jan-2018 Instruction Type:Patient Education Patient Instructions Indication:Non-smoker Start:03-Jan-2018 Instruction Type:Provider Instructions for Treatment Name Dates Details How to access health informa tion online Indication:Non-smoker Start:02-Aug-2018 Instruction Type:Patient Education How to access health informa tion online - Detail Indication:Non-smoker Start:02-Aug-2018 Instruction Type:Patient Education Patient Instructions Indication:Non-smoker Start:02-Aug-2018 Instruction Type:Provider Instructions for Treatment How to access health informa tion online Indication:BMI 29.0-29.9,adult Start:12-Jul-2018 Instruction Type:Patient Education How to access health informa tion online - Detail Indication:BMI 29.0-29.9,adult Start:12-Jul-2018 Instruction Type:Patient Education Patient Instructions Indication:BMI 29.0-29.9,adult Start:12-Jul-2018 Instruction Type:Provider Instructions for Treatment How to access health informa tion online Indication:Hypercholesteremia (Renamed from Hypercholesterolemia) Start:06-May-2018 Instruction Type:Patient Education How to access health informa tion online - Detail Indication:Hypercholesteremia (Renamed from Hypercholesterolemia) Start:06-May-2018 Instruction Type:Patient Education Patient Instructions Indication:Hypercholesteremia (Renamed from Hypercholesterolemia) Start:06-May-2018 Instruction Type:Provider Instructions for Treatment How to access health informa tion online Indication:Non-smoker Start:03-Jan-2018 Instruction Type:Patient Education How to access health informa tion online - Detail Indication:Non-smoker Start:03-Jan-2018 Instruction Type:Patient Education Patient Instructions Indication:Non-smoker Start:03-Jan-2018 Instruction Type:Provider Instructions for Treatment Name Dates Details How to access health informa tion online Indication:Non-smoker Start:21-Nov-2018 Instruction Type:Patient Education How to access health informa tion online - Detail Indication:Non-smoker Start:21-Nov-2018 Instruction Type:Patient Education Patient Instructions Indication:Non-smoker Start:21-Nov-2018 Instruction Type:Provider Instructions for Treatment How to access health informa tion online Indication:Non-smoker Start:02-Aug-2018 Instruction Type:Patient Education How to access health informa tion online - Detail Indication:Non-smoker Start:02-Aug-2018 Instruction Type:Patient Education Patient Instructions Indication:Non-smoker Start:02-Aug-2018 Instruction Type:Provider Instructions for Treatment How to access health informa tion online Indication:BMI 29.0-29.9,adult Start:12-Jul-2018 Instruction Type:Patient Education How to access health informa tion online - Detail Indication:BMI 29.0-29.9,adult Start:12-Jul-2018 Instruction Type:Patient Education Patient Instructions Indication:BMI 29.0-29.9,adult Start:12-Jul-2018 Instruction Type:Provider Instructions for Treatment How to access health informa tion online Indication:Hypercholesteremia (Renamed from Hypercholesterolemia) Start:06-May-2018 Instruction Type:Patient Education How to access health informa tion online - Detail Indication:Hypercholesteremia (Renamed from Hypercholesterolemia) Start:06-May-2018 Instruction Type:Patient Education Patient Instructions Indication:Hypercholesteremia (Renamed from Hypercholesterolemia) Start:06-May-2018 Instruction Type:Provider Instructions for Treatment How to access health informa tion online Indication:Non-smoker Start:03-Jan-2018 Instruction Type:Patient Education How to access health informa tion online - Detail Indication:Non-smoker Start:03-Jan-2018 Instruction Type:Patient Education Patient Instructions Indication:Non-smoker Start:03-Jan-2018 Instruction Type:Provider Instructions for Treatment Name Dates Details How to access health informa tion online Indication:BMI 29.0-29.9,adult Start:12-Sep-2019 Instruction Type:Patient Education How to access health informa tion online - Detail Indication:BMI 29.0-29.9,adult Start:12-Sep-2019 Instruction Type:Patient Education Patient Instructions Indication:BMI 29.0-29.9,adult Start:12-Sep-2019 Instruction Type:Provider Instructions for Treatment How to access health informa tion online Indication:BMI 29.0-29.9,adult Start:08-Aug-2019 Instruction Type:Patient Education How to access health informa tion online - Detail Indication:BMI 29.0-29.9,adult Start:08-Aug-2019 Instruction Type:Patient Education Patient Instructions Indication:BMI 29.0-29.9,adult Start:08-Aug-2019 Instruction Type:Provider Instructions for Treatment How to access health informa tion online Indication:BMI 28.0-28.9,adult Start:05-Mar-2019 Instruction Type:Patient Education How to access health informa tion online - Detail Indication:BMI 28.0-28.9,adult Start:05-Mar-2019 Instruction Type:Patient Education Patient Instructions Indication:BMI 28.0-28.9,adult Start:05-Mar-2019 Instruction Type:Provider Instructions for Treatment How to access health informa tion online Indication:BMI 28.0-28.9,adult Start:21-Feb-2019 Instruction Type:Patient Education How to access health informa tion online - Detail Indication:BMI 28.0-28.9,adult Start:21-Feb-2019 Instruction Type:Patient Education Patient Instructions Indication:BMI 28.0-28.9,adult Start:21-Feb-2019 Instruction Type:Provider Instructions for Treatment How to access health informa tion online Indication:Non-smoker Start:21-Nov-2018 Instruction Type:Patient Education How to access health informa tion online - Detail Indication:Non-smoker Start:21-Nov-2018 Instruction Type:Patient Education Patient Instructions Indication:Non-smoker Start:21-Nov-2018 Instruction Type:Provider Instructions for Treatment How to access health informa tion online Indication:Non-smoker Start:02-Aug-2018 Instruction Type:Patient Education How to access health informa tion online - Detail Indication:Non-smoker Start:02-Aug-2018 Instruction Type:Patient Education Patient Instructions Indication:Non-smoker Start:02-Aug-2018 Instruction Type:Provider Instructions for Treatment How to access health informa tion online Indication:BMI 29.0-29.9,adult Start:12-Jul-2018 Instruction Type:Patient Education How to access health informa tion online - Detail Indication:BMI 29.0-29.9,adult Start:12-Jul-2018 Instruction Type:Patient Education Patient Instructions Indication:BMI 29.0-29.9,adult Start:12-Jul-2018 Instruction Type:Provider Instructions for Treatment How to access health informa tion online Indication:Hypercholesteremia (Renamed from Hypercholesterolemia) Start:06-May-2018 Instruction Type:Patient Education How to access health informa tion online - Detail Indication:Hypercholesteremia (Renamed from Hypercholesterolemia) Start:06-May-2018 Instruction Type:Patient Education Patient Instructions Indication:Hypercholesteremia (Renamed from Hypercholesterolemia) Start:06-May-2018 Instruction Type:Provider Instructions for Treatment How to access health informa tion online Indication:Non-smoker Start:03-Jan-2018 Instruction Type:Patient Education How to access health informa tion online - Detail Indication:Non-smoker Start:03-Jan-2018 Instruction Type:Patient Education Patient Instructions Indication:Non-smoker Start:03-Jan-2018 Instruction Type:Provider Instructions for Treatment Name Dates Details How to access health informa tion online Indication:BMI 29.0-29.9,adult Start:12-Sep-2019 Instruction Type:Patient Education How to access health informa tion online - Detail Indication:BMI 29.0-29.9,adult Start:12-Sep-2019 Instruction Type:Patient Education Patient Instructions Indication:BMI 29.0-29.9,adult Start:12-Sep-2019 Instruction Type:Provider Instructions for Treatment How to access health informa tion online Indication:BMI 29.0-29.9,adult Start:08-Aug-2019 Instruction Type:Patient Education How to access health informa tion online - Detail Indication:BMI 29.0-29.9,adult Start:08-Aug-2019 Instruction Type:Patient Education Patient Instructions Indication:BMI 29.0-29.9,adult Start:08-Aug-2019 Instruction Type:Provider Instructions for Treatment How to access health informa tion online Indication:BMI 28.0-28.9,adult Start:05-Mar-2019 Instruction Type:Patient Education How to access health informa tion online - Detail Indication:BMI 28.0-28.9,adult Start:05-Mar-2019 Instruction Type:Patient Education Patient Instructions Indication:BMI 28.0-28.9,adult Start:05-Mar-2019 Instruction Type:Provider Instructions for Treatment How to access health informa tion online Indication:BMI 28.0-28.9,adult Start:21-Feb-2019 Instruction Type:Patient Education How to access health informa tion online - Detail Indication:BMI 28.0-28.9,adult Start:21-Feb-2019 Instruction Type:Patient Education Patient Instructions Indication:BMI 28.0-28.9,adult Start:21-Feb-2019 Instruction Type:Provider Instructions for Treatment How to access health informa tion online Indication:Non-smoker Start:21-Nov-2018 Instruction Type:Patient Education How to access health informa tion online - Detail Indication:Non-smoker Start:21-Nov-2018 Instruction Type:Patient Education Patient Instructions Indication:Non-smoker Start:21-Nov-2018 Instruction Type:Provider Instructions for Treatment How to access health informa tion online Indication:Non-smoker Start:02-Aug-2018 Instruction Type:Patient Education How to access health informa tion online - Detail Indication:Non-smoker Start:02-Aug-2018 Instruction Type:Patient Education Patient Instructions Indication:Non-smoker Start:02-Aug-2018 Instruction Type:Provider Instructions for Treatment How to access health informa tion online Indication:BMI 29.0-29.9,adult Start:12-Jul-2018 Instruction Type:Patient Education How to access health informa tion online - Detail Indication:BMI 29.0-29.9,adult Start:12-Jul-2018 Instruction Type:Patient Education Patient Instructions Indication:BMI 29.0-29.9,adult Start:12-Jul-2018 Instruction Type:Provider Instructions for Treatment How to access health informa tion online Indication:Hypercholesteremia (Renamed from Hypercholesterolemia) Start:06-May-2018 Instruction Type:Patient Education How to access health informa tion online - Detail Indication:Hypercholesteremia (Renamed from Hypercholesterolemia) Start:06-May-2018 Instruction Type:Patient Education Patient Instructions Indication:Hypercholesteremia (Renamed from Hypercholesterolemia) Start:06-May-2018 Instruction Type:Provider Instructions for Treatment How to access health informa tion online Indication:Non-smoker Start:03-Jan-2018 Instruction Type:Patient Education How to access health informa tion online - Detail Indication:Non-smoker Start:03-Jan-2018 Instruction Type:Patient Education Patient Instructions Indication:Non-smoker Start:03-Jan-2018 Instruction Type:Provider Instructions for Treatment Name Dates Details How to access health informa tion online Indication:Non-smoker Start:15-Jan-2020 Instruction Type:Patient Education How to access health informa tion online - Detail Indication:Non-smoker Start:15-Jan-2020 Instruction Type:Patient Education Patient Instructions Indication:Non-smoker Start:15-Jan-2020 Instruction Type:Provider Instructions for Treatment How to access health informa tion online Indication:BMI 29.0-29.9,adult Start:12-Sep-2019 Instruction Type:Patient Education How to access health informa tion online - Detail Indication:BMI 29.0-29.9,adult Start:12-Sep-2019 Instruction Type:Patient Education Patient Instructions Indication:BMI 29.0-29.9,adult Start:12-Sep-2019 Instruction Type:Provider Instructions for Treatment How to access health informa tion online Indication:BMI 29.0-29.9,adult Start:08-Aug-2019 Instruction Type:Patient Education How to access health informa tion online - Detail Indication:BMI 29.0-29.9,adult Start:08-Aug-2019 Instruction Type:Patient Education Patient Instructions Indication:BMI 29.0-29.9,adult Start:08-Aug-2019 Instruction Type:Provider Instructions for Treatment How to access health informa tion online Indication:BMI 28.0-28.9,adult Start:05-Mar-2019 Instruction Type:Patient Education How to access health informa tion online - Detail Indication:BMI 28.0-28.9,adult Start:05-Mar-2019 Instruction Type:Patient Education Patient Instructions Indication:BMI 28.0-28.9,adult Start:05-Mar-2019 Instruction Type:Provider Instructions for Treatment How to access health informa tion online Indication:BMI 28.0-28.9,adult Start:21-Feb-2019 Instruction Type:Patient Education How to access health informa tion online - Detail Indication:BMI 28.0-28.9,adult Start:21-Feb-2019 Instruction Type:Patient Education Patient Instructions Indication:BMI 28.0-28.9,adult Start:21-Feb-2019 Instruction Type:Provider Instructions for Treatment How to access health informa tion online Indication:Non-smoker Start:21-Nov-2018 Instruction Type:Patient Education How to access health informa tion online - Detail Indication:Non-smoker Start:21-Nov-2018 Instruction Type:Patient Education Patient Instructions Indication:Non-smoker Start:21-Nov-2018 Instruction Type:Provider Instructions for Treatment How to access health informa tion online Indication:Non-smoker Start:02-Aug-2018 Instruction Type:Patient Education How to access health informa tion online - Detail Indication:Non-smoker Start:02-Aug-2018 Instruction Type:Patient Education Patient Instructions Indication:Non-smoker Start:02-Aug-2018 Instruction Type:Provider Instructions for Treatment How to access health informa tion online Indication:BMI 29.0-29.9,adult Start:12-Jul-2018 Instruction Type:Patient Education How to access health informa tion online - Detail Indication:BMI 29.0-29.9,adult Start:12-Jul-2018 Instruction Type:Patient Education Patient Instructions Indication:BMI 29.0-29.9,adult Start:12-Jul-2018 Instruction Type:Provider Instructions for Treatment How to access health informa tion online Indication:Hypercholesteremia (Renamed from Hypercholesterolemia) Start:06-May-2018 Instruction Type:Patient Education How to access health informa tion online - Detail Indication:Hypercholesteremia (Renamed from Hypercholesterolemia) Start:06-May-2018 Instruction Type:Patient Education Patient Instructions Indication:Hypercholesteremia (Renamed from Hypercholesterolemia) Start:06-May-2018 Instruction Type:Provider Instructions for Treatment How to access health informa tion online Indication:Non-smoker Start:03-Jan-2018 Instruction Type:Patient Education How to access health informa tion online - Detail Indication:Non-smoker Start:03-Jan-2018 Instruction Type:Patient Education Patient Instructions Indication:Non-smoker Start:03-Jan-2018 Instruction Type:Provider Instructions for Treatment Name Dates Details How to access health informa tion online Indication:BMI 29.0-29.9,adult Start:12-Sep-2019 Instruction Type:Patient Education How to access health informa tion online - Detail Indication:BMI 29.0-29.9,adult Start:12-Sep-2019 Instruction Type:Patient Education Patient Instructions Indication:BMI 29.0-29.9,adult Start:12-Sep-2019 Instruction Type:Provider Instructions for Treatment How to access health informa tion online Indication:BMI 29.0-29.9,adult Start:08-Aug-2019 Instruction Type:Patient Education How to access health informa tion online - Detail Indication:BMI 29.0-29.9,adult Start:08-Aug-2019 Instruction Type:Patient Education Patient Instructions Indication:BMI 29.0-29.9,adult Start:08-Aug-2019 Instruction Type:Provider Instructions for Treatment How to access health informa tion online Indication:BMI 28.0-28.9,adult Start:05-Mar-2019 Instruction Type:Patient Education How to access health informa tion online - Detail Indication:BMI 28.0-28.9,adult Start:05-Mar-2019 Instruction Type:Patient Education Patient Instructions Indication:BMI 28.0-28.9,adult Start:05-Mar-2019 Instruction Type:Provider Instructions for Treatment How to access health informa tion online Indication:BMI 28.0-28.9,adult Start:21-Feb-2019 Instruction Type:Patient Education How to access health informa tion online - Detail Indication:BMI 28.0-28.9,adult Start:21-Feb-2019 Instruction Type:Patient Education Patient Instructions Indication:BMI 28.0-28.9,adult Start:21-Feb-2019 Instruction Type:Provider Instructions for Treatment How to access health informa tion online Indication:Non-smoker Start:21-Nov-2018 Instruction Type:Patient Education How to access health informa tion online - Detail Indication:Non-smoker Start:21-Nov-2018 Instruction Type:Patient Education Patient Instructions Indication:Non-smoker Start:21-Nov-2018 Instruction Type:Provider Instructions for Treatment How to access health informa tion online Indication:Non-smoker Start:02-Aug-2018 Instruction Type:Patient Education How to access health informa tion online - Detail Indication:Non-smoker Start:02-Aug-2018 Instruction Type:Patient Education Patient Instructions Indication:Non-smoker Start:02-Aug-2018 Instruction Type:Provider Instructions for Treatment How to access health informa tion online Indication:BMI 29.0-29.9,adult Start:12-Jul-2018 Instruction Type:Patient Education How to access health informa tion online - Detail Indication:BMI 29.0-29.9,adult Start:12-Jul-2018 Instruction Type:Patient Education Patient Instructions Indication:BMI 29.0-29.9,adult Start:12-Jul-2018 Instruction Type:Provider Instructions for Treatment How to access health informa tion online Indication:Hypercholesteremia (Renamed from Hypercholesterolemia) Start:06-May-2018 Instruction Type:Patient Education How to access health informa tion online - Detail Indication:Hypercholesteremia (Renamed from Hypercholesterolemia) Start:06-May-2018 Instruction Type:Patient Education Patient Instructions Indication:Hypercholesteremia (Renamed from Hypercholesterolemia) Start:06-May-2018 Instruction Type:Provider Instructions for Treatment How to access health informa tion online Indication:Non-smoker Start:03-Jan-2018 Instruction Type:Patient Education How to access health informa tion online - Detail Indication:Non-smoker Start:03-Jan-2018 Instruction Type:Patient Education Patient Instructions Indication:Non-smoker Start:03-Jan-2018 Instruction Type:Provider Instructions for Treatment Name Dates Details How to Access Health Informa tion Online using Patient Portal and [employer] Indication:Non-smoker Start:20-May-2020 Instruction Type:Patient Education Patient Instructions Indication:Non-smoker Start:20-May-2020 Instruction Type:Provider Instructions for Treatment How to access health informa tion online Indication:Non-smoker Start:15-Jan-2020 Instruction Type:Patient Education How to access health informa tion online - Detail Indication:Non-smoker Start:15-Jan-2020 Instruction Type:Patient Education Patient Instructions Indication:Non-smoker Start:15-Jan-2020 Instruction Type:Provider Instructions for Treatment How to access health informa tion online Indication:BMI 29.0-29.9,adult Start:12-Sep-2019 Instruction Type:Patient Education How to access health informa tion online - Detail Indication:BMI 29.0-29.9,adult Start:12-Sep-2019 Instruction Type:Patient Education Patient Instructions Indication:BMI 29.0-29.9,adult Start:12-Sep-2019 Instruction Type:Provider Instructions for Treatment How to access health informa tion online Indication:BMI 29.0-29.9,adult Start:08-Aug-2019 Instruction Type:Patient Education How to access health informa tion online - Detail Indication:BMI 29.0-29.9,adult Start:08-Aug-2019 Instruction Type:Patient Education Patient Instructions Indication:BMI 29.0-29.9,adult Start:08-Aug-2019 Instruction Type:Provider Instructions for Treatment How to access health informa tion online Indication:BMI 28.0-28.9,adult Start:05-Mar-2019 Instruction Type:Patient Education How to access health informa tion online - Detail Indication:BMI 28.0-28.9,adult Start:05-Mar-2019 Instruction Type:Patient Education Patient Instructions Indication:BMI 28.0-28.9,adult Start:05-Mar-2019 Instruction Type:Provider Instructions for Treatment How to access health informa tion online Indication:BMI 28.0-28.9,adult Start:21-Feb-2019 Instruction Type:Patient Education How to access health informa tion online - Detail Indication:BMI 28.0-28.9,adult Start:21-Feb-2019 Instruction Type:Patient Education Patient Instructions Indication:BMI 28.0-28.9,adult Start:21-Feb-2019 Instruction Type:Provider Instructions for Treatment How to access health informa tion online Indication:Non-smoker Start:21-Nov-2018 Instruction Type:Patient Education How to access health informa tion online - Detail Indication:Non-smoker Start:21-Nov-2018 Instruction Type:Patient Education Patient Instructions Indication:Non-smoker Start:21-Nov-2018 Instruction Type:Provider Instructions for Treatment How to access health informa tion online Indication:Non-smoker Start:02-Aug-2018 Instruction Type:Patient Education How to access health informa tion online - Detail Indication:Non-smoker Start:02-Aug-2018 Instruction Type:Patient Education Patient Instructions Indication:Non-smoker Start:02-Aug-2018 Instruction Type:Provider Instructions for Treatment How to access health informa tion online Indication:BMI 29.0-29.9,adult Start:12-Jul-2018 Instruction Type:Patient Education How to access health informa tion online - Detail Indication:BMI 29.0-29.9,adult Start:12-Jul-2018 Instruction Type:Patient Education Patient Instructions Indication:BMI 29.0-29.9,adult Start:12-Jul-2018 Instruction Type:Provider Instructions for Treatment How to access health informa tion online Indication:Hypercholesteremia (Renamed from Hypercholesterolemia) Start:06-May-2018 Instruction Type:Patient Education How to access health informa tion online - Detail Indication:Hypercholesteremia (Renamed from Hypercholesterolemia) Start:06-May-2018 Instruction Type:Patient Education Patient Instructions Indication:Hypercholesteremia (Renamed from Hypercholesterolemia) Start:06-May-2018 Instruction Type:Provider Instructions for Treatment How to access health informa tion online Indication:Non-smoker Start:03-Jan-2018 Instruction Type:Patient Education How to access health informa tion online - Detail Indication:Non-smoker Start:03-Jan-2018 Instruction Type:Patient Education Patient Instructions Indication:Non-smoker Start:03-Jan-2018 Instruction Type:Provider Instructions for Treatment Chief Complaint and Reason for Visit Chief Complaint CELLULITIS Chief Complaint CELLULITIS HIGH BP Chief Complaint Admit Date 1 Y FU October 02, 2024 3:3 3pm Reason for Visit Admit Date Essential (primary) hypertension October 02, 2024 3:33pm Hyperlipidemia October 02, 2024 3:3 3pm Ischemic cardiomyopathy October 02, 2024 3:33pm History of coronary artery stent placeme nt October 02, 2024 3:33pm Additional Source Comments INFORMATION SOURCE (unrecogn ized section and content) DATE CREATED AUTHOR 10/21/2017 [facility] ([place]) DATE CREATED AUTHOR AUTHOR'S ORGANIZ ATION 12/06/2021 [facility] DATE CREATED AUTHOR AUTHOR'S ORGANIZ ATION 05/19/2022 [facility] DATE CREATED AUTHOR AUTHOR'S ORGANIZ ATION 10/04/2024 [facility] Care Teams (unrecognized sec tion and content) Team Status: Active Member Role Status Dates Lilian Coulter PLASTICS FABRICATOR, PLASTICS FABRICATOR-C Family Provider Activ e Dr. Soraida Esteves , DO Primary Care Provider Active Team Status: Inactive Member Role Status Dates Dr. Soraida Esteves , DO Primary Care Provider Active Dr. Daxa Hinojosa MD Emergency Provider Active Team Status: Inactive Member Role Status Dates Dr. Soraida Esteves , DO Primary Care Provider Active Dr. Loyd Gregg , DO Emergency Provider Active Team Status: Active Member Role/Relationship Status Dates Lilian Coulter PLASTICS FABRICATOR, PLASTICS FABRICATOR-C Family Provider Activ e Dr. Soraida Esteves , DO Primary Care Provider Active Team Status: Inactive Member Role/Relationship Status Dates Dr. Soraida Esteves DO Primary Care Provider Active Start: October 02, 2024 End: October 02, 2024 Dr. Soraida Esteves , DO Referring Provider Active Start: October 02, 2024 End: October 02, 2024 Adilene Ralph PA, PA Attending Provider Active Start: October 02, 2024 End: October 02, 2024 Goals (unrecognized section and content) Goals may be documented in a n alternate sectionGoals may be documented in an alternate sectionGoals may be documented in an alternate section FOR RECORDS PERTAINING TO PATIENTS WHO ARE OR HAVE BEEN ENROLLED IN A CHEMICAL DEPENDENCY/SUBSTANCEABUSE PROGRAM, SOME INFORMATION MAY BE OMITTED. This clinical summary was aggregated from multiple sources. Caution should be exercised in using it in the provision of clinical care. This summary normalizes information from multiple sources, and as a consequence, information in this document may materially change the coding, format and clinical context of patient data. In addition, data may be omitted in some cases. CLINICAL DECISIONS SHOULD BE BASED ON THE PRIMARY CLINICAL RECORDS. [employer] provides no warranty or guarantee of the accuracy or completeness of information in this document.
[2024-10-24 23:09] VITALS: BP 176/74; PULSE 73; RESP 16; O2SAT 98
[2024-10-24 23:58] VITALS: BP 199/71; PULSE 59; RESP 16; O2SAT 97
[2024-10-25 00:11] LABS: Troponin T High Sens 2 HR 16 ng/L (<=14)
[2024-10-25 00:23] VITALS: BP 184/84; PULSE 56; RESP 18; TEMP 36.6; O2SAT 99
== END 2024-10-25 00:24 | disposition home or self-care (01) ==
LOC: ED 22:49
PROVIDERS: Emergency Provider Emergency Medicine; PCP Internal Medicine; Visit Provider Emergency Medicine
DX: I11.0 Hypertensive heart disease with heart failure (principal); I50.22 Chronic systolic (congestive) heart failure; I25.2 Old myocardial infarction; E78.5 Hyperlipidemia, unspecified; I25.10 Atherosclerotic heart disease of native coronary artery without angina pectoris; Z95.5 Presence of coronary angioplasty implant and graft; Z79.899 Other long term (current) drug therapy; Z79.82 Long term (current) use of aspirin; F41.9 Anxiety disorder, unspecified
CPT/HCPCS: 71045; 80048; 84484; 85025; 99285; A4216

== ENCOUNTER → 2024-11-20 | Outpatient (CLI) | payer SELFPAY ==
--- NOTE | 2024-11-20 08:00 | CDU_ITS ---
Reason For Study Reason For Study: Dizziness Rt. Velocities/BP Lt. Velocities/BP Prox CCA 78.4/21.2 cm/sec. Prox CCA 88.5/13.8 cm/sec. Mid CCA 80.6/20.1 cm/sec. Mid CCA 87.6/16.3 cm/sec. Dist CCA 70.7/11.3 cm/sec. Dist CCA 72.8/12.6 cm/sec. Prox ICA 76.2/23.4 cm/sec. Prox ICA 72.8/17.6 cm/sec. Mid ICA 106./27.2 cm/sec. Mid ICA 88.8/31.1 cm/sec. Dist ICA 137.3/26.1 cm/sec. Dist ICA 77.7/21.2 cm/sec. Rt. ICA/CCA = 1.70. Lt. ICA/CCA = 1.01. Prox ECA 77.3/4.7 cm/sec. Prox ECA 198.2/11.6 cm/sec. Rt. Vert. 59.9/13.8 cm/sec. Lt. Vert. 63/10.2 cm/sec. Right Extracranial There is intimal thickening but no significant atherosclerotic plaque noted in the right common carotid artery. There is intimal thickening but no significant atherosclerotic plaque noted in the right internal carotid artery. The right internal carotid artery is very tortuous. There is intimal thickening but no significant atherosclerotic plaque noted in the right external carotid artery. Antegrade flow is noted in the right vertebral artery. Left Extracranial There is intimal thickening but no significant atherosclerotic plaque noted in the left common carotid artery. There is heterogeneous, irregular atherosclerotic plaque noted in the left internal carotid artery. The left internal carotid artery is very tortuous. There is heterogeneous, irregular atherosclerotic plaque noted in the left external carotid artery. Antegrade flow is noted in the left vertebral artery. Procedure Carotid Duplex 29547. This is a Carotid Duplex examination using B-mode, color flow and specral Doppler. Exam performed in department. VL/Carotid Duplex Ultrasound Interpretation Summary Normal right extracranial internal carotid. Mild (<50%) stenosis left extracranial internal carotid. Patent and antegrade vertebrals bilaterally. Ordering Physician: Soraida Loera Referring Physician: Soraida Loera Performed By: Suzanna Lantigua RVT
== END | disposition home or self-care (01) ==
PROVIDERS: PCP Internal Medicine; Referring Provider Internal Medicine; Visit Provider Internal Medicine
DX: R42 Dizziness and giddiness (principal)
CPT/HCPCS: 93880